=== PATIENT | male | born 1960 | race Caucasian/White ===

== ENCOUNTER 2022-09-15 13:17 | Emergency (ER) | payer OTHER ==
--- OUTSIDE RECORDS SUMMARY | 2022-09-15 13:41 | XMS REPORT | Continuity of Care Document ---
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 mg total) H [facility]sp[facility] 25 MG 22 by mouth l tablet every 6 (six) hours as needed for nausea or vomiting. tamsulosin 2022- No .4mg QD Take 1 [facility] (FLOMAX) 08-[address] 0.4 mg 13:04: 00:00 (0.4 mg Hospita capsule 51 :00 total) by l mouth daily. apixaban 2022- No 5mg Q.5D Take 1 [facility] i (ELIQUIS) 5 08-17 tablet (5 st mg tablet 13:04: 00:00 mg total) [facility] 51 :00 by mouth 2 l (two) times a day. atorvastati 2022- No 10mg QD Take 1 [facility] n (LIPITOR) 08-17 tablet (10 s t 10 mg 13:04: 00:00 mg total) Hospit a tablet 51 :00 by mouth l daily. aspirin 2022- No 81mg QD Take 1 [facility] (ECOTRIN) 08-17 tablet (81 st 81 MG 13:04: 00:00 mg total) Hospit a enteric 51 :00 by mouth l coated daily. tablet ranolazine 2022- No 500mg Q.5D Take 1 [facility] (RANEXA) 08-[address] 500 MG 12 13:04: 00:00 (500 mg Hosp dee hr ER 51 :00 total) by l tablet mouth 2 (two) times a day. senna 2022- No 1{tbl} QD Take 1 [facility] (SENOKOT) 08-[address] 8.6 mg 13:04: 00:00 mouth Hospita tablet 51 :00 daily. l potassium 2022- No 10meq QD Take 1 [facility] les chloride 08-17 tablet (10 st (K-DUR) 10 13:04: 00:00 mEq total) Hospita MEQ CR 51 :00 by mouth l tablet daily. calcium 2022- No Q.5D Chew 1 [facility] carbonate 08-[address] (TUMS) 200 13:04: 00:00 (500 mg of Hospita mg calcium 51 :00 Calcium l (500 mg) Carbonate chewable total) 2 tablet (two) times a day as needed for indigestio n or heartburn. dicyclomine 2022- No 20mg Q.25D Take 1 [facility] (BENTYL) 20 08-17 tablet (20 s t mg tablet 13:04: 00:00 mg total) [facility]ita 51 :00 by mouth 4 l (four) times a day. ondansetron 2022- No 4mg Q.5D Take 1 [facility] (ZOFRAN) 4 08-17 tablet (4 st MG tablet 13:04: 00:00 mg total) [facility] spita 51 :00 by mouth 2 l (two) times a day as needed for nausea or vomiting. spironolact 2022- No 50mg QD Take 1 [facility] one 08-17 tablet (50 st (ALDACTONE) 13:04: 00:00 mg total) Hospita 50 MG 51 :00 by mouth l tablet daily. cetirizine No 10mg QD Take 1 [facility] (ZyrTEC) 10 08-17 tablet (10 s t MG tablet 13:04: 00:00 mg total) [facility] 51 :00 by mouth l daily. DULoxetine No 40mg QD Take 1 [facility] (DRIZALMA) 08-[address] 40 mg 13:04: 00:00 (40 mg Hospita capsule 51 :00 total) by l mouth daily. morPHINE 2022- [place] [id number] 15mg Q.5D Take 1 [facility] di (MS CONTIN) 08-17 tablet (15 s t 15 MG 12 hr 13:04: 00:00 mg total) [facility]ospita tablet 51 :00 by mouth 2 l (two) times a day as needed for severe pain .chronic pain. Max Daily Amount: 30 mg pregabalin 2022- No 150mg Q.5D Take 2 [facility] (LYRICA) 75 08-[address] MG capsule 13:04: 00:00 (150 mg Hos sae 51 :00 total) by l mouth 2 (two) times a day. Total 300mg a day [place]DROcodone 2022- [place] [id number] 1{tbl} Q4H Take 1 [facility] -acetaminop 08-[address] hen (NORCO) 13:04: 00:00 mouth Hosp dee 10-325 mg 51 :00 every 4 l per tablet (four) hours .acute pain. furosemide 2022- No 40mg Q.5D Take 1 [facility] (LASIX) 40 08-17 tablet (40 st mg tablet 13:04: 00:00 mg total) [facility]ita 51 :00 by mouth 2 l (two) times a day. magnesium 2022- No 400mg QD Take 1 [facility] oxide 08-[address] (MAG-OX) 13:04: 00:00 (400 mg Hospi ta 400 mg 51 :00 total) by l (241.3 mg mouth magnesium) daily. tablet fluocinolon 2022- No Q.5D 1 [facility] di e (SYNALAR) 08-17 applicatio s t 0.01 % 13:04: 00:00 n 2 (two) Hospi ta external 51 :00 times a l solution day. alum-mag 2022- No 30mL Q.25D Take 30 mL M [facility]i hydroxide-s 08-17 by mouth 4 s t imeth 13:04: 00:00 (four) Hospita (MAALOX 51 :00 times a l PLUS) day as 200-200-20 needed for mg/5 mL heartburn. suspension LORAZepam 2022- No 1mg Q8H Take 1 [facility] (ATIVAN) 1 08-17 tablet (1 st MG tablet 13:04: 00:00 mg total) [facility]ita 51 :00 by mouth l every 8 (eight) hours as needed for anxiety. amiodarone 2022- No 1{tbl} QD Take 1 [facility] HCl 08-[address] (AMIODARONE 13:04: 00:00 mouth Hosp dee ORAL) 51 :00 daily. l tamsulosin 2022- No .4mg QD Take 1 [facility] (FLOMAX) 08-[address] 0.4 mg 13:04: 00:00 (0.4 mg Hospita capsule 51 :00 total) by l mouth daily. apixaban 2022- No 5mg Q.5D Take 1 [facility] (ELIQUIS) 5 08-17 tablet (5 st mg tablet 13:04: 00:00 mg total) [facility] 51 :00 by mouth 2 l (two) times a day. atorvastati 2022- No 10mg QD Take 1 [facility] n (LIPITOR) 08-17 tablet (10 s t 10 mg 13:04: 00:00 mg total) Hospit a tablet 51 :00 by mouth l daily. aspirin 2022- No 81mg QD Take 1 [facility] (ECOTRIN) 08-17 tablet (81 st 81 MG 13:04: 00:00 mg total) Hospit a enteric 51 :00 by mouth l coated daily. tablet ranolazine 2022- No 500mg Q.5D Take 1 [facility] (RANEXA) 08-[address] 500 MG 12 13:04: 00:00 (500 mg Hosp dee hr ER 51 :00 total) by l tablet mouth 2 (two) times a day. senna 2022- No 1{tbl} QD Take 1 [facility] (SENOKOT) 08-[address] 8.6 mg 13:04: 00:00 mouth Hospita tablet 51 :00 daily. l potassium 2022- No 10meq QD Take 1 [facility] chloride 08-17 tablet (10 st (K-DUR) 10 13:04: 00:00 mEq total) Hospita MEQ CR 51 :00 by mouth l tablet daily. calcium 2022- No Q.5D Chew 1 [facility] carbonate 08-[address] (TUMS) 200 13:04: 00:00 (500 mg of Hospita mg calcium 51 :00 Calcium l (500 mg) Carbonate chewable total) 2 tablet (two) times a day as needed for indigestio n or heartburn. dicyclomine 2022- No 20mg Q.25D Take 1 [facility] (BENTYL) 20 08-17 tablet (20 s t mg tablet 13:04: 00:00 mg total) [facility] spita 51 :00 by mouth 4 l (four) times a day. ondansetron 2022- No 4mg Q.5D Take 1 [facility] (ZOFRAN) 4 08-17 tablet (4 st MG tablet 13:04: 00:00 mg total) [facility]ita 51 :00 by mouth 2 l (two) times a day as needed for nausea or vomiting. spironolact 2022- No 50mg QD Take 1 [facility] one 08-17 tablet (50 st (ALDACTONE) 13:04: 00:00 mg total) Hospita 50 MG 51 :00 by mouth l tablet daily. cetirizine No 10mg QD Take 1 [facility] (ZyrTEC) 10 08-17 tablet (10 s t MG tablet 13:04: 00:00 mg total) [facility] 51 :00 by mouth l daily. DULoxetine No 40mg QD Take 1 [facility] (DRIZALMA) 08-[address] 40 mg 13:04: 00:00 (40 mg Hospita capsule 51 :00 total) by l mouth daily. [place]PHINE 2022- [place] [id number] 15mg Q.5D Take 1 [facility] di (MS CONTIN) 08-17 tablet (15 s t 15 MG 12 hr 13:04: 00:00 mg total) [facility]ospita tablet 51 :00 by mouth 2 l (two) times a day as needed for severe pain .chronic pain. Max Daily Amount: 30 mg pregabalin 2022- No 150mg Q.5D Take 2 [facility] (LYRICA) 75 08-[address] MG capsule 13:04: 00:00 (150 mg Hos sa[facility] 51 :00 total) by l mouth 2 (two) times a day. Total 300mg a day HYDROcodone 2022- [place] [id number] 1{tbl} Q4H Take 1 [facility] -acetaminop 08-[address] hen (NORCO) 13:04: 00:00 mouth Hosp dee 10-325 mg 51 :00 every 4 l per tablet (four) hours .acute pain. furosemide 2022- No 40mg Q.5D Take 1 [facility] (LASIX) 40 08-17 tablet (40 st mg tablet 13:04: 00:00 mg total) [facility] 51 :00 by mouth 2 l (two) times a day. magnesium 2022- No 400mg QD Take 1 [facility] oxide 08-[address] (MAG-OX) 13:04: 00:00 (400 mg Hospi ta 400 mg 51 :00 total) by l (241.3 mg mouth magnesium) daily. tablet fluocinolon 2022- No 1{appli Q.5D 1 [facility] e (SYNALAR) 08-17 cation} applicatio st 0.01 % 13:04: 00:00 n 2 (two) Hospi ta external 51 :00 times a l solution day. alum-mag 2022- No 30mL Q.25D Take 30 mL M ethodi hydroxide-s 08-17 by mouth 4 s t imeth 13:04: 00:00 (four) Hospita (MAALOX 51 :00 times a l PLUS) day as 200-200-20 needed for mg/5 mL heartburn. suspension LORAZepam 2022- No 1mg Q8H Take 1 [facility] (ATIVAN) 1 08-17 tablet (1 st MG tablet 13:04: 00:00 mg total) Ho spita 51 :00 by mouth l every 8 (eight) hours as needed for anxiety. amiodarone 2022- No 1{tbl} QD Take 1 [facility] HCl 08-[address] (AMIODARONE 13:04: 00:00 mouth Hosp dee ORAL) 51 :00 daily. l BUMETanide 2022-0 2022- No 2mg QD Take 1 [facility] (BUMEX) 2 08-17 tablet (2 st MG tablet 01:37: 00:00 mg total) Ho spita 21 :00 by mouth l daily. BUMETanide 0 2022- No 2mg QD Take 1 [facility] (BUMEX) 2 3-29 03-29 tablet (2 st MG tablet 01:37: 00:00 mg total) Ho [facility]ita 21 :00 by mouth l daily. morPHINE 2023-0 Yes [id number] 15mg Q.5D Take 1 [facility] (MS CONTIN) 3-29 tablet (15 st 15 MG 12 hr 00:00: mg total) [facility]sp[facility] tablet 00 by mouth 2 l (two) times a day as needed for severe pain .chronic pain. Max Daily Amount: 30 mg apixaban 2023-0 Yes 5mg Q.5D Take 1 [facility] (ELIQUIS) 5 3-29 tablet (5 st mg tablet 00:00: mg total) Hos sae 00 by mouth 2 l (two) times a day. HYDROcodone 2023-0 Yes [id number] 1{tbl} Q4H Take 1 [facility]i -acetaminop 3-[address] hen (Isentropic) 00:00: mouth Hospi ta 10-325 mg 00 every 4 l per tablet (four) hours .acute pain. Max Daily Amount: 6 tablets LORAZepam 2023-0 Yes 1mg Q8H Take 1 [facility] (ATIVAN) 1 3-29 tablet (1 st MG tablet 00:00: mg total) [facility] sa[facility] 00 by mouth l every 8 (eight) hours as needed for anxiety. pregabalin 2023-0 Yes 150mg Q.5D Take 1 [facility] (LYRICA) 3-[address] 150 MG 00:00: (150 mg Hospita capsule 00 total) by l mouth 2 (two) times a day. Total 300mg a day morPHINE 2023-0 Yes [id number] 15mg Q.5D Take 1 [facility] (MS CONTIN) 3-29 tablet (15 st 15 MG 12 hr 00:00: mg total) [facility] tablet 00 by mouth 2 l (two) times a day as needed for severe pain .chronic pain. Max Daily Amount: 30 mg apixaban 2023-0 Yes 5mg Q.5D Take 1 [facility] (ELIQUIS) 5 3-29 tablet (5 st mg tablet 00:00: mg total) [facility] sa[facility] 00 by mouth 2 l (two) times a day. HYDROcodone 2023-0 Yes [id number] 1{tbl} Q4H Take 1 [facility] -acetaminop 3-[address] hen (NORCO) 00:00: mouth Hospi ta 10-325 mg 00 every 4 l per tablet (four) hours .acute pain. Max Daily Amount: 6 tablets LORAZepam Yes 1mg Q8H Take 1 [facility] (ATIVAN) 1 08-17 tablet (1 st MG tablet 00:00: mg total) [facility] sa[facility] 00 by mouth l every 8 (eight) hours as needed for anxiety. pregabalin Yes 150mg Q.5D Take 1 [facility] (LYRICA) 08-[address] 150 MG 00:00: (150 mg Hospita capsule 00 total) by l mouth 2 (two) times a day. Total 300mg a day calcium 2022- Yes Q.5D Chew 1 [facility] carbonate 08-[address] (TUMS) 200 00:00: 04:59 (500 mg of Hospita mg calcium 00 :00 Calcium l (500 mg) Carbonate chewable total) 2 tablet (two) times a day as needed for indigestio n or heartburn for up to 30 days. cetirizine 2022- Yes 10mg QD Take 1 [facility] (ZyrTEC) 10 08-17 tablet (10 s t MG tablet 00:00: 04:59 mg total) Ho spita 00 :00 by mouth l daily for 30 days. dicyclomine 2022- Yes 20mg Q.25D Take 1 [facility] (BENTYL) 20 08-17 tablet (20 s t mg tablet 00:00: 04:59 mg total) Ho spita 00 :00 by mouth 4 l (four) times a day for 30 days. fluocinolon 2022- Yes Q.5D Apply 1 [facility] e (SYNALAR) 08-17 applicatio s t 0.01 % 00:00: 04:59 n. Hospita external 00 :00 topically l solution 2 (two) times a day for 30 days. magnesium 2022- Yes 400mg QD Take 1 [facility] oxide 08-[address] (MAG-OX) 00:00: 04:59 (400 mg Hospi ta 400 mg 00 :00 total) by l (241.3 mg mouth magnesium) daily for tablet 30 days. ondansetron 2022- Yes 4mg Q.5D Take 1 [facility] (ZOFRAN) 4 08-17 tablet (4 st MG tablet 00:00: 04:59 mg total) Ho [facility]ita 00 :00 by mouth 2 l (two) times a day as needed for nausea or vomiting for up to 30 days. potassium 2022-2022- Yes 10meq QD Take 1 [facility] chloride 08-17 tablet (10 st (K-DUR) 10 00:00: 04:59 mEq total) Hospita MEQ CR 00 :00 by mouth l tablet daily for 30 days. spironolact 2022- Yes 50mg QD Take 1 [facility] one 08-17 tablet (50 st (ALDACTONE) 00:00: 04:59 mg total) Hospita 50 MG 00 :00 by mouth l tablet daily for 30 days. amIODarone 2022- Yes 200mg QD Take 1 [facility] (PACERONE) 08-[address] 200 MG 00:00: 04:59 (200 mg Hospita tablet 00 :00 total) by l mouth daily for 30 days. aspirin 2022- Yes 81mg QD Take 1 [facility] (ECOTRIN) 08-17 tablet (81 st 81 MG 00:00: 04:59 mg total) Hospit a enteric 00 :00 by mouth l coated daily for tablet 30 days. atorvastati 2022- Yes 10mg QD Take 1 [facility] n (LIPITOR) 08-17 tablet (10 s t 10 mg 00:00: 04:59 mg total) Hospit a tablet 00 :00 by mouth l daily for 30 days. DULoxetine 2022- Yes 40mg QD Take 1 [facility] (DRIZALMA) 08-[address] 40 mg 00:00: 04:59 (40 mg Hospita capsule 00 :00 total) by l mouth daily for 30 days. furosemide 2022- Yes 40mg Q.5D Take 1 [facility] (LASIX) 40 08-17- tablet (40 st mg tablet 00:00: 04:59 mg total) Ho spita 00 :00 by mouth 2 l (two) times a day for 30 days. ranolazine 2022- Yes 500mg Q.5D Take 1 [facility] (RANEXA) 08-[address] 500 MG 12 00:00: 04:59 (500 mg Hosp dee hr ER 00 :00 total) by l tablet mouth 2 (two) times a day for 30 days. senna 2022- Yes 1{tbl} QD Take 1 [facility] (SENOKOT) 08-[address] 8.6 mg 00:00: 04:59 mouth [facility]ospita tablet 00 :00 daily for l 30 days. tamsulosin 2022- Yes .4mg QD Take 1 [facility] (FLOMAX) 08-[address] 0.4 mg 00:00: :59 (0.4 mg Hospita capsule 00 :00 total) by l mouth daily for 30 days. calcium 2022- Yes Q.5D Chew 1 [facility] carbonate 08-[address] (TUMS) 200 00:00: :59 (500 mg of Hospita mg calcium 00 :00 Calcium l (500 mg) Carbonate chewable total) 2 tablet (two) times a day as needed for indigestio n or heartburn for up to 30 days. cetirizine 2022- Yes 10mg QD Take 1 [facility] (ZyrTEC) 10 08-17 tablet (10 s t MG tablet 00:00: 04:59 mg total) Ho spita 00 :00 by mouth l daily for 30 days. dicyclomine 2022- Yes 20mg Q.25D Take 1 [facility] (BENTYL) 20 08-17 tablet (20 s t mg tablet 00:00: 04:59 mg total) Ho spita 00 :00 by mouth 4 l (four) times a day for 30 days. fluocinolon 2022- Yes 1{appli Q.5D Apply 1 [facility] e (SYNALAR) 08-17 cation} applicatio st 0.01 % 00:00: 04:59 n. Hospita external 00 :00 topically l solution 2 (two) times a day for 30 days. magnesium 2022- Yes 400mg QD Take 1 [facility] oxide 08-[address] (MAG-OX) 00:00: 04:59 (400 mg Hospi ta 400 mg 00 :00 total) by l (241.3 mg mouth magnesium) daily for tablet 30 days. ondansetron 2022- Yes 4mg Q.5D Take 1 [facility] (ZOFRAN) 4 08-17 tablet (4 st MG tablet 00:00: 04:59 mg total) Ho spita 00 :00 by mouth 2 l (two) times a day as needed for nausea or vomiting for up to 30 days. potassium 2022- Yes 10meq QD Take 1 [facility] chloride 08-17 tablet (10 st (K-DUR) 10 00:00: 04:59 mEq total) Hospita MEQ CR 00 :00 by mouth l tablet daily for 30 days. spironolact 2022- Yes 50mg QD Take 1 [facility] one 08-17 tablet (50 st (ALDACTONE) 00:00: 04:59 mg total) Hospita 50 MG 00 :00 by mouth l tablet daily for 30 days. amIODarone 2022- Yes 200mg QD Take 1 [facility] (PACERONE) 08-[address] 200 MG 00:00: 04:59 (200 mg Hospita tablet 00 :00 total) by l mouth daily for 30 days. aspirin 2022- Yes 81mg QD Take 1 [facility] (ECOTRIN) 08-17 tablet (81 st 81 MG 00:00: 04:59 mg total) Hospit a enteric 00 :00 by mouth l coated daily for tablet 30 days. atorvastati 2022- Yes 10mg QD Take 1 [facility] n (LIPITOR) 08-17 tablet (10 s t 10 mg 00:00: 04:59 mg total) Hospit a tablet 00 :00 by mouth l daily for 30 days. DULoxetine 2022- Yes 40mg QD Take 1 [facility] (DRIZALMA) 08-[address] 40 mg 00:00: 04:59 (40 mg Hospita capsule 00 :00 total) by l mouth daily for 30 days. furosemide 2022- Yes 40mg Q.5D Take 1 [facility] (LASIX) 40 08-17 tablet (40 st mg tablet 00:00: 04:59 mg total) Ho spita 00 :00 by mouth 2 l (two) times a day for 30 days. ranolazine 2022- Yes 500mg Q.5D Take 1 [facility] (RANEXA) 08-[address] 500 MG 12 00:00: 04:59 (500 mg Hosp dee hr ER 00 :00 total) by l tablet mouth 2 (two) times a day for 30 days. senna 2022- Yes 1{tbl} QD Take 1 [facility] (SENOKOT) 08-[address] 8.6 mg 00:00: 04:59 mouth Hospita tablet 00 :00 daily for l 30 days. tamsulosin 2022- Yes .4mg QD Take 1 [facility] (FLOMAX) 08-[address] 0.4 mg 00:00: 04:59 (0.4 mg Hospita capsule 00 :00 total) by l mouth daily for 30 days. alum-mag 2022- No 30mL Q.25D Take 30 mL M ethodi hydroxide-s 08-17 by mouth 4 s t imeth 00:00: 04:59 (four) Hospita (MAALOX 00 :00 times a l PLUS) day as 200-200-20 needed for mg/5 mL heartburn suspension for up to 10 days. alum-mag 2022- No 30mL Q.25D Take 30 mL M ethodi hydroxide-s 08-17 by mouth 4 s t imeth 00:00: 04:59 (four) Hospita (MAALOX 00 :00 times a l PLUS) day as 200-200-20 needed for mg/5 mL heartburn suspension for up to 10 days. tamsulosin 0 Yes .4mg QD Take [facility]4 mg Cap 16:29: (0.4 mg Medi sean 24 hr 58 total) by Center capsule mouth in the morning. levothyroxi 0 Yes 50ug Take [address] [facility] 3-27 tablet (50 [facility] (SYNTHROID, 16:29: mcg total) Medical LEVOTHROID) [address] 50 MCG tablet HYDROcodone 3-0 Yes 1{tbl} Take [address] -acetaminop 3-27 tablet by Cyn es hen (NORCO 16:29: mouth Medica l 10-325) 58 every 6 Center 10-325 mg (six) per tablet hours as needed for Pain. tamsulosin 3-0 Yes .4mg QD Take 1 [facility] (FLOMAX[facility] 3[facility] 0.4 mg Cap 16:29: (0.4 mg Medi sean 24 hr 58 total) by Center capsule mouth in the morning. levothyroxi 2023-0 Yes 50ug Take [address] [facility] [address] [facility] 3-27 tablet (50 [facility] (SYNTHROID, 16:29: mcg total) Medical LEVOTHROID) [address] 50 MCG tablet HYDROcodone 2023-0 Yes 1{tbl} Take [address] -acetaminop 3-27 tablet by Cyn es hen (NORCO 16:29: mouth Medica l 10-325) 58 every 6 Center 10-325 mg (six) per tablet hours as needed for Pain. cyclobenzap 2023-0 2023- No 10mg Take [address] [facility] 3-27 04-01 tablet (10 [facility] (FLEXERIL) 00:00: 23:59 mg total) M edical 10 MG 00 :00 by mouth 3 Center tablet (three) times daily as needed for Muscle spasms for up to 5 days. cyclobenzap 2023-0 2023- No 10mg Take [address] [facility] [address] [facility] 3-27 04-01 tablet (10 [facility] (FLEXERIL) 00:00: 23:59 mg total) M edical 10 MG 00 :00 by mouth 3 Center tablet (three) times daily as needed for Muscle spasms for up to 5 days. guaifenesin 2023-0 Yes 600mg Take 1 [place] [facility] (MUCINEX) 3-07 Tablet by Jr ge 600 MG SR 11:53: mouth two of tablet 04 times Medicin daily. e diphenhydrA 3-0 Yes 10mg Take 10 mg [facility] MINE-Phenyl 3-07 by mouth [place] ege ephrine 11:53: as needed. of (SUDAFED PE 04 Medicin DAY & NIGHT e OR) hydrocodone Yes 1{tbl} Take 1 [facility] -acetaminop 3-07 Tablet by Col lege hen (NORCO) 11:53: mouth of 10-325 MG 04 every 4 Medicin per tablet hours as e needed for Pain. Tamsulosin Yes .4mg Take 0.4 [place] [facility] HCl 0.4 MG 3-07 mg by Doon CAPS 11:53: mouth of 04 daily. Medicin e cetirizine, Yes 10mg Take 1 [facility] ZYRTEC, 10 3-07 Tablet by [facility] ege MG tablet 11:53: mouth of 04 once. Medicin e cetirizine, 2021-05 Yes 10mg Take 10 mg [facility] ZYRTEC, 1-08 by mouth Doon (ZYRTEC 08:21: once. of ALLERGY) 10 29 Medicin MG tablet e guaifenesin 2021-05 Yes 600mg Take 600 [facility] (MUCINEX) 1-08 mg by Doon 600 MG SR 08:20: mouth two of tablet 45 times Medicin daily. e diphenhydrA 2021-05 Yes 10mg Take 10 mg [facility] MINE-Phenyl 1-08 by mouth [place] ege ephrine 08:20: as needed. of (SUDAFED PE 45 Medicin DAY & NIGHT e OR) hydrocodone 2021-05 Yes 1{tbl} Take 1 [facility] -acetaminop 1-08 Tablet by Col lege hen (NORCO) 08:20: mouth of 10-325 MG 45 every 6 Medicin per tablet hours as e needed for Pain. Tamsulosin 2021-05 Yes .4mg Take 0.4 [place] [facility] HCl 1-08 mg by Doon (FLOMAX) 08:20: mouth of 0.4 MG CAPS 45 daily. Medici n e carvedilol 2021-05 Yes 6.25mg Take 6.25 [facility] (COREG) 0-13 mg by Doon 6.25 MG 00:00: mouth 2 of tablet 00 times Medicin daily e (with meals). carvedilol 2021-05 Yes 6.25mg Take 1 [place] [facility] (COREG) 0-13 Tablet by Doon 6.25 MG 00:00: mouth 2 of tablet 00 times Medicin daily e (with meals). lamotrigine 2021-05 Yes 25mg Take 25 mg [facility] (LAMICTAL) 0-09 by mouth Colle ge 25 MG 00:00: daily. of tablet 00 Medicin e lamotrigine 2021-05 Yes 25mg Take 1 [facility] (LAMICTAL) 0-09 Tablet by [place]ay ege 25 MG 00:00: mouth of tablet 00 daily. Medicin e lorazepam 2021-05 Yes .5mg Take 0.5 [facility] (ATIVAN) 0-06 mg by [facility] tablet 00:00: mouth of 00 Every 6 Medicin hours. e lorazepam 2021-05 Yes .5mg Take 1 [facility] (ATIVAN) 0-06 Tablet by Jr e tablet 00:00: mouth of 00 Every 6 Medicin hours. e dicyclomine Yes 20mg Q.25D Take 1 [facility] (BENTYL) 20 -23 tablet (20 st mg tablet 15:45: mg total) Hos sae 04 by mouth 4 l (four) times a day. BUMETanide 0 Yes 2mg QD Take 1 [facility] (BUMEX) 2 -23 tablet (2 st MG tablet 15:45: mg total) Hos sae 04 by mouth l daily. ondansetron 0 Yes 4mg Q.5D Take 1 Meth les (ZOFRAN) 4 -23 tablet (4 st MG tablet 15:45: mg total) Hos sae 04 by mouth 2 l (two) times a day as needed for nausea or vomiting. spironolact 0 Yes 50mg QD Take 1 Meth les one - tablet (50 st (ALDACTONE) 15:45: mg total) H ospita 50 MG 04 by mouth l tablet daily. cetirizine 0 Yes 10mg QD Take 1 [facility] di (ZyrTEC) 10 -23 tablet (10 st MG tablet 15:45: mg total) Hos sae 04 by mouth l daily. magnesium 0 Yes 148mL Take 0.5 [facility] citrate 02-[address] solution 15:45: (148 mL Hospit a 04 total) by l mouth as needed. DULoxetine 0 Yes 40mg QD Take 1 [facility] (DRIZALMA) 02-[address] 40 mg 15:45: (40 mg Hospita capsule 04 total) by l mouth daily. benzonatate 2021-0 Yes 200mg [id number] Take 1 [facility] (TESSALON) 02-[id number] 200 MG 15:45: 3D (200 mg Hospita capsule 04 total) by l mouth 3 (three) times a day as needed for cough. morPHINE 2021-0 Yes [id number] 15mg Q.5D Take 1 [facility] i (MS CONTIN) 02-11 tablet (15 st 15 MG 12 hr 15:45: mg total) H ospita tablet 04 by mouth 2 l (two) times a day as needed for severe pain .chronic pain. Max Daily Amount: 30 mg pregabalin 2021-0 Yes 75mg Q.5D Take 1 [facility] di (LYRICA) 75 02-[address] MG capsule 15:45: (75 mg Hospi ta 04 total) by l mouth 2 (two) times a day. HYDROcodone 2021-0 Yes [id number] 1{tbl} Q4H Take 1 M ethodi -acetaminop 02-[address] hen (NORCO) 15:45: mouth Hospi ta 10-325 mg 04 every 4 l per tablet (four) hours .acute pain. Max Daily Amount: 6 tablets furosemide 2021-0 Yes 40mg Q.5D Take 1 [facility] di (LASIX) 40 02-11 tablet (40 st mg tablet 15:45: mg total) Hos sae 04 by mouth 2 l (two) times a day. magnesium 2021-0 Yes 400mg QD Take 1 [facility] di oxide 02-[address] (MAG-OX) 15:45: (400 mg Hospit a 400 mg 04 total) by l (241.3 mg mouth magnesium) daily. tablet fluocinolon 2021-0 Yes 1{appli Q.5D 1 Met hodi e (SYNALAR) 02-11 cation} applicatio st 0.01 % 15:45: n 2 (two) Hospit a external 04 times a l solution day. alum-mag 2021-0 Yes 30mL Q.25D Take 30 mL Me thodi hydroxide-s 02-[address] imeth 15:45: (four) Hospita (MAALOX 04 times a l PLUS) day as 200-200-20 needed for mg/5 mL heartburn. suspension promethazin 2021-0 Yes 25mg Q6H Take 1 Meth les e 9-23 tablet (25 st (PHENERGAN) 15:45: mg total) H ospita 25 MG 04 by mouth l tablet every 6 (six) hours as needed for nausea or vomiting. LORAZepam 2021-0 Yes 1mg Q8H Take 1 Method i (ATIVAN) 1 9-23 tablet (1 st MG tablet 15:45: mg total) Hos sae 04 by mouth l every 8 (eight) hours as needed for anxiety. amiodarone 2021-0 Yes 1{tbl} QD Take 1 Met hodi HCl 9-[address] (AMIODARONE 15:45: mouth Hospi ta ORAL) 04 daily. l dicyclomine 2021-0 Yes 20mg Q.25D Take 1 Met hodi (BENTYL) 20 -23 tablet (20 st mg tablet 15:45: mg total) Hos sae 04 by mouth 4 l (four) times a day. BUMETanide 2021-0 Yes 2mg QD Take 1 Metho di (BUMEX) 2 -23 tablet (2 st MG tablet 15:45: mg total) Hos sae 04 by mouth l daily. ondansetron 2021-0 Yes 4mg Q.5D Take 1 Meth les (ZOFRAN) 4 -23 tablet (4 st MG tablet 15:45: mg total) Hos sae 04 by mouth 2 l (two) times a day as needed for nausea or vomiting. spironolact 2021-0 Yes 50mg QD Take 1 Meth les one -23 tablet (50 st (ALDACTONE) 15:45: mg total) H ospita 50 MG 04 by mouth l tablet daily. cetirizine 2-0 Yes 10mg QD Take 1 Metho di (ZyrTEC) 10 -23 tablet (10 st MG tablet 15:45: mg total) Hos sae 04 by mouth l daily. magnesium 2021-0 Yes 148mL Take 0.5 Met hodi citrate 9-[address] solution 15:45: (148 mL Hospit a 04 total) by l mouth as needed. DULoxetine 2021-0 Yes 40mg QD Take 1 Metho di (DRIZALMA) 02-[address] 40 mg 15:45: (40 mg [facility] capsule 04 total) by l mouth daily. benzonatate 2021-0 Yes 200mg Q.[id number] Take 1 [facility] (TESSALON) 02-[id number] 200 MG 15:45: 3D (200 mg [facility] capsule 04 total) by l mouth 3 (three) times a day as needed for cough. morPHINE 2021-0 Yes [id number] 15mg Q.5D Take 1 [facility] i (MS CONTIN) 02-11 tablet (15 st 15 MG 12 hr 15:45: mg total) [facility] tablet 04 by mouth 2 l (two) times a day as needed for severe pain .chronic pain. Max Daily Amount: 30 mg pregabalin 2021-0 Yes 75mg Q.5D Take 1 [facility] (LYRICA) 75 02-[address] MG capsule 15:45: (75 mg [facility] ta 04 total) by l mouth 2 (two) times a day. HYDROcodone 2021-0 Yes [id number] 1{tbl} Q4H Take 1 M [facility] -acetaminop 02-[address] hen (NORCO) 15:45: mouth Hospi ta 10-325 mg 04 every 4 l per tablet (four) hours .acute pain. Max Daily Amount: 6 tablets furosemide 2021-0 Yes 40mg Q.5D Take 1 [facility] (LASIX) 40 02-11 tablet (40 st mg tablet 15:45: mg total) Hos sae 04 by mouth 2 l (two) times a day. magnesium 2021-0 Yes 400mg QD Take 1 [facility] di oxide 02-[address] (MAG-OX) 15:45: (400 mg Hospit a 400 mg 04 total) by l (241.3 mg mouth magnesium) daily. tablet fluocinolon 2021-0 Yes 1{appli Q.5D 1 Met hodi e (SYNALAR) 02-11 cation} applicatio st 0.01 % 15:45: n 2 (two) Hospit a external 04 times a l solution day. alum-mag 2021-0 Yes 30mL Q.25D Take 30 mL [facility] hydroxide-s -[address] imeth 15:45: (four) Hospita (MAALOX 04 times a l PLUS) day as 200-200-20 needed for mg/5 mL heartburn. suspension promethazin 2021-0 Yes 25mg Q6H Take 1 Meth les e 9-23 tablet (25 st (PHENERGAN) 15:45: mg total) [facility] 25 MG 04 by mouth l tablet every 6 (six) hours as needed for nausea or vomiting. LORAZepam 2021-0 Yes 1mg Q8H Take 1 [facility] (ATIVAN) 1 9-23 tablet (1 st MG tablet 15:45: mg total) [facility] sa[facility] 04 by mouth l every 8 (eight) hours as needed for anxiety. amiodarone 2021-0 Yes 1{tbl} QD Take 1 Met [facility] HCl 9-[address] (AMIODARONE 15:45: mouth Hospi ta ORAL) 04 daily. l dicyclomine 2021-0 Yes 20mg Q.25D Take 1 [facility] (BENTYL) 20 9-23 tablet (20 st mg tablet 15:45: mg total) [facility] sa[facility] 04 by mouth 4 l (four) times a day. BUMETanide 2021-0 Yes 2mg QD Take 1 [facility] (BUMEX) 2 -23 tablet (2 st MG tablet 15:45: mg total) [facility] 04 by mouth l daily. ondansetron 2021-0 Yes 4mg Q.5D Take 1 [facility] (ZOFRAN) 4 9-23 tablet (4 st MG tablet 15:45: mg total) [facility] 04 by mouth 2 l (two) times a day as needed for nausea or vomiting. spironolact 2021-0 Yes 50mg QD Take 1 [facility] les one 9-23 tablet (50 st (ALDACTONE) 15:45: mg total) [facility] 50 MG 04 by mouth l tablet daily. cetirizine 2021-0 Yes 10mg QD Take 1 [facility] (ZyrTEC) 10 9-23 tablet (10 st MG tablet 15:45: mg total) [facility] 04 by mouth l daily. magnesium 2021-0 Yes 148mL Take 0.5 Met hodi citrate 9-[address] solution 15:45: (148 mL Hospit a 04 total) by l mouth as needed. DULoxetine 2021-0 Yes 40mg QD Take 1 [facility] di (DRIZALMA) 02-[address] 40 mg 15:45: (40 mg [facility] capsule 04 total) by l mouth daily. benzonatate 2-0 Yes 200mg Q.[id number] Take 1 [facility] (TESSALON) 02-[id number] 200 MG 15:45: 3D (200 mg [facility] capsule 04 total) by l mouth 3 (three) times a day as needed for cough. morPHINE 2021-0 Yes [id number] 15mg Q.5D Take 1 [facility] (MS CONTIN) 02-11 tablet (15 st 15 MG 12 hr 15:45: mg total) [facility] tablet 04 by mouth 2 l (two) times a day as needed for severe pain .chronic pain. Max Daily Amount: 30 mg pregabalin 2-0 Yes 75mg Q.5D Take 1 [facility] (LYRICA) 75 02-[address] MG capsule 15:45: (75 mg [facility] ta 04 total) by l mouth 2 (two) times a day. HYDROcodone 2021-0 Yes [id number] 1{tbl} Q4H Take 1 M [facility]i -acetaminop 02-[address] hen (NORCO) 15:45: mouth Hospi ta 10-325 mg 04 every 4 l per tablet (four) hours .acute pain. Max Daily Amount: 6 tablets furosemide 2-0 Yes 40mg Q.5D Take 1 [facility] (LASIX) 40 02-11 tablet (40 st mg tablet 15:45: mg total) [facility] sa[facility] 04 by mouth 2 l (two) times a day. magnesium 2021-0 Yes 400mg QD Take 1 [facility] di oxide 02-[address] (MAG-OX) 15:45: (400 mg Hospit a 400 mg 04 total) by l (241.3 mg mouth magnesium) daily. tablet fluocinolon 2021-0 Yes 1{appli Q.5D 1 Met hodi e (SYNALAR) 02-11 cation} applicatio st 0.01 % 15:45: n 2 (two) Hospit a external 04 times a l solution day. alum-mag 2021-0 Yes 30mL Q.25D Take 30 mL [facility] hydroxide-s 02-[address] imeth 15:45: (four) [facility]ospita (MAALOX 04 times a l PLUS) day as 200-200-20 needed for mg/5 mL heartburn. suspension promethazin 2021-0 Yes 25mg Q6H Take 1 Meth les e 9-23 tablet (25 st (PHENERGAN) 15:45: mg total) [facility] 25 MG 04 by mouth l tablet every 6 (six) hours as needed for nausea or vomiting. LORAZepam 2021-0 Yes 1mg Q8H Take 1 [facility] (ATIVAN) 1 9-23 tablet (1 st MG tablet 15:45: mg total) [facility] 04 by mouth l every 8 (eight) hours as needed for anxiety. amiodarone 2021-0 Yes 1{tbl} QD Take 1 [facility] HCl 9-[address] (AMIODARONE 15:45: mouth Hospi ta ORAL) 04 daily. l dicyclomine 2021-0 Yes 20mg Q.25D Take 1 [facility] (BENTYL) 20 9-23 tablet (20 st mg tablet 15:45: mg total) [facility] 04 by mouth 4 l (four) times a day. BUMETanide 2021-0 Yes 2mg QD Take 1 [facility] di (BUMEX) 2 9-23 tablet (2 st MG tablet 15:45: mg total) [facility] 04 by mouth l daily. ondansetron 2021-0 Yes 4mg Q.5D Take 1 [facility] (ZOFRAN) 4 9-23 tablet (4 st MG tablet 15:45: mg total) [facility] 04 by mouth 2 l (two) times a day as needed for nausea or vomiting. spironolact 2021-0 Yes 50mg QD Take 1 Meth les one 9-23 tablet (50 st (ALDACTONE) 15:45: mg total) [facility] 50 MG 04 by mouth l tablet daily. cetirizine 2021-0 Yes 10mg QD Take 1 [facility] (ZyrTEC) 10 9-23 tablet (10 st MG tablet 15:45: mg total) [facility] 04 by mouth l daily. magnesium 2021-0 Yes 148mL Take 0.5 Met [facility] citrate 9-[address] solution 15:45: (148 mL Hospit a 04 total) by l mouth as needed. DULoxetine 2021-0 Yes 40mg QD Take 1 [facility] di (DRIZALMA) 02-[address] 40 mg 15:45: (40 mg [facility] capsule 04 total) by l mouth daily. benzonatate 2-0 Yes 200mg Q.[id number] Take 1 [facility] (TESSALON) 02-[id number] 200 MG 15:45: 3D (200 mg [facility] capsule 04 total) by l mouth 3 (three) times a day as needed for cough. morPHINE 2021-0 Yes [id number] 15mg Q.5D Take 1 [facility] (MS CONTIN) 02-11 tablet (15 st 15 MG 12 hr 15:45: mg total) [facility] tablet 04 by mouth 2 l (two) times a day as needed for severe pain .chronic pain. Max Daily Amount: 30 mg pregabalin 2021-0 Yes 75mg Q.5D Take 1 [facility] (LYRICA) 75 02-[address] MG capsule 15:45: (75 mg [facility] ta 04 total) by l mouth 2 (two) times a day. HYDROcodone 2021-0 Yes [id number] 1{tbl} Q4H Take 1 M [facility]i -acetaminop 02-[address] hen (NORCO) 15:45: mouth Hospi ta 10-325 mg 04 every 4 l per tablet (four) hours .acute pain. Max Daily Amount: 6 tablets furosemide 2021-0 Yes 40mg Q.5D Take 1 [facility] (LASIX) 40 02-11 tablet (40 st mg tablet 15:45: mg total) [facility] 04 by mouth 2 l (two) times a day. magnesium 2021-0 Yes 400mg QD Take 1 [facility] oxide 02-[address] (MAG-OX) 15:45: (400 mg Hospit a 400 mg 04 total) by l (241.3 mg mouth magnesium) daily. tablet fluocinolon 2-0 Yes 1{appli Q.5D 1 Met hodi e (SYNALAR) 02-11 cation} applicatio st 0.01 % 15:45: n 2 (two) Hospit a external 04 times a l solution day. alum-mag 2021-0 Yes 30mL Q.25D Take 30 mL [facility] hydroxide-s 02-[address] imeth 15:45: (four) [facility]ospita (MAALOX 04 times a l PLUS) day as 200-200-20 needed for mg/5 mL heartburn. suspension promethazin 2021-0 Yes 25mg Q6H Take 1 Meth les e 9-23 tablet (25 st (PHENERGAN) 15:45: mg total) [facility] 25 MG 04 by mouth l tablet every 6 (six) hours as needed for nausea or vomiting. LORAZepam 2021-0 Yes 1mg Q8H Take 1 [facility] (ATIVAN) 1 9-23 tablet (1 st MG tablet 15:45: mg total) [facility] 04 by mouth l every 8 (eight) hours as needed for anxiety. amiodarone 2021-0 Yes 1{tbl} QD Take 1 [facility] HCl 9-[address] (AMIODARONE 15:45: mouth Hospi ta ORAL) 04 daily. l dicyclomine 2021-0 Yes 20mg Q.25D Take 1 [facility] (BENTYL) 20 9-23 tablet (20 st mg tablet 15:45: mg total) [facility] 04 by mouth 4 l (four) times a day. BUMETanide 2021-0 Yes 2mg QD Take 1 [facility] (BUMEX) 2 9-23 tablet (2 st MG tablet 15:45: mg total) [facility] 04 by mouth l daily. ondansetron 2021-0 Yes 4mg Q.5D Take 1 [facility] (ZOFRAN) 4 9-23 tablet (4 st MG tablet 15:45: mg total) [facility] 04 by mouth 2 l (two) times a day as needed for nausea or vomiting. spironolact 2021-0 Yes 50mg QD Take 1 Meth les one 9-23 tablet (50 st (ALDACTONE) 15:45: mg total) [facility] 50 MG 04 by mouth l tablet daily. cetirizine 2021-0 Yes 10mg QD Take 1 [facility] (ZyrTEC) 10 9-23 tablet (10 st MG tablet 15:45: mg total) [facility] 04 by mouth l daily. magnesium 2021-0 Yes 148mL Take 0.5 Met [facility] citrate 9-[address] solution 15:45: (148 mL Hospit a 04 total) by l mouth as needed. DULoxetine 2021-0 Yes 40mg QD Take 1 [facility] (DRIZALMA) 02-[address] 40 mg 15:45: (40 mg [facility] capsule 04 total) by l mouth daily. benzonatate 2021-0 Yes 200mg Q.[id number] Take 1 [facility] (TESSALON) 02-[id number] 200 MG 15:45: 3D (200 mg [facility] capsule 04 total) by l mouth 3 (three) times a day as needed for cough. morPHINE 2021-0 Yes [id number] 15mg Q.5D Take 1 [facility] (MS CONTIN) 02-11 tablet (15 st 15 MG 12 hr 15:45: mg total) [facility] tablet 04 by mouth 2 l (two) times a day as needed for severe pain .chronic pain. Max Daily Amount: 30 mg pregabalin 2021-0 Yes 75mg Q.5D Take 1 [facility] (LYRICA) 75 02-[address] MG capsule 15:45: (75 mg [facility] ta 04 total) by l mouth 2 (two) times a day. HYDROcodone 2021-0 Yes [id number] 1{tbl} Q4H Take 1 M [facility]i -acetaminop 02-[address] hen (NORCO) 15:45: mouth Hospi ta 10-325 mg 04 every 4 l per tablet (four) hours .acute pain. Max Daily Amount: 6 tablets furosemide 2021-0 Yes 40mg Q.5D Take 1 [facility] di (LASIX) 40 02-11 tablet (40 st mg tablet 15:45: mg total) [facility] 04 by mouth 2 l (two) times a day. magnesium 2021-0 Yes 400mg QD Take 1 [facility] oxide 02-[address] (MAG-OX) 15:45: (400 mg Hospit a 400 mg 04 total) by l (241.3 mg mouth magnesium) daily. tablet fluocinolon 2021-0 Yes 1{appli Q.5D 1 Met hodi e (SYNALAR) 02-11 cation} applicatio st 0.01 % 15:45: n 2 (two) Hospit a external 04 times a l solution day. alum-mag 2021-0 Yes 30mL Q.25D Take 30 mL [facility] hydroxide-s 9-[address] imeth 15:45: (four) [facility]ospita (MAALOX 04 times a l PLUS) day as 200-200-20 needed for mg/5 mL heartburn. suspension promethazin 2021-0 Yes 25mg Q6H Take 1 Meth les e - tablet (25 st (PHENERGAN) 15:45: mg total) [facility] 25 MG 04 by mouth l tablet every 6 (six) hours as needed for nausea or vomiting. LORAZepam 2021-0 Yes 1mg Q8H Take 1 [facility] (ATIVAN) 1 02-11 tablet (1 st MG tablet 15:45: mg total) [facility] 04 by mouth l every 8 (eight) hours as needed for anxiety. amiodarone 2021-0 Yes 1{tbl} QD Take 1 [facility] HCl - tablet by st (AMIODARONE 15:45: mouth Hospi ta ORAL) 04 daily. l bisacodyL 2021-0 Yes 10mg Q24H Insert 1 Meth les (DULCOLAX) 02-[address] 10 mg 15:45: y (10 mg [facility]ospita suppository 03 total) l into the rectum daily as needed for constipati on. guaiFENesin 2021-0 Yes 600mg Q.[id number] Take 1 [facility] (MUCINEX) 02-[id number] 600 mg 15:45: 3D (600 mg [facility] tablet 03 total) by l extended mouth 3 release (three) 12hr times a day as needed. lactulose 2021-0 Yes 10g Q24H Take 15 mL Me thodi 20 gram/30 02-11 ([address] mL solution 15:45: total) by [facility] 03 mouth l daily as needed. phenylephri 2021-0 Yes 10mg Q6H Take 1 Meth les ne (Sudafed - tablet (10 st PE) 10 MG 15:45: mg total) [facility] tablet 03 by mouth l every 6 (six) hours as needed for congestion . ranolazine 2021-0 Yes 500mg Q.5D Take 1 Meth les (RANEXA) - tablet st 500 MG 12 15:45: (500 mg [facility] ta hr ER 03 total) by l tablet mouth 2 (two) times a day. albuterol 2021-0 Yes 2.5mg Q6H Take 3 mL Me [facility] (ACCUNEB) 02-11 (2.[address] 2.5 mg /3 15:45: total) by Hos sae mL (0.083 03 nebulizati l %) on every 6 nebulizer (six) solution hours as needed for wheezing. senna 202-0 Yes 1{tbl} QD Take 1 [facility] (SENOKOT) 02-[address] 8.6 mg 15:45: mouth [facility] tablet 03 daily. l potassium 2022-0 Yes 10meq QD Take 1 [facility] di chloride 02-11 tablet (10 st (K-DUR) 10 15:45: mEq total) [facility] MEQ CR 03 by mouth l tablet daily. calcium 2022-0 Yes Q.5D Chew 1 [facility] carbonate 02-[address] (TUMS) 200 15:45: (500 mg of [facility] mg calcium 03 Calcium l (500 mg) Carbonate chewable total) 2 tablet (two) times a day as needed for indigestio n or heartburn. bisacodyL 2021-0 Yes 10mg Q24H Insert 1 Meth les (DULCOLAX) 02-[address] 10 mg 15:45: y (10 mg [facility] suppository 03 total) l into the rectum daily as needed for constipati on. guaiFENesin 2021-0 Yes 600mg Q.10201431 Take 1 [facility] (MUCINEX) 02-[id number] 600 mg 15:45: 3D (600 mg [facility] tablet 03 total) by l extended mouth 3 release (three) 12hr times a day as needed. lactulose 2021-0 Yes 10g Q24H Take 15 mL Me [facility]odi 20 gram/30 02-11 ([address] mL solution 15:45: total) by [facility] 03 mouth l daily as needed. phenylephri 2022-0 Yes 10mg Q6H Take 1 Meth les ne (Sudafed 02-11 tablet (10 st PE) 10 MG 15:45: mg total) [facility] tablet 03 by mouth l every 6 (six) hours as needed for congestion . ranolazine 2022-0 Yes 500mg Q.5D Take 1 [facility] (RANEXA) 9-[address] 500 MG 12 15:45: (500 mg [facility] ta hr ER 03 total) by l tablet mouth 2 (two) times a day. albuterol 2021-0 Yes 2.5mg Q6H Take 3 mL Me [facility]odi (ACCUNEB) 02-11 (2.[address] 2.5 mg /3 15:45: total) by Hos sa[facility] mL (0.083 03 nebulizati l %) on every 6 nebulizer (six) solution hours as needed for wheezing. senna 2021-0 Yes 1{tbl} QD Take 1 [facility] (SENOKOT) 02-[address] 8.6 mg 15:45: mouth [facility] tablet 03 daily. l potassium 2021-0 Yes 10meq QD Take 1 [facility] di chloride 02-11 tablet (10 st (K-DUR) 10 15:45: mEq total) [facility] MEQ CR 03 by mouth l tablet daily. calcium 2021-0 Yes Q.5D Chew 1 [facility] carbonate 02-[address] (TUMS) 200 15:45: (500 mg of [facility] mg calcium 03 Calcium l (500 mg) Carbonate chewable total) 2 tablet (two) times a day as needed for indigestio n or heartburn. bisacodyL 2021-0 Yes 10mg Q24H Insert 1 Meth les (DULCOLAX) 02-[address] 10 mg 15:45: y (10 mg [facility] suppository 03 total) l into the rectum daily as needed for constipati on. guaiFENesin 2021-0 Yes 600mg Q.[id number] Take 1 [facility] (MUCINEX) 02-[id number] 600 mg 15:45: 3D (600 mg [facility] tablet 03 total) by l extended mouth 3 release (three) 12hr times a day as needed. lactulose 2021-0 Yes 10g Q24H Take 15 mL [facility] 20 gram/30 02-11 ([address] mL solution 15:45: total) by [facility] 03 mouth l daily as needed. phenylephri 2021-0 Yes 10mg Q6H Take 1 Meth les ne (Sudafed 02-11 tablet (10 st PE) 10 MG 15:45: mg total) [facility] tablet 03 by mouth l every 6 (six) hours as needed for congestion . ranolazine 202-0 Yes 500mg Q.5D Take 1 [facility] les (RANEXA) - tablet st 500 MG 12 15:45: (500 mg [facility] ta hr ER 03 total) by l tablet mouth 2 (two) times a day. albuterol 2021-0 Yes 2.5mg Q6H Take 3 mL [facility] (ACCUNEB) 02-11 (2.[address] 2.5 mg /3 15:45: total) by Hos sa[facility] mL (0.083 03 nebulizati l %) on every 6 nebulizer (six) solution hours as needed for wheezing. senna 2021-0 Yes 1{tbl} QD Take 1 [facility] (SENOKOT) 02-[address] 8.6 mg 15:45: mouth [facility] tablet 03 daily. l potassium 2021-0 Yes 10meq QD Take 1 [facility] di chloride 02-11 tablet (10 st (K-DUR) 10 15:45: mEq total) [facility] MEQ CR 03 by mouth l tablet daily. calcium 202-0 Yes Q.5D Chew 1 [facility] carbonate 02-[address] (TUMS) 200 15:45: (500 mg of [facility] mg calcium 03 Calcium l (500 mg) Carbonate chewable total) 2 tablet (two) times a day as needed for indigestio n or heartburn. bisacodyL 2021-0 Yes 10mg Q24H Insert 1 Meth les (DULCOLAX) 02-[address] 10 mg 15:45: y (10 mg [facility]osp[facility] suppository 03 total) l into the rectum daily as needed for constipati on. guaiFENesin 2021-0 Yes 600mg Q.[id number] Take 1 [facility] (MUCINEX) - [id number] tablet st 600 mg 15:45: 3D (600 mg [facility] tablet 03 total) by l extended mouth 3 release (three) 12hr times a day as needed. lactulose 2021-0 Yes 10g Q24H Take 15 mL Me [facility] 20 gram/30 02-11 ([address] mL solution 15:45: total) by [facility] 03 mouth l daily as needed. phenylephri 202-0 Yes 10mg Q6H Take 1 Meth les ne (Sudafed -23 tablet (10 st PE) 10 MG 15:45: mg total) [facility] tablet 03 by mouth l every 6 (six) hours as needed for congestion . ranolazine 2022-0 Yes 500mg Q.5D Take 1 Meth les (RANEXA) - tablet st 500 MG 12 15:45: (500 mg [facility]pi ta hr ER 03 total) by l tablet mouth 2 (two) times a day. albuterol 2022-0 Yes 2.5mg Q6H Take 3 mL [facility] (ACCUNEB) 02-11 (2.[address] 2.5 mg /3 15:45: total) by [facility] sa[facility] mL (0.083 03 nebulizati l %) on every 6 nebulizer (six) solution hours as needed for wheezing. senna 2021-0 Yes 1{tbl} QD Take 1 [facility] (SENOKOT) 02-[address] 8.6 mg 15:45: mouth [facility] tablet 03 daily. l potassium 2022-0 Yes 10meq QD Take 1 [facility] di chloride - tablet (10 st (K-DUR) 10 15:45: mEq total) [facility] MEQ CR 03 by mouth l tablet daily. calcium 2022-0 Yes Q.5D Chew 1 [facility] carbonate - tablet st (TUMS) 200 15:45: (500 mg of [facility] mg calcium 03 Calcium l (500 mg) Carbonate chewable total) 2 tablet (two) times a day as needed for indigestio n or heartburn. bisacodyL 2022-0 Yes 10mg Q24H Insert 1 Meth les (DULCOLAX) 02-[address] 10 mg 15:45: y (10 mg [facility]osp[facility] suppository 03 total) l into the rectum daily as needed for constipati on. guaiFENesin 2-0 Yes 600mg Q.[id number] Take 1 [facility] (MUCINEX) 02-[id number] 600 mg 15:45: 3D (600 mg [facility] tablet 03 total) by l extended mouth 3 release (three) 12hr times a day as needed. lactulose 2022-0 Yes 10g Q24H Take 15 mL [facility] 20 gram/30 - ([address] mL solution 15:45: total) by [facility] 03 mouth l daily as needed. phenylephri 2022-0 Yes 10mg Q6H Take 1 Meth les ne (Sudafed - tablet (10 st PE) 10 MG 15:45: mg total) Hos [facility] tablet 03 by mouth l every 6 (six) hours as needed for congestion . ranolazine 2021-0 Yes 500mg Q.5D Take 1 [facility] (RANEXA) - tablet st 500 MG 12 15:45: (500 mg Hospi ta hr ER 03 total) by l tablet mouth 2 (two) times a day. albuterol 2021-0 Yes 2.5mg Q6H Take 3 mL [facility] (ACCUNEB) 02-11 (2.[address] 2.5 mg /3 15:45: total) by Hos sae mL (0.083 03 nebulizati l %) on every 6 nebulizer (six) solution hours as needed for wheezing. senna 2021-0 Yes 1{tbl} QD Take 1 [facility] (SENOKOT) - tablet by st 8.6 mg 15:45: mouth [facility] tablet 03 daily. l potassium 2021-0 Yes 10meq QD Take 1 [facility] di chloride - tablet (10 st (K-DUR) 10 15:45: mEq total) [facility] MEQ CR 03 by mouth l tablet daily. calcium 2021-0 Yes Q.5D Chew 1 [facility] carbonate - tablet st (TUMS) 200 15:45: (500 mg of [facility] mg calcium 03 Calcium l (500 mg) Carbonate chewable total) 2 tablet (two) times a day as needed for indigestio n or heartburn. albuterol 2021-0 Yes 2.5mg 2.5 mg by [facility] (PROVENTIL) - [facility]ation [facility] (2.5 mg/3 00:00: route of mL) 0.083% 00 once. Medicin nebulizer e solution potassium 2021-0 Yes 10meq Take 10 [facility] chloride SA - mEq by [facility] (K-DUR, 00:00: mouth of KLOR-CON 00 daily. Medicin M10) 10 MEQ e tablet ondansetron 0 Yes 4mg Take 4 mg [facility] (ZOFRAN) 4 - by mouth Colle [facility] MG tablet 00:00: every 8 of 00 hours as Medicin needed. e DULoxetine 2021-0 Yes 40mg Take 40 mg [facility] HCl 40 MG 9-23 by mouth [facility] CSDR 00:00: daily. of 00 Medicin e pregabalin 2021-0 Yes 75mg Take 75 mg [facility] (LYRICA) 75 -23 by mouth [facility] MG capsule 00:00: two times of 00 daily. Medicin e furosemide 2021-0 Yes 40mg Take 40 mg [facility] (LASIX) 40 - by mouth Colle [facility] MG tablet 00:00: daily. of 00 Medicin e magnesium 0 Yes 400mg Take 400 [place] oxide 9-23 mg by [facility] (MAG-OX) 00:00: mouth of 400 MG 00 daily. Medicin tablet e fluocinolon 2021-0 Yes 1{appli 1 [place] [facility] e acetonide - cation} applicatio [facility] (SYNALAR) 00:00: n two of 0.01 % 00 times Medicin external daily. e solution aluminum & 2021-0 Yes 30mL Take 30 mL [facility] magnesium - by mouth [facility] hydroxide 00:00: every 6 of simethicone 00 hours as Medi chris (MAALOX) needed. e suspension promethazin 0 Yes 25mg Take 25 mg [facility] 9-23 by mouth [facility] (PHENERGAN) 00:00: every 6 of 25 MG 00 hours as Medicin tablet needed. e Ranolazine 0 Yes 500mg Take 500 [facility] 500 MG TB12 9-23 mg by Doon 00:00: mouth two of 00 times Medicin daily. e senna 2021-0 Yes 8.6mg Take 8.6 [facility] (SENOKOT) 9-23 mg by Doon 8.6 MG 00:00: mouth of tablet 00 daily. Medicin e albuterol 2021-0 Yes 2.5mg 1 [facility] [place] [facility] (PROVENTIL) 9-23 by Doon (2.5 mg/3 00:00: Inhalation of mL) 0.083% 00 route Medicin nebulizer once. e solution potassium 2021-0 Yes 10meq Take 1 [facility] chloride SA 9-23 Tablet by [facility] (K-DUR, 00:00: mouth of KLOR-CON 00 daily. Medicin M10) 10 MEQ e tablet ondansetron 2021-0 Yes 4mg Take 1 [facility] (ZOFRAN) 4 9-23 Tablet by [facility] MG tablet 00:00: mouth of 00 every 8 Medicin hours as e needed. DULoxetine 2021-0 Yes 40mg Take 40 mg [facility] HCl 40 MG 9-23 by mouth [facility] CSDR 00:00: daily. of 00 Medicin e pregabalin 2021-0 Yes 75mg Take 1 [facility] (LYRICA) 75 9-23 capsule by [facility] MG capsule 00:00: mouth two of 00 times Medicin daily. e furosemide 2021-0 Yes 40mg Take 1 [facility] (LASIX) 40 9-23 Tablet by [facility] MG tablet 00:00: mouth of 00 daily. Medicin e magnesium 0 Yes 400mg Take 1 [facility] oxide 9-23 Tablet by Doon (MAG-OX) 00:00: mouth of 400 MG 00 daily. Medicin tablet e fluocinolon 2021-0 Yes 1{appli 1 [place] e acetonide 9-23 cation} applicatio Doon (SYNALAR) 00:00: n two of 0.01 % 00 times Medicin external daily. e solution aluminum & 2021-0 Yes 30mL Take 30 mL [facility] magnesium 9-23 [facility] mouth [facility] hydroxide 00:00: every 6 of simethicone 00 hours as Medi chris (MAALOX) needed. e suspension promethazin 0 Yes 25mg Take 1 [facility] 9-23 Tablet by Doon (PHENERGAN) 00:00: mouth of 25 MG 00 every 6 Medicin tablet hours as e needed. Ranolazine 2021-0 Yes 500mg Take 500 [facility] 500 MG TB12 9-23 mg by Doon 00:00: mouth two of 00 times Medicin daily. e senna 2021-0 Yes 8.6mg Take 8.6 [facility] (SENOKOT) 9-23 mg by Doon 8.6 MG 00:00: mouth of tablet 00 daily. Medicin e tamsulosin 2022-0 Yes .4mg QD Take 0.4 [facility] (FLOMAX) 9-[address] 0.4 mg 15:46: mouth [facility]osp[facility] capsule 13 daily. l apixaban 2022-0 Yes 5mg Q.5D Take 5 mg Meth [facility] (ELIQUIS) 5 9-[address] mg tablet 15:46: (two) Hospita 13 times a l day. atorvastati 2022-0 Yes 10mg QD Take 10 mg Methodi n (LIPITOR) 9-[address] 10 mg 15:46: daily. Hospita tablet 13 l aspirin 2022-0 Yes 81mg QD Take 81 mg Meth les (ECOTRIN) 9-[address] 81 MG 15:46: daily. [facility]ospita enteric 13 l coated tablet tamsulosin 2022-0 Yes .4mg QD Take 0.4 [facility] (FLOMAX) 9-[address] 0.4 mg 15:46: mouth [facility]ospita capsule 13 daily. l apixaban 2022-0 Yes 5mg Q.5D Take 5 mg Meth les (ELIQUIS) 5 9-[address] mg tablet 15:46: (two) Hospita 13 times a l day. atorvastati 2022-0 Yes 10mg QD Take 10 mg Methodi n (LIPITOR) 9-[address] 10 mg 15:46: daily. Hospita tablet 13 l aspirin 2022-0 Yes 81mg QD Take 81 mg Meth les (ECOTRIN) 9-[address] 81 MG 15:46: daily. [facility]ospita enteric 13 l coated tablet tamsulosin 2022-0 Yes .4mg QD Take 0.4 [facility] (FLOMAX) 9-[address] 0.4 mg 15:46: mouth [facility] capsule 13 daily. l apixaban 2022-0 Yes 5mg Q.5D Take 5 mg [facility] (ELIQUIS) 5 9-[address] mg tablet 15:46: (two) [facility]ospita 13 times a l day. atorvastati 2022-0 Yes 10mg QD Take 10 mg [facility] (LIPITOR) 9-[address] 10 mg 15:46: daily. [facility] tablet 13 l aspirin 2022-0 Yes 81mg QD Take 81 mg [facility] (ECOTRIN) 9-[address] 81 MG 15:46: daily. [facility] enteric 13 l coated tablet tamsulosin 2-0 Yes .4mg QD Take 0.4 [facility] (FLOMAX) 9-[address] 0.4 mg 15:46: mouth [facility] capsule 13 daily. l apixaban 2022-0 Yes 5mg Q.5D Take 5 mg [facility] (ELIQUIS) 5 9-[address] mg tablet 15:46: (two) [facility]ospita 13 times a l day. atorvastati 2022-0 Yes 10mg QD Take 10 mg [facility] (LIPITOR) 9-[address] 10 mg 15:46: daily. [facility] tablet 13 l aspirin 2-0 Yes 81mg QD Take 81 mg [facility] (ECOTRIN) 9-[address] 81 MG 15:46: daily. [facility] enteric 13 l coated tablet tamsulosin 2-0 Yes .4mg QD Take 0.4 [facility] (FLOMAX) 9-22 mg by [facility] 0.4 mg 15:46: [facility] capsule 13 daily. l apixaban 2-0 Yes 5mg Q.5D Take 5 mg [facility] (ELIQUIS) 5 9-[address] mg tablet 15:46: (two) [facility]ospita 13 times a l day. atorvastati 2-0 Yes 10mg QD Take 10 mg [facility] (LIPITOR) 9-[address] 10 mg 15:46: daily. [facility] tablet 13 l aspirin 2-0 Yes 81mg QD Take 81 mg [facility] (ECOTRIN) 9-[address] 81 MG 15:46: daily. [facility]osp[facility] enteric 13 l coated tablet Aspirin 81 2-0 Yes 81mg Take 81 mg [facility] of Medicin e Aspirin 81 2-0 Yes 81mg Take 81 mg [facility] 00 Medicin e losartan 2021-0 2- No 25mg QD Take 25 mg [facility] (COZAAR) 25 9-20 09-[address] MG tablet 20:18: 00:00 daily. [facility] 14 :00 l losartan 2021-2021- No 25mg QD Take 25 mg [facility] (COZAAR) 25 9- 09-[address] MG tablet 20:18: 00:00 daily. [facility]pi ta 14 :00 l losartan 2021-0 2- No 25mg QD Take 25 mg [facility] (COZAAR) 25 9-20 09-[address] MG tablet 20:18: 00:00 daily. [facility]pi ta 14 :00 l losartan 2021-0 2021- No 25mg QD Take 25 mg [facility] (COZAAR) 25 9- 09-[address] MG tablet 20:18: 00:00 daily. [facility]pi ta 14 :00 l losartan 2021-2021- No 25mg QD Take 25 mg [facility] (COZAAR) 25 9- 09-[address] MG tablet 20:18: 00:00 daily. [facility]pi ta 14 :00 l losartan 2021-2021- No 25mg QD Take 25 mg [facility] (COZAAR) 25 9-08 02-[address] MG tablet 20:18: 00:00 daily. [facility]pi ta 14 :00 l losartan 2021-0 2021- No 25mg QD Take 25 mg [facility] (COZAAR) 25 9- 09-[address] MG tablet 20:18: 00:00 daily. [facility]pi ta 14 :00 l LORAZepam 2021-2021- No 1mg Q.5D Take 1 mg [facility] (ATIVAN) 1 02-08-[address] MG tablet 20:18: 00:00 (two) Hospit a 11 :00 times a l day as needed for anxiety. LORAZepam 2021-2021- No 1mg Q.5D Take 1 mg [facility] (ATIVAN) 1 -08 02-[address] MG tablet 20:18: 00:00 (two) Hospit a 11 :00 times a l day as needed for anxiety. LORAZepam 2021-0 2- No 1mg Q.5D Take 1 mg [facility] (ATIVAN) 1 -08 02-[address] MG tablet 20:18: 00:00 (two) Hospit a 11 :00 times a l day as needed for anxiety. LORAZepam 2021- No 1mg Q.5D Take 1 mg [facility] (ATIVAN) 1 -08 02-[address] MG tablet 20:18: 00:00 (two) Hospit a 11 :00 times a l day as needed for anxiety. LORAZepam 2021- No 1mg Q.5D Take 1 mg [facility] (ATIVAN) 1 -08 02-[address] MG tablet 20:18: 00:00 (two) Hospit a 11 :00 times a l day as needed for anxiety. LORAZepam 2021- No 1mg Q.5D Take 1 mg [facility] (ATIVAN) 1 -08 02-[address] MG tablet 20:18: 00:00 (two) Hospit a 11 :00 times a l day as needed for anxiety. LORAZepam 2021- No 1mg Q.5D Take 1 mg [facility] (ATIVAN) 1 02-08-[address] MG tablet 20:18: 00:00 (two) Hospit a 11 :00 times a l day as needed for anxiety. levothyroxi 2021-2021- No 50ug QD Take 50 [facility] ne 9-20 09-[address] (SYNTHROID) 20:18: 00:00 [facility] 50 mcg 08 :00 daily. l tablet levothyroxi 2021- No 50ug QD Take 50 [facility] ne 9-20 09-[address] (SYNTHROID) 20:18: 00:00 [facility] 50 mcg 08 :00 daily. l tablet levothyroxi 2021-2021- No 50ug QD Take 50 [facility] ne 9-20 09-[address] (SYNTHROID) 20:18: 00:00 [facility] 50 mcg 08 :00 daily. l tablet levothyroxi 2021-0 2021- No 50ug QD Take 50 [facility] ne 9-20 09-[address] (SYNTHROID) 20:18: 00:00 [facility] 50 mcg 08 :00 daily. l tablet levothyroxi 2021-2021- No 50ug QD Take 50 [facility] ne 9-20 09-[address] (SYNTHROID) 20:18: 00:00 [facility] 50 mcg 08 :00 daily. l tablet levothyroxi 2021-2021- No 50ug QD Take 50 [facility] ne 9-20 09-[address] (SYNTHROID) 20:18: 00:00 [facility] 50 mcg 08 :00 daily. l tablet levothyroxi 2021-2- No 50ug QD Take 50 [facility] ne 9-20 09-[address] (SYNTHROID) 20:18: 00:00 [facility] 50 mcg 08 :00 daily. l tablet carvediloL 2021- No 6.25mg Q.5D Take 6.25 [facility] (COREG) 9-20 09-[address] 6.25 MG 20:18: 00:00 mouth 2 Hospit a tablet 05 :00 (two) l times a day with meals. carvediloL 2021-2021- No 6.25mg Q.5D Take 6.25 [facility] (COREG) 9-20 09-[address] 6.25 MG 20:18: 00:00 mouth 2 Hospit a tablet 05 :00 (two) l times a day with meals. carvediloL 2021-2021- No 6.25mg Q.5D Take 6.25 [facility] (COREG) 9-20 09-[address] 6.25 MG 20:18: 00:00 mouth 2 Hospit a tablet 05 :00 (two) l times a day with meals. carvediloL 2021- No 6.25mg Q.5D Take 6.25 [facility] (COREG) 9-20 09-[address] 6.25 MG 20:18: 00:00 mouth 2 Hospit a tablet 05 :00 (two) l times a day with meals. carvediloL 2021-2021- No 6.25mg Q.5D Take 6.25 [facility] (COREG) 9-20 09-[address] 6.25 MG 20:18: 00:00 mouth 2 Hospit a tablet 05 :00 (two) l times a day with meals. carvediloL 2021- No 6.25mg Q.5D Take 6.25 [facility] (COREG) 9-20 09-[address] 6.25 MG 20:18: 00:00 mouth 2 Hospit a tablet 05 :00 (two) l times a day with meals. carvediloL 2021- No 6.25mg Q.5D Take 6.25 [facility] (COREG) 02-08 09-[address] 6.25 MG 20:18: 00:00 mouth 2 Hospit a tablet 05 :00 (two) l times a day with meals. busPIRone 2021- No 5mg [id number] Take 5 mg [facility] (BUSPAR) 5 -08 02- [id number] by mouth 3 [facility] MG tablet 20:17: 00:00 3D (three) Hosp dee 59 :00 times a l day. busPIRone 2021- No 5mg Q.[id number] Take 5 mg [facility] (BUSPAR) 5 -08 02- [id number] by mouth 3 [facility] MG tablet 20:17: 00:00 3D (three) Hosp dee 59 :00 times a l day. busPIRone 2021-2021- No 5mg Q.[id number] Take 5 mg [facility] (BUSPAR) 5 -08 02- [id number] by mouth 3 [facility] MG tablet 20:17: 00:00 3D (three) Hosp dee 59 :00 times a l day. busPIRone 2021- No 5mg Q.[id number] Take 5 mg [facility] (BUSPAR) 5 -08 02- [id number] by mouth 3 [facility] MG tablet 20:17: 00:00 3D (three) Hosp dee 59 :00 times a l day. busPIRone 2021- No 5mg Q.[id number] Take 5 mg [facility] (BUSPAR) 5 -08 02- [id number] by mouth 3 [facility] MG tablet 20:17: 00:00 3D (three) Hosp dee 59 :00 times a l day. busPIRone 2021-2021- No 5mg Q.[id number] Take 5 mg [facility] (BUSPAR) 5 -08 02- [id number] by mouth 3 [facility] MG tablet 20:17: 00:00 3D (three) Hosp dee 59 :00 times a l day. busPIRone 2021-0 2021- No 5mg Q.[id number] Take 5 mg [facility] (BUSPAR) 5 9-20 09-20 [id number] [address] mouth [facility] [address] MG tablet 20:17: 00:00 3D (three) Hosp dee 59 :00 times a l day. pregabalin 2021-0 2022- No 300mg Q.5D Take 300 [facility] (LYRICA) 9-20 09-[address] 300 MG 20:14: 00:00 mouth 2 [facility] capsule 05 :00 (two) l times a day. pregabalin 2021-0 2021- No 300mg Q.5D Take 300 [facility] (LYRICA) 9-20 09-[address] 300 MG 20:14: 00:00 mouth 2 [facility] capsule 05 :00 (two) l times a day. pregabalin 2021-0 2021- No 300mg Q.5D Take 300 [facility] (LYRICA) 9-20 09-[address] 300 MG 20:14: 00:00 mouth 2 [facility]osp[facility] capsule 05 :00 (two) l times a day. pregabalin 2021-0 2021- No 300mg Q.5D Take 300 [facility] (LYRICA) 9-20 09-[address] 300 MG 20:14: 00:00 mouth 2 [facility] capsule 05 :00 (two) l times a day. pregabalin 2021-0 2- No 300mg Q.5D Take 300 [facility] (LYRICA) 9-20 09-[address] 300 MG 20:14: 00:00 mouth 2 [facility]osp[facility] capsule 05 :00 (two) l times a day. pregabalin 2021-0 2- No 300mg Q.5D Take 300 [facility] (LYRICA) 9-20 09-[address] 300 MG 20:14: 00:00 mouth 2 [facility] capsule 05 :00 (two) l times a day. pregabalin 2021-0 2- No 300mg Q.5D Take 300 [facility] (LYRICA) 9-20 09-[address] 300 MG 20:14: 00:00 mouth 2 [facility] capsule 05 :00 (two) l times a day. HYDROcodone 2022-0 Yes 1{tbl} Take [address] [facility] [address] -acetaminop 9-09 tablet by [facility] (NORCO 11:17: mouth Medica l 10-325) 03 every 6 Center 10-325 mg (six) per tablet hours as needed for Pain. amiodarone 0 Yes 100mg QD Take [address] (PACERONE) 9-09 [facility] MG 11:17: mouth [facility] tablet 03 daily. Center POTASSIUM Yes 10ug QD Take 10 [facility] CHLORIDE 9-[facility] ORAL 11:17: mouth [facility] 03 daily. Center HYDROcodone Yes 1{tbl} Take [address] -acetaminop 9-09 tablet by [facility] (NORCO 11:17: mouth Medica l 10-325) 03 every 6 Center 10-325 mg (six) per tablet hours as needed for Pain. amiodarone Yes 100mg QD Take [address] (PACERONE) 9-09 mg [facility] 100 MG 11:17: mouth Medical tablet 03 daily. Center POTASSIUM Yes 10ug QD Take 10 [facility] CHLORIDE 9-09 [facility] ORAL 11:17: mouth [facility] 03 daily. Center HYDROcodone Yes 1{tbl} Take [address] -acetaminop 9-09 tablet by [facility] (NORCO 11:17: mouth Medica l 10-325) 03 every 6 Center 10-325 mg (six) per tablet hours as needed for Pain. amiodarone Yes 100mg QD Take [address] (PACERONE) 9-09 mg [facility] 100 MG 11:17: mouth Medical tablet 03 daily. Center POTASSIUM Yes 10ug QD Take 10 [facility] CHLORIDE 9-09 [facility]cg [facility] ORAL 11:17: mouth Medical 03 daily. Center HYDROcodone 0 Yes 1{tbl} Take [address] -acetaminop 9-09 tablet by [facility] (NORCO 11:17: mouth Medica l 10-325) 03 every 6 Center 10-325 mg (six) per tablet hours as needed for Pain. amiodarone 0 Yes 100mg QD Take [address] (PACERONE) 9-09 [facility] 100 MG 11:17: mouth Medical tablet 03 daily. [place] POTASSIUM Yes 10ug QD Take 10 [facility] CHLORIDE 9-09 [facility]cg [facility] ORAL 11:17: mouth Medical 03 daily. [place] HYDROcodone Yes 1{tbl} Take [address] -acetaminop 9-09 tablet by [facility] (NORCO 11:17: mouth Medica l 10-325) 03 every 6 Center 10-325 mg (six) per tablet hours as needed for Pain. amiodarone Yes 100mg QD Take [address] (PACERONE) 9-09 mg [facility] 100 MG 11:17: mouth Medical tablet 03 daily. [place] POTASSIUM Yes 10ug QD Take 10 [facility] CHLORIDE 9-09 [facility]cg [facility] ORAL 11:17: mouth Medical 03 daily. [place] HYDROcodone Yes 1{tbl} Take [address] -acetaminop 9-09 tablet by [facility] (NORCO 11:17: mouth Medica l 10-325) 03 every 6 Center 10-325 mg (six) per tablet hours as needed for Pain. amiodarone Yes 100mg QD Take [address] (PACERONE) 9-09 [facility] 100 MG 11:17: mouth Medical tablet 03 daily. [place] POTASSIUM Yes 10ug QD Take 10 [facility] CHLORIDE 9-09 [facility]cg [facility] ORAL 11:17: mouth Medical 03 daily. [place] POTASSIUM Yes 10ug QD Take 10 [facility] CHLORIDE 9-09 [facility]cg [facility] ORAL 11:17: mouth Medical 03 daily. [place] POTASSIUM Yes 10ug QD Take 10 [facility] CHLORIDE 9-09 [facility] ORAL 11:17: mouth Medical 03 daily. [place] tamsulosin Yes .4mg QD Take 0.[address] [facility] (FLOMAX) 9-08 mg [facility] 0.4 mg Cap 11:19: mouth Medica l 24 hr 03 daily. [place] capsule levothyroxi Yes 50ug Take [address] [facility] ne 9-08 mcg by [facility] (SYNTHROID, 11:19: mouth. Medi sean LEVOTHROID) 03 Center 50 MCG tablet tamsulosin 2022-0 Yes .4mg QD Take 0.[address] [facility] (FLOMAX) 9-08 mg by [facility] 0.4 mg Cap 11:19: mouth Medica l 24 hr 03 daily. Center capsule levothyroxi 2-0 Yes 50ug Take [address] [facility] ne 9-08 mcg by [facility] (SYNTHROID, 11:19: mouth. Medi sean LEVOTHROID) 03 Center 50 MCG tablet tamsulosin 2-0 Yes .4mg QD Take 0.[address] [facility] (FLOMAX) 9-08 mg by [facility] 0.4 mg Cap 11:19: mouth Medica l 24 hr 03 daily. Center capsule levothyroxi 2-0 Yes 50ug Take [address] [facility] ne 9-08 mcg by [facility] (SYNTHROID, 11:19: mouth. Medi sean LEVOTHROID) 03 Center 50 MCG tablet tamsulosin 2-0 Yes .4mg QD Take 0.[address] [facility] (FLOMAX) 9-08 mg by [facility] 0.4 mg Cap 11:19: mouth Medica l 24 hr 03 daily. Center capsule levothyroxi 2-0 Yes 50ug Take [address] [facility] ne 9-08 mcg by [facility] (SYNTHROID, 11:19: mouth. Medi sean LEVOTHROID) 03 Center 50 MCG tablet tamsulosin 2-0 Yes .4mg QD Take 0.[address] [facility] (FLOMAX) 9-08 mg [facility] 0.4 mg Cap 11:19: mouth Medica l 24 hr 03 daily. Center capsule levothyroxi 2-0 Yes 50ug Take [address] [facility] ne 9-08 mcg by [facility] (SYNTHROID, 11:19: mouth. Medi sean LEVOTHROID) 03 Center 50 MCG tablet tamsulosin 2-0 Yes .4mg QD Take 0.[address] [facility] (FLOMAX) 9-08 mg by [facility] 0.4 mg Cap 11:19: mouth Medica l 24 hr 03 daily. Center capsule levothyroxi 2-0 Yes 50ug Take [address] [facility] ne 9-08 mcg by [facility] (SYNTHROID, 11:19: mouth. Medi sean LEVOTHROID) 03 Center 50 MCG tablet levothyroxi 2-0 Yes 50ug Take 50 [place] [facility] ne 9-08 [facility]cg [facility] (SYNTHROID) 00:00: mouth of 50 MCG 00 daily. Medicin tablet e levothyroxi 2022-0 Yes 50ug Take 1 [facility] 01-27 Tablet by [facility] (SYNTHROID) 00:00: mouth of 50 MCG 00 daily. Medicin tablet e lactulose 2021-0 Yes 30g Q.[id number] Take [address] [facility] (CHRONULAC) - [id number] mLs (30 g [facility] 10 gram/15 00:00: 3D total) by Ms dical mL solution 00 mouth 3 Cente r (three) times daily Until patient has a bm. lactulose 2021-0 Yes 30g Q.[id number] Take [address] [facility] (CHRONULAC) - [id number] mLs (30 g [facility] 10 gram/15 00:00: 3D total) by Me dical mL solution 00 mouth 3 Cente r (three) times daily Until patient has a bm. lactulose 2021-0 Yes 30g Q.[id number] Take [address] [facility] (CHRONULAC) - [id number] mLs (30 g [facility] 10 gram/15 00:00: 3D total) by Ms dical mL solution 00 mouth 3 Cente r (three) times daily Until patient has a bm. lactulose 2021-0 Yes 30g Q.[id number] Take [address] [facility] (CHRONULAC) - [id number] mLs (30 g [facility] 10 gram/15 00:00: 3D total) by Ms dical mL solution 00 mouth 3 Cente r (three) times daily Until patient has a bm. lactulose 2021-0 Yes 30g Q.[id number] Take [address] [facility] (CHRONULAC) - [id number] mLs (30 g [facility] 10 gram/15 00:00: 3D total) by Ms dical mL solution 00 mouth 3 Cente r (three) times daily Until patient has a bm. lactulose 2021-0 Yes 30g Q.[id number] Take [address] [facility] (CHRONULAC) - [id number] mLs (30 g [facility] 10 gram/15 00:00: 3D total) by Ms dical mL solution 00 mouth 3 Cente r (three) times daily Until patient has a bm. lactulose 2021-0 Yes 30g Q.[id number] Take [address] [facility] (CHRONULAC) 9- [id number] mLs (30 g [facility] 10 gram/15 00:00: 3D total) by Me dical mL solution 00 mouth 3 Cente r (three) times daily Until patient has a bm. lactulose Yes 30g Q.[id number] Take [address] [facility] (CHRONULAC) 9-05 [id number] mLs (30 g [facility] 10 gram/15 00:00: 3D total) by Me dical mL solution 00 mouth 3 Cente r (three) times daily Until patient has a bm. polymyxin B 2021- No 1[drp] Apply [address] [facility] sulf-trimet -08 28-11 drop to [facility] hoprim 00:00: 23:59 eye(s) Medical 10,000 00 :00 every 4 Center unit- 1 (four) mg/mL Drop hours for 7 days. polymyxin B 2021- No 1[drp] Apply [address] [facility] sulf-trimet -08 28-11 drop to [facility] hoprim 00:00: 23:59 eye(s) Medical 10,000 00 :00 every 4 Center unit- 1 (four) mg/mL Drop hours for 7 days. polymyxin B 2021- No 1[drp] Apply [address] [facility] sulf-trimet -08 28-11 drop to [facility] hoprim 00:00: 23:59 eye(s) Medical 10,000 00 :00 every 4 Center unit- 1 (four) mg/mL Drop hours for 7 days. polymyxin B 2021- No 1[drp] Apply [address] [facility] sulf-trimet -08 28-11 drop to [facility] hoprim 00:00: 23:59 eye(s) Medical 10,000 00 :00 every 4 Center unit- 1 (four) mg/mL Drop hours for 7 days. polymyxin B 2021- No 1[drp] Apply [address] [facility] sulf-trimet -08 28-11 drop to [facility] hoprim 00:00: 23:59 eye(s) Medical 10,000 00 :00 every 4 Center unit- 1 (four) mg/mL Drop hours for 7 days. polymyxin B 2021- No 1[drp] Apply [address] [facility] sulf-trimet -08 28-11 drop to [facility] hoprim 00:00: 23:59 eye(s) Medical 10,000 00 :00 every 4 Center unit- 1 (four) mg/mL Drop hours for 7 days. polymyxin B 2021- No 1[drp] Apply [address] [facility] sulf-trimet -08 28- drop to [facility] hoprim 00:00: 23:59 eye(s) Medical 10,000 00 :00 every 4 Center unit- 1 (four) mg/mL Drop hours for 7 days. polymyxin B 0 2021- No 1[drp] Apply [address] [facility] sulf-trimet -08 28- drop to [facility] hoprim 00:00: 23:59 eye(s) Medical 10,000 00 :00 every 4 Center unit- 1 (four) mg/mL Drop hours for 7 days. promethazin 2021- No 25mg Take [address] [facility] 01-20 by [facility] (PHENERGAN) 12:08: 00:00 every 6 Me dical 25 MG 52 :00 (six) Center tablet hours as needed for Nausea. promethazin 2021-2021- No 25mg Take [address] [facility] 01-20 by [facility] (PHENERGAN) 12:08: 00:00 every 6 Me dical 25 MG 52 :00 (six) Center tablet hours as needed for Nausea. promethazin 2021- No 25mg Take [address] [facility] 01-20 by [facility] (PHENERGAN) 12:08: 00:00 every 6 Me dical 25 MG 52 :00 (six) Center tablet hours as needed for Nausea. promethazin 2021-2021- No 25mg Take [address] [facility] e 01-20 by [facility] (PHENERGAN) 12:08: 00:00 every 6 Me dical 25 MG 52 :00 (six) Center tablet hours as needed for Nausea. promethazin 2021- No 25mg Take [address] [facility] 01-20 by mouth [facility] (PHENERGAN) 12:08: 00:00 every 6 Me dical 25 MG 52 :00 (six) Center tablet hours as needed for Nausea. promethazin 2-0 2022- No 25mg Take [address] [facility] 01-20 by [facility] (PHENERGAN) 12:08: 00:00 every 6 Me dical 25 MG 52 :00 (six) Center tablet hours as needed for Nausea. promethazin 2-0 2022- No 25mg Take [address] [facility] 01-20 by mouth [facility] (PHENERGAN) 12:08: 00:00 every 6 Me dical 25 MG 52 :00 (six) Center tablet hours as needed for Nausea. promethazin 2-0 2022- No 25mg Take [address] [facility] e 01-20 by [facility] (PHENERGAN) 12:08: 00:00 every 6 Me dical 25 MG 52 :00 (six) Center tablet hours as needed for Nausea. losartan 2-0 2022- No 25mg Take [address] [facility] [address] [facility] (COZAAR) 25 01-20 by mouth. [facility]y k[facility] MG tablet 12:08: 00:00 Medical 43 :00 [place] losartan 2022-0 2022- No 25mg Take [address] [facility] [address] [facility] (COZAAR) 25 01-20 by mouth. [facility]y kes MG tablet 12:08: 00:00 Medical 43 :00 [place] losartan 2022-0 2022- No 25mg Take [address] [facility] [address] [facility] (COZAAR) 25 01-20 by mouth. Lizy kes MG tablet 12:08: 00:00 Medical 43 :00 [place] losartan 2022-0 2022- No 25mg Take [address] [facility] [address] [facility] (COZAAR) 25 01-20 by mouth. Lizy kes MG tablet 12:08: 00:00 Medical 43 :00 [place] losartan 2022-0 2022- No 25mg Take [address] [facility] [address] [facility] (COZAAR) 25 01-20 by mouth. Lziy kes MG tablet 12:08: 00:00 Medical 43 :00 [place] losartan 2022-0 2022- No 25mg Take [address] [facility] [address] [facility] (COZAAR) 25 01-20 by mouth. Lizy kes MG tablet 12:08: 00:00 Medical 43 :00 [place] losartan 2021-0 2021- No 25mg Take [address] [facility] [address] [facility] (COZAAR) 01-20 by mouth. [facility]y k[facility] MG tablet 12:08: 00:00 Medical 43 :00 Center losartan 2021-0 2021- No 25mg Take [address] [facility] [address] [facility] (COZAAR) 25 01-20 by mouth. Lizy kes MG tablet 12:08: 00:00 Medical 43 :00 Center methylPREDN 2021-0 2021- No follow [facility] ISolone 2-26 03-05 [facility] (MEDROL 00:00: 23:59 directions Med ical DOSEPACK) 4 00 :00 . Center mg tablet methylPREDN 2021-0 2021- No follow [facility] ISolone 2-26 03-05 [facility] (MEDROL 00:00: 23:59 directions Med ical DOSEPACK) 4 00 :00 . Center mg tablet methylPREDN 2021-0 2021- No follow [facility] ISolone 2-26 03-05 [facility] (MEDROL 00:00: 23:59 directions Med ical DOSEPACK) 4 00 :00 . Center mg tablet methylPREDN 2021-0 2021- No follow [facility] ISolone 2-26 03-05 [facility] (MEDROL 00:00: 23:59 directions Med ical DOSEPACK) 4 00 :00 . Center mg tablet methylPREDN 2-0 2021- No follow [facility] ISolone 2-26 03-05 [facility] (MEDROL 00:00: 23:59 directions Med ical DOSEPACK) 4 00 :00 . Center mg tablet HYDROcodone 2021-2021- No 1{tbl} Take [address] -acetaminop -14 08- tablet by Lizy agustin (NORCO 00:00: 23:59 mouth Medic al 10-325) 00 :00 every 4 Center 10-325 mg (four) per tablet hours as needed for Pain for up to 3 days. Max Daily Amount: 6 tablets HYDROcodone 2021-0 2021- No 1{tbl} Take [address] -acetaminop -14 08- tablet by Lizy agustin (NORCO 00:00: 23:59 mouth Medic al 10-325) 00 :00 every 4 Center 10-325 mg (four) per tablet hours as needed for Pain for up to 3 days. Max Daily Amount: 6 tablets HYDROcodone 2021- No 1{tbl} Take [address] -acetaminop 07-17 tablet by Lizy agustin (NORCO 00:00: 23:59 mouth Medic al 10-325) 00 :00 every 4 Center 10-325 mg (four) per tablet hours as needed for Pain for up to 3 days. Max Daily Amount: 6 tablets HYDROcodone 2021- No 1{tbl} Take [address] -acetaminop 07-17 tablet by Lizy agustin (NORCO 00:00: 23:59 mouth Medic al 10-325) 00 :00 every 4 Center 10-325 mg (four) per tablet hours as needed for Pain for up to 3 days. Max Daily Amount: 6 tablets atorvastati 2020-[address] [facility] (LIPITOR) 0-13 [facility] 10 MG 00:00: Medical tablet 00 [place] atorvastati 2020-[address] [facility] n (LIPITOR) 0-13 [facility] 10 MG 00:00: Medical tablet 00 [place] atorvastati 2020-[address] [facility] (LIPITOR) 0-13 [facility] 10 MG 00:00: Medical tablet 00 [place] atorvastati 2020-[address] [facility] (LIPITOR) 0-13 [facility] 10 MG 00:00: Medical tablet 00 [place] atorvasta 2020-[address] [facility] n (LIPITOR) 0-13 [facility] 10 MG 00:00: Medical tablet 00 [place] atorvastati 2020-[address] [facility] n (LIPITOR) 0-13 [facility] 10 MG 00:00: Medical tablet 00 [place] atorvastati 2020-[address] [facility] (LIPITOR) 0-13 [facility] 10 MG 00:00: Medical tablet 00 [place] atorvastati 2020-[address] [facility] n (LIPITOR) 0-13 [facility] 10 MG 00:00: Medical tablet 00 [place] atorvastati 2020-05 Yes 10mg Take 10 mg [facility] n (LIPITOR) 0-13 by mouth [facility] 10 MG 00:00: daily. [facility] Yes 10mg Take 1 [facility] (LIPITOR) 0-13 Tablet by Col lege 10 MG 00:00: mouth of tablet 00 daily. Medicin e bumetanide 2020-05- No 2mg QD Take [address] [facility] (BUMEX) 2 0-13 10-13 tablet (2 [facility] MG tablet 00:00: 23:59 mg total) Me dical 00 :00 by mouth Center daily. carvediloL 2020-05- No 25mg Take [address] [facility] (COREG) 25 0-13 10-13 tablet (25 Lizy kes MG tablet 00:00: 23:59 mg total) Me dical 00 :00 by mouth 2 Center (two) times daily with breakfast and dinner. spironolact 2020-05- No 25mg QD Take [address] [facility] one 0-13 10-13 tablet (25 [facility] (ALDACTONE) 00:00: 23:59 mg total) Medical 25 MG 00 :00 by mouth Center tablet daily. bumetanide 2020-05- No 2mg QD Take [address] [facility] (BUMEX) 2 0-13 10-13 tablet (2 [facility] MG tablet 00:00: 23:59 mg total) Me dical 00 :00 by mouth Center daily. carvediloL 2020-05- No 25mg Take [address] [facility] (COREG) 25 0-13 10-13 tablet (25 Lizy kes MG tablet 00:00: 23:59 mg total) Me dical 00 :00 by mouth 2 Center (two) times daily with breakfast and dinner. spironolact 2020-05- No 25mg QD Take [address] [facility] one 0-13 10-13 tablet (25 [facility] (ALDACTONE) 00:00: 23:59 mg total) Medical 25 MG 00 :00 by mouth Center tablet daily. bumetanide 2020-05- No 2mg QD Take [address] [facility] (BUMEX) 2 0-13 10-13 tablet (2 [facility] MG tablet 00:00: 23:59 mg total) Me dical 00 :00 by mouth Center daily. carvediloL 2020-05- No 25mg Take [address] [facility] (COREG) 25 0-13 10-13 tablet (25 Lizy kes MG tablet 00:00: 23:59 mg total) Me dical 00 :00 by mouth 2 Center (two) times daily with breakfast and dinner. spironolact 2020-05- No 25mg QD Take [address] [facility] one 0-13 10-13 tablet (25 [facility] (ALDACTONE) 00:00: 23:59 mg total) Medical 25 MG 00 :00 by mouth Center tablet daily. bumetanide 2020-05- No 2mg QD Take [address] [facility] (BUMEX) 2 0-13 10-13 tablet (2 [facility] MG tablet 00:00: 23:59 mg total) Me dical 00 :00 by mouth Center daily. carvediloL 2020-05- No 25mg Take [address] [facility] (COREG) 25 0-13 10-13 tablet (25 Lizy kes MG tablet 00:00: 23:59 mg total) Me d[facility] 00 :00 by mouth 2 Center (two) times daily with breakfast and dinner. spironolact 2020-05- No 25mg QD Take [address] [facility] one 0-13 10-13 tablet (25 [facility] (ALDACT[facility]: 23:59 mg total) [facility] 25 MG 00 :[facility] tablet daily. bumetanide 2020-05- No 2mg QD Take [address] [facility] (BUMEX) 2 0-13 10-13 tablet (2 [facility] tablet 00:00: 23:59 mg total) [facility] :[facility] daily. carvediloL 2020-05- No 25mg Take [address] [facility] (COREG) 25 0-13 10-13 tablet (25 [facility] tablet 00:00: 23:59 mg total) Me d[facility] 00 :00 by mouth 2 Center (two) times daily with breakfast and dinner. spironolact 2020-05- No 25mg QD Take [address] [facility] one 0-13 10-13 tablet (25 [facility] (AL[facility]CT[facility]:00: 23:59 mg total) [facility] 25 MG 00 :[facility] tablet daily. bumetanide 2020-05- No 2mg QD Take [address] [facility] (BUMEX) 2 0-13 10-13 tablet (2 [facility] tablet 00:00: 23:59 mg total) [facility] 00 :[facility] daily. carvediloL 2020-05- No 25mg Take [address] [facility] (COREG) 25 0-13 10-13 tablet (25 [facility] tablet 00:00: 23:59 mg total) Me d[facility] 00 :00 by mouth 2 Center (two) times daily with breakfast and dinner. spironolact 2020-05- No 25mg QD Take [address] [facility] one 0-13 10-13 tablet (25 [facility] (AL[facility]CT[facility]: 23:59 mg total) [facility] 25 MG 00 :00 [facility] tablet daily. bumetanide 2020-05- No 2mg QD Take [address] [facility] (BUMEX) 2 0-13 10-13 tablet (2 [facility] tablet 00:00: 23:59 mg total) [facility] 00 :[facility] daily. carvediloL 2020-05- No 25mg Take [address] [facility] (COREG) 25 0-13 10-13 tablet (25 [facility] tablet 00:00: 23:59 mg total) Me d[facility] 00 :00 by mouth 2 Center (two) times daily with breakfast and dinner. spironolact 2020-05- No 25mg QD Take [address] [facility] one 0-13 10-13 tablet (25 [facility] (ALDACT[facility]) 00:00: 23:59 mg total) [facility] 25 MG 00 :00 [facility] tablet daily. bumetanide 2020-05- No 2mg QD Take [address] [facility] (BUMEX) 2 0-13 10-13 tablet (2 [facility] tablet 00:00: 23:59 mg total) [facility] 00 :00 [facility] daily. carvediloL 2020-05- No 25mg Take [address] [facility] (COREG) 25 0-13 10-13 tablet (25 [facility] MG tablet 00:00: 23:59 mg total) Me dical 00 :00 by mouth 2 Center (two) times daily with breakfast and dinner. spironolact 2020-05- No 25mg QD Take [address] [facility] one 0-13 10-13 tablet (25 [facility] (ALDACTONE) 00:00: 23:59 mg total) Medical 25 MG 00 :00 by mouth Center tablet daily. DULoxetine 2020-[address] [facility] (CYMBALTA) 0-11 [facility] 20 MG 00:00: Medical capsule 00 [place] DULoxetine 2020-[address] [facility] (CYMBALTA) 0-11 [facility] 20 MG 00:00: Medical capsule 00 [place] DULoxetine 2020-[address] [facility] (CYMBALTA) 0-11 [facility] 20 MG 00:00: Medical capsule 00 [place] DULoxetine 2020-[address] [facility] (CYMBALTA) 0-11 [facility] 20 MG 00:00: Medical capsule 00 [place] DULoxetine 2020-[address] [facility] (CYMBALTA) 0-11 [facility] 20 MG 00:00: Medical capsule 00 [place] DULoxetine 2020-[address] [facility] (CYMBALTA) 0-11 [facility] 20 MG 00:00: Medical capsule 00 [place] DULoxetine 2020-05- No [facility] (CYMBALTA) 0-11 04-05 [facility] 20 MG 00:00: 00:00 Medical capsule 00 :00 [place] DULoxetine 2020-05- No [facility] (CYMBALTA) 0-11 04-05 [facility] 20 MG 00:00: 00:00 Medical capsule 00 :00 [place] HYDROcodone 2020-05- No [facility]11 02-26 [facility] (NORCO 00:00: 00:00 Medica l 10-325) 00 :00 [place] 10-325 mg per tablet HYDROcodone 2020-05- No [facility]acet[facility] 0-11 02-26 [facility] (NORCO 00:00: 00:00 Medica l 10-325) 00 :00 Center 10-325 mg per tablet HYDROcodone 2020-05- No [facility]acet[facility] 0-11 02-26 [facility] (NORCO 00:00: 00:00 Medica l 10-325) 00 :00 Center 10-325 mg per tablet HYDROcodone 2020-05- No [facility] -acet[facility] 0-11 02-26 [facility] (NORCO 00:00: 00:00 Medica l 10-325) 00 :00 [place] 10-325 mg per tablet lactulose 2020-05- No as needed [facility] (CHRONULAC) 0-07 09-05 . [facility] gram/15 00:00: 00:00 Medica l mL solution 00 :00 Center lactulose 2020-05- No as needed [facility] (CHRONULAC[facility] 0- 09-05 . [facility] gram/15 00:00: 00:00 Medica l mL solution 00 :00 Center lactulose 2020-05- No as needed [facility] (CHRONULAC[facility] 0-07 09-05 . [facility] gram/15 00:00: 00:00 Medica l mL solution 00 :00 Center lactulose 2020-05- No as needed [facility] (CHRONULAC[facility] 0-07 09-05 . [facility] gram/15 00:00: 00:00 Medica l mL solution 00 :00 Center lactulose 2020-05- No as needed [facility] (CHRONULAC[facility] 0 09-05 . [facility] gram/15 00:00: 00:00 Medica l mL solution 00 :00 Center lactulose 2020-05- No as needed [facility] (CHRONULAC[facility] 0 09-05 . [facility] gram/15 00:00: 00:00 Medica l mL solution 00 :00 Center lactulose 2020-05- No as needed [facility] (CHRONULAC) 0 09-05 . [facility] gram/15 00:00: 00:00 Medica l mL solution 00 :00 Center lactulose 2020-05- No as needed [facility] (CHRONULAC[facility] 0 09-05 . [facility] gram/15 00:00: 00:00 Medica l mL solution 00 :00 [place] ranolazine 2021- No 500mg Q.5D Take [address] [facility] (RANEXA) 7-20 07-20 tablet [facility] 500 MG 12 00:00: 23:59 (500 mg Medi sean hr tablet 00 :00 total) by Cente r mouth 2 (two) times daily. ranolazine 2021- No 500mg Q.5D Take [address] [facility] (RANEXA) 7-20 07-20 tablet [facility] 500 MG 12 00:00: 23:59 (500 mg Medi sean hr tablet 00 :00 total) by Cente r mouth 2 (two) times daily. ranolazine 2021- No 500mg Q.5D Take [address] [facility] (RANEXA) 7-20 07-20 tablet [facility] 500 MG 12 00:00: 23:59 (500 mg Medi sean hr tablet 00 :00 total) by Cente r mouth 2 (two) times daily. ranolazine 2021- No 500mg Q.5D Take [address] [facility] (RANEXA) 7-20 07-20 tablet [facility] 500 MG 12 00:00: 23:59 (500 mg Medi sean hr tablet 00 :00 total) by Cente r mouth 2 (two) times daily. ranolazine 2021- No 500mg Q.5D Take [address] [facility] (RANEXA) 7-20 07-20 tablet [facility] 500 MG 12 00:00: 23:59 (500 mg Medi sean hr tablet 00 :00 total) by Cente r mouth 2 (two) times daily. ranolazine 2021- No 500mg Q.5D Take [address] [facility] (RANEXA) 7-20 07-20 tablet [facility] 500 MG 12 00:00: 23:59 (500 mg Medi sean hr tablet 00 :00 total) by Cente r mouth 2 (two) times daily. ranolazine 2021- No 500mg Q.5D Take [address] [facility] (RANEXA) 7-20 07-20 tablet [facility] 500 MG 12 00:00: 23:59 (500 mg Medi sean hr tablet 00 :00 total) by Cente r mouth 2 (two) times daily. ranolazine 2021- No 500mg Q.5D Take [address] [facility] (RANEXA) 7-20 07-20 tablet [facility] 500 MG 12 00:00: 23:59 (500 mg Medi sean hr tablet 00 :00 total) by Cente r mouth 2 (two) times daily. LORazepam Yes TAKE ONE [facility] (ATIVAN) 1 2-09 (1) TABLET [facility] MG tablet 00:00: BY MOUTH Medi sean 00 EVERY 12 Center HOURS NEEDED FOR ANXIETY (MAX DAILY AMOUNT 2MG) LORazepam Yes TAKE ONE [facility] (ATIVAN) 1 2-09 (1) TABLET [facility] MG tablet 00:00: BY MOUTH Medi sean 00 EVERY 12 Center HOURS NEEDED FOR ANXIETY (MAX DAILY AMOUNT 2MG) LORazepam 2020-0 Yes TAKE ONE [facility] (ATIVAN) 1 2-09 (1) TABLET [facility] MG tablet 00:00: BY MOUTH Medi sean 00 EVERY 12 Center HOURS NEEDED FOR ANXIETY (MAX DAILY AMOUNT 2MG) LORazepam 2020-0 Yes TAKE ONE [facility] (ATIVAN) 1 2-09 (1) TABLET [facility] MG tablet 00:00: BY MOUTH Medi sean 00 EVERY 12 Center HOURS NEEDED FOR ANXIETY (MAX DAILY AMOUNT 2MG) LORazepam 2020-0 Yes TAKE ONE [facility] (ATIVAN) 1 2- (1) TABLET [facility] MG tablet 00:00: BY MOUTH Medi sean 00 EVERY 12 Center HOURS NEEDED FOR ANXIETY (MAX DAILY AMOUNT 2MG) LORazepam 2020-0 Yes TAKE ONE [facility] (ATIVAN) 1 2- (1) TABLET [facility] MG tablet 00:00: BY MOUTH Medi sean 00 EVERY 12 Center HOURS NEEDED FOR ANXIETY (MAX DAILY AMOUNT 2MG) LORazepam 2020-0 Yes TAKE ONE [facility] (ATIVAN) 1 2- (1) TABLET [facility] MG tablet 00:00: BY MOUTH Medi sean 00 EVERY 12 Center HOURS NEEDED FOR ANXIETY (MAX DAILY AMOUNT 2MG) LORazepam 2020-0 Yes TAKE ONE [facility] (ATIVAN) 1 2-09 (1) TABLET [facility] MG tablet 00:00: BY MOUTH Medi sean 00 EVERY 12 Center HOURS NEEDED FOR ANXIETY (MAX DAILY AMOUNT 2MG) pregabalin 2020-0 Yes 300mg Q.5D Take [address] [facility] (LYRICA) 1-25 capsule [facility] 300 MG 00:00: (300 mg Medical capsule 00 total) by Center mouth 2 (two) times daily. Max Daily Amount: 600 mg pregabalin 2021-0 Yes 300mg Q.5D Take [address] [facility] (LYRICA) 1-25 capsule [facility] 300 MG 00:00: (300 mg Medical capsule 00 total) by Center mouth 2 (two) times daily. Max Daily Amount: 600 mg pregabalin 2021-0 Yes 300mg Q.5D Take [address] [facility] (LYRICA) 1-25 capsule [facility] 300 MG 00:00: (300 mg Medical capsule 00 total) by Center mouth 2 (two) times daily. Max Daily Amount: 600 mg pregabalin 2021-0 Yes 300mg Q.5D Take [address] [facility] (LYRICA) 1-25 capsule [facility] 300 MG 00:00: (300 mg Medical capsule 00 total) by Center mouth 2 (two) times daily. Max Daily Amount: 600 mg pregabalin 2021-0 Yes 300mg Q.5D Take [address] [facility] (LYRICA) 1-25 capsule [facility] 300 MG 00:00: (300 mg Medical capsule 00 total) by Center mouth 2 (two) times daily. Max Daily Amount: 600 mg pregabalin 2021-0 Yes 300mg Q.5D Take [address] [facility] (LYRICA) 1-25 capsule [facility] 300 MG 00:00: (300 mg Medical capsule 00 total) by Center mouth 2 (two) times daily. Max Daily Amount: 600 mg pregabalin 2021-0 2023- No 300mg Q.5D Take [address] [facility] (LYRICA) 1-25 04-05 capsule [facility] 300 MG 00:00: 00:00 (300 mg Medical capsule 00 :00 total) by Center mouth 2 (two) times daily. Max Daily Amount: 600 mg pregabalin 2021-0 2023- No 300mg Q.5D Take [address] [facility] (LYRICA) 1-25 04-05 capsule [facility] 300 MG 00:00: 00:00 (300 mg Medical capsule 00 :00 total) by Center mouth 2 (two) times daily. Max Daily Amount: 600 mg apixaban 2021-0 Yes 5mg Q.5D Take [address] [facility] (Eliquis) 5 1-18 tablet (5 [facility] mg Tab 00:00: mg total) Medica l tablet 00 by mouth 2 Center (two) times daily. apixaban 2021-0 Yes 5mg Q.5D Take [address] [facility] (Eliquis) 5 1-18 tablet (5 [facility] mg Tab 00:00: mg total) Medica l tablet 00 by mouth 2 Center (two) times daily. apixaban 2021-0 Yes 5mg Q.5D Take [address] [facility] (Eliquis) 5 1-18 tablet (5 [facility] mg Tab 00:00: mg total) Medica l tablet 00 by mouth 2 Center (two) times daily. apixaban 2021-0 Yes 5mg Q.5D Take [address] [facility] (Eliquis) 5 1-18 tablet (5 [facility] mg Tab 00:00: mg total) Medica l tablet 00 by mouth 2 Center (two) times daily. apixaban Yes 5mg Q.5D Take [address] [facility] (Eliquis) 5 1-18 tablet (5 [facility] mg Tab 00:00: mg total) Medica l tablet 00 by mouth 2 Center (two) times daily. apixaban Yes 5mg Q.5D Take [address] [facility] (Eliquis) 5 1-18 tablet (5 [facility] mg Tab 00:00: mg total) Medica l tablet 00 by mouth 2 Center (two) times daily. apixaban 2022- No 5mg Q.5D Take [address] [facility] (Eliquis) 5 1-18 04-05 tablet (5 [facility] mg Tab 00:00: 00:00 mg total) Medic al tablet 00 :00 by mouth 2 Center (two) times daily. apixaban 2022- No 5mg Q.5D Take [address] [facility] (Eliquis) 5 1-18 04-05 tablet (5 [facility] mg Tab 00:00: 00:00 mg total) Medic al tablet 00 :00 by mouth 2 Center (two) times daily. aspirin 81 2019- Yes 81mg QD Take [facility] (81 [facility] tablet 00:00: mg total) Medica l 00 by mouth Center daily. aspirin 81 2019-05 Yes 81mg QD Take 1 [facility] 2-[facility] tablet (81 [facility] tablet 00:00: mg total) Medica l 00 by mouth Center daily. aspirin 81 2020- Yes 81mg QD Take 1 [facility] 2-04 tablet (81 [facility] tablet 00:00: mg total) Medica l 00 by mouth Center daily. aspirin 81 2020- Yes 81mg QD Take 1 [facility] 2-04 tablet (81 [facility] tablet 00:00: mg total) Medica l 00 by mouth Center daily. aspirin 81 2020- Yes 81mg QD Take 1 [facility] 2-04 tablet (81 [facility] tablet 00:00: mg total) Medica l 00 by mouth Center daily. aspirin 81 2020- Yes 81mg QD Take 1 [facility] 2-04 tablet (81 [facility] tablet 00:00: mg total) Medica l 00 by mouth Center daily. aspirin 81 2019-05 Yes 81mg QD Take 1 [facility] 2-04 tablet (81 [facility] tablet 00:00: mg total) Medica l 00 by mouth Center in the morning. aspirin 81 2019-05 Yes 81mg QD Take 1 [facility] tablet (81 [facility] tablet 00:00: mg total) Medica l 00 by mouth Center in the morning. ARIPiprazol 2019-05- No 5mg QD Take [address] [facility] (ABILIFY) 06-13 by mouth Cyn es 5 MG tablet 00:00: 00:00 daily . Me dical 00 :00 [place] ARIPiprazol 2019-05- No 5mg QD Take [address] [facility] (ABILIFY) 06-13 by mouth Cyn es 5 MG tablet 00:00: 00:00 daily . Me dical 00 :00 [place] ARIPiprazol 2019-05- No 5mg QD Take [address] [facility] (ABILIFY) 06-13 by mouth Cyn es 5 MG tablet 00:00: 00:00 daily . Me dical 00 :00 [place] ARIPiprazol 2019-05- No 5mg QD Take [address] [facility] (ABILIFY) 06-13 by mouth Cyn es 5 MG tablet 00:00: 00:00 daily . Me dical 00 :00 [place] ARIPiprazol 2019-05- No 5mg QD Take [address] [facility] (ABILIFY) 06-13 by mouth Cyn es 5 MG tablet 00:00: 00:00 daily . Me dical 00 :00 [place] ARIPiprazol 2019-05- No 5mg QD Take [address] [facility] (ABILIFY) 06-13 by mouth Cyn es 5 MG tablet 00:00: 00:00 daily . Me dical 00 :00 [place] ARIPiprazol 2019-05- No 5mg QD Take [address] [facility] (ABILIFY) 06-13 by mouth Cyn es 5 MG tablet 00:00: 00:00 daily . Me dical 00 :00 [place] ARIPiprazol 2019-05 No 5mg QD Take [address] [facility] (ABILIFY) 06-13 by mouth Cyn es 5 MG tablet 00:00: 00:00 daily . Ms dical 00 :00 [place] Tamsulosin Tamsulosin 2019-05- No 1{capsu QD Tamsulosin HCl 0.4 MG HCl 0.4 MG 06-13 le} HCl 0.4 MG 00:00: 00:00 00 :00 Tamsulosin Tamsulosin 2019-05- No 1{capsu QD Tamsulosin HCl 0.4 MG HCl 0.4 MG 06-13 le} HCl 0.4 MG 00:00: 00:00 00 :00 busPIRone 2021- No 7.5mg QD Take 7.[address] [facility] [address] [facility] (BUSPAR) 01-21 mg by [facility] 7.5 MG 00:00: 00:00 mouth Medical tablet 00 :00 daily . [place] busPIRone 2021- No 7.5mg QD Take 7.[address] [facility] [address] [facility] (BUSPAR) 01-21 mg by [facility] 7.5 MG 00:00: 00:00 mouth Medical tablet 00 :00 daily . [place] busPIRone 2021- No 7.5mg QD Take 7.[address] [facility] [address] [facility] (BUSPAR) 01-21 mg by [facility] 7.5 MG 00:00: 00:00 mouth Medical tablet 00 :00 daily . [place] busPIRone 2021- No 7.5mg QD Take 7.[address] [facility] [address] [facility] (BUSPAR) 01-21- mg by [facility] 7.5 MG 00:00: 00:00 mouth Medical tablet 00 :00 daily . [place] busPIRone 2021- No 7.5mg QD Take 7.[address] [facility] [address] [facility] (BUSPAR) 01-21- mg by [facility] 7.5 MG 00:00: 00:00 mouth Medical tablet 00 :00 daily . [place] busPIRone 2021- No 7.5mg QD Take 7.[address] [facility] [address] [facility] (BUSPAR) 01-21- mg by [facility] 7.5 MG 00:00: 00:00 mouth Medical tablet 00 :00 daily . [place] busPIRone No 7.5mg QD Take 7.[address] [facility] (BUSPAR) 01-21- mg by [facility] 7.5 MG 00:00: 00:00 mouth Medical tablet 00 :00 daily . [place] busPIRone No 7.5mg QD Take 7.[address] [facility] (BUSPAR) 01-21 mg by [facility] 7.5 MG 00:00: 00:00 mouth Medical tablet 00 :00 daily . [place] methocarbam Yes 500mg Take 500 U nivers ol 9-18 mg by ity of (ROBAXIN) 10:03: mouth 4 [place] 500 mg 54 (four) Medical tablet times Branch daily. simvastatin Yes 20mg Take 20 mg [facility] (ZOCOR) 20 9-18 by mouth ity o f mg tablet 10:03: at [place] 54 bedtime. Medical Branch amLODIPine Yes 5mg Take 5 mg [facility] (NORVASC) 5 9-18 by mouth ity of mg tablet 10:03: daily. [place] 54 Medical Branch pregabalin Yes 100mg Take 100 [facility] (LYRICA) 9-18 mg by ity of 100 mg 10:03: mouth 2 [place] capsule 54 (two) Medical times Branch daily. traMADOL Yes [id number] 50mg Take 1 Tab [facility] (ULTRAM) 50 9-26 by mouth ity of mg tablet 00:00: every 6 [place] 00 (six) Medical hours as Branch needed for Pain (scale 7-10). cyclobenzap Yes 10mg Take 10 mg Univers rine 8-26 by mouth 3 ity of (FLEXERIL) 09:54: (three[place] 10 mg 24 times Medical tablet daily. Branch esomeprazol Yes 20mg Take 20 mg [facility] e (NEXIUM) 8-26 by mouth 2 ity of 20 mg 09:54: (two) [place] capsule 24 times Medical daily. Branch lisinopril Yes 20mg Take 20 mg U nivers (PRINIVIL,Z 8-26 by mouth ity of ESTRIL) 20 09:54: daily. [place] mg tablet 24 Medical Branch HYDROcodone 2013- Yes [id number] 1{tbl} Take 1 Tab [facility] -acetaminop 8-26 by mouth ity of hen (NORCO) 00:00: every 4 [place] as 10-325 mg 00 (four) Medical tablet hours as Branch needed for Pain (scale 4-6) or Pain (scale 7-10). DULoxetine Yes 60mg Take 1 [facility] (CYMBALTA) 8-20 by mouth ity o f 60 mg 00:00: daily. [place] capsule 00 Medical Branch Eliquis 5 Eliquis 5 No Eliquis 5 MG MG MG Tylenol # 3 Tylenol # 3 No Tylenol # 300/30mg 300/30mg 3 300/30mg Losartan Losartan No 1{table QD Losartan Potassium Potassium t} Potassium 100 MG 100 MG 100 MG Tamsulosin Tamsulosin No 1{capsu QD Tamsulosin HCl 0.4 MG HCl 0.4 MG le} HCl 0.4 MG Lorazepam 1 Lorazepam 1 No 1{table QD Lorazepam MG MG t_at_be 1 MG dtime_a s_neede d} Sulfamethox Sulfamethox No Sulfametho azole-TMP azole-TMP xazole-TMP DS DS DS Eliquis 5 Eliquis 5 No Eliquis 5 MG MG MG Tylenol # 3 Tylenol # 3 No Tylenol # 300/30mg 300/30mg 3 300/30mg Losartan Losartan No 1{table QD Losartan Potassium Potassium t} Potassium 100 MG 100 MG 100 MG Tamsulosin Tamsulosin No 1{capsu QD Tamsulosin HCl 0.4 MG HCl 0.4 MG le} HCl 0.4 MG Lorazepam 1 Lorazepam 1 No 1{table QD Lorazepam MG MG t_at_be 1 MG dtime_a s_neede d} Sulfamethox Sulfamethox No Sulfametho azole-TMP azole-TMP xazole-TMP DS DS DS Eliquis 5 Eliquis 5 No Eliquis 5 MG MG MG Tylenol # 3 Tylenol # 3 No Tylenol # 300/30mg 300/30mg 3 300/30mg Losartan Losartan No 1{table QD Losartan Potassium Potassium t} Potassium 100 MG 100 MG 100 MG Tamsulosin Tamsulosin No 1{capsu QD Tamsulosin HCl 0.4 MG HCl 0.4 MG le} HCl 0.4 MG Lorazepam 1 Lorazepam 1 No 1{table QD Lorazepam MG MG t_at_be 1 MG dtime_a s_neede d} Sulfamethox Sulfamethox No Sulfametho azole-TMP azole-TMP xazole-TMP DS DS DS amiodarone amiodarone No 1 Q1D amiodarone [facility] 100 mg 100 mg 100 mg Medical tablet Take tablet Take tablet 1 tablet 1 tablet Take 1 every day every day tablet by oral by oral every day route for route for by oral 30 days. 30 days. route for 30 days. amiodarone amiodarone No amiodarone [facility] 200 mg 200 mg 200 mg Medical tablet take tablet take tablet 0.5 tablets 0.5 tablets take 0.5 QD QD tablets QD amoxicillin amoxicillin No 1 Q12H amoxicilli [facility] [phone] [id number] Medical mg-potassiu mg-potassiu mg-potassi m m um clavulanate clavulanate clavulanat 125 mg 125 mg e 125 mg tablet Take tablet Take tablet 1 tablet 1 tablet Take 1 every 12 every 12 tablet hours by hours by every 12 oral route oral route hours by for 10 for 10 oral route days. days. for 10 days. aspirin 81 aspirin 81 No aspirin 81 [facility] mg mg mg Medical tablet,stacy tablet,stacy tablet,del yed release yed release ayed TAKE 1 TAKE 1 release TABLET BY TABLET BY TAKE 1 MOUTH EVERY MOUTH EVERY TABLET BY DAY FOR 30 DAY FOR 30 MOUTH DAYS DAYS EVERY DAY FOR 30 DAYS atorvastati atorvastati No 1 Q1D atorvastat [facility] n 10 mg n 10 mg in 10 mg Medic al tablet Take tablet Take tablet 1 tablet 1 tablet Take 1 every day every day tablet by oral by oral every day route at route at by oral bedtime for bedtime for route at 30 days. 30 days. bedtime for 30 days. bumetanide bumetanide No bumetanide [facility] 2 mg tablet 2 mg tablet 2 mg M edical tablet dexamethaso dexamethaso No dexamethas [facility] ne 4 mg ne 4 mg one 4 mg Medic al tablet tablet tablet duloxetine duloxetine No 2capsul Q1D duloxetine [facility] 20 mg 20 mg e(s) 20 mg Medical capsule,del capsule,del capsule,de ayed ayed layed release release release Take 2 Take 2 Take 2 capsules capsules capsules every day every day every day by oral by oral by oral route for route for route for 30 days. 30 days. 30 days. Eliquis 5 Eliquis 5 No 1 BID Eliquis 5 [facility] mg tablet mg tablet mg tablet Medical Take 1 Take 1 Take 1 tablet tablet tablet twice a day twice a day twice a by oral by oral day by route for route for oral route 30 days. 30 days. for 30 days. Flonase Flonase No 1spray( Q1D Flonase [place] via Allergy Allergy s) Allergy Medica l Relief 50 Relief 50 Relief 50 mcg/actuati mcg/actuati mcg/actuat on nasal on nasal ion nasal spray,suspe spray,suspe spray,susp nsion [place] nsion [place] ension 1 spray 1 spray [place] 1 every day every day spray by by every day intranasal intranasal by route. route. intranasal route. guaifenesin guaifenesin No 1 Q12H guaifenesi [facility] ER 600 mg ER 600 mg n ER 600 M edical tablet, tablet, mg tablet, extended extended extended release 12 release 12 release 12 hr Take 1 hr Take 1 hr Take 1 tablet tablet tablet every 12 every 12 every 12 hours by hours by hours by oral route oral route oral route for 7 days. for 7 days. for 7 days. tamsulosin tamsulosin No 1capsul Q1D tamsulosin [facility] 0.4 mg 0.4 mg e(s) 0.4 mg Medical capsule capsule capsule Take 1 Take 1 Take 1 capsule capsule capsule every day every day every day by oral by oral by oral route for route for route for 30 days. 30 days. 30 days. Immunizations Ordered Immunization Filled Immunization Date Status Commen ts Source Name Name FLUCELVAX QUAD 2022-02-[address] [facility] FLUCELVAX QUAD 2022-02-[address] [facility]00 [facility] FLUCELVAX QUAD 2022-02-[address] [facility]:00:00 [facility] FLUCELVAX QUAD 2022-02-[address] [facility]:00:00 [facility] FLUCELVAX QUAD 2022-02-[address] [facility] FLUCELVAX QUAD PF 2022-02-[address] [facility] FLUCELVAX QUAD PF 2022-02-[address] [facility] Influenza Four-QIV 2020-05-[address] [facility] PF 3YR+ ([id number]) 00:00:00 [facility] Influenza Four-QIV 2020-05-[address] [facility] PF 3YR+ ([id number]) 00:00:00 [facility] Influenza Four-QIV 2020-05-[address] [facility] PF 3YR+ ([id number]) 00:00:00 [facility] Influenza Four-QIV 2020-05-[address] [facility] PF 3YR+ ([id number]) 00:00:00 [facility] Influenza Four-QIV 2020-05-[address] [facility] PF 3YR+ ([id number]) 00:00:00 [facility] Influenza Four-QIV 2020-05-[address] [facility] PF 3YR+ ([id number]) 00:00:00 [facility] Influenza Four-QIV 2020-05-[address] [facility] PF 3YR+ ([id number]) 00:00:00 [facility] Influenza Four-QIV 2020-05-[address] [facility] PF 3YR+ ([id number]) 00:00:00 [facility] Vital Signs Vital Name Observation Time Observation Value Comments Source HEIGHT 2020-05-13 02:00:00 167.6 cm WEIGHT 2020-05-13 02:00:00 112.855 kg Heart rate 2022-09-15 05:00:00 89 /min [facility] Oxygen saturation in 2022-09-15 05:00:00 98 /min [facility] Arterial blood by [facility] Pulse oximetry Branch Systolic blood 2022-09-15 04:53:00 123 mm[Hg] Univer sity of pressure [facility] Diastolic blood 2022-09-15 04:53:00 78 mm[Hg] [facility] Respiratory rate 2022-09-15 04:53:00 20 /min [facility] Body temperature 2022-09-15 02:55:00 36.56 [facility] Body height 2022-09-15 02:55:00 170.2 cm [facility] Body weight 2022-09-15 02:55:00 111.585 kg [facility] BMI 2022-09-15 02:55:00 38.53 kg/m2 [facility] Height 2022-09-08 00:00:00 67 [in_i] [facility] BMI (Body Mass 2022-09-08 00:00:00 40.7 kg/m2 [facility] Medical Index) Body Weight 2022-09-08 00:00:00 4160 [oz_av] [facility] BP Diastolic 2022-08-18 00:00:00 79 mm[Hg] [facility] Height 2022-08-18 00:00:00 67 [in_i] [facility] BMI (Body Mass 2022-08-18 00:00:00 40.9 kg/m2 [facility] Medical Index) BP Systolic 2022-08-18 00:00:00 126 mm[Hg] [facility] Body Weight 2022-08-18 00:00:00 4176 [oz_av] [facility] Systolic blood 2022-07-26 17:52:00 113 mm[Hg] [facility] pressure Medicine Diastolic blood 2022-07-26 17:52:00 74 mm[Hg] [facility] pressure Medicine Heart rate 2022-07-26 17:52:00 71 /min [facility] Body temperature 2022-07-26 17:52:00 36 [facility] Respiratory rate 2022-07-26 17:52:00 16 /min [facility] Body height 2022-07-26 17:52:00 [facility] 2022-07-26 17:52:00 120.657 kg [facility] BMI 2022-07-26 17:52:00 41.66 kg/m2 [facility] Systolic blood 2022-03-29 14:02:00 138 mm[Hg] [facility] pressure Medicine Diastolic blood 2022-03-29 14:02:00 86 mm[Hg] [facility] Heart rate 2022-03-29 14:02:00 64 /min [facility] Body temperature 2022-03-29 14:02:00 36.39 [facility] Respiratory rate 2022-03-29 14:02:00 16 /min [facility] Body height 2022-03-29 14:02:00 170.2 cm [facility] Body weight 2022-03-29 14:02:00 127.461 kg [facility] BMI 2022-03-29 14:02:00 44.01 kg/m2 [facility] WEIGHT 2022-01-27 06:26:00 131.543 kg HEIGHT 2022-01-27 06:26:00 167.6 cm HEIGHT 2022-01-20 12:21:00 170.2 cm WEIGHT 2022-01-20 12:21:00 131.543 kg WEIGHT 2022-01-27 06:26:00 131.543 kg HEIGHT 2022-01-27 06:26:00 167.6 cm HEIGHT 2022-01-20 12:21:00 170.2 cm WEIGHT 2022-01-20 12:21:00 131.543 kg WEIGHT 2022-01-27 06:26:00 131.543 kg HEIGHT 2022-01-27 06:26:00 167.6 cm HEIGHT 2022-01-20 12:21:00 170.2 cm WEIGHT 2022-01-20 12:21:00 131.543 kg HEIGHT 2022-01-24 15:45:00 167.6 cm WEIGHT 2022-01-24 15:45:00 131.543 kg HEIGHT 2022-01-24 15:45:00 167.6 cm WEIGHT 2022-01-24 15:45:00 131.543 kg HEIGHT 2022-01-24 15:45:00 167.6 cm WEIGHT 2022-01-24 15:45:00 131.543 kg HEIGHT 2022-01-23 15:58:00 167.6 cm WEIGHT 2022-01-23 15:58:00 131.543 kg HEIGHT 2022-01-23 15:58:00 167.6 cm WEIGHT 2022-01-23 15:58:00 131.543 kg HEIGHT 2022-01-23 15:58:00 167.6 cm WEIGHT 2022-01-23 15:58:00 131.543 kg HEIGHT 2021-07-17 12:10:00 167.6 cm WEIGHT 2021-07-17 12:10:00 127.007 kg HEIGHT 2021-07-17 12:10:00 167.6 cm WEIGHT 2021-07-17 12:10:00 127.007 kg HEIGHT 2021-05-31 16:37:00 172.7 cm WEIGHT 2021-05-31 16:37:00 127.007 kg HEIGHT 2021-05-31 16:37:00 172.7 cm WEIGHT 2021-05-31 16:37:00 127.007 kg HEIGHT 2021-03-01 14:52:00 167.6 cm WEIGHT 2021-03-01 14:52:00 130.636 kg WEIGHT 2020-12-08 06:00:00 125.102 kg WEIGHT 2020-12-07 09:00:00 126 kg WEIGHT 2020-12-06 05:58:00 128.822 kg HEIGHT 2020-12-02 08:02:00 167.6 cm WEIGHT 2020-12-02 08:02:00 127.007 kg WEIGHT 2020-12-08 06:00:00 125.102 kg WEIGHT 2020-12-07 09:00:00 126 kg WEIGHT 2020-12-06 05:58:00 128.822 kg HEIGHT 2020-12-02 08:02:00 167.6 cm WEIGHT 2020-12-02 08:02:00 127.007 kg HEIGHT 2020-10-11 08:45:00 167.6 cm WEIGHT 2020-10-11 08:45:00 113.399 kg HEIGHT 2020-10-04 16:42:00 167.6 cm WEIGHT 2020-10-04 16:42:00 111.131 kg HEIGHT 2020-10-04 16:42:00 167.6 cm WEIGHT 2020-10-04 16:42:00 111.131 kg HEIGHT 2020-05-17 20:44:00 169 cm WEIGHT 2020-05-17 20:44:00 110.678 kg HEIGHT 2020-05-17 20:44:00 169 cm WEIGHT 2020-05-17 20:44:00 110.678 kg HEIGHT 2020-05-13 02:00:00 167.6 cm WEIGHT 2020-05-13 02:00:00 112.855 kg WEIGHT 2020-05-04 20:51:00 109.2 kg HEIGHT 2020-05-04 14:29:00 167.6 cm WEIGHT 2020-05-04 14:29:00 106.142 kg WEIGHT 2020-05-04 20:51:00 109.2 kg HEIGHT 2020-05-04 14:29:00 167.6 cm WEIGHT 2020-05-04 14:29:00 106.142 kg WEIGHT 2020-04-24 09:37:00 106.142 kg height 2020-04-13 09:00:00 66 [in_i] [facility] weight 2020-04-13 09:00:00 241 [lb_av] [facility] temperature 2020-04-13 09:00:00 95.0 [degF] [facility] bmi 2020-04-13 09:00:00 38.89 kg/m2 [facility] oximetry 2020-04-13 09:00:00 95 % [facility] blood pressure 2020-04-13 09:00:00 142 mm[Hg] [facility] blood pressure 2020-04-13 09:00:00 71 mm[Hg] [facility] diastolic [facility] height 2020-04-07 13:30:00 66 [in_i] [facility] weight 2020-04-07 13:30:00 241 [lb_av] [facility] temperature 2020-04-07 13:30:00 97.8 [degF] [facility] bmi 2020-04-07 13:30:00 38.89 kg/m2 [facility] oximetry 2020-04-07 13:30:00 94 % [facility] blood pressure 2020-04-07 13:30:00 164 mm[Hg] [facility] blood pressure 2020-04-07 13:30:00 83 mm[Hg] [facility] Height 2020-04-04 13:06:00 167.64 CM Weight 2020-04-04 13:06:00 106.59 KG Height 2020-04-04 05:11:00 167.64 CM Weight 2020-04-04 05:11:00 104.32 KG Height 2020-04-03 10:47:00 167.64 CM Weight 2020-04-03 10:47:00 104.32 KG Height 2020-01-13 15:40:00 170.18 CM Weight 2020-01-13 15:40:00 6.8 KG Height 2020-01-11 13:20:00 167.64 CM Weight 2020-01-11 13:20:00 108.86 KG Height 2020-01-11 10:30:00 167.64 CM Weight 2020-01-11 10:30:00 108.86 KG Height 2020-01-10 22:38:00 165.1 CM Weight 2020-01-10 22:38:00 113.39 KG Height 2020-01-10 14:30:00 170.18 CM Weight 2020-01-10 14:30:00 117.93 KG Height 2020-01-09 20:59:00 167.64 CM Weight 2020-01-09 20:59:00 117.93 KG Height 2020-01-09 13:30:00 167.64 CM Height 2020-01-07 17:16:00 170.18 CM Weight 2020-01-07 17:16:00 117.93 KG Height 2020-01-07 02:23:00 165.1 CM Weight 2020-01-07 02:23:00 117.93 KG Height 2020-01-06 16:10:00 167.64 CM Weight 2020-01-06 16:10:00 117.93 KG Height 2020-01-05 13:54:00 170.18 CM Weight 2020-01-05 13:54:00 104.32 KG Weight 2019-12-22 23:28:00 108.4 KG Height 2019-12-21 18:24:00 167.64 CM Weight 2019-12-21 18:24:00 122.46 KG Height 2019-11-22 16:25:00 167.64 CM Weight 2019-11-22 16:25:00 122.46 KG Height 2019-11-11 20:09:00 167.64 CM Weight 2019-11-11 20:09:00 122.46 KG Height 2019-11-04 12:41:00 167.64 CM Weight 2019-11-04 12:41:00 99.79 KG Height 2019-11-03 11:29:00 167.64 CM Weight 2019-11-03 11:29:00 122.46 KG Height 2019-10-30 17:03:00 167.64 CM Weight 2019-10-30 17:03:00 117.93 KG Height 2019-10-13 11:46:00 167.64 CM Weight 2019-10-13 11:46:00 86.18 KG Height 2019-10-09 13:34:00 167.64 CM Weight 2019-10-09 13:34:00 117.93 KG Height 2019-09-12 11:56:00 167.64 CM Weight 2019-09-12 11:56:00 122.46 KG Height 2019-09-06 11:56:00 167.64 CM Weight 2019-09-06 11:56:00 122.46 KG Height 2019-09-04 13:42:00 167.64 CM Weight 2019-09-04 13:42:00 122.46 KG Height 2019-09-02 14:36:00 167.64 CM Weight 2019-09-02 14:36:00 122.46 KG Height 2019-08-20 06:29:00 167.64 CM Weight 2019-08-20 06:29:00 122.46 KG Height 2019-08-15 20:10:00 167.64 CM Weight 2019-08-15 20:10:00 118.6 KG Height 2019-08-14 11:41:00 170.18 CM Weight 2019-08-14 11:41:00 122.01 KG Height 2019-07-16 10:53:00 170.18 CM Weight 2019-07-16 10:53:00 117.93 KG Systolic blood 2022-08-24 18:30:00 104 mm[Hg] [facility] Diastolic blood 2022-08-24 18:30:00 66 mm[Hg] [facility] Heart rate 2022-08-24 18:30:00 82 /min [facility] Respiratory rate 2022-08-24 18:30:00 18 /min [facility] Oxygen saturation in 2022-08-24 18:30:00 94 /min [facility] Arterial blood by Medical Ce nter Pulse oximetry Systolic blood 2022-08-20 01:33:00 132 mm[Hg] [facility] pressure Diastolic blood 2022-08-20 01:33:00 75 mm[facility]Hg[facility] pressure Heart rate 2022-08-20 01:33:00 78 /min [facility] Respiratory rate 2022-08-20 01:33:00 18 /min [facility] O[facility] saturation in 2022-08-20 01:33:00 95 /min [facility] Arterial blood by Pulse oximetry Body temperature 2022-08-19 21:15:03 36.5 [facility] Body height 2022-08-19 21:11:00 170.2 cm [facility] Body weight 2022-08-19 21:11:00 120.657 kg [facility] BMI 2022-08-19 21:11:00 41.66 kg/m2 [facility] Body temperature 2022-08-16 13:15:00 36.78 Jazzmine [facility] Systolic blood 2022-02-10 16:47:52 128 mm[Hg] [facility] pressure Diastolic blood 2022-02-10 16:47:52 73 mm[Hg] [facility] pressure Heart rate 2022-02-10 16:47:52 67 /min [facility] Body temperature 2022-02-10 16:47:52 35.94 [facility] Respiratory rate 2022-02-10 16:47:52 17 /min [facility] Oxygen saturation in 2022-02-10 16:47:52 93 /min [facility] Arterial blood by Pulse oximetry Body weight 2022-02-10 09:24:38 127.007 kg [facility] BMI 2022-02-10 09:24:38 45.19 kg/m2 [facility] Body height 2022-02-09 01:28:45 167.6 cm [facility] Systolic blood 2022-01-27 09:45:00 113 mm[Hg] [facility] Diastolic blood 2022-01-27 09:45:00 62 mm[Hg] [facility] Heart rate 2022-01-27 09:45:00 66 /min [facility] Body temperature 2022-01-27 09:45:00 36.56 Jazzmine [facility] Respiratory rate 2022-01-27 09:45:00 15 /min [facility] Oxygen saturation in 2022-01-27 09:45:00 90 /min [facility] Arterial blood by Medical Ce [facility]ter Pulse oximetry Body height 2022-01-27 06:26:00 167.6 cm [facility] Body weight 2022-01-27 06:26:00 131.543 kg [facility] BMI 2022-01-27 06:26:00 46.81 kg/m2 [facility] Procedures Procedure Date / Time Performing Clinician Source Performed MAGNESIUM 2022-09-15 03:50:00 [facility] COMP. METABOLIC PANEL 2022-09-15 03:50:00 Anderson [facility] ([id number] TROPONIN I 2022-09-15 03:10:00 [facility] CBC WITH DIFF 2022-09-15 03:10:00 [facility] N-TERMINAL PRO-BNP 2022-09-15 03:10:00 Anderson Madrid [facility] ECG 12-LEAD 2022-08-17 13:08:28 [facility]AL[facility]IVE 2022-08-17 05:44:00 [facility] CT LUMBAR SPINE WO 2022-08-17 03:19:48 Yara Hernandez [facility] CONTRAST CBC WITH PLATELET AND 2022-08-17 01:40:00 Yara Hernandez [facility] DIFFERENTIAL BASIC METABOLIC PANEL 2022-08-17 01:40:00 Yara Hernandez [facility] ESTIMATED GFR 2022-08-17 01:40:00 Yara Hernandez [facility] ECG ED PRELIMINARY 2022-08-17 00:06:[address] [facility] INTERPRETATION XR SPINE CERVICAL 2 OR 3 2022-08-15 18:04:00 [facility] XR SPINE LUMBAR COMPLETE 2022-08-15 18:04:00 Pamela [facility] 4 VIEWS MIN [facility] Center XR SCOLIOSIS 2 VIEWS 2022-07-26 18:37:00 Fernando Brown [facility] XR LUMBAR SPINE COMP WITH 2022-07-26 13:02:00 Fernando Brown [facility] FLEX & EXT Center XR SPINE SCOLIOSIS STUDY 2022-07-26 12:37:00 Fernando Brown [facility] XR SCOLIOSIS 2 VIEWS 2022-07-26 12:37:00 [facility] TTE COMPLETE, WO 2022-02-10 01:28:00 Cayetano Chavez H [facility]spital CONTRAST, W LEYDA [place] ([id number]) ZZCOVID-19 ANTI-SPIKE IGG 2022-02-09 20:30:00 [facility] ANTIBODY TITER ZZCOVID-19 SEROLOGY 2022-02-09 20:30:00 [facility] PATIENT SURVEILLANCE SEDIMENTATION RATE 2022-02-09 20:30[facility]00 [facility] C-REACTIVE PROTEIN 2022-02-09 20:30:00 [facility] TROPONIN T 2022-02-09 08:26:00 Cayetano Chavez Ho spital [facility]ay CBC WITH PLATELET AND 2022-02-09 08:26:[address] [facility] DIFFERENTIAL Nilay COMPREHENSIVE METABOLIC 2022-02-09 08:26:00 [facility] PANEL Nilay ESTIMATED GFR 2022-02-09 08:26:00 Cayetano Chavez [facility] TROPONIN T 2022-02-09 04:42:00 Cayetano Chavez [facility] COVID-19 QUALITATIVE 2022-02-09 00:45:00 [facility] CT ANGIOGRAM NECK W WO 2022-02-08 23:41:52 Leonid Vega [facility] CONTRAST CT ANGIOGRAM HEAD W WO 2022-02-08 23:39:44 Leonid Vega [facility] CONTRAST CT HEAD WO CONTRAST 2022-02-08 23:29:03 Leonid Vega [facility] ECG ED PRELIMINARY 2022-02-08 22:46:[address] [facility] INTERPRETATION CBC WITH PLATELET AND 2022-02-08 22:24:00 [facility] DIFFERENTIAL COMPREHENSIVE METABOLIC 2022-02-08 22:24:00 [facility] PANEL ESTIMATED GFR 2022-02-08 22:24:00 [facility] TROPONIN T 2022-02-08 22:24:00 Cayetano Chavez [facility] abiel Ceeenan B NATRIURETIC PEPTIDE 2022-02-08 22:24:00 Leonid Vega [facility] ECG 12-LEAD 2022-02-08 21:54:19 [facility] REPORT OF PROCEDURE - 2022-01-27 08:56:43 Meera Fonseca [facility] ENDOSCOPY URL Center REPORT OF PROCEDURE - 2022-01-27 08:50:44 Meera Fonseca [facility] ENDOSCOPY URL Center TISSUE EXAM 2022-01-27 08:11:00 Meera Fonseca [facility] COLONOSCOPY, WITH 2022-01-27 07:41:00 Meera Fonseca [facility] POLYPECTOMY Center ENDOSCOPY, UPPER GI 2022-01-27 07:41:00 Meera Fonseca [facility] TRACT, WITH BIOPSY Center EKG-SCANNED 2022-01-27 00:00:00 Provider, Elieser [facility] XR ABDOMEN/KUB 1 VIEW 2022-01-24 17:57:00 Baldemar Arevalo [facility] PORTABLE Ana Laura Center CT CHEST WITHOUT IV 2022-01-23 20:03:00 Juliana Vasquez [facility] CONTRAST Norma [place] CT ABDOMEN/PELVIS WITHOUT 2022-01-23 20:03:00 Pedro [facility] IV [facility]ST 1 VIEW PORTABLE 2022-01-23 18:16:00 [facility] / BEDSIDE [facility] Center CBC W/PLT COUNT & AUTO 2022-01-23 18:07:00 [facility] DIFFERENTIAL [place] BASIC METABOLIC PANEL 2022-01-23 18:07:00 [facility] [place] TROPONIN I 2022-01-23 18:07:00 [facility] [place] HEPATIC FUNCTION PANEL 2022-01-23 18:07:00 [facility] Norma Center LIPASE 2022-01-23 18:07:00 [facility] Norma Center CBC W/PLT COUNT & AUTO 2022-01-23 18:07:00 [facility] DIFFERENTIAL [place] ED ECG INTERPRETATION 2022-01-23 16:36:00 [facility], [place] EKG-SCANNED 2022-01-23 00:00:00 Elieser Olivier [facility] Scanning [place] B-TYPE NATRIURETIC FACTOR 2021-07-17 13:14:00 [facility] (BNP) [facility] CBC W/PLT COUNT & AUTO 2021-07-17 13:14:00 CourtneyGarth meadows [facility] DIFFERENTIAL [facility] COMPREHENSIVE METABOLIC 2021-07-17 13:14:00 [facility] PANEL [facility] D-DIMER 2021-07-17 13:14:00 [facility] LIPASE 2021-07-17 13:14:00 [facility] TROPONIN I 2021-07-17 13:14:00 [facility] CBC W/PLT COUNT & AUTO 2021-07-17 13:14:00 [facility] DIFFERENTIAL [facility] XR CHEST 1 VIEW PORTABLE 2021-07-17 12:44:[address] [facility] / BEDSIDE [facility] EKG-SCANNED 2021-07-17 00:00:[address] [facility] LUMBAR SPINE WITHOUT 2021-05-31 22:37:00 Aaliyah Zarco [facility] IV CONTRAST [facility] CBC W/PLT COUNT & AUTO 2021-05-31 17:50:00 Aaliyah Zarco [facility] Medical DIFFERENTIAL [facility] COMPREHENSIVE METABOLIC 2021-05-31 17:50:00 Aaliyah Zarco [facility] Medical PANEL [facility] CBC W/PLT COUNT & AUTO 2021-05-31 17:50:00 [facility] INSRT INFUS DEVC SUP VENA 2019-11-29 00:00:00 [facility] CAVA PERQ Center FLUORO SUP VENA CAVA LW 2019-11-29 00:00:[address] [facility] [address] GUID Center Plan of Care Planned Activity Planned Date Details Comments Source Future Scheduled 2032-01-[address] [facility] 00:00[facility]00 malignant neoplasm of Medica l Center colon (procedure) [code = 353809577] Future Scheduled 2032-01-[address] [facility] 00:00:00 malignant neoplasm of Medica [facility] Center colon (procedure) [code = 626406919] Future Scheduled 2032-01-[address] [facility] Test 00:00:00 malignant neoplasm of Medica [facility] Center colon (procedure) [code = 749097382] Future Scheduled 2032-01-[address] [facility] Test 00:00:00 malignant neoplasm of Medica l Center colon (procedure) [code = 987225180] Future Scheduled 2032-01-[address] [facility] 00:00:00 malignant neoplasm of Medica l Center colon (procedure) [code = 469807387] Future Scheduled 2032-01-[address] [facility] Test 00:00:00 malignant neoplasm of Medica l Center colon (procedure) [code = 741252462] Future Scheduled 2032-01-[address] [facility] Test 00:00:00 malignant neoplasm of Medica l Center colon (procedure) [code = 384864745] Future Scheduled 2032-01-[address] [facility] Test 00:00:00 malignant neoplasm of Medica l Center colon (procedure) [code = 335777310] Future Scheduled 2032-01-[address] [facility] Test 00:00:00 malignant neoplasm of Medica l Center colon (procedure) [code = 563002989] Future Scheduled 2032-01-[address] [facility] Test 00:00:00 malignant neoplasm of Medica l Center colon (procedure) [code = 209389555] Future Scheduled 2032-01-[address] [facility] Test 00:00:00 malignant neoplasm of Medica l Center colon (procedure) [code = 997004395] Future Scheduled 2032-01-[address] [facility] Test 00:00:00 malignant neoplasm of Medica l Center colon (procedure) [code = 388776817] Future Scheduled 2032-01-[address] [facility] Test 00:00:00 malignant neoplasm of Medica l Center colon (procedure) [code = 851637129] Future Scheduled 2032-01-[address] [facility] Test 00:00:00 malignant neoplasm of Medica l Center colon (procedure) [code = 411848323] Future Scheduled 2032-01-[address] [facility] Test 00:00:00 malignant neoplasm of Medica l Center colon (procedure) [code = 525333885] Future Scheduled 2032-01-[address] [facility] Test 00:00:00 malignant neoplasm of Medica l Center colon (procedure) [code = 251983727] Future Scheduled 2023-12-[address] [facility] Test 00:00:00 (procedure) [code = [facility] 48583871] Future Scheduled 2023-12-[address] [facility] Test 00:00:00 (procedure) [code = [facility] 28277498] Future Scheduled 2023-12-[address] [facility] Test 00:00:00 (procedure) [code = [facility] 60516052] Future Scheduled 2023-12-[address] [facility] Test 00:00:00 (procedure) [code = [facility] 57044758] Future Scheduled 2023-12-[address] [facility] Test 00:00:00 (procedure) [code = [facility] 71962009] Future Scheduled 2023-12-[address] [facility] Test 00:00:00 (procedure) [code = [facility] 55581607] Future Scheduled 2023-12-[address] [facility] Test 00:00:00 (procedure) [code = [facility] 11167188] Future Scheduled 2023-12-[address] [facility] Test 00:00:00 (procedure) [code = [facility] 16765586] Future Scheduled 2023-08-[address] [facility] 00:[facility] r Screening (12+) [code = Tobacco Cessation Counseling and Screening (12+)] Future Scheduled 2023-08-[address] [facility] Test 00:00:00 [facility] Screening (12+) [code = Tobacco Cessation Counseling and Screening (12+)] Future Scheduled 2023-01-[address] [facility] Test 00:00:00 [facility] r Screening (12+) [code = Tobacco Cessation Counseling and Screening (12+)] Future Scheduled 2023-01-[address] [facility] Test 00:00:00 [facility] Cent[facility] r Screening (12+) [code = Tobacco Cessation Counseling and Screening (12+)] Future Scheduled 2023-01-[address] [facility] Test 00:00:00 [facility] Cent[facility] r Screening (12+) [code = Tobacco Cessation Counseling and Screening (12+)] Future Scheduled 2023-01-[address] [facility] Test 00:00:00 [facility] Cent[facility] r Screening (12+) [code = Tobacco Cessation Counseling and Screening (12+)] Future Scheduled 2022-09-15 Pneumococcal Vaccine: [facility] 13:21:30 Pediatrics (0 to 5 Hospital Years) and At-Risk Patients (6 to 64 Years) (1 - PCV) [code = Pneumococcal Vaccine: Pediatrics (0 to 5 Years) and At-Risk Patients (6 to 64 Years) (1 - PCV)] Future Scheduled 2022-09-15 Hepatitis C screening [facility] 13:21:30 (procedure) [code = Hospital 480283611] Future Scheduled 2022-09-15 COLONOSCOPY SCREENING [facility] 13:21:30 [code = COLONOSCOPY Hospital SCREENING] Future Scheduled 2022-09-15 SHINGLES VACCINES (1 [facility] 13:21:30 of 2) [code = SHINGLES Hospi alvarez VACCINES (1 of 2)] Future Scheduled 2022-09-15 COVID-19 VACCINE (3 - [facility] 13:21:30 Booster for Moderna Hospital series) [code = COVID-19 VACCINE (3 - Booster for Moderna series)] Future Scheduled 2022-09-15 INFLUENZA VACCINE Method ist Test 13:21:30 [code = INFLUENZA Hospital VACCINE] Future Scheduled 2022-08-31 Pneumococcal Vaccine: [facility] Test 11:41:57 Pediatrics (0 to 5 Hospital Years) and At-Risk Patients (6 to 64 Years) (1 - PCV) [code = Pneumococcal Vaccine: Pediatrics (0 to 5 Years) and At-Risk Patients (6 to 64 Years) (1 - PCV)] Future Scheduled 2022-08-31 Hepatitis C screening [facility] 11:41:57 (procedure) [code = Hospital 073041085] Future Scheduled 2022-08-31 COLONOSCOPY SCREENING [facility] 11:41:57 [code = COLONOSCOPY Hospital SCREENING] Future Scheduled 2022-08-31 SHINGLES VACCINES (1 [facility] 11:41:57 of 2) [code = SHINGLES Hospi alvarez VACCINES (1 of 2)] Future Scheduled 2022-08-31 COVID-19 VACCINE (3 - [facility] Test 11:41:57 Booster for Modern[employer] Hospital series) [code = COVID-19 VACCINE (3 - Booster for Moderna series)] Future Scheduled 2022-08-31 INFLUENZA VACCINE Method [facility] Test 11:41:57 [code = INFLUENZA Hospital VACCINE] Diagnostic Test 2022-08-18 Vasopressin [facility] Pending 00:00:00 [Mass/volume] in Serum or Plasma [code = 3126-0] Diagnostic Test 2022-08-18 Grapefruit IgE Ab [facility] Pending 00:00:00 [Units/volume] in Serum [code = 6131-7] Diagnostic Test 2022-08-18 magnesium, serum or [facility] Pending 00:00:00 plasma [code = magnesium, serum or plasma] Diagnostic Test 2022-08-18 drug screen, blood [facility] Pending 00:00:00 [code = drug screen, blood] Future Scheduled 2022-07-27 COVID-19 Vaccine (#1) [facility] Test 08:38:31 [code = COVID-19 of Medicine Vaccine (#1)] Future Scheduled 2022-07-27 TETANUS SHOT (ADULT) [place] [facility] Test 08:38:31 [code = TETANUS SHOT of Medi cine (ADULT)] Future Scheduled 2022-07-27 BMI Follow Up Plan [facility] Test 08:38:31 [code = BMI Follow Up of Med icine Plan] Future Scheduled 2022-07-27 Human immunodeficiency B [facility] Test 08:38:31 virus screening of Medicine (procedure) [code = 604995425] Future Scheduled 2022-07-27 Hepatitis C screening Ba [facility] Test 08:38:31 (procedure) [code = of Medic ine 989351282] Future Scheduled 2022-07-27 ZOSTER VACCINE (1 of [facility] Test 08:38:31 2) [code = ZOSTER of Medicin e VACCINE (1 of 2)] Future Scheduled 2022-07-27 FLU VACCINE > 6 MONTHS B [facility] Test 08:38:31 [code = FLU VACCINE > of Med icine 6 MONTHS] Future Scheduled 2022-07-27 Screening for [employer] Test 08:38:31 malignant neoplasm of of Med icine colon (procedure) [code = 123050253] Future Scheduled 2022-05-06 Pneumococcal Vaccine: [facility] 02:07:04 Pediatrics (0 to 5 Hospital Years) and At-Risk Patients (6 to 64 Years) (1 - PCV) [code = Pneumococcal Vaccine: Pediatrics (0 to 5 Years) and At-Risk Patients (6 to 64 Years) (1 - PCV)] Future Scheduled 2022-05-06 Hepatitis C screening [facility] 02:07:04 (procedure) [code = Hospital 110381183] Future Scheduled 2022-05-06 COLONOSCOPY SCREENING [facility] 02:07:04 [code = COLONOSCOPY Hospital SCREENING] Future Scheduled 2022-05-06 SHINGLES VACCINES (1 [facility] 02:07:04 of 2) [code = SHINGLES Hospi alvarez VACCINES (1 of 2)] Future Scheduled 2022-05-06 COVID-19 VACCINE (3 - [facility] 02:07:04 Booster for Moderna Hospital series) [code = COVID-19 VACCINE (3 - Booster for Moderna series)] Future Scheduled 2022-05-06 Pneumococcal Vaccine: [facility] 02:07:04 Pediatrics (0 to 5 Hospital Years) and At-Risk Patients (6 to 64 Years) (1 - PCV) [code = Pneumococcal Vaccine: Pediatrics (0 to 5 Years) and At-Risk Patients (6 to 64 Years) (1 - PCV)] Future Scheduled 2022-05-06 Hepatitis C screening [facility] 02:07:04 (procedure) [code = Hospital [id number]] Future Scheduled 2022-05-06 COLONOSCOPY SCREENING [facility] 02:07:04 [code = COLONOSCOPY Hospital SCREENING] Future Scheduled 2022-05-06 SHINGLES VACCINES (1 [facility] 02:07:04 of 2) [code = SHINGLES Hospi alvarez VACCINES (1 of 2)] Future Scheduled 2022-05-06 COVID-19 VACCINE (3 - [facility] Test 02:07:04 Booster for Moderna Hospital series) [code = COVID-19 VACCINE (3 - Booster for Moderna series)] Future Scheduled 2022-03-29 XR LUMBAR SPINE AP 1 Occurrences [employer] Test 08:18:50 LATERAL OBLIQUES starting of Medicine FLEXION AND EXTENSION 03/29/2022 until [code = 69557-2] 03/29/2023 Future Scheduled 2022-03-29 COVID-19 Vaccine (#1) [employer] Test 08:06:42 [code = COVID-19 of Medicine Vaccine (#1)] Future Scheduled 2022-03-29 TETANUS SHOT (ADULT) [place] [employer] Test 08:06:42 [code = TETANUS SHOT of Medi cine (ADULT)] Future Scheduled 2022-03-29 Hepatitis C screening [employer] Test 08:06:42 (procedure) [code = of Medic ine 003541780] Future Scheduled 2022-03-29 [facility] 08:06:42 virus screening of Medicine (procedure) [code = 750360509] Future Scheduled 2022-03-29 ZOSTER VACCINE (1 of [facility] Test 08:06:42 2) [code = ZOSTER of Medicin e VACCINE (1 of 2)] Future Scheduled 2022-03-29 FLU VACCINE > 6 MONTHS B [facility] Test 08:06:42 [code = FLU VACCINE > of Med icine 6 MONTHS] Future Scheduled 2022-03-29 Screening for [facility] Col lege Test 08:06:42 malignant neoplasm of of Med icine colon (procedure) [code = 740298227] Future Scheduled 2022-03-03 HEPATITIS B VACCINES [facility] 14:37:38 (1 of 3 - 3-dose Hospital series) [code = HEPATITIS B VACCINES (1 of 3 - 3-dose series)] Future Scheduled 2022-03-03 Pneumococcal Vaccine: [facility] Test 14:37:38 Pediatrics (0 to 5 Hospital Years) and At-Risk Patients (6 to 64 Years) (1 - PCV) [code = Pneumococcal Vaccine: Pediatrics (0 to 5 Years) and At-Risk Patients (6 to 64 Years) (1 - PCV)] Future Scheduled 2022-03-03 Hepatitis C screening [facility] Test 14:37:38 (procedure) [code = Hospital [id number]] Future Scheduled 2022-03-03 COLONOSCOPY SCREENING [facility] Test 14:37:38 [code = COLONOSCOPY Hospital SCREENING] Future Scheduled 2022-03-03 SHINGLES VACCINES (1 [facility] Test 14:37:38 of 2) [code = SHINGLES Hospi alvarez VACCINES (1 of 2)] Future Scheduled 2022-03-03 COVID-19 VACCINE (3 - [facility] Test 14:37:38 Booster for Moderna Hospital series) [code = COVID-19 VACCINE (3 - Booster for Moderna series)] Future Scheduled 2022-03-03 HEPATITIS B VACCINES [facility] Test 14:37:38 (1 of 3 - 3-dose Hospital series) [code = HEPATITIS B VACCINES (1 of 3 - 3-dose series)] Future Scheduled 2022-03-03 Pneumococcal Vaccine: [facility] Test 14:37:38 Pediatrics (0 to 5 Hospital Years) and At-Risk Patients (6 to 64 Years) (1 - PCV) [code = Pneumococcal Vaccine: Pediatrics (0 to 5 Years) and At-Risk Patients (6 to 64 Years) (1 - PCV)] Future Scheduled 2022-03-03 Hepatitis C screening [facility] 14:37:38 (procedure) [code = Hospital [id number]] Future Scheduled 2022-03-03 COLONOSCOPY SCREENING [facility] 14:37:38 [code = COLONOSCOPY Hospital SCREENING] Future Scheduled 2022-03-03 SHINGLES VACCINES (1 [facility] 14:37:38 of 2) [code = SHINGLES Hospi alvarez VACCINES (1 of 2)] Future Scheduled 2022-03-03 COVID-19 VACCINE (3 - [facility] 14:37:38 Booster for Moderna Hospital series) [code = COVID-19 VACCINE (3 - Booster for Moderna series)] Future Scheduled 2022-02-24 HEPATITIS B VACCINES [facility] 15:28:41 (1 of 3 - 3-dose Hospital series) [code = HEPATITIS B VACCINES (1 of 3 - 3-dose series)] Future Scheduled 2022-02-24 Pneumococcal Vaccine: [facility] Test 15:28:41 Pediatrics (0 to 5 Hospital Years) and At-Risk Patients (6 to 64 Years) (1 - PCV) [code = Pneumococcal Vaccine: Pediatrics (0 to 5 Years) and At-Risk Patients (6 to 64 Years) (1 - PCV)] Future Scheduled 2022-02-24 Hepatitis C screening [facility] 15:28:41 (procedure) [code = Hospital [id number]] Future Scheduled 2022-02-24 COLONOSCOPY SCREENING [facility] 15:28:41 [code = COLONOSCOPY Hospital SCREENING] Future Scheduled 2022-02-24 SHINGLES VACCINES (1 [facility] 15:28:41 of 2) [code = SHINGLES Hospi alvarez VACCINES (1 of 2)] Future Scheduled 2022-02-24 COVID-19 VACCINE (3 - [facility] Test 15:28:41 Booster for Moderna Hospital series) [code = COVID-19 VACCINE (3 - Booster for Moderna series)] Future Scheduled 2022-01-20 INFLUENZA VACCINE (#1) [facility] 00:00:00 [code = INFLUENZA Medical Ce nter VACCINE (#1)] Future Scheduled 2022-01-20 INFLUENZA VACCINE (#1) [facility] 00:00:00 [code = INFLUENZA Medical Ce nter VACCINE (#1)] Future Scheduled 2022-01-20 INFLUENZA VACCINE (#1) [facility] 00:00:00 [code = INFLUENZA Medical Ce nter VACCINE (#1)] Future Scheduled 2022-01-20 INFLUENZA VACCINE (#1) [facility] 00:00:00 [code = INFLUENZA Medical Ce nter VACCINE (#1)] Future Scheduled 2022-01-20 INFLUENZA VACCINE (#1) [facility] 00:00:00 [code = INFLUENZA Medical Ce nter VACCINE (#1)] Future Scheduled 2022-01-20 INFLUENZA VACCINE (#1) [facility] 00:00:00 [code = INFLUENZA Medical Ce nter VACCINE (#1)] Future Scheduled 2010 SHINGLES VACCINES ([address] [facility] Test 00:00:00 of 2) [code = SHINGLES Medic al Center VACCINES (1 of 2)] Future Scheduled 2010 SHINGLES VACCINES ([address] [facility] Test 00:00:00 of 2) [code = SHINGLES Medic al Center VACCINES (1 of 2)] Future Scheduled 2010 SHINGLES VACCINES ([address] [facility] Test 00:00:00 of 2) [code = SHINGLES Medic al Center VACCINES (1 of 2)] Future Scheduled 2010 SHINGLES VACCINES ([address] [facility] Test 00:00:00 of 2) [code = SHINGLES Medic al Center VACCINES (1 of 2)] Future Scheduled 2010 SHINGLES VACCINES ([address] [facility] Test 00:00:00 of 2) [code = SHINGLES Medic al Center VACCINES (1 of 2)] Future Scheduled 2010 SHINGLES VACCINES ([address] [facility] Test 00:00:00 of 2) [code = SHINGLES Medic al Center VACCINES (1 of 2)] Future Scheduled 2010 SHINGLES VACCINES ([address] [facility] Test 00:00:00 of 2) [code = SHINGLES Medic al Center VACCINES (1 of 2)] Future Scheduled 2010 SHINGLES VACCINES ([address] [facility] Test 00:00:00 of 2) [code = SHINGLES Medic al Center VACCINES (1 of 2)] Future Scheduled 1979-11-19 DTAP/TDAP/TD [facility]ACCINES [facility] 00:00:00 (1 - Tdap) [code = Medical C enter DTAP/TDAP/TD VACCINES (1 - Tdap)] Future Scheduled 1979-11-19 DTAP/TDAP/TD [facility]ACCINES [facility] 00:00:00 (1 - Tdap) [code = Medical C enter DTAP/TDAP/TD VACCINES (1 - Tdap)] Future Scheduled 1979-11-19 DTAP/TDAP/TD [facility]ACCINES [facility] 00:00:00 (1 - Tdap) [code = Medical C enter DTAP/TDAP/TD VACCINES (1 - Tdap)] Future Scheduled 1979-11-19 DTAP/TDAP/TD [facility]ACCINES [facility] 00:00:00 (1 - Tdap) [code = Medical C enter DTAP/TDAP/TD VACCINES (1 - Tdap)] Future Scheduled 1979-11-19 DTAP/TDAP/TD [facility]ACCINES [facility] 00:00:00 (1 - Tdap) [code = Medical C enter DTAP/TDAP/TD VACCINES (1 - Tdap)] Future Scheduled 1979-11-19 DTAP/TDAP/TD [facility]ACCINES [facility] 00:00:00 (1 - Tdap) [code = Medical C enter DTAP/TDAP/TD VACCINES (1 - Tdap)] Future Scheduled 1979-11-19 DTAP/TDAP/TD [facility]ACCINES [facility] 00:00:00 (1 - Tdap) [code = Medical C enter DTAP/TDAP/TD VACCINES (1 - Tdap)] Future Scheduled 1979-11-19 DTAP/TDAP/TD [facility]ACCINES [facility] 00:00:00 (1 - Tdap) [code = Medical C enter DTAP/TDAP/TD VACCINES (1 - Tdap)] Future Scheduled 1978 [facility]IT[facility] 00:00:00 [code = HEPATITIS C Medical Center SCREENING] Future Scheduled 1978 HE[facility]ITIS C [facility] 00:00:00 [code = HEPATITIS C Medical Center SCREENING] Future Scheduled 1978 [facility]ITIS C [facility] 00:00:00 [code = HEPATITIS C Medical Center SCREENING] Future Scheduled 1978 [facility]ITIS C [facility] 00:00:00 [code = HEPATITIS C Medical Center SCREENING] Future Scheduled 1978 [facility]ITIS C [facility] 00:00:00 [code = HEPATITIS C Medical Center SCREENING] Future Scheduled 1978 [facility]PATITIS C [facility] 00:00:00 [code = HEPATITIS C Medical Center SCREENING] Future Scheduled 1978 [facility]ITIS C [facility] 00:00:00 [code = HEPATITIS C Medical Center SCREENING] Future Scheduled 1978 [facility] C [facility] 00:00:00 [code = HEPATITIS C Medical Center SCREENING] Future Scheduled [address] [facility] Test 00:00:00 0-64 YRS (1 - PCV) Medical C enter [code = PNEUMOCOCCAL VACCINE 0-64 YRS (1 - PCV)] Future Scheduled [address] [facility] Test 00:00:00 0-64 YRS (1 - PCV) Medical C enter [code = PNEUMOCOCCAL VACCINE 0-64 YRS (1 - PCV)] Future Scheduled [address] [facility] Test 00:00:00 0-64 YRS (1 - PCV) Medical C enter [code = PNEUMOCOCCAL VACCINE 0-64 YRS (1 - PCV)] Future Scheduled [address] [facility] Test 00:00:00 0-64 YRS (1 - PCV) Medical C enter [code = PNEUMOCOCCAL VACCINE 0-64 YRS (1 - PCV)] Future Scheduled [address] [facility] Test 00:00:00 0-64 YRS (1 - PCV) Medical C enter [code = PNEUMOCOCCAL VACCINE 0-64 YRS (1 - PCV)] Future Scheduled [address] [facility] Test 00:00:00 0-64 YRS (1 - PCV) Medical C enter [code = PNEUMOCOCCAL VACCINE 0-64 YRS (1 - PCV)] Future Scheduled [address] [facility] Test 00:00:00 0-64 YRS (1 - PCV) Medical C enter [code = PNEUMOCOCCAL VACCINE 0-64 YRS (1 - PCV)] Future Scheduled [address] [facility] Test 00:00:00 0-64 YRS (1 - PCV) Medical C enter [code = PNEUMOCOCCAL VACCINE 0-64 YRS (1 - PCV)] Future Scheduled 1961-05-20 COVID-19 VACCINE (#1[facility] 00:[facility]:00 [code = COVID-[address] VACCINE (#1)] Future Scheduled 1961-05-20 COVID-19 VACCINE (#1) [facility] 00:00:00 [code = COVID-[address] VACCINE (#1)] Future Scheduled 1961-05-20 COVID-19 VACCINE (#1) [facility] 00:00:00 [code = COVID-[address] VACCINE (#1)] Future Scheduled 1961-05-20 COVID-19 VACCINE (#1) [facility] 00:00:00 [code = COVID-[address] VACCINE (#1)] Future Scheduled 1961-05-20 COVID-19 VACCINE (#1) [facility] 00:00:00 [code = COVID-[address] VACCINE (#1)] Future Scheduled 1961-05-20 COVID-19 VACCINE (#1) [facility] 00:00:00 [code = COVID-[address] VACCINE (#1)] Future Scheduled 1961-05-20 COVID-19 VACCINE (#1) [facility] 00:00:00 [code = COVID-[address] VACCINE (#1)] Future Scheduled 1961-05-20 COVID-19 VACCINE (#1) [facility] 00:00:00 [code = COVID-[address] VACCINE (#1)] Future Scheduled [address] [facility] 00:00:00 (combo) [code = CT Medical C enter Colonography (combo)] Future Scheduled [address] [facility] Test 00:00:00 malignant neoplasm of Medica l Center colon (procedure) [code = 954307828] Future Scheduled [address] [facility] Test 00:00:00 malignant neoplasm of Medica l Center colon (procedure) [code = 740231115] Future Scheduled 1960 Sigmoidoscopy [facility]code [facility] S[facility]oscopy] Medical Cente r Future Scheduled [address] [facility] Test 00:00:00 (combo) [code = CT Medical C enter Colonography (combo)] Future Scheduled [address] [facility] Test 00:00:00 malignant neoplasm of Medica l Center colon (procedure) [code = 310662063] Future Scheduled [address] [facility] Test 00:00:00 malignant neoplasm of Medica l Center colon (procedure) [code = 795730599] Future Scheduled 1960 Sigmoidoscopy [facility]code [facility] 00:[facility] S[facility]oidoscopy] Medical Jette r Future Scheduled [address] [facility] Test 00:00:00 (combo) [code = CT Medical C enter Colonography (combo)] Future Scheduled [address] [facility] Test 00:00:00 malignant neoplasm of Medica l Center colon (procedure) [code = 299851232] Future Scheduled [address] [facility] Test 00:00:00 malignant neoplasm of Medica l Center colon (procedure) [code = 843764903] Future Scheduled 1960 [facility]oidoscopy [facility] [address] [facility] 00:00:00 (combo) [code = CT Medical C enter Colonography (combo)] Future Scheduled [address] [facility] Test 00:00:00 malignant neoplasm of Medica l Center colon (procedure) [code = 934542363] Future Scheduled [address] [facility] Test 00:00:00 malignant neoplasm of Medica l Center colon (procedure) [code = 088416879] Future Scheduled 1960 Sigmoidoscopy [facility]code [facility] 00:[facility] S[facility]oidoscopy] Medical Jette r Future Scheduled [address] [facility] 00:00:00 (combo) [code = CT Medical C enter Colonography (combo)] Future Scheduled [address] [facility] Test 00:00:00 malignant neoplasm of Medica l Center colon (procedure) [code = 592265527] Future Scheduled [address] [facility] Test 00:00:00 malignant neoplasm of Medica l Center colon (procedure) [code = 136621389] Future Scheduled 1960 [facility]oidoscopy [facility] [address] [facility] 00:00:00 (combo) [code = CT Medical C enter Colonography (combo)] Future Scheduled [address] [facility] Test 00:00:00 malignant neoplasm of Medica l Center colon (procedure) [code = 175532307] Future Scheduled [address] [facility] Test 00:00:00 malignant neoplasm of Medica l Center colon (procedure) [code = 758842002] Future Scheduled 1960 S[facility]oidoscopy [facility]code [facility] 00:[facility] S[facility]oidoscopy] Medical Jette r Future Scheduled [address] [facility] 00:00:00 (combo) [code = CT Medical C enter Colonography (combo)] Future Scheduled [address] [facility] Test 00:00:00 malignant neoplasm of Medica l Center colon (procedure) [code = 609538414] Future Scheduled [address] [facility] Test 00:00:00 malignant neoplasm of Medica l Center colon (procedure) [code = 467795939] Future Scheduled 1960 S[facility]oidoscopy [facility]code [facility] 00:00:[facility] Sigmoidoscopy] Medical Jette r Future Scheduled [address] [facility] 00:00:00 (combo) [code = CT Medical C enter Colonography (combo)] Future Scheduled [address] [facility] Test 00:00:00 [facility] [code = 272424354] Future Scheduled [address] [facility] Test 00:00:00 malignant neoplasm of Medica l Center colon (procedure) [code = 278565416] Future Scheduled 1960 [facility]oidoscopy [facility] 00:[facility] S[facility]oscopy] Medical Cente r Encounters Start End Encounter Admission Attending Care Care Encounter Source Date/Time Date/Time Type Type Clinicians Facility Department ID 2022-09-[address] [facility] [id number] [place] 16:17:03 [id number] [facility] 2022-06-[address] [facility] [id number] [place] 08:52:58 [id number] [facility] 2022-03-[address] [facility] [id number] [place] 03:19:25 [id number] [facility] 2022-03-[address] [facility] [id number] [place] 16:17:32 [id number] [facility] 2022-02-[address] [facility] [id number] [place] 13:04:57 [id number] [facility] 2021-12-31 Inpatient C NONE, NONE [facility] [id number] [facility] 11:52:00 [facility] 2021-12-[address] [facility] [id number] [place] 12:29:56 [id number] [facility] 2021-12-[address] [facility] [id number] [place] 14:42:17 [id number] [facility] 2021-12-[address] [facility] [id number] [place] 15:39:42 [id number] [facility] 2021-12-[address] [facility] [id number] [place] 14:10:06 [id number] [facility] 2021-11-[address] [facility] [id number] [place] 16:22:10 [id number] [facility] 2021-11-23 [facility] [id number] [place] 08:48:23 JAYME [id number] [facility] 2021-06-29 Inpatient Sarah [facility] [id number] [facility] 17:45:00 Amjad 36 2021-06-16 [facility] [id number] [facility] 12:06:01 [id number] [facility] 2021-03-29 Inpatient Sarah [facility] [id number] [facility] 12:05:00 Amjad 81 2021-02-26 Inpatient ER GEMINI SLEDaniel Internal [id number] SLE 20:51:31 [facility] 2021-02-02 Inpatient Sarah [facility] [id number] [facility] 12:10:00 Amjad 82 2020-01-29 Inpatient C , [facility] [place] RAD [id number] [facility] 14:26:00 [facility] 2019-09-19 Inpatient C MIERLA FITZGERALD [facility] [place] PT [id number] [facility] 13:00:00 [facility] 2018-12-13 Inpatient C KAMALA, [facility] [place] DIET [id number] [facility] 13:30:00 SEAN [facility] 2018-10-12 Inpatient C KAMALA, [facility] [place] PT [id number] [facility] 09:00:00 SEAN [facility] 2018-09-12 Inpatient C KAMALA, [facility] [place] RAD [id number] [facility] 14:15:00 SEAN [facility] 2017-09-26 Inpatient C JESSICA, [facility] [place] RAD [id number] [facility] 06:00:00 [facility] 2017-07-13 Inpatient C KAMALA [facility] [place] PT [id number] [facility] 15:00:00 [place] [facility] 2017-04-20 Inpatient C KAMALA, [facility] [place] PT [id number] [facility] 13:00:00 SEAN [facility] 2017-03-09 Inpatient C KAMALA, [facility] [place] RAD [id number] [facility] 13:00[facility] 2022-09-14 2022-09-15 Emergency X [facility] ERT [id number] [facility] 21:52:00 01:48:00 ADNERSON rollins of [facility] 2022-09-14 2022-09-15 Emergency [facility], [facility] [id number] Univers 21:52:00 01:48:00 Anderson BLANTON 350.1.13.10 [facility] 4.2.7.2.686 [facility] [id number] [facility] sean 084 [facility] 2022-09-08 2022-09-08 Outpatient GC_CPC_Mora PRIV PRIV [id number] [facility] 00:00:00 00:00:00 _A [id number] Medica l 2022-09-08 2022-09-08 Fredy PRIV [facility] [id number] [facility] 00:00:00 00:00:00 r Health - Medic al Yeung, GC_CPC_Suga DO: [facility] [address], [place] [address] , Ph. 2022-08-25 2022-08-25 Outpatient GC_CPC_Mora PRIV PRIV [id number] [facility] 00:00:00 00:00:00 _A [id number] Medica l 2022-08-25 2022-08-25 Outpatient GC_CPC_Mora PRIV PRIV [id number] [facility] 00:00:00 00:00:00 _A [id number] Medica l 2022-08-24 2022-08-24 Emergency [facility] [id number] 17:42:00 21:59:00 [facility] 2022-08-24 2022-08-24 Emergency ER ZARCO, [facility] Emergency [id number] SLS 17:42:00 21:59:00 PIERCE 2022-08-24 2022-08-24 Emergency [facility] [id number] 17:42:00 21:59:00 [facility] 2022-08-21 2022-08-22 Emergency E DALIA, FB FB [id number] FB 18:40:00 01:05:00 JONEL 2022-08-20 2022-08-21 Outpatient E MERCEDES, [facility] MED [id number] [facility] 04:08:00 17:00:00 CHRISSY 2022-08-19 2022-08-19 Emergency Bernardo, 1.2.840.1 [id number] Methodi 17:06:00 21:56:[address] Jose 3.430.2.7 Hospit a .3.133260 l .8 2022-08-19 2022-08-19 Emergency Chang, 1.2.840.1 [id number] Methodi 17:06:00 21:56:[address] Jose 3.430.2.7 Hospit a .3.945292 l .8 2022-08-19 2022-08-19 Outpatient PRIV PRIV [id number] [facility] 00:00:00 00:00:00 [id number] Medica l 2022-08-19 2022-08-19 Outpatient PRIV PRIV [id number] [facility] 00:00:00 00:00:00 [id number] Medica l 2022-08-19 2022-08-19 Travel 1.2.840.1 [id number] [id number] [facility]i 00:00:00 00:00:[address] 3.430.2.7 0.2.7.3.698 Ho spita .3.977439 084.8 l .8 2022-08-19 2022-08-19 Travel 1.2.840.1 1.2.629.993 [id number] [facility]i 00:00:00 00:00:[address] 3.430.2.7 0.2.7.3.698 Ho spita .3.776221 084.8 l .8 2022-08-18 2022-08-18 Outpatient GC_CPC_Mora PRIV PRIV [id number] [facility] 00:00:00 00:00:00 _A [id number] Medica l 2022-08-18 2022-08-18 Fredy PRIV MD - [facility] [id number] [facility] 00:00:00 00:00:00 r Health - Medic al Yeung, GC_CPC_Suga DO: [id number] [facility] [address], [place] [address] , Ph. 2022-08-16 2022-08-17 Emergency Yaneth Nikos Streeter 1.2.840.1 [id number] Methodi 18:15:00 13:35:00 Malinda Abernathy 46733.1.[address] Haley, Luisiot 3.430.2.7 Hospita .3.092199 l .8 2022-08-16 2022-08-17 Emergency Nikos Wolfe Ferdinand 1.2.840.1 [id number] Methodi 18:15:00 13:35:00 Malinda Abernathy 26930.1.[address] Haley, Luisito 3.430.2.7 Hospita .3.782152 l .8 2022-08-17 2022-08-17 Telephone Renae, 1.2.840.1 [id number] Methodi 00:00:00 00:00:[address] 3.430.2.7 Hospit a .3.790637 l .8 2022-08-17 2022-08-17 Telephone Renae, 1.2.840.1 [id number] Methodi 00:00:00 00:00:[address] 3.430.2.7 Hospit a .3.125584 l .8 2022-08-15 2022-08-16 Emergency Dylan Landon [facility] [id number] [facility] 16:35:00 16:14:00 [facility] 2022-08-15 2022-08-16 Emergency ER [facility] Emergency [id number] [facility] 16:35:00 16:14:00 FIREBAUGH 2022-08-15 2022-08-16 Emergency Dylan Landon [facility] [id number] [facility] 16:35:00 16:14:00 [facility] 2022-08-16 2022-08-16 Travel 1.2.840.1 1.2.483.508 [id number] Methodi 00:00:00 00:00:[address] 3.430.2.7 0.2.7.3.698 Ho spita .3.421279 084.8 l .8 2022-08-16 2022-08-16 Travel 1.2.840.1 1.2.321.777 [id number] Methodi 00:00:00 00:00:[address] 3.430.2.7 0.2.7.3.698 Ho spita .3.999112 084.8 l .8 2022-08-15 2022-08-15 Travel [facility] [id number] [facility] 00:00:00 00:00:00 [facility] 2022-08-15 2022-08-15 Travel [facility] [id number] [facility] 00:00:00 00:00:00 [facility] 2022-07-28 2022-07-28 Outpatient GC_NEMD_Edo PRIV PRIV [id number] [facility] 00:00:00 00:00:00 kpayi_N [id number] Medica l 2022-07-28 2022-07-28 Outpatient GC_NEMD_Edo PRIV PRIV [id number] [facility] 00:00:00 00:00:00 kpayi_N [id number] Medica l 2022-07-26 2022-07-26 [facility] [id number] 12:18:22 23:59:00 Encounter Fernando Ramos [facility] 2022-07-26 2022-07-26 [facility] [id number] 12:18:22 23:59:00 Encounter Fernando Ramos [facility] 2022-07-26 2022-07-26 [facility] [id number] [facility] 12:18:22 23:59:00 FERNANDO 2022-07-26 2022-07-26 Office LUIS BROWN 1.2.840.114 [id number] [facility] 11:47:38 15:37:10 Visit FERNANDO AMBULATOR 350.1.13.21 College Y 0.2.7.2.686 [facility] [id number] Medi chris 300 e 2022-07-26 2022-07-26 Outpatient HANG MOSLEY [facility] [id number] [facility] 12:18:08 12:17:00 FERNANDO 2022-07-26 2022-07-26 [facility] [id number] 11:10:00 12:17:00 Encounter Fernando Ramos [facility] 2022-07-26 2022-07-26 [facility] [id number] [facility] [address] 11:10:00 12:17:00 Encounter Fernando BMarilou Ramos [facility] 2022-07-26 2022-07-26 [facility] [id number] 00:00:00 00:00:00 Only Fernando Andrade [facility] 2022-07-26 2022-07-26 Orders [facility] [id number] 00:00:00 00:00:00 Only Fernando Lupe [facility] 2022-06-29 2022-06-30 Outpatient Nydia DOSS, [facility] [id number] FB 18:02:00 19:15:00 AMIR 2022-04-04 2022-04-04 [facility] [id number] 12:00:00 12:00:00 Encounter Fernando GoldsteinMarilou Ramos [facility] 2022-04-04 2022-04-04 [facility] [id number] [facility] [address] 12:00:00 12:00:00 Encounter Fernando Ramos [facility] 2022-04-04 2022-04-04 Outpatient HANG MOSLEY [facility] [id number] [facility] 00:00:00 00:00:00 FERNANDO 2022-03-29 2022-03-29 Office LUIS BROWN [id number] [facility] 07:54:02 13:51:14 Visit FERNANDO AMBULATOR [id number] College Y [id number] [facility] chris 300 e 2022-03-29 2022-03-29 [id number] 00:00:00 00:00:00 Only Fernando Andrade [facility] 2022-03-29 2022-03-29 [facility] [id number] 00:00:00 00:00:00 Only Fernando Lupe Addison [facility] 2022-03-28 2022-03-28 Outpatient NAZIA NielsenAL CTII [id number] [facility] 16:33:00 16:33:[address] 2022-03-18 2022-03-18 Outpatient [facility] 752 [id number] MHCY 08:27:00 14:30:00 LB 2022-02-26 2022-02-27 Inpatient E LUANN CARMEN [facility] MED [id number] [facility] 09:19:00 16:53:00 2022-02-08 2022-02-10 Emergency Ernesto Noguera 1.2.840.1 [id number] Methodi 16:50:00 15:45:00 Cayetano Chavez 10215.1.1 507 [facility], Ashvin 3.430.2.7 H ospita .3.756326 l .8 2022-02-08 2022-02-10 Emergency Ernesto Noguera 1.2.840.1 1041 [id number] Methodi 16:50:00 15:45:00 Cayetano Chavez 56512.1.1 507 Jones, Ashvin 3.430.2.7 H ospita .3.632570 l .8 2022-02-09 2022-02-[address] [facility] [id number] [place] 09:45:00 09:45:00 Health 2022-02-09 2022-02-09 Outpatient O'REJIL, [facility] [id number] [place] 09:00:00 09:00:00 [facility] 2022-02-09 2022-02-09 Orders Codie, 1.2.840.1 [id number] Methodi 00:00:00 00:00:00 Only Nora 83266.1.[address] 3.430.2.7 Hospit a .3.884850 l .8 2022-02-09 2022-02-09 Orders Codie, 1.2.840.1 [id number] Methodi 00:00:00 00:00:00 Only Nora 50170.1.[address] 3.430.2.7 Hospit a .3.904417 l .8 2022-02-08 2022-02-08 Travel 1.2.840.1 1.2.805.922 5682 [id number] Methodi 00:00:00 00:00:[address] 3.430.2.7 0.2.7.3.698 Ho spita .3.749067 084.8 l .8 2022-02-08 2022-02-08 Travel 1.2.840.1 1.2.163.505 2989 [id number] Methodi 00:00:00 00:00:[address] 3.430.2.7 0.2.7.3.698 Ho spita .3.388869 084.8 l .8 2022-01-27 2022-01-27 [facility] [id number] 06:00:00 11:17:00 Encounter [facility] 2022-01-27 2022-01-[address] [facility] Surgery [id number] [facility] 06:00:00 11:17:00 MEERA 2022-01-27 2022-01-27 [facility] [id number] 06:00:00 11:17:00 Encounter [facility] 2022-01-27 2022-01-27 Anesthesia IniguezGarth calvert [facility] [id number] 07:41:00 08:45:00 Event Jerrell Matthews [facility] 2022-01-27 2022-01-27 Anesthesia Garth Iniguez [facility] [id number] 07:41:00 08:45:00 [facility] 2022-01-27 2022-01-27 Surgery Marian, [facility] [id number] 07:30:00 08:15:00 [facility] 2022-01-27 2022-01-27 Surgery Marian, [facility] [id number] 07:30:00 08:15:00 [facility] 2022-01-27 2022-01-27 Travel [facility] [id number] [facility] 00:00:00 00:00:00 [facility] 2022-01-27 2022-01-27 Travel [facility] [id number] [facility] 00:00:00 00:00:00 [facility] 2022-01-25 2022-01-25 Outpatient EL [facility] [id number] [facility] 00:00:00 00:00:00 2022-01-24 2022-01-24 Emergency Irina, [facility] [id number] 16:40:00 18:38:00 [facility] 2022-01-24 2022-01-24 Emergency ER IRINA, [facility] [id number] SLSL 16:40:00 18:38:00 [facility] 2022-01-24 2022-01-24 Emergency Irina, [facility] [id number] 16:40:00 18:38:00 [facility] 2022-01-23 2022-01-24 Emergency ER Megan Ulrich [facility] [id number] 16:03:00 01:02:00 [facility] 2022-01-23 2022-01-24 Emergency ER JULIANA VASQUEZ [facility] Emergency 20 [id number] SLSL 16:03:00 01:02:00 2022-01-23 2022-01-24 Emergency Megan Ulrich [facility] [id number] 16:03:00 01:02:00 [facility] 2022-01-20 2022-01-20 Travel [facility] [id number] [facility] 00:00:00 00:00:00 [facility] 2022-01-20 2022-01-20 Travel [facility] [id number] [facility] 00:00:00 00:00:00 [facility] 2021-12-28 2021-12-28 [facility] [id number] [place] 09:45:00 09:45:00 EDOUARD [facility] 2021-07-17 2021-07-17 Emergency ER Courtney, [facility] [id number] 11:59:00 18:30:00 [facility] 2021-07-17 2021-07-17 Emergency ER COURTNEY, [facility] Emergency [id number] [facility] 11:59:00 18:30:00 GARTH 2021-07-12 2021-07-12 Outpatient KYRIEVENSDES, [facility]Y MHCY [id number] 2 MHCY 08:31:00 16:30:00 LB 2021-05-31 2021-06-01 Emergency ER Pearl, [facility] [id number] 18:08:00 01:43:00 Rudy Bass [facility] 2021-05-31 2021-06-01 Emergency ER PEARL, [facility] [id number] SLS 18:08:00 01:43:00 RUDY 2021-05-31 2021-05-31 Travel [facility] [id number] [facility] 00:00:00 00:00:00 [facility] 2021-05-28 2021-05-28 Telephone Armando Nava [facility] 1.2.840.114 [id number] [place] 00:00:00 00:00:00 ORTHO AND 350.1.13.58 Health SPINE 9.2.7.2.686 MEDICAL [id number] PLAHORACIO 1 2021-04-01 2021-04-01 Outpatient MANJU, [facility]Y [id number] MHCY 08:36:00 08:36:00 RAFITA 2021-03-08 2021-03-08 Outpatient [facility] [id number] 10:36:25 10:48:25 [facility] 2021-03-01 2021-03-01 Outpatient ELIANA [facility] [id number] 14:18:45 15:20:25 QUOCDAI [facility] 2020-12-02 2020-12-02 Emergency ER SLSL Emergency [id number] [facility]SL 07:54:00 07:54:00 2020-10-17 2020-10-26 Inpatient AIXA, [facility] [id number] [place] 00:00:00 00:00:00 SHARRI [address] 2020-10-17 2020-10-17 Emergency ER [facility] Emergency [id number] [facility] 13:58:00 13:58:00 2020-10-12 2020-10-16 Outpatient GABBY, [facility] [id number] [place] [address] 00:00:00 00:00:00 CHIMI [address] 2020-10-11 2020-10-11 Emergency ER [facility] Emergency [id number] [facility] 08:36:00 08:36:00 2020-10-04 2020-10-04 Emergency ER [facility] Emergency [id number] [facility] 16:26:00 16:26:00 2020-09-07 2020-09-07 (TEL) [facility] [id number] Co mmon 00:00:00 00:00:00 Spirit - [facility] 2020-05-27 2020-05-27 Outpatient BERNICE SINGLETARY [facility] [id number] 00:00:00 00:00:00 [facility] 2020-05-17 2020-05-17 Emergency ER SLSL Emergency [id number] [facility] 20:24:00 20:24:00 2020-05-12 2020-05-12 Outpatient HE, BERNICE [facility] [id number] 00:00:00 00:00:00 [facility] 2020-05-05 2020-05-05 Outpatient ADRIANA [facility] [id number] 00:00:00 00:00:00 [facility] 2020-05-04 2020-05-04 Emergency ER [facility] Emergency [id number] [facility] 14:26:00 14:26:00 2020-05-01 2020-05-01 Outpatient ADRIANA [facility] [id number] 00:00:00 00:00:00 [facility] 2020-04-24 2020-04-24 Outpatient HE, BERNICE [facility] [id number] 00:00:00 00:00:00 [facility] 2020-04-23 2020-04-23 Outpatient HE, BERNICE [facility] [id number] 00:00:00 00:00:00 [facility] 2020-04-21 2020-04-21 Outpatient HE, BERNICE [facility] [id number] 00:00:00 00:00:00 [facility] 2020-04-13 2020-04-13 OFFICE STLMLC STLC [id number] Co mmon 00:00:00 00:00:00 VISIT EST Spir it PT LEVEL 3 - [facility] 2020-04-07 2020-04-07 OFFICE STLMLC STLC [id number] Co mmon 00:00:00 00:00:00 VISIT NEW Spir it PT LEVEL 3 - [facility] 2020-04-04 2020-04-04 Emergency E YOAN GUNN [facility] [place] [facility] 1000 [id number] [facility] 13:03:00 15:26:00 Medica [facility] 2020-04-04 2020-04-04 Emergency E DUGAN JOSEPH [facility] [place] [facility] 1000 [id number] [facility] 05:06:00 05:55:00 [facility] [place] 2020-04-03 2020-04-03 Emergency E MACY RIOS [facility] [place] [facility] [id number] [facility] 10:41:00 12:33:00 Medica l [place] 2020-03-29 2020-03-29 Outpatient Molina_J VFP VFP [id number] [facility] 10:09:00 10:09:00 [id number] Family Practic e 2020-03-24 2020-03-24 Outpatient BERNICE SINGLETARY [facility] [id number] [facility] 00:00:00 00:00:00 [facility] 2020-01-13 2020-01-[address] [facility] 1000 [id number] [facility] 15:40:00 18:56:00 MAYTE [facility] [place] 2020-01-11 2020-01-11 Emergency E MACY RIOS [facility] [place] [facility] [id number] [facility] 13:17:00 15:45:00 [facility]ica [facility] [place] 2020-01-11 2020-01-11 Emergency E MACY RIOS [facility] [place] [facility] [id number] [facility] 10:29:00 11:09:00 [facility]ica [facility] [place] 2020-01-10 2020-01-10 Emergency E ALEX [facility] [place] [facility] [id number] [facility] 22:14:00 22:52:00 MIRNA [facility]ica [facility] [place] 2020-01-10 2020-01-10 Emergency E AARON, [facility] [place] [facility] [id number] [facility] 14:16:00 16:31:00 JULIANA [facility] [place] 2020-01-09 2020-01-09 Emergency E VELIA [facility] [place] [facility] [id number] [facility] 20:59:00 22:48:00 MICKIE [facility] [place] 2020-01-09 2020-01-09 Emergency E JOSE [facility] [place] [facility] [id number] [facility] 13:13:00 13:45:00 JESSICA Medica l [facility] 2020-01-07 2020-01-07 Emergency E VELIA [facility] [place] [facility] [id number] [facility] 17:14:00 17:50:00 MICKIE [facility]ica [facility] [place] 2020-01-07 2020-01-07 Emergency E JONATHAN [facility] [place] [facility] 1000 [id number] [facility] 02:13:00 03:57:00 MAYTE [facility]ica [facility] [place] 2020-01-06 2020-01-06 Emergency E AARON [facility] [place] [facility] [id number] [facility] 16:00:00 19:17:00 JULIANA [facility]ica [facility] [place] 2020-01-05 2020-01-05 Emergency E VELIA [facility] [place] [facility] [id number] [facility] 13:46:00 15:01:00 MICKIE [facility] [place] 2019-12-31 2019-12-31 Emergency MARY GARCIA [facility] [id number] [place] 00:00:00 00:00:[address] 2019-12-21 2019-12-23 Inpatient E MIRELA FITZGERALD [facility] [place] TELE 1000 [id number] [facility] 18:19:00 16:28:00 Medica l [place] 2019-11-22 2019-12-04 Inpatient E JUSTINA, [facility] [place] TELE [id number] [facility] 18:29:00 13:06:00 ERNESTO Medica l [place] 2019-11-11 2019-11-11 Emergency E GUNN, [facility] [place] [facility] [id number] [facility] 20:02:00 21:45:00 MICKIE [facility]ica [facility] [place] 2019-11-04 2019-11-04 Emergency E WALKER, [facility] [place] [facility] [id number] [facility] 12:41:00 15:00:00 JULIANA [facility]ica [facility] [place] 2019-11-03 2019-11-03 Emergency E ANKIT, [facility] [place] [facility] [id number] [facility] 11:29:00 16:10:00 ABIGAIL Medica [facility] [place] 2019-10-30 2019-10-31 Emergency E YOAN GUNN [facility] [place] [facility] 1000 [id number] [facility] 16:37:00 03:53:00 Medica l [place] 2019-10-13 2019-10-13 Emergency E WALKER, [facility] [place] [facility] [id number] [facility] 11:37:00 15:00:00 JULIANA [facility]ica [facility] [place] 2019-10-09 2019-10-11 Outpatient E HORN, [facility] [place] TELE [id number] [facility] 13:25:00 18:31:00 ERNESTO Medica l [place] 2019-09-12 2019-09-14 Inpatient E JUSTINA, [facility] [place] TELE [id number] [facility] 11:49:00 17:29:00 ERNESTO Medica l [place] 2019-09-06 2019-09-06 Emergency E JOSE [facility] [place] [facility] [id number] [facility] 11:49:00 12:15:00 JESSICA Medica l [facility] 2019-09-05 2019-09-05 Outpatient C , [facility] [place] RAD [id number] [facility] 14:23:00 23:59:00 JUAN [facility]ica [facility] [place] 2019-09-04 2019-09-04 Emergency E AARON, [facility] [place] [facility] [id number] [facility] 13:39:00 14:22:00 JULIANA Medica l [place] 2019-09-02 2019-09-02 Emergency E DUGANJOSEPH Mg [facility] [place] [facility] 1000 [id number] [facility] 14:23:00 17:50:00 Medica l [place] 2019-08-20 2019-08-20 Emergency E DUGANJOSEPH Mg [facility] [place] [facility] 1000 [id number] [facility] 06:29:00 09:16:00 Medica l [place] 2019-08-15 2019-08-15 Emergency E JOSE, [facility] [place] [facility] [id number] [facility] 20:00:00 21:05:00 JESSICA Medica l [facility] 2019-08-14 2019-08-14 Emergency E AARON, [facility] [place] [facility] [id number] [facility] 11:35:00 15:50:00 [facility] Medica l [place] 2019-07-16 2019-07-16 Emergency E LIDA, [facility] [place] [facility] [id number] [facility] 10:53:00 13:03:00 GALE Medica l [place] 2019-04-20 2019-04-20 Emergency E JOSE, [facility] [place] [facility] [id number] [facility] 14:41:00 17:05:00 JESSICA Medica l [facility] 2019-03-11 2019-03-11 Emergency E OEI, [facility] [place] [facility] [id number] [facility] 11:00:00 13:29:00 MARIELA Medic al [place] 2019-03-05 2019-03-05 Emergency E OEI, [facility] [place] [facility] [id number] [facility] 12:04:00 17:12:00 MARIELA Medic al [place] 2019-03-03 2019-03-03 Emergency E DUGANJOSEPH Mg [facility] [place] [facility] [id number] [facility] 20:48:00 23:55:00 Medica l [place] 2019-03-03 2019-03-03 Emergency E GUNN, [facility] [place] [facility] [id number] [facility] 10:15:00 11:13:00 MICKIE Medica l [place] 2018-08-21 2018-08-23 Outpatient E KAMALA, [facility] [place] TELE [id number] [facility] 17:28:00 14:10:00 SEAN Medic al [place] 2018-08-20 2018-08-20 Emergency E AARON, [facility] [place] [facility] [id number] [facility] 15:39:00 16:34:00 JULIANA Medica l [place] 2018-08-20 2018-08-20 Emergency E AARON, [facility] [place] [facility] [id number] [facility] 12:27:00 15:00:00 JULIANA Medica l [place] 2018-08-18 2018-08-18 Emergency E KAMALA, [facility] [place] TELE [id number] [facility] 18:19:00 19:00:00 SEAN Medic al [place] 2018-08-13 2018-08-14 Emergency E VELIA, [facility] [place] [facility] [id number] [facility] 23:38:00 01:49:00 MICKIE Medica l [place] 2018-08-03 2018-08-03 Emergency E HUMBERTO, [facility] [id number] [facility] 09:53:00 10:15:00 NURIA Medica l [place] 2018-07-10 2018-07-10 Emergency E ENNABI, [facility] [place] [facility] [id number] [facility] 16:03:00 17:15:00 AMADOR [facility] 2018-06-28 2018-06-28 Emergency E CASTELLANO, [facility] [id number] [facility] 14:37:00 15:30:00 YOVANA Medic al [place] 2018-04-30 2018-04-30 Emergency E BA, PERLITA [facility] [id number] [facility] 20:17:00 21:05:00 Medica l [place] 2018-04-08 2018-04-08 Emergency E OTOOLE, [facility] [id number] [facility] 15:43:00 17:47:00 MIRNA Medica l [place] 2018-03-20 2018-03-20 Emergency E JOSE, [facility] [place] [facility] [id number] [facility] 12:36:00 13:16:00 JESSICA Medica l LUIS MIGUEL [place] 2018-03-19 2018-03-19 Emergency E , [facility] [place] [facility] [id number] [facility] 14:22:00 15:27:00 WASIM Medica l [place] 2018-02-18 2018-02-18 Emergency E , [facility] [place] [facility] [id number] [facility] 07:22:00 09:39:00 WASIM Medica l [place] 2018-02-03 2018-02-03 Emergency E XIANG, [facility] [place] [facility] [id number] [facility] 23:14:00 23:57:00 MIRNA Medica l [place] 2018-01-31 2018-01-31 Emergency E YOAN GUNN [facility] [place] [facility] 1000 [id number] [facility] 11:19:00 12:12:00 Medica l [place] 2018-01-23 2018-01-23 Emergency E YOAN GUNN [facility] [place] [facility] 1000 [id number] [facility] 09:26:00 11:32:00 Medica l [place] 2017-12-22 2017-12-22 Emergency E HOSSAIN, [facility] [place] WWC [id number] [facility] 21:27:00 23:35:00 REARDON Medic al [place] 2017-12-19 2017-12-19 Emergency E RADHA, [facility] [place] WWC [id number] [facility] 01:38:00 02:18:00 ANDERSON Medica [facility] 2017-12-11 2017-12-11 Emergency E ODIARI, [facility] [place] WWECC [id number] [facility] 18:50:00 20:30:00 EBELECHUKWU Me dical [place] 2017-11-17 2017-11-17 Emergency E OEI, [facility] [place] E[facility] [id number] [facility] 15:28:00 17:31:00 MARIELA Medic al [place] 2017-11-10 2017-11-10 Outpatient Geronimo SCHULZ, [facility] [place] ASU [id number] [facility] 08:06:00 12:45:00 RONEL [facility] 2017-11-06 2017-11-06 Emergency E HUMBERTO, [facility] [place] E[facility] [id number] [facility] 08:31:00 09:48:00 NURIA Medica [facility] 2017-10-23 2017-10-23 Emergency E AARON, [facility] [place] E[facility] [id number] [facility] 09:46:00 10:55:00 JULIANA Medica [facility] 2017-10-06 2017-10-06 Outpatient Geronimo SCHULZ, [facility] [place] ASU [id number] [facility] 08:06:00 13:30:00 RONEL [facility] 2017-10-05 2017-10-05 Emergency E NNOA, [facility] [place] WWECC [id number] [facility] 00:40:00 02:43:00 YOVANA Medic al [place] 2017-09-26 2017-09-26 Emergency E AARON, [facility] [place] ECC [id number] [facility] 12:38:00 15:30:00 JULIANA Medica l [place] 2017-09-14 2017-09-14 Emergency E YADIEL, [facility] [place] ECC [id number] [facility] 11:13:00 13:12:00 EBELECHUKWU Me dical [place] 2017-09-04 2017-09-04 Outpatient C KAMALA, [facility] [place] RAD [id number] [facility] 08:15:00 23:59:00 SEAN Medic al [place] 2017-09-04 2017-09-04 Emergency E AARON, [facility] [place] E[facility] [id number] [facility] 10:46:00 11:56:00 JULIANA Medica l [place] 2017-08-06 2017-08-06 Emergency E HUMBERTO, [facility] [place] [facility] [id number] [facility] 17:20:00 20:00:00 NURIA Medica l [place] 2017-07-28 2017-07-28 Emergency E HUMBERTO [facility] [place] WWECC [id number] [facility] 07:43:00 08:04:00 NURIA Medica l [place] 2017-07-11 2017-07-11 Outpatient C KAMALA, [facility] [place] RAD [id number] [facility] 07:39:00 23:59:00 SEAN Medic al [place] 2017-07-03 2017-07-03 Outpatient C JESSICA, [facility] [place] RAD [id number] [facility] 12:10:00 23:59:00 BEVERLY Medica l [place] 2017-05-28 2017-05-28 Emergency E [facility] [place] [facility] [id number] [facility] 13:15:00 15:40:00 GIRISH Medica l [place] 2017-05-04 2017-05-04 Emergency E SHEIKH [facility] [place] [facility] [id number] [facility] 10:41:00 12:44:00 WASIM Medica l [place] 2016-07-13 2016-07-14 Emergency E DUGANJOSEPH Mg [facility] [place] [facility] 1000 [id number] [facility] 15:07:00 01:31:00 Medica l Center Results Test Description Test Time Test Comments Results Result Comments Source MAGNESIUM 2022-09-15 04:09:19 Test Item Value Reference Range Interpretation Comme nts MAGNESIUM (test code = 1460323523) 2.0 mg/dL 1.7-2.4 Lab Interpretation (test code = 50278-1) [facility] (81122)2022-09-15 04:09:18 Test Item Value Reference Range Interpretation Comments NA (test code = 133 mmol/L 135-145 L [id number]) K (test code = 4.2 mmol/L 3.5-5.0 7017181884) CL (test code = 105 mmol/L 98-108 5850181663) CO2 TOTAL (test code = 22 mmol/L 23-31 L 1395144613) AGAP (test code = 6 2-16 8138139618) BUN (test code = 10 mg/dL 7-23 9338280147) GLUCOSE (test code = 105 mg/dL 70-110 6409354898) CREATININE (test code = 0.66 mg/dL 0.60-1.25 6528497665) TOTAL BILI (test code = 0.5 mg/dL 0.1-1.2 1335517708) CALCIUM (test code = 8.5 mg/dL 8.6-10.6 L [id number]) T PROTEIN (test code = 6.5 g/dL 6.3-8.2 6121162469) ALBUMIN (test code = 3.6 g/dL 3.5-5.0 9735597365) ALK PHOS (test code = 117 U/L 34-122 2965786186) ALTv (test code = 134 U/L 5-50 H 1742-6) AST(SGOT) (test code = 58 U/L 13-40 H 7095166185) eGFR (test code = 122.7 mL/min/1.73m2 6790917140) ISABELA (test code = ISABELA) Association of Glomerular Filtration Rate (GFR) and Staging of Kidney Disease* + --+ --+ ------+| GFR (mL/min/1.73 m2) ?| With Kidney Damage ?| ?Without Kidney Damage+ --------+ --------+ +| ?>90 ?| ?Stage one ?| ? Normal ?+ ---+ ---+ -------+| ?60-89 ?| ?Stage two ?| ? Decreased GFR ? + --+ --+ ------+| ?30-59 ?| ?Stage three ?| ? Stage three ? + --+ --+ ------+| ?15-29 ?| ?Stage four ? | ? Stage four ?+ ---+ ---+ -------+| ?<15 (or dialysis) ? ?| ?Stage five ? | ? Stage five ?+ ---+ ---+ -------+ *Each stage assumes the associated GFR level has been in effect for at least three months. ?Stages 1 to 5, with or without kidney disease, indicate chronic kidney disease. Notes: Determination of stages one and two (with eGFR >59mL/min/1.73 m2) requires estimation of kidney damage for at least three months as defined by structural or functional abnormalities of the kidney, manifested by either:Pathological abnormalities or Markers of kidney damage (including abnormalities in the composition of the blood or urine or abnormalities in imaging tests). Lab Interpretation Abnormal (test code = 91899-4) [facility] panel - Blood by Automated [id number] 00:00:00 Test Item Value Reference Range Interpretation Comments WBC (test code = WBC) 6.6 10 3.7-12.0 RBC (test code = RBC) 5.14 10 3.60-5.50 HGB (test code = HGB) 14.0 g/dL 13.5-17.5 HCT (test code = HCT) 42.8 % 35.0-53.0 MCV (test code = MCV) 83.3 um 80.0-102.0 MCH (test code = MCH) 27.2 pg 25.0-34.1 MCHC (test code = MCHC) 32.7 g/dL 29.0-35.0 RDW (test code = RDW) 15.4 % 10.9-16.9 plt (test code = plt) 241 10 136-392 MPV (test code = MPV) 9.1 um 7.4-11.1 gran % (test code = gran %) 72.4 % 36.0-78.0 lymph % (test code = lymph %) 15.7 % 12.0-48.0 mono % (test code = mono %) 8.2 % 0.0-13.0 eos % (test code = eos %) 1 % 0-8 baso % (test code = baso %) 3 % 0-2 H gran # (test code = gran #) 4.8 10 1.2-6.8 lymph # (test code = lymph #) 1.0 10 1.2-3.2 L mono # (test code = mono #) 0.5 10 0.3-0.8 eos # (test code = eos #) 0.0 10 0.0-0.2 baso # (test code = baso #) 0.2 10 0.0-0.2 [facility] MedicalMagnesium [Mass/volume] in Serum or [id number] 00:00:00 Test Item Value Reference Range Interpretation Comments magnesium (test code = magnesium) 2.0 mg/dL 1.6-2.6 [facility] - Serum or [id number] 00:00:00 Test Item Value Reference Range Interpretation Comments sodium (test code = 136 mmol/L 136-145 sodium) potassium (test code = 4.3 mmol/L 3.5-5.5 potassium) chloride (test code = 98 mmol/L 98-107 chloride) CO2 (test code = CO2) 23 mmol/ L 23-31 glucose (test code = 109 mg/dL 70-99 H glucose) BUN (test code = BUN) 11 mg/dL 6-20 creatinine (test code = 0.9 mg/dL 0.7-1.2 creatinine) BUN/creatinine ratio 12.2 calc 10.0-28.0 (test code = BUN/creatinine ratio) eGFR non- 91.179 mL/min/1.73A? >60.000 (test code = eGFR non-) eGFR 109.415 >60.000 (test code = eGFR mL/min/1.73A? [facility]) [facility] 12 [id number] 04:29:36 Test Item Value Reference Range Interpretation Comments Ventricular rate (test 66 code = 253) Atrial rate (test code 66 = 255) WV interval (test code 180 = 266) QRSD interval (test 86 code = 260) QT interval (test code 432 = 264) QTC interval (test code 452 = 265) P axis 1 (test code = 108 267) QRS axis 1 (test code = 52 268) T wave axis (test code 60 = 270) EKG impression (test Normal sinus code = 273) rhythm-Early Tranisition -Nonspecific ST and T wave abnormality-Abnormal ECG-In automated comparison with ECG of 08-FEB-2022 16:54,-No significant change was found- [facility] 12 [id number] 04:29:36 Test Item Value Reference Range Interpretation Comments Ventricular rate (test 66 code = 253) Atrial rate (test code 66 = 255) WV interval (test code 180 = 266) QRSD interval (test 86 code = 260) QT interval (test code 432 = 264) QTC interval (test code 452 = 265) P axis 1 (test code = 108 267) QRS axis 1 (test code = 52 268) T wave axis (test code 60 = 270) EKG impression (test Normal sinus code = 273) rhythm-Early Tranisition -Nonspecific ST and T wave abnormality-Abnormal ECG-In automated comparison with ECG of 08-FEB-2022 16:54,-No significant change was found- [facility] [Presence] in Respiratory specimen by CHASITY with probe [id number] 02:02:08 Test Item Value Reference Range Interpretation Comments SARS-CoV-2 (COVID-19) RNA Not detected [Presence] in Respiratory specimen by CHASITY with probe detection (test code = 47831-0) Whether patient is employed in a Unknown healthcare setting (test code = 23340-1) Whether the patient has symptoms Unknown related to condition of interest (test code = 46042-7) Whether the patient was Unknown hospitalized for condition of interest (test code = 07680-9) Whether the patient was admitted Unknown to intensive care unit (ICU) for condition of interest (test code = 16403-6) Whether patient resides in a Unknown congregate care setting (test code = 32061-0) status (test code = Unknown 25720-2) Date and time of symptom onset Unknown (test code = 62971-2) [facility] 2 OR 3 [id number] 18:08:00Reason for exam:->BACK PAINPt. Was at [facility] and had not had pain medication for his pain for chronic back pain per EMS for 8 hrs. . Pt. Was sent [facility] ER for pain. [facility] 1960 Sex: MFINAL REPORT Clinical history: Pain TECHNIQUE: Three views are obtained of the cervical spine COMPARISON: 05/09/2020 IMPRESSION:There is straightening of the normal cervical lordosis, similar to the prior examination. There is no evidence for acute fracture or dislocation. Vertebral body heights are maintained. The dens as well as lateral masses are unremarkable. There are multileveldegenerative changes present, most prominent at C4-C5 where there is intervertebral disc space narrowing, similar to the prior examination. The prevertebral soft tissues and visualized lung apices are unremarkable. Signed: Fish Corrales MDReport Verified Date/Time: 08/15/2022 18:08:40 Electronically si gned by: FISH CORRALES MD on 08/15/2022 06:08 PMRAD, SPINE, LUMBAR, COMPLETE (MIN 4 VIEWS)2022-08-15 18:08:00Reason for exam:->BACK PAINPt. Was at [facility] and had not had pain medication for his pain for chronic back pain per EMS for 8 hrs. . Pt. Was sent to ER for pain. [facility] : 1960 Sex: MFINAL REPORT TECHNIQUE: RAD, SPINE, LUMBAR, COMPLETE (MIN 4 VIEWS) INDICATION: BACKPAIN. COMPARISON: 07/26/[address] lumbar spine 05/31/2021 FINDINGS:Chronic anterior wedging of the G0xcgjyphtx body. Osteopenia. Multilevel endplate degenerative changes. Posterior osseous fusion with bone graft, as before. Mild widening of the anterior disc spaces L4/L5, as before. Sacrum partially obscured by overlying stool and bowel gas. IMPRESSION:Chronic compression deformity of the T12 vertebral body, as before. Osteopenia in osseous fusion with bone graft material posteriorly, as before. No acute fracture or subluxation. Signed: Adan [facility] Verified Date/Time: 08/15/2022 18:08:54 RAD, SPINE, LUMBAR, COMPLETE, WITH [id number] 16:45:00Release to patient->ImmediateWhich [facility] radiology location is preferred?->[employer] ID = [id number]; Insurance Company Name = [employer]; Insurance Company Phone Number = ; Policy Number = [id number] [facility] : 1960 Sex: MFINAL REPORT RAD, SPINE, SCOLIOSIS STUDY, 2 OR 3 VIEWS, RAD, SPINE, LUMBAR, COMPLETE, WITH FLEX \\T\\ EXTENSION - MIN. 6 VIEWS INDICATION: M96.1\\S\\Postlaminectomy syndrome, not elsewhereclassified COMPARISON: May 13, 2020. May 09, 2020 TECHNIQUE: Radiographs of the spine for scoliosis. 10 images of the spine. Radiographs of the lumbar spine five views with bilateral obliquesFINDINGS:The examination is of limited by body habitus and degraded capability to stand upright. IMPRESSION: Exaggeration of thoracic kyphosis due to severe height loss/vertebra plana at the T12 vertebral body. Thoracolumbar fusion with bone graft material. Degenerative endplate changes are present throughout the thoracic and lumbar spine. Flowing syndesmophytes. There is slight dextroconvex scoliotic curvature in the upper thoracic spine, with Cha angle of approximately 5 degrees. This is essentially unchanged. Signed: Neeru Oneil MDReport Verified Date/Time: 07/26/2022 16:45:14 Electronically si gned by: NEERU ONEIL on 07/26/2022 04:45 PMRAD, SPINE, SCOLIOSIS STUDY, 2 OR 3 [id number] 16:45:00Release to patient->ImmediateWhich [facility] radiology location is preferred?->[employer] ID = [id number]; Insurance Company Name = [employer]; Insurance Company Phone Number = ; Policy Number = [id number] [facility] : 1960 Sex: MFINAL REPORT RAD, SPINE, SCOLIOSIS STUDY, 2 OR 3 VIEWS, RAD, SPINE, LUMBAR, COMPLETE, WITH FLEX \\T\\ EXTENSION - MIN. 6 VIEWS INDICATION: M96.1\\S\\Postlaminectomy syndrome, not elsewhereclassified COMPARISON: May 13, 2020. May 09, 2020 TECHNIQUE: Radiographs of the spine for scoliosis. 10 images of the spine. Radiographs of the lumbar spine five views with bilateral obliquesFINDINGS:The examination is of limited by body habitus and degraded capability to stand upright. IMPRESSION: Exaggeration of thoracic kyphosis due to severe height loss/vertebra plana at the T12 vertebral body. Thoracolumbar fusion with bone graft material. Degenerative endplate changes are present throughout the thoracic and lumbar spine. Flowing syndesmophytes. There is slight dextroconvex scoliotic curvature in the upper thoracic spine, with Cha angle of approximately 5 degrees. This is essentially unchanged. Signed: Neeru Oneil MDReport Verified Date/Time: 07/26/2022 16:45:14 Electronically si gned by: NEERU ONEIL on 07/26/2022 04:45 PMTransthoracic Echocardiogram Complete, (w Contrast, Strain and 3D if needed)2022-02-10 02:08:58 Test Item Value Reference Range Interpretation Comments Ao Root Diameter 2.70 cm (test code = 4001680554) AoV Area, Vmax 2.65 cm2 >=1.5 (test code = 9015153212) AoV Area, VTI 3.16 cm2 (test code = 4020549679) AoV Mean PG (test 4.84 mmHg code = 0283522763) AoV Peak PG (test 7.02 mmHg code = 9276604232) AoV Vmax (test 1.32 m/s code = 5761523032) AoV VTI (test code 0.29 m = 7723158438) IVS,d (test code = 1.0 cm 0.6-0 9185800672) IVS/LVPW,2D (test 1.48 code = 1290939943) LV,d (test code = 4.09 cm 3153593023) LV EF,2D (test 74.10 % code = 2568663939) LV,s (test code = 2.61 cm 0115035803) LVOT area (test 3.20 cm2 code = 2303012110) LVOT Diam,S (test 2.02 cm code = 8881955824) LVOT Vmax (test 1.09 m/s code = 0823559595) LVOT VTI (test 0.29 m code = 6769009232) LVPWD,d (test code 1.00 cm 0.60-1.19 = 2133377405) PV Pk Grad (test 4.85 mmHg code = 4158587735) PV VMAX (test code 1.10 m/s = 2208747022) RVOT Vmax (test 0.92 m/s code = 5408251218) MV E A ratio (test 1.51 code = 1013178925) E wave decelartion 196.02 See_Comment [Automat ed time (test code = message] T he 7794295671) system which generated this result transmitted reference range : 200 msec. The reference range was not used to interpret this result as normal/abnormal . MV Peak A Lan 0.55 m/s (test code = 3419155188) MV valve area p 3.87 cm2 1/2 method (test code = 8832744152) MV Peak E Lan 0.83 m/s (test code = 0791529261) MV stenosis 56.85 ms pressure 1/2 time (test code = 5807419230) LVOT stroke volume 0.93 cm3 (test code = 8147315343) AV LVOT peak 4.79 mmHg gradient (test code = 3254328681) Ascending aorta 3.79 cm (test code = 1944559963) Ao Root Diameter 2.70 cm (test code = 9529566496) LV SYS VOL (test 24.74 ml 21-61 code = 5314022947) LV BARRERA VOL (test 73.69 ml 62-150 code = 3289542836) LA area s A4C 18.01 cm2 (test code = 3117585358) LV SV Teich 2D 48.95 ml (test code = 9841618631) LV Vol s Teich 24.74 ml PSAX (test code = 4300465725) RVOT pk grad (test 3.38 mmHg code = 5353802478) AoV Vmn (test code 1.06 m/s = 9881954047) LV FS Teich 2D 36.25 (test code = 8515087817) MV AE ratio (test 0.66 code = 6069311289) LV FS Cube 2D 36.25 (test code = 9352745462) LVOT Vmn (test 0.75 code = 5028785376) Aov area Vmn (test 2.25 cm2 code = 5115536982) LVOT mean grad 2.56 mmHg (test code = 8664261395) MAX Pred HR (test 158.77 code = 8331936894) 85 of MPHR (test 134.96 code = 8218697370) Calc MPHR (test 158.77 bpm code = 3448307296) LV SV Cube 2D 50.60 ml (test code = 7390867911) LV vol d cube 2D 68.29 ml (test code = 5391367057) LV vol s cube 2D 17.69 ml (test code = 6496674814) MV Decel slope 4.25 m/s2 (test code = 2993735117) Pred Exer Dur R1 8.52 (test code = 0504512260) Pred METS R1 (test 8.82 code = 8161902372) LA Vol MOD A4C 53.34 ml (test code = 7803117698) E marcin sept (test 0.09 code = 9185167140) E prime lat (test 0.08 code = 2597556965) Velocity Ratio 0.83 m/s (V1/V2) (test code = 4689) EF (test code = 66 % 2015812210) E/A ratio (test 1.51 code = 6255711393) LVOT VTI (CM) 29.00 cm (test code = 0213868231) ISABELA (test code = ISABELA) Left Ventricle: Normal wall motion. Normal systolic function with a visually estimated EF of 60 - 65%. Normal left ventricular size with preserved systolic and diastolic function and no regionality. Trace mitral and tricuspid regurgitation. Normal right sided chambers. Left VentricleLeft ventricle size is normal. Normal wall thickness. Normal wall motion. Normal systolic function with a visually estimated EF of 60 - 65%. Normal diastolic function. Normal left ventricular filling pressure.Right VentricleRight ventricle size is normal. Normal systolic function.Left AtriumLeft atrium size is normal.Right AtriumRight atrium size is normal.Mitral ValveValve structure is normal. Trace valvular regurgitation. No stenosis.Tricuspid ValveValve structure is normal. Trace valvular regurgitation. No stenosis.Aortic ValveValve structure is normal. No significant valvular regurgitation. No stenosis.Pulmonic ValveValve structure is normal. No significant valvular regurgitation. No stenosis. Main pulmonary artery size is normal.PericardiumTh ere is no pericardial effusion present.AortaNormal sized aortic root.Study DetailsStudy quality was good. A complete 2D, color flow Doppler and spectral Doppler echocardiogram was performed.The apical, parasternal and subcostal views were obtained. The suprasternal view was limited. Patient exhibited sinus rhythm.Wall Scoring BaselineScore Index: 1.00The left ventricular wall motion is normal. [facility], (w Contrast, Strain and 3D if needed)2022-02-10 02:08:58 Test Item Value Reference Range Interpretation Comments Ao Root Diameter 2.70 cm (test code = 4768893591) AoV Area, Vmax 2.65 cm2 >=1.5 [Automated (test code = message] The 4672933370) system which generated this result transmitted reference range : >=1.5. The reference range was not used to interpret this result as normal/abnormal . AoV Area, VTI 3.16 cm2 (test code = 4312937651) AoV Mean PG (test 4.84 mmHg code = 7627754052) AoV Peak PG (test 7.02 mmHg code = 3914125687) AoV Vmax (test 1.32 m/s code = 5919205733) AoV VTI (test code 0.29 m = 6393148987) IVS,d (test code = 1.0 cm 0.6-7 5924049624) IVS/LVPW,2D (test 1.48 code = 7133230797) LV,d (test code = 4.09 cm 4592987847) LV EF,2D (test 74.10 % code = 3734235294) LV,s (test code = 2.61 cm 3117242153) LVOT area (test 3.20 cm2 code = 5113412636) LVOT Diam,S (test 2.02 cm code = 2749641017) LVOT Vmax (test 1.09 m/s code = 8744508683) LVOT VTI (test 0.29 m code = 0708309253) LVPWD,d (test code 1.00 cm 0.60-1.19 = 0274856724) PV Pk Grad (test 4.85 mmHg code = 2045741111) PV VMAX (test code 1.10 m/s = 2941796138) RVOT Vmax (test 0.92 m/s code = 2076458556) MV E A ratio (test 1.51 code = 8715336685) E wave decelartion 196.02 See_Comment [Automat ed time (test code = message] T he 1866969485) system which generated this result transmitted reference range : 200 msec. The reference range was not used to interpret this result as normal/abnormal . MV Peak A Lan 0.55 m/s (test code = 8169515418) MV valve area p 3.87 cm2 1/2 method (test code = 3177613757) MV Peak E Lan 0.83 m/s (test code = 1152736234) MV stenosis 56.85 ms pressure 1/2 time (test code = 3479878754) LVOT stroke volume 0.93 cm3 (test code = 5241684286) AV LVOT peak 4.79 mmHg gradient (test code = 6474820386) Ascending aorta 3.79 cm (test code = 7757479271) Ao Root Diameter 2.70 cm (test code = 3009711139) LV SYS VOL (test 24.74 ml 21-61 code = 6837132137) LV BARRERA VOL (test 73.69 ml 62-150 code = 8055610261) LA area s A4C 18.01 cm2 (test code = 2670368219) LV SV Teich 2D 48.95 ml (test code = 6078067438) LV Vol s Teich 24.74 ml PSAX (test code = 9838726098) RVOT pk grad (test 3.38 mmHg code = 1454857546) AoV Vmn (test code 1.06 m/s = 5558631346) LV FS Teich 2D 36.25 (test code = 7151488356) MV AE ratio (test 0.66 code = 3453957092) LV FS Cube 2D 36.25 (test code = 4868612767) LVOT Vmn (test 0.75 code = 4984278678) Aov area Vmn (test 2.25 cm2 code = 5089041003) LVOT mean grad 2.56 mmHg (test code = 3526177956) MAX Pred HR (test 158.77 code = 2169975493) 85 of MPHR (test 134.96 code = 5468637583) Calc MPHR (test 158.77 bpm code = 2370772261) LV SV Cube 2D 50.60 ml (test code = 2181916927) LV vol d cube 2D 68.29 ml (test code = 4505206315) LV vol s cube 2D 17.69 ml (test code = 5905465226) MV Decel slope 4.25 m/s2 (test code = 7020124126) Pred Exer Dur R1 8.52 (test code = 5859100748) Pred METS R1 (test 8.82 code = 5986704221) LA Vol MOD A4C 53.34 ml (test code = 1103977138) E marcin sept (test 0.09 code = 2220920848) E prime lat (test 0.08 code = 6917165942) Velocity Ratio 0.83 m/s (V1/V2) (test code = 4689) EF (test code = 66 % 0930058052) E/A ratio (test 1.51 code = 7136789355) LVOT VTI (CM) 29.00 cm (test code = 2463789478) ISABELA (test code = ISABELA) Left Ventricle: Normal wall motion. Normal systolic function with a visually estimated EF of 60 - 65%. Normal left ventricular size with preserved systolic and diastolic function and no regionality. Trace mitral and tricuspid regurgitation. Normal right sided chambers. Left VentricleLeft ventricle size is normal. Normal wall thickness. Normal wall motion. Normal systolic function with a visually estimated EF of 60 - 65%. Normal diastolic function. Normal left ventricular filling pressure.Right VentricleRight ventricle size is normal. Normal systolic function.Left AtriumLeft atrium size is normal.Right AtriumRight atrium size is normal.Mitral ValveValve structure is normal. Trace valvular regurgitation. No stenosis.Tricuspid ValveValve structure is normal. Trace valvular regurgitation. No stenosis.Aortic ValveValve structure is normal. No significant valvular regurgitation. No stenosis.Pulmonic ValveValve structure is normal. No significant valvular regurgitation. No stenosis. Main pulmonary artery size is normal.PericardiumTh ere is no pericardial effusion present.AortaNormal sized aortic root.Study DetailsStudy quality was good. A complete 2D, color flow Doppler and spectral Doppler echocardiogram was performed.The apical, parasternal and subcostal views were obtained. The suprasternal view was limited. Patient exhibited sinus rhythm.Wall Scoring BaselineScore Index: 1.00The left ventricular wall motion is normal. [address]2022-09-21 03:47:21 Test Item Value Reference Range Interpretation Comments Ventricular rate (test code = 253) Atrial rate (test code = 255) WV interval (test code = 266) QRSD interval (test code = 260) QT interval (test code = 264) QTC interval (test code = 265) P axis 1 (test code = 267) QRS axis 1 (test code = 268) T wave axis (test code = 270) EKG impression (test Normal sinus code = 273) rhythm-Low voltage QRS-Borderline ECG-In automated comparison with ECG of 20-OCT-2020 05:15,-No significant change was found- [address]2022-09-21 03:47:21 Test Item Value Reference Range Interpretation Comments Ventricular rate (test code = 253) Atrial rate (test code = 255) WV interval (test code = 266) QRSD interval (test code = 260) QT interval (test code = 264) QTC interval (test code = 265) P axis 1 (test code = 267) QRS axis 1 (test code = 268) T wave axis (test code = 270) EKG impression (test Normal sinus code = 273) rhythm-Low voltage QRS-Borderline ECG-In automated comparison with ECG of 20-OCT-2020 05:15,-No significant change was found- [address]2022-09-21 03:47:21 Test Item Value Reference Range Interpretation Comments Ventricular rate (test code = 253) Atrial rate (test code = 255) WV interval (test code = 266) QRSD interval (test code = 260) QT interval (test code = 264) QTC interval (test code = 265) P axis 1 (test code = 267) QRS axis 1 (test code = 268) T wave axis (test code = 270) EKG impression (test Normal sinus code = 273) rhythm-Low voltage QRS-Borderline ECG-In automated comparison with ECG of 20-OCT-2020 05:15,-No significant change was found- [address]2022-09-21 03:47:21 Test Item Value Reference Range Interpretation Comments Ventricular rate (test code = 253) Atrial rate (test code = 255) WV interval (test code = 266) QRSD interval (test code = 260) QT interval (test code = 264) QTC interval (test code = 265) P axis 1 (test code = 267) QRS axis 1 (test code = 268) T wave axis (test code = 270) EKG impression (test Normal sinus code = 273) rhythm-Low voltage QRS-Borderline ECG-In automated comparison with ECG of 20-OCT-2020 05:15,-No significant change was found- [address]2022-09-21 03:47:21 Test Item Value Reference Range Interpretation Comments Ventricular rate (test 77 code = 253) Atrial rate (test code 77 = 255) WV interval (test code 168 = 266) QRSD interval (test 72 code = 260) QT interval (test code 380 = 264) QTC interval (test code 430 = 265) P axis 1 (test code = 19 267) QRS axis 1 (test code = 44 268) T wave axis (test code 72 = 270) EKG impression (test Normal sinus code = 273) rhythm-Low voltage QRS-Borderline ECG-In automated comparison with ECG of 20-OCT-2020 05:15,-No significant change was found- [facility] [Presence] in Respiratory specimen by CHASITY with probe [id number] 02:27:27 Test Item Value Reference Range Interpretation Comments SARS-CoV-2 (COVID-19) RNA Not detected [Presence] in Respiratory specimen by CHASITY with probe detection (test code = 18757-6) Whether patient is employed in a Unknown healthcare setting (test code = 52269-0) Whether the patient has symptoms Unknown related to condition of interest (test code = 42318-3) Whether the patient was Unknown hospitalized for condition of interest (test code = 89846-9) Whether the patient was admitted Unknown to intensive care unit (ICU) for condition of interest (test code = 54870-2) Whether patient resides in a Unknown congregate care setting (test code = 31961-7) status (test code = Unknown 76496-5) Date and time of symptom onset Unknown (test code = 37628-4) [facility] Fall[facility]ue [id number] 16:40:03 Test Item Value Reference Range Interpretation Comments Case Report (test code Surgical Pathology = 104) Report Case: [id number] Authorizing Provider: Meera Fonseca MD Collected: 01/27/2022 08:11 AM Ordering Location: [facility] Received: 01/27/2022 09:25 AM Pathologist: Audrey Shore MD Specimens: A) - Biopsy, Gastric B) - Polyp, Colon - Transverse, x3 DIAGNOSIS (test code = x4dghOAhFJVno6lkMDYetO 3220) FuZzEwMzNcZnRuYmpcdWMx IHtccnRmMVxlcGljOTYwMl vkpwKtICZtzEYiO1Kfvgay ZZsjWM4cXP1hnVepbAQwsU AxDOAtCbTek3ooi139ySSt l5syZQRIqrmslSr8hMlfO5 0iw2W9UezlR18tfYHnMHX2 EABaQCOwxNOuGRNuALB2ZN IrxTHyC5yqNJKoUW0rrisu GFewSNyhBJPmlOZ9BTCurB UaD6KwEHXpPKvaKBDijtp7 BiHnMa3xfLKgnIwyJFtnDF YpNOZtHAsoGSRqXjBsTR0e M4IYXEWMQQidLuBHWH9IAA OQRiOQZ1LJMCmGRAXWH8ED WTpccGFyICAgLSBBTlRSQU ldTBzZMGYYQUOMTebIPZ7X E74SZWKBHIIMZNXDYLODMQ CQSUpQL3ISW7MINXvFUYFc guDkCP1nZ3iGJxDWBhZCID IWA7UsB0jLSSYOOmJENNOS R4zMW5tCHOWPSYPZAFNRX4 5ccGFyICAgLSBOTyBIRUxJ K35RWGZGUXTsPPbCV6KEGT bYY7FsQ0UJIX4EL90VSJAU CT9jM21cF3MNMAzDDv5CXZ BPFlgzT9LPZR9laSWnXQMl UALMIgICEgEDU4ECFjEAPY 6SGXSUETJCJWLxPSZBQ9DS ZUGQAAVIJbXVKRaGW49SUx LLUQ3OFNAQIIYezgpqQTHw Mx7oW15MM32bOEOQGB5OBk ADQ3PbFWANYC2FP09BZMKd AM9DAJYFJ8HEOLa1FFRbqf OkNPSDORZTKERBLCRPWZ8O BQYnXVWzPUkwOCJyRM4vPr 8gSElHSCBHUkFERSBEWVNQ JSCCWMLrC6ZaQA8DOKJFVn LgT2AWQ1pIN34WWCZUFN0v cGFyXHBhclxwYXJccGFyXH BhciAgXHBhciAgIFxwYXJ9 r3kqwDCzRUIylSHuCBMkLP xhbnNpXGRlZmxhbmcxMDMz OZX7rqPpRHAySIlgKEDhOK hzTw3inXEwsDznEmAfRYGm r9zsxkYEftklbCy3e4eaTO WeRrF0oJPfEOocD6twglPd cTCoBYAdISs5uH49BLHcsR 1yyMCoYEvntlRpNyZ2BAno TPYiGbV3DORcgLRxIZVmO0 xyZWQwXGdyZWVuMFxibHVl TOZ0eSest5E5rLQrcWZnrR qnDiKfUkWgSiRSw7LwLNk5 bRgdI4JwCRCiLfJ3mAVzMH WvJNkvABSaMUZmbaQ2sU43 QHdqsyH8eBEcd8Moc13wo0 88dT7jiXAyMXP9LCDyFUJa hSGuNRMjJRG2VAVvuAQbY7 heVRDeHT8jhqnhIPxxAGvs HOKcyIS3QYOwtUVmC5MkTV VxPEvxDHVqbwb8VqXaWa1z cIThqUoyWFnsl7upi2bfrP DrMbj4EBEfAbBcXjjuUXat v4Ydf7yoKPPnzy8gYCY8gD ZpcWeki3Y3fPKnTNSbbFSb OXUhPQ6seBExGENqdS6wbx xjXHBnYnJkcmhlYWRccGdi dsJoUo2ysGvlRFY1ZWyuZ3 hmqL9fSzK9MWnwJ8gxlS3s XNd2OCbfSAPjkVT5rsQ6BI BbvOHoE7HgbS8cVOVqIS8m jay6n2faCNJ8IQoyRSJtIt Z2ooH8CEPouHQzGOXxtUad TBkcf006AZW7ZjSgKDTqo7 SrQ9JjuFxpC41vfXriN55z BCFjhAkjeG7viRpvzG5pBx KoDoDeXClwoQheQS8tWJSh L0lehFDgRUQbTOHcR4vhXn UalT4zvGryWEkxhaLvKNYj Vib3IPQgcHSuLIKlZtg6QI TlHXYpR24xydoaZPL5uQ7n v2uzw4CcTUpuUWR5MIXct5 5mDYjiixB4IZR7GW74Zqdq ReM5P2otMIZ5eE== CPT Code(s) (test code m6wpiGLuXMYmfUJ4ZnPfRK = 3357) Pbd6ytw8MpeWIcxKUqIJgv yAEscoPoiy53cKY0qN08OP 2dNCPlEuL8GRIwtsP6Xcr0 KWQmBMLcxXTvF158q5uts7 qanaScfFO8yCwfTFYhewzo DaH9DOusUAAxvrqwGAs1IF rnNUYlcMF7SVUyrQTeO7Fp BSPyDN0smhh7HMT4RMxpMD TrIgU1ELKixXEpEKQmyKcw TDlde714NMA5VnLbFDZqwz QtxUuxtC4rUmLhFQK1QUPc NVxwYXJ9 CLINICAL HISTORY (test d7oosRQlRFRxxWI9MdFoOF code = 3356) Lix6mhd2NkmBSjpQUbROof sGYcjfTljo82dXM6kM76PY 3cBJGfCtJ7SUItahA4Gqi6 ZURtJNSsjHRhU831r1wyo4 fzciOxnHT6wDvxQPSrbvjo VkL6AVrdKUOoxdnrJQo6ZM hhZHWnrDT8LQZpeBFvB6Xi PSYwJH6flkh6UXF0FUtoZJ HrAtO6BMCpdXUuFXQdcSxx DSwih013DQD3ZkMnCKGofu WdsNtvmX6rFsVxBYPYthMd cG12VRDtRi5jKVFfwoBzzs biTnNyc1ZihSUtjCuoOS97 LZ0vq2QpIDWrBY0yQIXsdC 5sVMLuyTlwURG8eqmzIUKn wR5kcEKcqS== GROSS DESCRIPTION (test u2hchVEwNCIkuYH4KcZiFH code = [id number]) Ykt7iae4KavDZanFFcZOyd fWYldtWdsf24wID4vH15LF 1qVUGeLgP5OPQzeuK9Akg0 EWFdEXNzwGUwX834e5fsi4 wdgoIscGL9HMBvPLVqJ4Aa IN4bNQJtpIQxY60htFUlYR R8BIKkSLQyvSWhMYSeIVW0 BHNxvZJfZ8ojWRRhXK1mxu vtNIkpYXkuTVKhuHR2JBKt fSNuO2IpJXUrNCblROXwgl y4DtAeGz0ziYDlfBwkREnp QWWnu2exYEUcfWFbJWC3LF tkeGQqUJGnXQMaFJe6YVXr JJerdHXaIH8pgBtlPexbfA qvx8NpyKJgPOsoZPEnZSUv XAzpYSVnQ1KRUVJaYzdcUZ OmRtNsPEi1ROarP7HJTHIk PETwELXuFGn1XwP4YCw4KO CGFo2zEhP7DDqkIFAnOJS1 MTcxIFxcdCAyIFxcZmwgXF pcYBZeaNFoXOnbdnZ0EOHp AMyaUEKhStFrRJ2bUjxybO V2GQBCSSG0mqyvPvgaRAFa BcXqXEwoSaSvRcTwSRk5SU ChuW5ySi5nuTWxiW4epABi PSayQHP8fCKkBDAbIIVqOK XqLY83P6RphI3sy1GyEVWe z79xLS8xJWqyUpCeWJJxAu Cdi5YgrKcaV3EswSPpEaJr yQBfZCYleN4nvNCjjJKkAX Xpk1drJRMpGJPeTM4iTLIy a5W3YPxaXH18WJQkXDnuRF ynWiPnyLJ0vY36pHRpzW2n zbAqt86zN7VaYReyYQZuZQ ZwvPSldAR5IEMlB1AhJXUz adOeHLUuEGO8PSPNOB3hGB rrTJPfQxVaGihgFmH3NMUj bHOcHRZ9FA9qOJWihrzzDX KhNGMsRCJ1MGppbY18nRHq XGZzMTZccGFyfXtcKlxlcG frw0UaiIRgEVbdMQZxFDHs KSqqPWOtS4GJJVAxQprrKL CpJvCcCFp7STwdM7XJNYZz SXDoQWZnWnR6PxI3EDj3IM VZFz6xZlA8HEaiPQx9EDE9 MTcxIFxcdCAyIFxcZmwgXF iuZAIguBAhSKvsukH7KJYu RmWjYi6lNO0eqFPkABRplJ 4wZL7dYCEtyaY8MBCwZL1u uISrLBYzIuSeY8GhSXBfS8 KnztMkLSnlPGSuqz0scRou GDykRyBjRHApx7e2xRT1nQ SpnTY4rQZqnBqvKSxyKt5o lPS2lC0kKTNtBZQmMMGifE EsPTLtw0s0jFmbT66bj87w KIErQ2RtNISrKW9ygrXep9 KlKSSxj1YzuUJ5hF3vKfE9 MyIgYXJlIHRocmVlIGZyYW dhSO61vzGdVaFobQKxa0Bw YIIuf5L2OR4sDGizOYJbPZ caQAI1IUAqTVfrWS72GJ7k DOD5stVhCMHkRkVozIVxzp PmTWjbsMUkNMBpwEAwc3rr biBhbmQgdGhlIGxhcmdlc3 OoPeAmO24pwdZfnRFnz4Wx MVPdEA61BWQtSThoGM0wwJ uxzC1rRRglDL6drO1gZEZr qTSvsMD0NKXpER44wSArdL pfbU7mX3Yht3L5eFBkvITp CRmlLIYGLH7uQRXAT3MnCN gkTPJvX7BvS0ZearW1b2qq fZqso7HgeJUdRO0weDHuxX == MICROSCOPIC DESCRIPTION m8ceyZEtFFQhgOM2ErDrMR (test code = 3371) Qbe8emq1PolLRmbEYsRIpu tKJxnkFtby32jXG5mC26SA 6eNKCvEvC4WMUrrjA0Bws3 FRSxFPCuxFSfS677q6qja1 qyzlEjvAS2cYcaQBTuhlws QdR2QXnzYAFlayxsXBp7SU ahPAMtkOJ8TXPqpEIyJ0Lj IESiIT3ejbc8KLR7UGleWW ZuAeQ6MIUseOSqESPteEpt ZIrea541MOH6LxAtNZRnfr KgwThfcE7iXyBwHGIWFZPP Q5VFZZKmtZSgeR== [facility] CenterT[facility] [id number] 16:40:03 Test Item Value Reference Range Interpretation Comments Case Report (test code Surgical Pathology = 104) Report Case: [id number] Authorizing Provider: Meera Fonseca MD Collected: 01/27/2022 08:11 AM Ordering Location: [facility] Received: 01/27/2022 09:25 AM Pathologist: Audrey Shore MD Specimens: A) - Biopsy, Gastric B) - Polyp, Colon - Transverse, x3 DIAGNOSIS (test code = [id number] 3220) FuZzEwMzNcZnRuYmpcdWMx IHtccnRmMVxlcGljOTYwMl yuvzNoLZBtuXTiX2Tquboh YEbwNI0lGO4oiEumiRStcX BlLBVeKzJwo7qcb063fZIt j9aiCTYSnaqbkQm2vEzaD0 0fs0C3OthwY14ohORdWUL4 JYToRPSbqHYlPROyNWP2KR IlxVCyI0jcDOWkSV9nrftf CUurEFlrMINihHG0UHZxhK RwM9EqVQYqRWhtWIXviei3 IqYxLm9zeDTseSokYHwrTX MgTVFwIKaoTPGsUzBqNW7y P6IBIILNQUapKjFKFL5SEJ VCOhWUC6JXQMePJAVOQ7LW WTpccGFyICAgLSBBTlRSQU fsFAzMTHCLDNNKHywGKP4K X98XLSXRIQRPWANLZOCEJX YCUJsOS7PHI5HSMEeWWCBh kzLxRW5gV7fZKbOVRkHTAD BBP6JiZ9eIUYWNDsUEPICE Z8eUN0rYPQWSXAYDMHHGN3 5ccGFyICAgLSBOTyBIRUxJ U59EFBNGSDAbLRwTC2ZZFL iQP5GkM0HBOW1TL99QRATD RL3iH21yR2FMIAiDNy8FYY PQNunwR5QHGT1jsPUhWODq LFBBLyNAWrEID8KFKrWVDU 7TBZPILYUFHDXcKSVMR5TN QOGVMFKQBfNDAPrIQ02WIi SIVA5HXGSJANDwpmobYSGk Aj1dE13JC94mPZLSSB3JYa YEW5QfSYZVIY9HR99GYHKd IY6TSIWSV2WNLAa0CLRwpb MwSGSTKUDBVMETTBXSSW8N WVQuGGUjWOkdQHChGV1yAh 8gSElHSCBHUkFERSBEWVNQ ONPGVRQvR1EeLI2AUNALOd DuO8RBJ9bVO84GPHXEIC4t cGFyXHBhclxwYXJccGFyXH BhciAgXHBhciAgIFxwYXJ9 c1baxVOfDTPcfWCkGUVhZH xhbnNpXGRlZmxhbmcxMDMz CUY7olWpDYUrAYnlQIWlFV loDv6puYDzaGpmTeUgAOZj o8pyvhVKvwikcHi9x2uhJF BgTnY5bINdQSygD2kefnIt kJCoJYQzOTg2lG79CRYwsO 3xhBAtFRksvuChZiG3HJga PLByCzP6LQYbqAUiYOGcX4 xyZWQwXGdyZWVuMFxibHVl CNJ2cVmii4I6qEQhfQCswE yxXmYbIfGcPbXJj6IgJTw5 jQyoA3HtMPPbXwC2cMHzTS QpKRfrYMIwYHYptyD2eH35 FFdysjV1mHMyx9Vrc28sa7 05pG3odNJbPPC7HRCkOMVt bCQmOOTuOQU1ZMKkuZVyE4 ooXJZnTP2rkqpwMKgiKKbw TJWxkFZ0RDHaaMQyG6UpRU SxBJsbATZregd1RgRpXl8d zCFmpUebYHeni7nzu7knjC XcFjn5QHBcKdIcXwhoGRor e3Lwn1atNKJxis8zNOF2wC AyqWrid6L7rIBsUNFppGSi BTMzDX5acQUwEGRhjV6apb xjXHBnYnJkcmhlYWRccGdi dnXyDu3znJvvTMN6PPomG3 upkZ4xGmV0OFhbM6derM6m BIj5CBdpLLAttPQ2icX1TT FkvZStZ3VffS6qDVItGZ2d nfn2f1nbMGO4CCjuUUZmJg P7woB8JFThxNAdGCBzlApd VKcek220SJS1FjMsVDWxd6 VeC6AvyCefO87wiTmxE71b ZOUdmPbqlZ6daRkumF5eUo DfKfTtYGuizEvzIS0uHQLj I0oydXEqYYKyOOZbM3uuZp FmhU3pwZutXCozbhQsYYNg Eep3HAHpaTVjHVCxAvn2BD YsRCHfW00qbrafTOF8oF0b w8tsi9XvXJzuQER4OLDsh2 8bVIamrpA0SWG7KE66Cvfo GdR9Q7rsVXN5bZ== CPT Code(s) (test code f6zyzJQnQVAhuWC2XiOyEK = 3357) Vno6qjm2EjkIJwfAAyEQou vAKpmpRgwq99yOT6mQ82VI 7pQUEjNvG7RFDnfcH3Ypp0 ZANsWKTnwBFfS606e9obf7 fimnUzzUE0qGbpSKHamvbo QrX6TAhdPMXkftwdZGi5KX aeTXGotMA7RSHtnHMuC9Tc LDGsXI0divl2GAS0GAgtYQ EyYfC9LLTztAGxUCTymWnc CGqyy912GJQ7TdPsBUOrxb PxvPkwgU2iPuNnIMY0ZHSe NVxwYXJ9 CLINICAL HISTORY (test p6qgsZAbBBOnrQT7EaFfCU code = 3356) Oza4rtu0QppFUcuIVtOQpw zTUnruMjbb91dEU2lJ47FS 7kNTSzSkP4MZOtylK3Ost3 DVTnPYPpuWCqX719m5djx6 myqyErnEA9qVmhASSgxkux MwW6BCowSFTcjqfbJYr6PC hoZROkwKL4OYVwtOQfT4Nc OOQwKM7hyqi7HLP3TSreKE UeCwD5NDDdlKBgUFXljSac IAjch501LAD6ZpViDKNupe ZreCsfaZ8gRvMcRYEBaoWm xB80TOLzAz0pOHGiiqXzko lqRnLvz0LbhIAztQmiSE17 JI0tl8JnDZTgWJ2gHYUjrZ 6aWFEcrLrtYWJ0qzofNTOq wB1lxOGcqF== GROSS DESCRIPTION (test x1lmmUVgIVUiwQE5SkGoEI code = [id number]) Itg5ahr0EkdGEtuSDfLOff dBQxzgLyyd13iJE4dC61ID 9wQTFoXaY0JHJfzdX7Yeq2 CNYvRXIwbDEdX607z4idj5 uhygDkuXO3LUOgKSJoI3Ai JA6mHMHkbTAgF87pbTHzWH D7SZPuKOUxjNFtUKDwFHM2 DQHarWIvV4grONGrSH9wdq gvCJsuWGrdOFGyiPG0JLYu jESwJ4PuUYOsOFtbUEBqld d3SnEkDe1siPRlaHdxNDde BZItc0dsNZQppHGxTYQ9AH lfjVDvSDZqKSWfYQn3QBNn NJwppWCyRV2zyOwmAtgeiN yxs1IxdEVgOFxwTQWjYVLg OLviDSVdY7NBIWVyVfvpLH TfXoHbNAu6GKuiF5GRZGSr ZFUjRONnNVt1DxV0QCr0UB NQRv4tZjX5QHyeDTXiKMD4 MTcxIFxcdCAyIFxcZmwgXF kgRJTzdYSkXGsttuH8TMRg OSckCDJyBvSrOZ4lNdgryL T0AWZIWRL2qnvuPxufYAGj ByEkFMyzPrHnBtSsFEo3BM XyeT2mKf9iiKOfzP7giCOz URmgPIG5xNLgSVGnFSPjMZ YxRE71R8LmzE7lh5AbVVAi j23oSS4eOFpoJtVgXRPnPv Tud5EwfQsvE7DhbPNcLzZe fUYiKCFmyG4weHLwvKZjYC Tzn4otDIVeUSFqWN3lOLGw g6S7YAlrCP10AMXsZDbyZH pdNpUigUN7dD69lBImuI7z tdYim65uI8HaCUwwPLOeCE IsyMCyuOQ9TBZmJ0HsNCAm akOjBIMcIXA2MGCCKY7vQI hyULIeOyVmQbcwLbT8HWFb eOKtXYI0OC7lNNEdmnyiGQ IoGNQpGJI6CDaccY36tQNq XGZzMTZccGFyfXtcKlxlcG fik7YovMCsDMkhHEPhWYMy ZNfsAAZqB1DDBWJnMmtaQV SoXkMbSLb7QGoqF7MBEFRs DTLaYIPfQhD3YzD3JVr0YV VKRk7iCzW8YLhcSCc8SSS2 MTcxIFxcdCAyIFxcZmwgXF dyTSKzvUDyMNccluZ8LXIw XgSfKd5lTT5kwOKiQXCruF 2vLL0ySZXovwR4ZIFxBM8a xTDzZJUjJcNvD6WvGCZvY5 VpqxEfTBahEOBudg4jlRmc ACopMwFpIXLul6d0cIF8tT SfoCM9xBYexAbfIIoqDn6q xYZ5lT8iWEKzXPRdNNOlsO MkADKgs1v0yGykF62ga80f RBIjH5LsZEAeNW5ydyEvh9 UhFOPcq3GkbIO1jH4uWaF4 MyIgYXJlIHRocmVlIGZyYW dyFN72ynUiNwQcvBHqd9Zo JRPtm7J3CE7jQVjiDFTqBT euCYT5TKDsJKihML15RT7p MWN9kpDgYVWpYvRcoXVryq YzCVujwVFiGATheKUhx7th biBhbmQgdGhlIGxhcmdlc3 GsBxXjW84rfmWweTPez8Yj CFYxIH51YUAhXTveVS8kmT hvjC3lTRbiUU7nbR8yASSj cTHkfIE0JZYgAW39pSNymR ceuL2xL3Ghm7R5xZKnsJHa EBqyQKRPIN3aZSIAF4PjMJ bmNCIcV9CvO5DbdfM3c1tp iFbbe2MliOFzUL0nuHVesH == MICROSCOPIC DESCRIPTION y3mktPDdOMPptVK6MhZvKC (test code = 3371) Til4myi3AoxZMzaVNcEQcs wCPuegZjrf61uKV8bK76KB 0iFUOiRfE0DPDwmbL8Ypa8 MSHqXRRwcSGuV690q8yqf4 emcuUxgEO1hZvoHQFklrop XbN2TFlyDHFodswrIUm9HK gkPSJviIS4VHZluDGjW8Kn DRHaVX9xbcn7NSH1ULyqFT PgNoW4YPFkuSMzOCPqqOjy IOwlu489BDH3LmLkAAHujv PcsSvjxW8iKvSdTVCMOYQA F2ZJNIUbePWxkC== [facility] Center[facility]ise [id number] 16:40:03 Test Item Value Reference Range Interpretation Comments Case Report (test code Surgical Pathology = 104) Report Case: [id number] Authorizing Provider: Meera Fonseca MD Collected: 01/27/2022 08:11 AM Ordering Location: [facility] Received: 01/27/2022 09:25 AM Pathologist: Audrey Shore MD Specimens: A) - Biopsy, Gastric B) - Polyp, Colon - Transverse, x3 DIAGNOSIS (test code = [id number] 3220) FuZzEwMzNcZnRuYmpcdWMx IHtccnRmMVxlcGljOTYwMl gdfgQmSVKswADmP4Qbfazm YXuzGS7nAT0haZlyiKFxhB YxNOJcPiWie6tug828rXRs c7lfXBKMummuwVj7pUzqH5 2yi2P4JrztM65feGNsXQG9 MBZbLSVjbMXqDUEnPFZ7TL HqeNKdH9oeCZFtRT8hwirv JMtvZRhrIXQgbOY4WIWwkG HiT0UsCBFlCTooZDGezqi1 PqOiXo7ycAPynRmgHEkbDF DqYRWdUIzqUVPyQfAvPZ6t A8VPULCHBInqNlVIEQ2AUN BPPlDHE6RTEFbLSEWVD9CM WTpccGFyICAgLSBBTlRSQU ffVLdBIGOZCDWANkaRAW6C K48GBPADXIPMZUBXHZOPIH FECEpMR8XXG5DDTFzRRKEt kxArRW0tV0oLAsGHUfRAAG BSB1ZbX6xFYVXFIhHKNYOZ J5lWI6dQKHLALMOVYGONI9 5ccGFyICAgLSBOTyBIRUxJ C86BFAYUKGEkVOuLR3FRWP aIX0OlM0WWVL6ZH96UWTNI EU1sG30jM8PCRPnBGz8ETV BKGmxvR8CGEC9zaNXdRXSx RKCWTpDTVoXXB5SJKmLUUR 1PVOLHXMFOKDTkCMTDZ9VT IDVIBIHPHmQBKTbVY31BVx TWEU4MSDURKMMgtmzzAYPx Gi6zV26TP77gLCVPIB7IKr VIO1EuYVKGDT3GU46PGOAv UM3VVHSUJ3WFLOl2HMOnqs ZgZNBTTRUUPPQDKEEBWA9A HRPuDZZwOZgdQAWwFV1fVq 8gSElHSCBHUkFERSBEWVNQ URQHCRCxS7XiYE6JLUAVEy AbB0KXL9uDY58YAOJLIL8w cGFyXHBhclxwYXJccGFyXH BhciAgXHBhciAgIFxwYXJ9 w7cmnBOxWQJcaWPuXMMyLS xhbnNpXGRlZmxhbmcxMDMz BKJ1uyHlIBHmHXarSUSnCM wsHx0rrGYlyEkhHyDpEOMm c4nswtEVknibiDt9g2srQA ZeLyD1sUOaEQivX6inqtAh wTMaTVAeDHn1qD25WDRknO 1osXBdZEtkkaRcLhI4IAdo UGGuIvC1KALfhJZvDABsU9 xyZWQwXGdyZWVuMFxibHVl ETB9eZtch5N8nTMbhVSnkY gbOmWxKyGxWtMGr4CpLSt5 yRxdU6ZcJIJeRqO8mLLiMX YpVXzhKMIwRWPjobQ8rX28 TGpnvgH6dNOuk9Sdc18uy1 14qP0qfPWwCIQ4PKVyAIPr aAIaKYXvJYZ9FUEypXRlJ4 cgCPVkUU2gexbmMFoyAHek XUZioXV8RVNhyDInL4TkQO GfIOfsQKRmqkt9ViXdCz7t dAMzzHvkYKuqo0mlt4lruO IjJpq8YSRhOcZrIyfiVApp p7Rvf9zlNOIbng6qFPF6fI KcxCztm7G2mIKbUQWgoCOq XLItYZ6gaICuPKFmpC3xre xjXHBnYnJkcmhlYWRccGdi izIkZh4cvMnyIEJ4UCwsP4 hhnU4tMoA0SEcbT6adfT9r JTh2RXflMJJfcTM3kpS0PD TosYTdC7BihT6aYJKcBL0a fbp5z0phTGP4ASrrDVCdKr X8frY4ITXmhQNpQQLroOpa CCwqq672JVV8BrXgSFKuy9 AyF7OtrAweS68xcSokR72v MBSlfPltdJ2ciZhbgX9yYc JkFsZnTGbboMlrUR0pYQEs O6fpaYLeZISxIXYsY9cyDv OgfM4ivZtrESyqefKtIPSq Ade0NHQglAGzGXNcNgz5FN AzHLUvS56ghmguGQG1fN1g r7xvy4OyDAhtAFL5HLXpz6 6bQMebqhC9KDJ4UO42Yhgq SjI6I8jnVRW1xE== CPT Code(s) (test code a6djtOPhPUCjnXY0UcRvBB = 3357) Uoy8abp3BjaRVwqYHyMIvy yVJjhmQxzv89mKN0mC53JR 3bWZAwOjU7QWSreiC0Xfb8 APGvNVNcrOMkK937f0fof9 tquoXhkPP7kMuiWVKwgpar HgO9SOxzXZOxqaspYSx9MH hjYTRqaUM4RURwzNIcX3Xh DSStSQ8cnrm4ACI5XZzuCH ZuTwN6HDGhfBVvQGZydDav BPqcp951ZTS6YcQcYRAzrg HuaHqbnE3tSvGzYDF8GUGx NVxwYXJ9 CLINICAL HISTORY (test t3gfoHNmCYWayIL1TfBjBT code = 3356) Rgr2lzh2YmbJUykNSfBJxb lZRdlgMncr97wVI5pV00NI 7yOGOaGjD2JJDfurA1Oyl4 CGJsOYRfqEFoJ512r8bsz9 tlgjStrQN8tJldYGYbsczw SoF7IUhtOXBatmskREo4PW xmYZPhpZK9RRZkaALdI8Kg JEIlYU1msph9TYT1XLstXD BcBiY8YUXziYYqCOMheXbt XZggg214AKY1RvFmKHCvrg MzeGmovP2pGwKlOTRUhdIa aF36SBGhJq3aXBJwtnFaiv hiUbRmv6JxrCRvbGkjLX03 VZ2fx4CiJWWuYE0pDGQlpE 5pQUVazLiaMTW0zmrjRKEf rJ3krSIinM== GROSS DESCRIPTION (test u7vplQCyFUJgqOP7BnDkQL code = [id number]) Vmr4poe8SrzGCcoNRsSWyf iBKgqdRajd00lBG2wR47VU 8iJDQjUmP8WVZwpjW8Yxc4 WHXwZFTlrVZvJ151q0jkp3 qrmcXrlAR5RCSyZZUdE2Ra RM7pBYSwfVOeX57zeUNhZE O0RHTpGWUynNByVZJvFPY2 BAIyqIAbO6djOOSeOV3ixn inEUomWUfsEDUzcVT1XXDu tJLnP0LdSEZhYDqjDWFoql a9OuGzAn0hgEJbcIdeQKeq AWAqu2vaSHJedXDdKMM9OI ajgVLbTVSfOWSaMSd7GTBe NHineFWsSB9tcPcuByivnK aty1CynPBvFWmlTZDfMCCn BTgsRQUfT9CSTBXeTtnaNX UrSbLlANr3PActO5LKPXXd QQNiZOCcTMo4PpU4SBl5CU CFWr8uMnF1THheQMUoMLL6 MTcxIFxcdCAyIFxcZmwgXF avHBAmoRFcULnelrI5ROUv PXymPWSaUfCxUN8eQcxuyT E1TIBLBRZ8qubcStohELWu AgRbAFusItTaPeXxFOp0XB XbaJ4aUa3xhVXjeH3bqCYw OIkgNTF7eYOiIYZmNZKtRC XbMW83M9HhsH2xw1GlQHHx d55jTD1cDWwkAaUpBDJyGv Dus0LjlRnxE9DzzQVdXeNc qRJaPPGaoT3xrMPbgDLgEF Vsd0qlQFXjLBJaDY9iQDJy t4O1WIuvWK81KJHaLVilWA erOjXxtUN8yZ39vBZuwY1s sdQbx50oQ2DfRPksHYMlVS DhcMOksCQ7FPPzZ1ZiVKNi yyVbMRXoRPU7TLNYMH7zDR jtXHNhBfRlQupwXtR4PTLr qWMhMWA9AK9xQFCfzedbGT NjYYWzRSD7THuayE09xAGk XGZzMTZccGFyfXtcKlxlcG ofv5FxjGHbVRcuZTJfJOVj SEidDLMzW2EJIHWaNuulYQ QmEzCqBIc7ZBmtZ7DLEKTh XUNhJFJaBbE1TtW2DOy7ZG WTDt6nKzW3QFwsCKb2GVS5 MTcxIFxcdCAyIFxcZmwgXF mmINMetMWkZEfcbeR5PHQt DlWoSo2rJA8oaZKmUNJwbM 9aRP2nDPDafvH2LXJjZQ8f xPJxZTDhGtCqA1KhLNWxS4 EockWsGJnzVIFiwz3sjWgd JIfyMsWiXBDjc2c3vEI0kW EauPR3dIFrvIkjDWksDa0h dHB1dG5uDUBrEORgYCQgqU EfRJOak8e2wAheD73ug31x YPBiP6EgECZbSR4rvcRoe8 OoVHXym5BxnUJ0dI7oKeA8 MyIgYXJlIHRocmVlIGZyYW duDF39djNqDoZiwJEyi7Up BPHzp0V1DT5hVSihAVLmIK iqBKN0JHTdWOryCB06BS3r SVG5nbBaRLFyVhLcoLCgsr YbBUqzfHCvOCParQXpr2dn biBhbmQgdGhlIGxhcmdlc3 RrKkVdK28hrjJbhXDmy7Vm ZUFlJJ57EODoEIutYJ2bfO imeN1tVJuyTM4xzA6vSZQi qLVhtAI1EHSdNJ72aCZhrL lxdE6pV2Kce9R0xKFasSNe CCfpIVAWIZ1iUTYSG1PyTF ilYGTsP8SqT5OicqB5d9bp rWfhr7AzaDSkKF2cxMKjpM == MICROSCOPIC DESCRIPTION d6mgjTSzXQKoxKZ7KfKhCT (test code = 3371) Guq8hrl5GsjBGjwHPgTKih iIUjnjHftc50pBJ6xJ94HU 4qHZUhSkD5DUMmftG4Gds4 LTYbNRRseQDwH594e3dgr0 iheqIiwNV7bMbfRWTrggcz AkZ3ZLryFRKicrskRQp2ZJ afVTYqxBK0LQTipSZuH4Mi WUHyXN8eyzf9HWV9IBfcOH ShMfP1JCIllTIqUUZukDjw NMswm575QTX1BvMmGYYlef MpeSioaA3bKgZwQTRTYVKK Z0NXTHFvwINjuY== [facility] Center[facility] [id number] 16:40:03 Test Item Value Reference Range Interpretation Comments Case Report (test code Surgical Pathology = 104) Report Case: [id number] Authorizing Provider: Meera Fonseca MD Collected: 01/27/2022 08:11 AM Ordering Location: [facility] Received: 01/27/2022 09:25 AM Pathologist: Audrey Shore MD Specimens: A) - Biopsy, Gastric B) - Polyp, Colon - Transverse, x3 DIAGNOSIS (test code = [id number] 3220) FuZzEwMzNcZnRuYmpcdWMx IHtccnRmMVxlcGljOTYwMl wovsOfMBHuwSXfY9Wepjmf WEsrGI4wIE5weVyaqQIhkM SqRXIoXiBte8xkg877bQDx s5urBXGVxqfjtIq2jBaxR9 0la4F9KyeaO38acWDgOPB9 RYJqKZEpvGNaEONmMER5FX PswBCpI1uxPQRjND1zfujg KViiACijRZXorKI9FOZwpE JiY7QjZNZmNJshNMDerko6 PsRsKh3lrHPnvDlrEAqmPU NpCUKsHJjtKTAwDnLuCY6s T2QSPMPRFIphYfOFGL5QGV PCIgTCC1GFRJtKPQCMB7YS WTpccGFyICAgLSBBTlRSQU pvLKbPOXUZTBNSOalKSG8I O44EGVBEUKFFLAMAXVMNXB FTLRuJX5UQX3ESBFyPLZEb bmNkIJ9mY6kYZhSZNfAGMH QZQ9FkL4cRDPNCGyQLAFWW K9cVE7dIOJRKLJBMLCAKZ2 5ccGFyICAgLSBOTyBIRUxJ Q07NKJRANQGnSNqNT4MQEY fHT2GqK6UMKW0IK55JITMR KM9jC92qQ8LFZXrAOk8WVA NCLeklF6ZGEU1nwZLiZWJm MXGEElVCBiGLV2BUAuRAJG 1IXANGAXTVZWWcOOYTX3SS MUUZINXMGkZTNVgTA56CUb CKAI8ZRNETZYIbfwvyZRDy Xd9yM98GV49nXMLPUD5TKr WPA3UxAZNYGM2LV31RNDNf PT9CSKCQM9NDJTg8XODgiy SaPHKAOYSQFAQYIABTBD2R YCSrGUHyEHqyTXFuET7aNh 8gSElHSCBHUkFERSBEWVNQ SSNECVJdN8EcAB9UMROGOu RaB3KAS6pCE89EVBROGW9z cGFyXHBhclxwYXJccGFyXH BhciAgXHBhciAgIFxwYXJ9 n0apqXVkPGCoaGSkOAHuNK xhbnNpXGRlZmxhbmcxMDMz ZST1rvKoLOWvJFauWPAgAX ahUx1cjGHenEpsWbJqPNKc a5gegwOMckkyvBv5g9jlTE BmFoC9cFCkYBjdL6ubfaXx rTIhLWHcYCg1gF53KBImtN 6xdZWdZRveyiJnRxO4KWyn CDWqLvC3NTPgbYKpVFUzV5 xyZWQwXGdyZWVuMFxibHVl COS8jFcjh6C9rAWtqVBmdO jgWzTzDlPqGpSDn6YlORf0 qAhmJ5QoVAScWsT4aASyDE IzRRbuWRZvZMEvleC4dS26 NNtzxkY9hUXcj0Jwa28bx2 10eT3iuCAzQHF9PKWhPBGp dNXbCAXlPNV2AKOgoWEtX3 ycGAYqDJ3hfwfvERqoCSxl JLLkhBF3ZPWbgKJzT9HlTI HnRIzsPMUuibs7MvVsAr6r mGPweZixIYvuq8tjx1ucyE AvDhj7ICSoRuFnJbzbQXlb e7Ufw5jgZOCwwu7kLHG7gE KrjVmvq4R8kDBbTPZihQSg ZYLtXD9myPCoWIJmxX3qvq xjXHBnYnJkcmhlYWRccGdi ovQwBr8dsFlrOGG4DSdcW6 umuH4aXdE3AMciL1xyiV6n UCf6BDzfHPHysVV6ogD7CN DzxWQwJ9DtsN8rVQIvWI1t diw4g4dgAPD3SHprSNLpDm A3njY7DWUmePPpFWFdoXzr AMigr068YDQ2MrTyYZObv4 PgF4YbnZisL32xsVjbF17v OLEcfGroyZ8jxFofaY0vRn UjUwYiXAukpEsaIN7gMGYx M6syzRZjQRFxYMAxD4neYg OjyT4lhBfzAPhqwaTsXAId Clk7PPQsfHEbFNLnNlq9NT CoHGCcE60crqojWEB5sS1z b6mzh5EaOFpzCKR0KWGwt3 7iSQymqcA6TTM3VY29Unov NbS8S1efYVW7tS== CPT Code(s) (test code c7woaXDbMPUitCU2UfZdGQ = 3357) Uwo7ful0QznLHszNQkCJwy hLXlgnPspo06tKD6vO44YB 8vAHKzWzK1OOFhbdK1Gti9 MJBaKPSfjQBrS265m6coi9 caqxZasAD8xMtmSZPwqmkc PcT9AUexKXMnnpiqOEy5PC qpLLNfgLH2BCPqsPNyE0Pg ITOqUY3dzrw0JDX3ABkvFW StCdB4CGWdqLNdBBHjpQob COhzr173PRP2IcGbZYIrvr OpyXecxI9dSlUpREF9BTSg NVxwYXJ9 CLINICAL HISTORY (test w3ngxWLfBKFgxGC4EtVbSG code = 3356) Mcy5zto0MamTPbpERzLUrr lYQmmlIwri86xAJ1zE06JJ 4xHEYyObT4XQLsgsD1Bzw3 VOAiIXBbqAFfW694n6jcr5 eqcrNluFR6kLhxTTKcbkhy HnD4YJalVXRvqlmeKQy8BY znEXVlsEE2IKIanXBuF5Rt FNJyAL4hgak5JMY2TTjxXJ NrVlC4JBOvpMYkAVCyiVuk QQwge270ABT1MzIcWPDpnh UgzGijtG7hPwBvWOQYohVt bA84THOuIl3oWGQxoqUbbx ohMiPog9FuuIFcvKxzMM69 IU9rc4KkMIQvTI6pCXQdxZ 3cGCYktWpyXDW7rtusUEQa wN7diAXozA== GROSS DESCRIPTION (test c8rhvHQgLPIglXT9TpBeTG code = [id number]) Wfl7maz4PajHZqoVEpTExt fSIhrsVtwj98vZG3wT01PX 1hSBNfVtL3ANYmwoQ3Ioi6 YMIeIPRsaJToL452x9tuo3 rscwOmuLV5UPEfRAOuV2Zu VO4qRHYqjFQaP59ujDUjLO U5XETeVCXwmDAyIGDmKZA1 QEXzuSIuP3rhTKWoZM5bky ayOTkcPKvmNEMciBW5LQKg lNPfZ8UlNVHpABwcZFMbwd j3LlAtMf7ndDLrfQyfRHqn FHDcm0ckBQQhtNGhCWN7UK qsaQMhPXTvCMMrCEo2RKPy DAfanQCaYK6xlJwoHxuiaS oep0ZnkAOgVItvSDVfOREp XBfqJRThG4HDOQNbSbsiJY RtLnJvAYd1ARhgQ1TQIBPi IYFoPEAqCGv8VpR9OAa7XS RSVv2jAkR8ATqvBZTyTUP0 MTcxIFxcdCAyIFxcZmwgXF jwMKUoyJJcWMkwvaA6ANLy UErzEMSpXlTcIW5uRjsysO J2GZEXSGK1aozqAwcpFZRu NoVkGYarIoSqXtMjBWm4RS VulR8xOj2hoKTgxA5hpXJa FPymMWQ5mCSoBDKuYBXnMD KlAO65Q3CqaU7hs4JcGEFw u03gKE1mCFkmWhLoTNApOi Ely9SfgUqeR8CjvMHcFxVz hBEtRMJgcR0xtNQgzLEyXG Ztu1gtAKSlDVBnQN0dJEAg p0G9LPleUH78VLFlDXqlOY rzRpEgjNO9wC63cDHxgV6o ciXvc32eC2YnROtlDIDrLE NhaWDlpRV7JZTkG4ZsPDGb ujUhGWXvSLX5PMGTRD3xXH ruQZGgNdDxGqitIkE6OKYx dZWaCJL9PU8hCFQmmvviCY YdPEMvDFD8ZWcqeR58kCXj XGZzMTZccGFyfXtcKlxlcG oqn7OohJRjVOjgUTAgTHWi MMtwUSRcH9PODHGmPcmbCD VaRrBaUMo8KIakN3RENPMv CWJxJBBmJxR4YjU2YEk2NF TROz2xRiL9CRaoXFk9BLU8 MTcxIFxcdCAyIFxcZmwgXF jtHSOndEXnTMiiaxN3CFBr UyNoSk8tNG5krNWsUZMttQ 8vZB8aEUNrfiP8DSIwDV1i oOLzJJHuIvFvO3GyKZAjO5 DqvpPeHDtiVKOseq9hzWpe CKirVtGvUNKza8e8sMY3uM XkpKX9iMNkjTqiWXdvPd1o gQI4jH0eJVOnYTOuDNKhvZ SqYYGqq2i1mGpyR66tr19i BWYyC6ZqRFGnSN7pnxErz4 FnEXRuk6GtxZH4zH1dIoK4 MyIgYXJlIHRocmVlIGZyYW wgHT14vgEzFcQuoDLgz8Mn HGMji5X5VS0xXZanYPLiZI xkGZM0ROEoREakAB95EU1r DEU6txRkYIRwLxDhuQTenv OpCJdrtDWdZBNukYUvw3kx biBhbmQgdGhlIGxhcmdlc3 NfAvPuL68aslRmsEZut5Jg WRQcHF82IKOoTRmyFO3zpU llbV6iQRiyRR9tiX6eJZVf eHYgiBL4FPRiHF02pCCduE faaX1nG2Fhk5W5dCKtdAEg ZKlfBNSRVU9lTDDDN2KhQV ytZANxG7TwC3MvdtT9m8bg cEfug8RwxUDgME8baKVwbB == MICROSCOPIC DESCRIPTION z9oloZZiHDXqbIE8VhMcGU (test code = 3371) Mua3ott0YlkVBxjTYwSWva tBIfksXrsz83kWA4eK32IX 4aBLRfDxL6BSJknlH1Gih4 TIOvQRSilACkD807c6bfz1 rfltLyrLY5aQglDTDgakka JxY5BUgbCCGobqufGUa2YR jxFGAjxBI0MKFofLJzB5Fa SDVaYH0ijsm2YSI3LKtvGK DpFmK9FYRypSLyLEIrwJas TTagq249EFB1PaPqVEMeij TmxBjjpI1oKyEqNMAGIFAA Z5EAAWLajXWshE== [facility] [id number] 16:40:03 Test Item Value Reference Range Interpretation Comments Case Report (test code Surgical Pathology = 104) Report Case: [id number] Authorizing Provider: Meera Fonseca MD Collected: 01/27/2022 08:11 AM Ordering Location: [facility] Received: 01/27/2022 09:25 AM Pathologist: Audrey Shore MD Specimens: A) - Biopsy, Gastric B) - Polyp, Colon - Transverse, x3 DIAGNOSIS (test code = [id number] 3220) FuZzEwMzNcZnRuYmpcdWMx IHtccnRmMVxlcGljOTYwMl bbcvCkDIZzjHKlZ1Ahtnou GZihFK0wQR0pyTzjrWPstJ RdLUSqBfXoh9dyq463xLAi d1zcYKYUkkkwhYx1dShtG5 8ks3R3IykeA83taRWuOME9 EYIqYNEsjYKoOPDjRCG5DB FrgPFeK8qbIZNgAM0mtoyu BCwoGXtfYVTgxQF3JYXcuP WtG7IhAQAqPLhuFSHklyk2 NyEiVk9quJWziCifCUnjFJ IhRQHlRHnlGFQsNiEqXD8y C3ZYHTIWINsfCyYYTT5LHA DNPoOMJ9AMTYaJMXREW4AK WTpccGFyICAgLSBBTlRSQU sgSDcGQVODCIRQAgsTLN4B F07UQVFZDGGRDIRAMUNFUA KUXChHQ9PQF8NIZUeILTFr alOdND4rV2lFZoKWUvHTTG OPZ7UpB5zWKBFTJeTONNTU K1gBW6vNIIRCOMRPQCDSA3 5ccGFyICAgLSBOTyBIRUxJ L84UWSWXSMBqWAbFV3OWWE bJN4VsX0VPEE0SW23TDWVE BR6pK84jH6SWAXiBIq8RGL WHWdrjY2RKML4qwNIzHSAx LHCVNdTSMxNTT0QJLxMVLW 8EUIKIZCXJJWFzBUKDT0QN UKTYKUDCWhVQZUtCL99PAv THGI4JLWKCOGFgbincBWQi Vu2wC50NC81vKMINGX7MCy PJC3BvGRKIMO0WQ15LJLUv YH6KZYLPD4GEJSp9YFYyuf TkGVSYAPORKKMTODXNRR0N ASKwXACwTKovNASeWA3eTc 8gSElHSCBHUkFERSBEWVNQ LXUNKDGsI3WvUA2SZGSWCr YhL9UXN9hPR09PQVQPGG9o cGFyXHBhclxwYXJccGFyXH BhciAgXHBhciAgIFxwYXJ9 h1npmCUyMHGjkPBlEKGoVY xhbnNpXGRlZmxhbmcxMDMz FGG8ykYlRJAnNBjcXEZqQN vvRp9neNMahYgiTrWoDJXt p0yaujMDtsfavKi8i6eyID RoOvM3gBMpDSciR8dbixUr cLSbUCWgRRc5aV20BMAjfT 2ztUFfUCospnQwLmB5FLgl VPDcQjE4DJTvtLGpQGSrF8 xyZWQwXGdyZWVuMFxibHVl RRM9rDeci2A1rDPcgDGflK ppJgLlDhWpFiEEn4TwXBl7 yHdqO0HrMWSwFxY2rMGkPZ LyIRpqBBNtBSYgtcA7xE82 IYdpvmH6oSNea6Lbc46oj5 54eS2ieIBuCWP9RZNsJLXg gDOkWDFcVKP2FFIwxDZbK6 hjBCWfRZ6bqurtAEtnWKcn QVLghRK2QLUekVXiJ2QxHT OvZXbjELThhvh4OvBwTr0s zGAaaSodNTsbq8eis0swhR OqEga0BVWcDnGnAdzrLIna d3Ygu7mhUKYejr5nJHS9qC LeqClhf4N6uLPwRJUghNAj QFIfPW5kmBEuDWRyzX7ayi xjXHBnYnJkcmhlYWRccGdi lkOlGb8okUvqLIH0EWhxW8 vtyS6yGmH7MRhaA2khgB5q VFq9CCztAJGjnEB1bhV3TI NysWCnB6FhhW2xZUNsPV2r ufl5v8myKQB3CPpsPMNdEw Q9snB5OQJqeUBtCMLxgEee GPlhs302XEQ3JcWpGIBze2 XmH4GvwVpjP58ucBubE14j WGPxtLgkrU3oeTrdxA8tSt TnDqWhNZahyWqrCB9fGLBj M6cvjSOwWVIqZIVfY3mkRt ZkbN0jfOgdKMoacqZcFMHj Rof4BUCwoGBuXLXpKqr6ZJ KgMGKoR51ioebrTNG2qL6h w3eol4XhPBfgLIR0SUVrn7 6aREpijuJ2KTT0OH54Zwek DuZ7C8axKBO8uT== CPT Code(s) (test code k6jueCOoYDSytKB7MePqJA = 3357) Sbq1ahz4BzwZMfhWAqPGjk vWBzauYiur24cRB2dR40QA 4cIHRjUxP1JFEzwtE0Vot9 UYRfVPHdlDEfS672s8dxd9 cbywFnwWC7eZvzVFJxvrez UzM9SHbyPWOeswmmDOl4LX vhPDAjaSY2ZLVfpUGeC5Jo ATCjBJ4nqwo2HTM6DHzrVR UjYtJ4FCKwhQPhXIWduRof GZhdh575LML8QfPkYXJokk MnsRndoZ6eKyNxKAT1IXNv NVxwYXJ9 CLINICAL HISTORY (test l4aqcGIuBYMkjPJ1UrOwIF code = 3356) Vyj1neb9QakARiuRDoOTde vKNpfiSrxp00lLT0rX85UH 9mRVMyGoS0YPHjpiV8Oee0 IKHsWNAfrRYsT096s2uuh1 snhpCtuSS5oUwiHZOhwuyl YcT4RBznBKHweyshTZv4AT gtDEDsjKP6IHZpzTEtV8Hd CQQaAW1hgxg7IEY2SLuaMF MmXlQ1YMIcjKFuCAQlhHcz KVujr014BBQ3OkShZRMqsu OfkSscsY0lClZaBDFDayUd bH76KIBcRc5jUBNuvfOpgr ghQmJzo8ByiNWssNkhSC73 BW9mm7VxUEFaQZ0gCZGbbE 6aBBUgrKehRRW8euweGKMx kN9ouSFniM== GROSS DESCRIPTION (test l4bsaIEyJSWueNV1ZqZoXC code = 1665993257) Nlg7jvt6SqyDTdrUBhEVoh hYHqlvHbqp10uNI5rO22TK 3iGKOpOkZ7CCRofhZ8Erf1 YKMnZIFskGStY005b7tjl7 mjbtSxcFC3XAPbBHZgT0Fi ZI9vOVCzoAAnS93ghBDsLF S4JOYzSGUlyUJdMXIiCFY8 BYKwyCGzI7zwRPOfDM0lkm cjSQimRQcqCSGwdBP8PJQz gKEjH6LnMSNqMWlsNUCqnc e6WkQsCi1tiUIkjEzlTOyq GUHbz4riSNYcmDViCAR4GB dyfNGxUJKlSMLtTWh3INIt EIzhvQAvFV8ajRqhLukxrB tsc3VazQObUQpfUATtXJEu AUouCNIhT9GXFJRbYpkbHW RjQhVuXVu2PKlxM1DLACHw NFSzOFNtWRv3LtS0WKc0JP BVOe4oVoX9UVzbIXInRGK0 MTcxIFxcdCAyIFxcZmwgXF ulTYVvoNAqBKvvnkI3LFXn THwiCCSuReIdLI8tXlrrfX F8PRASAMS0nekuKnxwGOQq WoUvWVwnSmJgXkFuXTg4HD SbsT1qDn2xeRHbdZ2oeYZf ZRfaXMV8zHCuQZIpPJPaRH HxVL55Y8HesQ9zn5DgVZJl m85vEN1bGOqcTtBfUHOrIs Ygw6GacNorU1KjoWBhRrLb wETpMEObcO0dqZHkcCBpEL Jfj5wyJENbDIOyOJ6uSXRs i1Z2KXihHV52TWAyBSorSR oyZgXwzHI9nY96bRNqvQ1i alPex71eU5FbCIiaDKQkPE GraBQooRQ0XJCeO3QwUXMw sjQnQKSdVJU4LYUPEH4gZF afVLHzUmSwGivwQoN1NJKn eRQmTHI7BV5qMHLxdbhnYD ZwYMHaCTK3UTvopL99oKOy XGZzMTZccGFyfXtcKlxlcG ffb5NvdTKqYMnfMHRyAULh KVdhLUCiS4NZFDZqSdleIX UiNxDjUTf1MYqpH4WMBBZv PSAkQUEkHrQ9WwE0LHr7WW CVKj7vSqX4YYmhDId8BME8 MTcxIFxcdCAyIFxcZmwgXF skQVLdyRZfMXrotnB3GHCi MzLgGe3zCI5jhDNbAGZmtH 5xSP7jAQUaqeM0IRFvXM4y lDDdQCZjNqZaL9YmWHIfT4 WeloNyNRivEWXefx0vaVtf SJvkYkJtUDDgm5a7qMB0pH OflKO7jAWpsAfeKQqrLf3l nRP0yY2tNXCkHXGkOCZxfX IdQVNlc9l9jSnqD99jn16c ZFTiJ2GdWAUzPC0wqvUew2 SjAUQun7UxsOS6tD7dTwY2 MyIgYXJlIHRocmVlIGZyYW tmHQ21ebVkEcGejLDaa3Ct EJQmv2Q9UW6fQMxqEFLzKQ ldDPU6JPCwBHtnKE75LW5q HMS3weDfLASzYzBryDOrkk PcWZcimDCeAMHoqFDdd9gg biBhbmQgdGhlIGxhcmdlc3 YrAkSeX57zqvLoeGIqk3Sy ZADtXR22OKAmKEurDJ9stR aabS5tTApkBR0knC3gUMOs zYYnzDV7OCQiNU22tUJvjA tlbW1gP8Uof9J8fSBkpGAd ZNzsWCWGEC4hRDIJP2RvYP lmCQCbA8CpV6BfuuV0n7gu rAfle4ZsbPPeHM6wjCYzmM == MICROSCOPIC DESCRIPTION q1mekTDrYVNfmRG3CjVaOJ (test code = 3371) Ten8vcq4VleCPjwKJkDGll jCPgzdSnvk11bSN2zJ06TA 7yFXSlUjR8YKGvmnA2Rot1 XVNpBXOqkJEeF518s8dhp9 flixBreBK2pSalBGLxzspc DaT5WZzcLKLlhtkpJEa0OW rsHJWcdGT6RCAvsGQwO7Ky PKPnPA3qcdl5XBL4NMwxPN GoKkL7JPRwuNGgRFMoiQga RFipo380RPO2VvDbBZCfzo UqhGuimR8qFfWxHLJEFCSZ N2JGXWLbmFIgiV== [facility] [id number] 16:40:03 Test Item Value Reference Range Interpretation Comments Case Report (test code Surgical Pathology = 104) Report Case: [id number] Authorizing Provider: Meera Fonseca MD Collected: 01/27/2022 08:11 AM Ordering Location: [facility] Received: 01/27/2022 09:25 AM Pathologist: Audrey Shore MD Specimens: A) - Biopsy, Gastric B) - Polyp, Colon - Transverse, x3 DIAGNOSIS (test code = [id number] 3220) FuZzEwMzNcZnRuYmpcdWMx IHtccnRmMVxlcGljOTYwMl dgxpQzUHGdsMJwI7Irguqd EXltVP5eCR6siWhdbLXkbU LjQQFfUyRsx7gbc243pHUq p2ofWGMMdcrpiWn4sAsmX5 1yw3S4YuifX60zdNYiTCL8 KBRsWKXdtEStPDOtGZG8VA QadXXnO8bmVDWeEZ0nddff XHmpRLatUHYasIO7CIFqyN BlA5ZcOKHsPPyeNWXnzlw2 QpIkQm0piZJadIyjPIsuFZ JpEYSsVWkxJMFdRuEqKM1k L6CDUXLFROzeLaJTPH6WUJ RXJaFGZ0MYLYdZAHSZH6LQ WTpccGFyICAgLSBBTlRSQU ejZRfMUDBWIPSDUlqFLX2H A09CEJNUNZZLXMHEKRMCMG NDCKcEJ9WMW6SZYEfFAQNq fjZeCS1oN2bENjYUKkJLMA WYR9KoP3fQURFRIaFRSRCS B0lEX4gIOQZOAFYJAEFZH3 5ccGFyICAgLSBOTyBIRUxJ B32PRZFHVYFsPYuUQ0WRPY wVT9NiI4COLC6LK65VLYAT TF9zP69dU1VQYPcDXn8GYB WQMkguE8RZVY3nkBYvVXJh OVVNRtZVMwKST2SHJlLGDS 0JXIVIMUYDORIzEWMTW8DQ BCPRSOEQYkOVFGgFW55GWd LBFP3HOPBXEWHbozwlDSUd Vm5jR39CC16gKMSSJE5USv MBO4MlQJEKIF2LJ35MXLWk LP4UKKJHA9CUHRq1SZXibs SdLOJAGTDOTYYNWQORLM0V RSKoYWClWWakRIZvVS0yRa 8gSElHSCBHUkFERSBEWVNQ CYAGLWShA7HjRF2VKEXJNk NxE7RZM4bHH53JEJEXBL9h cGFyXHBhclxwYXJccGFyXH BhciAgXHBhciAgIFxwYXJ9 h8fbcCXgVGQtaMMkTHMwMJ xhbnNpXGRlZmxhbmcxMDMz SWC9vyIiXLWiCTysZCVuRZ zlFt7vaLOtrYbhZtTiDIPp a5ecxeCHtwiejSg2f0qvGD ThWhZ4aFCgZEvyC1tydcDs eKRmOMUlWRu1rJ58XEDzmR 4bnBSzHOfvarBxVhY0LQtt BHLjTnQ1FJEjnNAdQJHhC4 xyZWQwXGdyZWVuMFxibHVl XQU0hEpwo5L3lHQutWZoaZ yoBnWmTsQyCwNNb0ChYWu1 tNliY5XvQFDcYkM4nHGfKI AnKKzoZVQiTOImufH4oG49 YVfjkwM2sQXgq1Qvm14xf9 95vM8rzJBaYNQ4XMSoIRIz mANtMAYwDNE5LQPwgCRtR5 giDAApUZ3vxzstUHvjSPpu VWHajNB2MUSriZSzP5DeRP NuFTjbFJUjbfr2OkWvMv4n kSEorVybXWdvm9rzd6fkbI KuBob6UDDtGbExFbtgFQxi o3Diw9deTZHawb0pMXH0zS ZtrAxew9Y7dKGqJPYnpYQm EHNsPO3zwGWaWLOvgO6hua xjXHBnYnJkcmhlYWRccGdi yaXhMh5kmPwbDYV7UJwrC3 mmbN5yScP8VMgiR8yylA7m KSj7COyoPCRbiOE9lpP6QR ShmHGfR5YwqJ5mQHTrTJ2y rcu2s1ghOSW5HGsrWHUaNj J3xsL5ZYIsxLKbIZIphQde HEvvv731INJ1KxEfGADkn6 LhK2YtbPvsD20lhOeeH24f HBBlnWihuC5dpWlmxB8bBc BxNsIeMZanxQxsTZ9uFLEw I5beyULgXXQfYKDaZ6gpXm BnrU8trHghAQtaivHvQFPb Ban1PDTvwXKoTHFvGrk0GB TvNUDqW57gwfuzLCQ7tH8e d3xqi8ViJFkgSJX5XLXgk8 9cNOjkqrF2JLL2QM21Xpmh ZnW1G7ttICC9rF== CPT Code(s) (test code w9ymiFThTZDagRC8ZnLzOY = 3357) Fhj5lto7EpqALyxGPtYEch jJSlhlQtav55qTJ6jV38BR 8eJSTeObI0PIXfjzB3Kjp4 CMZtNFZhbILpK539i5nkq7 fwiuQelJA3uDxcJLXuhnau NiN2QTixHWIpmgkmDHo8UM qkFPAxvEU1TYEqpEYoB6Oy HJXcHL7vudv2VLV5EWleRW HsSrH1MQNorHWyKCQqzJug DMain798GVR8GfZoENLncn VikYjcmE1zXfKtMNH9IYAj NVxwYXJ9 CLINICAL HISTORY (test a0fucDOoOJFziLE0LtZyAK code = 3356) Var1hia9LysFWlyOWiDAdq fJEirlCyej25fCA9eY39NM 8uFSGgShZ6EJQbntF1Aaa8 XKTqJGEowVDwY610g6dio6 jkocHuoLD2uXlkOIFwjaad EkQ6SFsqAZMxeiikTTp4WR rqFKHzcUE8WZWxoBUsN2Ar LRKkVX0cwia1NZL5HLtzPA MnUsZ6OJIxfYKeWQKvlJdh CYqay653DRR0WhYeUQUjjj TyoYiqmN1vGdLvSNQVpnCl vZ64KPGoJw9aXNBsflIsca rtFyNve0OoyKQshTvxJV37 SU2iy1HpXWMtVV9cVFEhhM 8fTGDnnFbiNGA0yitcLXKd jK2vhAVseJ== GROSS DESCRIPTION (test x4wlnYPxJUYptNX1HnWrPJ code = [id number]) Wii1qnz6XngMOasNAqSAog dITjfdNguk99mIZ4pD68MS 6wNLFnHkE4JRDqqyN4Lsr7 FPLgQUDsvPElS765e0fwz8 nzeuTliED3LURwXHOsJ5Cl QJ3oSSMhvEOhG11jzHWdBV N4JFPvYGKvtRXwHPWiBEJ8 UEGyaNKeW6keMWZkCQ6okr xdOVjoAJbzTKDwwTL6MGRo kIZxC2QdLFRoROmyBLCbwl y5VoAgMc0zqENnuXiqRQhm WKApb8cwHDRtxPIkKVR7HZ glmYGqPANhTHLbPRg7PZNs PJxmdCGfFK9ddWwrGhzyrP hgi3SrvCJgGDepXFSqYTOq ZMrwGCJkN0FGSWVoFflnSA GmRrRpUDf0RVztO9MYUUQx ETWyEFJrYCr5MyU8KZm1IU BFDr5gJxX2ACfnZZZbVEX9 MTcxIFxcdCAyIFxcZmwgXF lbHCXbnQDhEIcwhaX9VSNr QRxnHEAiGaRbNQ0qAtfacP Z7ZKZRSXP8fvrqZgonLEWu SdSwNBnlOdMoNhGnRGa3XP YcoU9dZs0iwNUqpN0buODt NGqjAMW8gSYeQSJfMYEkRE HkMR93Z9FndC0jo8RnRYYw r64vYL9rNBboMlKwDAJsJd Lts6WbsQrhX7KngFMsOoSz uVOdJBLshX6fxYMlyNBaWJ Qcm3chWJVnVTTtTM3jMDEv w1F5DVwuEK90KYKfIOrzBM iySqRxvNV5oY79zKSacN1d siAkc30jL2TpFAuiHIAdYW AkkPGaqME2NWRvJ9OzDKGm pwBmTRAcEGR8JYKIKL7oDM dnSGGxSoSeRtscXiJ6NERl cKUcMTA5EA2sLDXhzbdnHB LrJPWzUUE4WWcqwP54kBHp XGZzMTZccGFyfXtcKlxlcG dsh4HtoCDnIUqsSANrRQIz WNmnQDGlE9WLAVHsUbczYS SmAwMkBBo3AWorR4WUIGDd ZKTtCSLsDgL6MkS4TVx9YV AWXu3eIpV8VBopEDm5WWJ5 MTcxIFxcdCAyIFxcZmwgXF msPCXeoWGqQHjqtwH0JOTf WxKwHy1sEU0rlEMfAHOtoN 5oQV8wYMEqczU3FNGbUJ2z nDLxOFAmZbDbU7AbOJNnU8 WmvgKkFGviHWNtpf1ytGkk KHuwCnXcQRMwk1v9sNW6sD VkjRK9eQTdfXlfFRnuUl8b cRM3iH3fSOAdPFGtIPEqeO GsSWMjl4s5rQwnN08bq38q QFRqR4QiTXReBM5pilGkm4 TjOKZds8LwaEF8rO4fOjB3 MyIgYXJlIHRocmVlIGZyYW fmFV93deKmDsVsmMGrb7Ap CDSea6A6DU9yZUjsSULyJH feAIN0EQFfGVabTD21LE8n ITH4egRvBWKcUtVxeIEduh LyNWazoFYrSPYefHZlg3mj biBhbmQgdGhlIGxhcmdlc3 PhRnWaG57cfbXdxJHsx1Ja BEJoOT45MASkURzgCQ9buD tzjK8oMNrvMQ5mhA9xRRTs mFEmrKT0XOOjJC01aYOecB bddW0jV8Ypc0X3bQLbtFOx UTvfAMUUCS2rNHTJY9SuCH fxHKVeV7BeW7RvccU5j1du hQnij9GgbYYiTN6ezRGcpQ == MICROSCOPIC DESCRIPTION r2zitUKzAJRcnSM6DnBsRC (test code = 3371) Sdj9oxh6GjrDDxmHJdSWgo vIGkcmPuxd09sND3nK84JX 2xAUDaXpQ4VHTkfvU2Msf9 ZZQvOHZopJBgW277q1yyr3 xdwiToqEQ5nTlrZWRejjhc ZyC6CAqlBBLoywaqTDf6BQ uzNWAhrFX2SGSlcPUeX2Kl PHMkVU3umrd3JKK7AYzuMP SoInA2OIYwsMVlQTSgeVbg BVgci143ZJJ1XzZoDCVmnw RiqLxzrE9fSsIuIQFVNQQF T2QCYBEqvAIcxX== [facility] [id number] 16:40:03 Test Item Value Reference Range Interpretation Comments Case Report (test code Surgical Pathology = 104) Report Case: [id number] Authorizing Provider: Meera Fonseca MD Collected: 01/27/2022 08:11 AM Ordering Location: [facility] Received: 01/27/2022 09:25 AM Pathologist: Audrey Shore MD Specimens: A) - Biopsy, Gastric B) - Polyp, Colon - Transverse, x3 DIAGNOSIS (test code = [id number] 3220) FuZzEwMzNcZnRuYmpcdWMx IHtccnRmMVxlcGljOTYwMl mfaiZlZMIqlDHgC7Kgdbkr IJgzAP8uHM2qgBtoeWQaeF RhZSZxCoXot2nzt670uSYr d1exHLEEbyxjtHi3dEwiG9 4ht1S9ZsycV15fiYGvZPO9 RSIwHQIlwBJkCZMdQSX5VC LvsKRaV8anZETbKO8ebajg YWfhDRcvRRExmAF4AQRgnE HtT0FgHRCbUNkfMILbkve1 UlDmKy6zaOSjlAqmJMhrAZ NbIKZxKQjrYRYaWlZiVO7x M9FTZCIFAJasWlCXDY1ILR RYUxPNP8SSXDuSVPLSX8UO WTpccGFyICAgLSBBTlRSQU zsHZgBRPMESHWNPfbMSW7K H15JSKRYEBDXTQZWVUVJCG GHRLoNO5RSR2XGZOwKNJTa soJrVG7bR4eUIcGHAkJHTJ ZWV8DgT8lWLWLXUrVJFWWJ Z1fDY4uCKPZXWKPRFUMBJ6 5ccGFyICAgLSBOTyBIRUxJ E38WELBSLFOgIJcUW3ZIPM sSX6GoM9IBSG0DS07LVMKP CP6dF05gN3LKWSjJTw8HBO JORccuM8VXQV2gjZPcUMOe QBWYVwCAWkRTY4PNRdLMXZ 5CZDCCPADRAUBhDKBPP8SA WWZGZGXQSqNUDQqLM89CWx SMKV6CVSYOHSMhhdjrNZJu Eu8xA97WS22cYWIQCY3NIl CPC0KeIOVYIF0RK14YCZOx TN0HGRYWA3NNZYb6HKKpum EtGRBJNKQDYHLTBIQNHY0L TTIePNPwNYaeTCEcQS0lAd 8gSElHSCBHUkFERSBEWVNQ QLHJOTQyT1NkYI0PEDYOPi EwA1INT2yDT32ZNGFPTU9x cGFyXHBhclxwYXJccGFyXH BhciAgXHBhciAgIFxwYXJ9 j2tvqCMgTMFvmWPrXAEuWU xhbnNpXGRlZmxhbmcxMDMz YEF1cvKvWDQhDSzrRTOlVV rpCr8paJLxvFpmUxRwGYWt b1tymxWOiflbtKp6c2srXG BlSjY7rVShFCajD6xjimAg eFOpYDOzIZd7aC09JELnlT 1kjLWeVYdvqjEnShV2LPdi LYEfItY2CAFjqNPnTJEmT0 xyZWQwXGdyZWVuMFxibHVl RJH1bGfas8F4qNGeqIZfxX wjYtApYnZsMoBMn0XrOHq7 sKxlM2MjMDHpUjZ0aEVrED YuUXmuJNXeCAAblbH9sM89 KWukuhB9qGAwu9Urf56uu2 69fI3ydDAjRFJ9CWZsTPEm dILmATAeFUR2WQXbbHBaZ2 wxIBEbCT5umnzsKLvsFMmt NAYwmJE4BTGobNCtX2HoGN PlHHbzPTOakrg9OrDlXn6a uPNgxStfFStgn0bcq4cwtU NtEjr5TBUqReYwVvqvSDun y5Xgj8vlWPSibp5eQDY1hZ HnhYeto8O8zQCrVBKqjHHk JDYiFU3nsNQdZXDxqO7dyd xjXHBnYnJkcmhlYWRccGdi ieGtEo0bvPkzCPN8ZUgxC0 immB1zRzE5SWeuS4brfV2b YNa4NDigJYVffNR5tnX4RN CkiLIqT3LppV6yEWPkWS8m kla9v5ssVLW2FCryXXSfWt D0fkS0HAQqwCPhKLBvlCtt BYevl475OYT2XuGaBVMzd7 LeW0AeaEyfG17joWklY55j JVJjxIsogQ4vaKiowC0wTj ZgXnSmZAwybVtdYW9mOWOm C0ypaXVpQKUkXABbV3jnYb BsdO8zvVlhZDvlhmGlVMMz Iom7ATNmzRUxNOJdMpg1JM VrRLYrN77ihhkhVJF6gK3d h6txr6YwSBkeJOI5PDJxv1 0nTTifcvL8EDR9XP43Ieyb ClX7Z6rzGJI7kR== CPT Code(s) (test code z7snsQPqAZKkfPE9FgLjOQ = 3357) Igp2fcn2GetSRtlWJdNAdb xOZnbjJvzm54vAN2mZ41XO 4lYQSbDdA2CKCxajY2Gty5 CBHqBROgtDMfM187d5dax8 dgjiFgaFK5aIqtCXXrekar WrN2DIdaGKHnwiwpZMt7TB xiOLXreFR9MTTekCRhF2Sd ZNJhHL8tqaw1COB8QQelDC CgKjA5IZGnjSGdMRKclDuw IKyyt616TYE7RnQvBWZahj FiyYiepB7jAyUeRSI5FJXk NVxwYXJ9 CLINICAL HISTORY (test v9nkyAEkYCWmwJE4CdThTU code = 3356) Cxz1yue0KdqRKhvQZqGWtg iHBtedGmtj32iTQ4nF44IR 5rYWQxIjC0JAWvcoS0Pal7 PWKnTLMxsHDuM467a5ynq6 solnFifVT1tVlpSCZzyzqy HtN6MYotMUIprkpcIBg6FD slTHClkOP9YAHqaZJlJ8Uh ZJLjSP5kfzy1KXO7KPmiMU KxHbQ7QAZksCQmTLTxsLxo EWcix711APK7VcUzKFLxji ArxDvsfC9fYyLuGWQFgyCb lQ88YMImUh2vFTNtxnRmgr qkRjQwc9AgyRKllIajJQ56 DG0ej1TdEOAqDC0bCMJslH 7kNJAfiQmnEPE9nubwJCBx lP4dnLDbyT== GROSS DESCRIPTION (test a6vstVYjXVYzdWA5MvPaUA code = [id number]) Cqj9lxa1JqcEZklLQhNWsf oFDailCysm06rHD1hP95DE 2aXZSfVvH1XOIdqaQ5Rju3 AZKoAWCheOBrN923s2uom6 vqkmTbcTE8ZHLtCWGnW5Ln FV5gOZPgsYYgC83inXHbNY R5HSVwNWKfsBCzCLJxLBO8 OJFdaWBgE0roKYTrQX6aye qrTDvwPJsgMUOzcYB7PFQe rSWcI1SxUHTwPLnkNACybj b6FxYbLe1fjYBnbFsaAMgi JLMzb1feKXCcvBTiSHH1ST tfdOBuOYKhGVXnOMw7THAm VKdhcHRdKD1lsBjcPkektZ wwd0DwzBRaJRnoAAWrFAXf MUgoHZDqE1WAGORoUodeVQ NkQmNpEOl6LNgfE2MDALHt PZVuRKOuURt4EdP5CXo5CZ TIXn9eDmW9JHizFTPqLUT7 MTcxIFxcdCAyIFxcZmwgXF owOWIjaCOpAAtmojO8LBZk QBlbVERhBnUgUR8jEvsgdI K3WQIHBRU2xmilUefbUTEl YtVmZGdnCmTyTpKdWTu2RQ MxnJ1gXq3ilRGqyT2dtJZy GWxiSXF2qFZaXPFzXKXlIR XdVF01E9JdwX2ta2FbHCTn p72tZK6dWIteNmFzXBTeCr Scm5RyvBpuF1RkvTHkNiQf ePKqRRHylH5llDRenWGjGQ Bfz8qcMKNeDUTxON2zQAMo u5J7PVoiPC09BURxLGjxSB ljNlElmZD6fT36zTNcrH4m ppVxg53fV2WzIDueEGYlOF QddGCjuVB0FIFcF8WrXEKq ztXwJGFcDGB2NOIONE7gIC iyVWVpKnNzJanvMoP7NGTh jEZdSGN3VF2tMJKgsdykAA TtVDKySYZ7OQfesR27iXTm XGZzMTZccGFyfXtcKlxlcG vnb8OxsKKzNXomMHWuPRNp WEoxRRAqG1JYOXVzRigjLY IwBgQvBEx3XWjxB2WVTZNi WUKePQUrTcS7VdI9LMv3CP EAHb5aZhV1CMwgKFl1ZGW4 MTcxIFxcdCAyIFxcZmwgXF xgIHSisUCfEQjdbeM9VFAs AzGmXh3pTG1mzPJxNSFuxJ 4bYT7iOELaodW7RYHrTG5k dOWhLDXuBjJiU4RoEVJtJ9 WllwXgYUorGNFrqt1ngFrw GUnjBxXyOWYiv3n3kZM8fV BghFZ2vRQmoNtbVUxvDx9z tXS0cR3mYGUlUNRtKEXhwE CeLVOgy3n1dWxsU76cz79b OFAyC1DdEBJkQI4dggDla6 ApUGNgb4ThcRX3bV2uBxI8 MyIgYXJlIHRocmVlIGZyYW bwEC86mkWpMaAhkUNzk2En OFBoo9S5WE4qONfyOBDjOZ wqAYL5WJXtHHjgFA13SK6d JRC3aiUrKTXbRrEtaOChmy VpPJmjhGErXFEskONay7cr biBhbmQgdGhlIGxhcmdlc3 IlPmYsA37wllDdpRSoa0Qr JUYsTK18KMAbRXxtDM8whE akoC6lBZolLQ1zkC5kFWAp pVQjmXF7QUBxET66jZFtjN ijqE3gT3Svf5M1hTXooJDc SZdkBQRRKA7pEIOIT1PeJG erZBRzF7KkP6VmihK8i4ju lGlix2KjdZCtRV8ilIAacG == MICROSCOPIC DESCRIPTION i8qxvMKzGXHkyES1KvLfXS (test code = 3371) Noz2pdt5WavDSiyNXmDHmj gHQesfDjld46rMO4zG91HA 2nZJKfQoG0SNGopmS6Afv1 HSYsVQKgnIDqX205x3cbr6 rpwgSewPA5qDulBMQvodhn CrR1HYtfCDCfzfnqJKw6JX vcIJKtmDI6KTWmxQKdM3Iw LSIxKC2bjey1QBL9YNgvLW WhBaP3CFTypOVaPNQddSxm VFtnb686KJU3SsDsGOZqhy LqyPrlxB0bNzLzFIQUUBNH I5BKQFRmtWNdzW== [facility] CenterTissue [id number] 16:40:03 Test Item Value Reference Range Interpretation Comments Case Report (test code Surgical Pathology = 104) Report Case: [id number] Authorizing Provider: Meera Fonseca MD Collected: 01/27/2022 08:11 AM Ordering Location: [facility] Received: 01/27/2022 09:25 AM Pathologist: Audrey Shore MD Specimens: A) - Biopsy, Gastric B) - Polyp, Colon - Transverse, x3 DIAGNOSIS (test code = [id number] 3220) FuZzEwMzNcZnRuYmpcdWMx IHtccnRmMVxlcGljOTYwMl ceeiSfAWSeeDXkE2Ciqatf ODqyFC6iBT1isKbyeWVngR MuMRKjRqTjk8jya709iUSu r2gsMPFRtxodxAt1cFosP4 1bu0F5LaetX63ozFVfPVF9 GHEtPGBzsPYoPROrSTW7PH YhaCBhF1seFDQnRK3hisxc XRrnLJziZQNtsGS8AKUexZ LlK6RlQOElNCizXQXzgdy7 ZeHaRd1psPQuhOlzXTrfFG RoTDYqZQhkPZTrMqSrKJ6g Z7PUFVEZUIgjLcTUDX1IJK QQOsNSR8OZNZtDOBGWI5EM WTpccGFyICAgLSBBTlRSQU tvCNrNMWVTMWSGXwcMXW3D K66TJYEYCXODNTHTYJCNWO LYTKqDM1KYJ7EWTPfUOAYe wkEcWZ3tA4wXTmITMuCEYN JOG2PpO5mIMHBVQrASCVMJ G2uMX7xRJPCGCDJLYHJSY3 5ccGFyICAgLSBOTyBIRUxJ A10VJNTGRXEaVOxUC0AFYM oFG9OyA7RFVC4HO66CJJLS BF7oN77nM0DHKUyUEc9YVG VMIkhmU4KCEN2tgOVkDTHu LQVTXiHSGeVSJ4CVWgAMAK 5PYRVATSYLLYZiSXUAF5SW XIBPAOCBUvLOQPfQJ06SGo SJOJ1PALZILFVzxlgtXRFa Jr5qU83CA96yYIOAQL1HFx JNV1HjAIJILN7BU09FKPOh VS2PBJEHY1BPPWi8BFEltp PmYXPECYNRDXFWOJPVHZ3V RDGnLKMmTPkxPJSnSP4rPt 8gSElHSCBHUkFERSBEWVNQ OULWWOUtZ8XnNQ3WRCURHc SaU1AWV6kMS85ZRKLGSL6j cGFyXHBhclxwYXJccGFyXH BhciAgXHBhciAgIFxwYXJ9 s0vvkPErIPIfzVTsAHBuLC xhbnNpXGRlZmxhbmcxMDMz IVH5wtHhTEMuUKlmKRCeCZ gsFr9eaDPedLenCmAaMSRn d6txslVKmxzyuPl4t3qgZW GlGbI4uEPwQYpxA9jquiJc cVToSJEqJEi3iE23KJNvhW 3chCOuFLlwwcJmObP2ZSqz IUOxHyA1KBFziWBlRMWtN4 xyZWQwXGdyZWVuMFxibHVl SAB1uMxeo3N2dWPzdPMhkE gdQmRjUrAbMjAYi6FdDQb4 uUilD4TyTPOcJdI1oPMzIR EiSFknRSEqQBEmmfS8eT86 TAxvlgM6tQDpn9Hfv17kw7 54vG7icOSdFFS1XUVmJGEz yCBeFUHiOBL1HISptATkF4 efTSRiWM9xauetLBfyUKsj KPPnyVE4RSAazMRiS5UpEO LoSJsoGBDqezx1JuErUw1r iURrsVfeMLrml9yme8ibxW CtXki6XLOaMdLyAwktHKfr e4Caw8oxWYPjet9uFZP0jS UchTgql0Q1rBUzIKLynQEl RNRoNQ8qgWBfQJSavM2nmi xjXHBnYnJkcmhlYWRccGdi twKqTm0jlHwbJGX7YTorW0 fsiQ0vOyH7HLinJ6kofO8y HSi6ZKumYLLqvVJ6gmF0KW ZqjXAiA1JobE9uLNIzDR0b bmf5f1gaQWI6EThiORHdBh J0yaE1LTXkfTDmMIZtnOqr JMrag985KWB7EuTxHVRzr3 UoM8DwkQxeU16skPnvM36z ZGGefGngtK6gkMxisO1oPh GbXnSyFKnxvOijQK5pBBUh M8lyoUGdZEYhGBGxP2mhNd JuhO1brTppUXbobeGcDWPe Eem0YEZryCRrNUDvDwj7MT LoVFXgW06itohrEFW6nD4k r0wsb5PoBOmgBEA7JQPzv3 4jSYckepH8RZE9BH34Wboi LsR1C2qiUHY8tR== CPT Code(s) (test code g6wycWCvPYYvyHY5UmHcUN = 3357) Lpb6ndq2DioDAocUZbNZws tYZwxpOnoq85bEU0jV28HC 5tQHRmZyJ9NJXgovR1Wsq2 QSWyUXCyvUIcU705b9rfn2 psfrGwnIR7mVhnARLvjkjb DbD7IOqyWWEhvhdbYSq7AZ tsQULkdCD9UNDxeYFlP6St OVRfKR6xvjw4XGM9FHeyYJ DmVeY0GAHxzKAwTIDmbDpj GSwox426OMU0MsGlRWKzmz JbyWttsB8lKaKmSFM5SQWp NVxwYXJ9 CLINICAL HISTORY (test n4gujTDwWQNemZH4CfAaLD code = 3356) Cxm4hen8TlvRJmrJLpNLyq sUCfghXdpd84hNI3qN13CM 4tTLEwAnG2AHUmkwS4Nbk2 BEMuMXEshTOcI413i9xdx0 bagnGgeKH3xYflJEYthqef WsK2AUdiMGTwmxbjOEl5MO wrSHTrdPY2IMSknKOoV7Sv DRLpPD5vrum7DAL3QAvfNZ PcGiL3JKLqcALxBKZkzVtg KThzd011WAZ3EnHbTUAcgf XbvNtjuG6kCiMpFTWOchTb qT76YYYyCe6qWFBwcbNnlv ohYnBfe1EavIVmuQbqXN36 IY4wo1KaQNHzDO7pKVTzpN 1mCVWpvQbjKME2wtivNGPw rL3qpXMpuV== GROSS DESCRIPTION (test x1haeEHzVJSdyPC1XiRfQA code = [id number]) Ltl7ybg9HtmWQxcZGgGJzq cNKxlyOenj25iJV9iM71GR 5bGADeDbB9MLCabbE5Dtj9 TSHvNZYtcDSoW666r6dzx1 bbcvIplGH8MREbINEoI4Te PA4dMODoiXIjA19mrVRjKE F6BDIyHZXamCLcFDRaREY1 ORRslJHxV2oiFEKoSR1vki uzWCgeDZhoDAXhfFS9VLDb eTJdI6SsGJNqCUerFDTakj z9OrOyEz4cgEYtxZmfHZkv EDBeq1rrZNKgmZHpWTE7VA rsyDFsTROzWRNjHAg5IHWy INhifWRcZW8rjIsiOaaipY igu5CkrSMgJPelZLBlZAMi MAfmHNCwB9FFQQEsVasaKN MyJwIpVEf2UShgW9KNSSFb OPZzCIKjUZu3MgV0ENv9NV XBLh4pTlW0CIkzNKVrWWB9 MTcxIFxcdCAyIFxcZmwgXF grPZZycYDiEBcoazG5NUHf KJeeDOZbDoFsFM6eZmdtnV M5ZYDAITZ7vopkWpqbOMVd OkCgXBpfKrObUvJpSYg7PS HaiY1xJn4ufILpcC0hzDOq IKrfLEP4zUDcNQXuVLFpHB EaMY93I0UhiM4vg3VsUZKo w28mOQ0sNNsnKkHpYKWaSb Tip2ZwnEwwS9PvdPSwRqHk tDCjJUMrrQ6erTUcyKWuWX Kmw8acBWXnISRfEP1jAFBc l0A7RRydRC53XKPrWGbxFY xvRmOyfLG5fH70qATzbE1d reBeb64mY3YfCBglEAGpBT DcnBEraYX8WPUhO0NsVPCp nlUiSURlUFS1IVTQWU9hHB dgZLQbWbOnYyduStA3QQLm fAWvNHN6RS0gGPReygmrPI BgMTEwNTI0GKfhzB13sFVj XGZzMTZccGFyfXtcKlxlcG rih5YcuRVmXLpzXYUjSPGa QPefRIYzD0APVSCgKygyJR FoXvMbCLf0UGosW6LSMCDj HJDgGZDgMbC4OsH0PPg5EA QAPd2eCjL9BBdjFPl0APX1 MTcxIFxcdCAyIFxcZmwgXF miITWfbXTdOKghkwX6DKHb PnBqYc6cFC8dtTAiQJDyvI 7yHJ2dQRPflfF2LIIjQW6x mBXxJIMuIuQcJ4JeGPZvU2 KmggJnEQwsEPAdyq1ucSfe VGhfZuPjDRWdv7r4uCR6jM FgkGK2fNGudNivHYqdNl3f kNO1kJ0bYIJjIZFjKCKbcQ TyOUBhb0j6bNasF26da25u LRJbS0VjOOGnGO7phiZly4 PbXSOfg2JpgHQ8hS2pOkC6 MyIgYXJlIHRocmVlIGZyYW nmXA65nuHcMoKqfWUqa3Zg AWXme0T0GQ5tONqvWDTkCD gvJES6XMUaEQtyKO11GO2e IWK2rvEjLEKlRyYzcSQoin OgDBdniSFdFRYetXWze7li biBhbmQgdGhlIGxhcmdlc3 NbWlFfQ07zjwLkdMZlw2Ji ZWRjOU33KFHsBPkcXF5jaT bhaL9rJHgtDG2ppP9oOGRf hDFphGX5ZGDxTH14lHQmmI zowP0lW4Gjj2Z3aPZtmVZq WYwpQHWCEL4gWFILJ9TdDJ zgNMVkR7OgB9QhamZ2y6hb pYhav3KmoREcWI7ecVRecF == MICROSCOPIC DESCRIPTION g1gcuJWfZUDvfOI0GpCmOG (test code = 3371) Ixc3scl2QgyLFriFCeJTja mZDuhgSjsd27bTY9zU30YX 3pMEVfGgH6VNBhqvL0Vdq9 WNOzHXGtbDUhT875q5mnb6 chhbIwqFK7yBdgWBOpaqyz GfT6QWwvLAAfueyeJKd2FQ kzVYNkcLV5FNSbcBEvY2Rq LDUkYM5htfy9ZPY4JYtyMG WgGfE2YNSoaUWfSAJfzEfd EIfei206VIF4LzKsUVLhga GasHaadI6aItMvPDYEMAUI T8RJLWIgmNBejX== [facility] Center[facility] [id number] 16:40:03Surgical Pathology Report Case: [id number] Authorizing Provider: Meera Fonseca MD Collected: 01/27/2022 08:11 AM Ordering Location: [facility] Received: 01/27/2022 09:25 AM Pathologist: Audrey Shore MD Specimens: A) - Biopsy, Gastric B) - Polyp, Colon - Transverse, x3 A. STOMACH, RANDOM, ENDOSCOPIC BIOPSY: - ANTRAL TYPE GASTRIC MUCOSA WITH REACTIVE GASTROPATHY - OX YNTIC MUCOSA WITH NO PATHOLOGIC ALTERATION - NO HELICOBACTER PYLORI-LIKE ORGANISMS SEEN ON WARTHIN-STARRY STAIN - NO INTESTINAL METAPLASIA, DYSPLASIA OR MALIGNANCY NOTEDB. COLON, TRANSVERSE, ENDOSCOPICPOLYPECTOMY: - TUBULAR ADENOMA X 3 - NO HIGH GRADE DYSPLASIA OR INVASIVE CARCINOMA SEEN Signing Pathologist Direct Phone Line: [phone] signed by Audrey Shore MD on 01/28/2022 at 4:40 [id number] for screening for malignant neoplasm of colon, epigastric painA. Biopsy,Gastric.Received in formalin labeled with the patient's information and labeled "biopsy, gastric" anais single lawson- brown piece of tissue, 0.5 cm in maximum dimension, submitted in cassette A1. B. Polyp,Colon - Transverse.Received in formalin labeled with the patient's information and labeled "polyp, colon - transverse, description: x3" are three fragments of mucosal tissue. The smallest fragment measures 0.2 cm in maximum dimension and the largest fragment measures 0.7 cm in maximum dimension, submit jj entirely in cassette labeled B1. BH/pl PERFORMEDRAD, ABDOMEN/KUB 1 VIEW AP 2022-01-24 18:05:00Reason for exam:->ABDOMINAL PAINReason for exam:-> [facility] : 1960 Sex: MFINAL REPORT RAD, ABDOMEN/KUB 1 VIEW AP CLINICAL INDICATION: ABDOMINAL PAIN COMPARISON: None TECHNIQUE: Single, frontal radiograph of the abdomen. FINDINGS: Nondiagnostic due to patient body habitus and technique. Signed: Pia Butts Verified Date/Time: 01/24/2022 18:05:52 [id number] 21:00:48 Test Item Value Reference Range Interpretation Comments LIPASE (BEAKER) (test code = 749) 5 U/L 6-51 L Staff Interpreter ID - DSENSONOperator ID - DSENSONOperator ID - DSENSONOperator ID - DSENSONCT, CHEST, WITHOUT [id number] 20:52:00Unlisted Reason for Exam - Click Yes and Enter Reason Below->No [facility] : 1960 Sex: MFINAL REPORT CT CHEST, ABDOMEN AND PELVIS WITHOUT CONTRAST HISTORY: Persistent cough and severe abdominal pain. COMPARISON: CT chest 10/04/[address] abdomen and pelvis 10/17/2020 Technique: Helically acquired images were obtained through the chest, abdomen and pelvis without contrast. Coronal and sagittal reformats are provided. Post marginal radiation reduction technique was used.FINDINGS: CHEST: There is mild cardiomegaly. No pathologic-appearing mediastinal or hilar lymph nodes. There is no consolidation, effusion or pneumothorax. No acute osseous abnormalities. ABDOMEN/PELVIS: Diffuse hepatic steatosis. No acute findings in the gallbladder, liver, adrenals, spleen, kidneys,pancreas, small bowel, appendix and colon. No free intraperitoneal fluid or free air. Moderate degenerative change of the lumbar spine. No evidence of acute osseous abnormality. IMPRESSION: No evidenceof acute abnormality. Signed: Elidia Bhatt MDReport Verified Date/Time: 01/23/2022 20:52:23 CT, [id number] 20:52:00Unlisted Reason for Exam - Click Yes and Enter Reason Below->NoIs this for enterography?->NoWill this procedure require oral contrast?->No [facility] : 1960 Sex: MFINAL REPORT CT CHEST, ABDOMEN AND PELVIS WITHOUT CONTRAST HISTORY: Persistent cough and severe abdominal pain. COMPARISON: CT chest 10/04/[address] abdomen and pelvis 10/17/2020 Technique: Helically acquired images were obtained through the chest, abdomen and pelvis without contrast. Coronal and sagittal reformats are provided. Post marginal radiation reduction technique was used.FINDINGS: CHEST: There is mild cardiomegaly. No pathologic-appearing mediastinal or hilar lymph nodes. There is no consolidation, effusion or pneumothorax. No acute osseous abnormalities. ABDOMEN/PELVIS: Diffuse hepatic steatosis. No acute findings in the gallbladder, liver, adrenals, spleen, kidneys,pancreas, small bowel, appendix and colon. No free intraperitoneal fluid or free air. Moderate degenerative change of the lumbar spine. No evidence of acute osseous abnormality. IMPRESSION: No evidenceof acute abnormality. Signed: Elidia Bhatt MDReport Verified Date/Time: 01/23/2022 20:52:23 HEPATIC FUNCTION PANEL 2022-01-23 20:42:46 Test Item Value Reference Range Interpretation Comments TOTAL PROTEIN (BEAKER) (test code = 7.6 gm/dL 6.0-8.5 770) ALBUMIN (BEAKER) (test code = 1145) 4.5 g/dL 3.5-5.0 BILIRUBIN TOTAL (BEAKER) (test code 0.7 mg/dL 0.1-1.2 = 377) BILIRUBIN DIRECT (BEAKER) (test 0.3 mg/dL 0.0-0.4 code = 706) ALKALINE PHOSPHATASE (BEAKER) (test 130 U/L 30-115 H code = 346) AST (SGOT) (BEAKER) (test code = 21 U/L 5-40 353) ALT (SGPT) (BEAKER) (test code = 21 U/L 5-50 347) Staff Interpreter ID - DSENSONOperator ID - DSENSONOperator ID - DSENSONOperator ID - DSENSONOperator ID - DSENSONOperator ID - DSENSONOperator ID - DSENSONTROPONIN I 2022-01-23 18:36:07 Test Item Value Reference Range Interpretation Comments TROPONIN I (BEAKER) (test code = 397) < ng/mL 0.00-0.15 Troponin I (TnI) levels must be interpreted in the context of the presenting symptoms and the clinical findings. Elevated TnI levels indicate myocardial damage, but are not specific for ischemic heart disease. Elevated TnI levels are seen in patients with other cardiac conditions (including myocarditis and congestive heart failure), and slight TnI elevations occur in patients with other conditions, including sepsis, renal failure, acidosis, acute neurological disease, and persistent tachyarrhythmia.Staff Interpreter ID - DSENSONBASIC METABOLIC [id number] 18:28:41 Test Item Value Reference Range Interpretation Comments SODIUM (BEAKER) 135 meq/L 135-148 (test code = 381) POTASSIUM 4.0 meq/L 3.6-5.5 (BEAKER) (test code = 379) CHLORIDE (BEAKER) 96 meq/L 98-106 L (test code = 382) CO2 (BEAKER) 25 meq/L 20-29 (test code = 355) BLOOD UREA 17 mg/dL 10-26 NITROGEN (BEAKER) (test code = 354) CREATININE 1.33 mg/dL 0.50-1.20 H (BEAKER) (test code = 358) GLUCOSE RANDOM 122 mg/dL 70-110 H (BEAKER) (test code = 652) CALCIUM (BEAKER) 9.9 mg/dL 8.5-10.5 (test code = 697) EGFR (BEAKER) 62 Interpretatio n of eGFR (test code = mL/min/1.73 values Stage De scription 1092) sq m Result G1 Toshia l or high >=90 G2 Mildly decreased 60-89 G3a Mildl y to moderately 45-5 9 G3b Moderately to s everely 30-44 G4 Severl y decreased 15-29 G5 Kidney failure <15Reported eGF R is based on the CKD-EPI 2020 equation that d oes not use a race coefficientEsti mated GFR is not as accur ate as Creatinine Zuleyka neal in predicting glom erular filtration rate . Estimated GFR is not appl icable for dialysis patien ts Staff Interpreter ID - DSENSONOperator ID - DSENSONOperator ID - DSENSONOperator ID - DSENSONOperator ID - DSENSONOperator ID - DSENSONOperator ID - DSENSONOperator ID - DSENSONOperator ID - DSENSONOperator ID - DSENSONOperator ID - DSENSONOperator ID - DSENSONRAD, CHEST, 1 VIEW, NON [id number] 18:16:00 Reason for exam:->chest painShould this be performed at the bedside?->Yes [facility] 1960 Sex: MFINAL REPORT INDICATION: chest pain COMPARISON: 07/17/2019 TECHNIQUE: Single frontalview of the chest. FINDINGS: Lungs and pleura: Small left effusion. Lungs are hypoinflated.Heart andmediastinum: Normal heart size. Unremarkable mediastinal contours.Osseous structures: No acute abnorm ality.Other: None. IMPRESSION: Small left effusion. Lungs are hypoinflated. Signed: Pia Butts MDReport Verified Date/Time: 01/23/2022 18:16:34 CBC W/PLT COUNT & AUTO [id number] 18:12:00 Test Item Value Reference Range Interpretation Comments WHITE BLOOD CELL COUNT (BEAKER) 7.4 K/ L 4.0-10.0 (test code = 775) RED BLOOD CELL COUNT (BEAKER) 5.15 M/ L 4.20-5.80 (test code = 761) HEMOGLOBIN (BEAKER) (test code = 14.4 GM/DL 13.0-16.8 410) HEMATOCRIT (BEAKER) (test code = 41.2 % 36.0-50.0 411) MEAN CORPUSCULAR VOLUME (BEAKER) 80.0 fL 82.0-99.0 L (test code = 753) MEAN CORPUSCULAR HEMOGLOBIN 28.0 pg 27.0-33.0 (BEAKER) (test code = 751) MEAN CORPUSCULAR HEMOGLOBIN CONC 35.0 GM/DL 32.0-36.0 (BEAKER) (test code = 752) RED CELL DISTRIBUTION WIDTH 14.7 % 12.0-15.0 (BEAKER) (test code = 412) PLATELET COUNT (BEAKER) (test 279 K/CU MM 150-430 code = 756) MEAN PLATELET VOLUME (BEAKER) 10.2 fL 6.0-11.5 (test code = 754) NUCLEATED RED BLOOD CELLS 0 /100 WBC 0-0 (BEAKER) (test code = 413) NEUTROPHILS RELATIVE PERCENT 69 % (BEAKER) (test code = 429) LYMPHOCYTES RELATIVE PERCENT 20 % (BEAKER) (test code = 430) MONOCYTES RELATIVE PERCENT 10 % (BEAKER) (test code = 431) EOSINOPHILS RELATIVE PERCENT 1 % (BEAKER) (test code = 432) BASOPHILS RELATIVE PERCENT 0 % (BEAKER) (test code = 437) NEUTROPHILS ABSOLUTE COUNT 5.11 K/ L 1.80-8.00 (BEAKER) (test code = 670) LYMPHOCYTES ABSOLUTE COUNT 1.47 K/ L 1.48-4.50 L (BEAKER) (test code = 414) MONOCYTES ABSOLUTE COUNT (BEAKER) 0.73 K/ L 0.00-1.30 (test code = 415) EOSINOPHILS ABSOLUTE COUNT 0.06 K/ L 0.00-0.50 (BEAKER) (test code = 416) BASOPHILS ABSOLUTE COUNT (BEAKER) 0.03 K/ L 0.00-0.20 (test code = 417) IMMATURE GRANULOCYTES-RELATIVE 1 % 0-0 H PERCENT (BEAKER) (test code = 2801) B-type Natriuretic Factor (BNP)2021-07-17 13:49:41 Test Item Value Reference Range Interpretation Comments BNP (test code = 42727-9) 52 pg/mL 0-100 ISABELA (test code = ISABELA) Staff Interpreter ID - DSENSON Lab Interpretation (test Normal code = 29138-8) [facility]17 13:49:41 Test Item Value Reference Range Interpretation Comments BNP (test code = 21939-9) 52 pg/mL 0-100 ISABELA (test code = ISABELA) Staff Interpreter ID - DSENSON Lab Interpretation (test Normal code = 54836-3) [facility]21-07-17 13:49:41 Test Item Value Reference Range Interpretation Comments BNP (test code = 02869-9) 52 pg/mL 0-100 ISABELA (test code = ISABELA) Staff Interpreter ID - DSYANI Lab Interpretation (test Normal code = 52877-1) [facility]2021-07-17 13:49:41 Test Item Value Reference Range Interpretation Comments BNP (test code = 08783-5) 52 pg/mL 0-100 ISABELA (test code = ISABELA) Staff Interpreter ID - DSYANI Lab Interpretation (test Normal code = 18187-5) [facility]2021-07-17 13:49:41 Test Item Value Reference Range Interpretation Comments B-TYPE NATRIURETIC PEPTIDE (BEAKER) 52 pg/mL 0-100 (test code = 700) Staff Interpreter ID - DEIRDRETROPONIN [id number] 13:49:23 Test Item Value Reference Range Interpretation Comments TROPONIN I (BEAKER) (test code = 397) < ng/mL 0.00-0.15 Troponin I (TnI) levels must be interpreted in the context of the presenting symptoms and the clinical findings. Elevated TnI levels indicate myocardial damage, but are not specific for ischemic heart disease. Elevated TnI levels are seen in patients with other cardiac conditions (including myocarditis and congestive heart failure), and slight TnI elevations occur in patients with other conditions, including sepsis, renal failure, acidosis, acute neurological disease, and persistent tachyarrhythmia.Staff Interpreter ID - [id number] 13:46:38 Test Item Value Reference Range Interpretation Comments LIPASE (BEAKER) (test code = 749) 8 U/L 6-51 Staff Interpreter ID - DSENSONOperator ID - DSENSONOperator ID - DSENSONOperator ID - DSENSONComprehensive metabolic [id number] 13:46:21 Test Item Value Reference Interpretation Comments Range Protein, Total (test 6.9 See_Comment [Autom ated code = 2885-2) message] The system which generated this result transmitted reference range : 6.0 - 8.5 gm/dL . The reference range was not used to interpret this result as normal/abnormal . Albumin (test code = 3.9 g/dL 3.5-5.0 62644-9) Alkaline Phosphatase 135 U/L 30-115 H (test code = 6768-6) Total Bilirubin 0.4 mg/dL 0.1-1.2 (test code = 1975-2) Sodium (test code = 138 meq/L 250-798 2759-2) Potassium (test code 4.1 meq/L 3.6-5.5 = 2823-3) Chloride (test code 102 meq/L 98-106 = 2075-0) CO2 (test code = 24 meq/L 20-29 2028-9) BUN (test code = 15 mg/dL - 3094-0) Creatinine (test 0.88 mg/dL 0.50-1.20 code = 2160-0) Glucose (test code = 102 mg/dL 70-110 2345-7) Calcium (test code = 8.9 mg/dL 8.5-10.5 91289-3) AST (test code = 18 U/L 5-40 1920-8) ALT (test code = 23 U/L -50 1742-6) EGFR (test code = 88 mL/min/1[place]73 [place] [address]-1) m NOT ACCURATE CREATININE CLEARANCE IN PREDICTING GLOMERULAR FILTRATION RATE . ESTIMATED GFR I S NOT APPLICABLE FOR DIALYSIS PATIENTS. ISABELA (test code = Staff Interpreter ID - ISABELA) DSENSONOperator ID - DSENSONOperator ID - DSENSONOperator ID - DSENSONOperator ID - DSENSONOperator ID - DSENSONOperator ID - DSENSONOperator ID - DSENSONOperator ID - DSENSONOperator ID - DSENSONOperator ID - DSENSONOperator ID - DSENSONOperator ID - DSENSONOperator ID - DSENSONOperator ID - DSENSONOperator ID - DSENSON Lab Interpretation Abnormal (test code = 09965-2) [facility] [id number] 13:46:21 Test Item Value Reference Interpretation Comments Range Protein, Total (test 6.9 See_Comment [Autom ated code = 2885-2) message] The system which generated this result transmitted reference range : 6.0 - 8.5 gm/dL . The reference range was not used to interpret this result as normal/abnormal . Albumin (test code = 3.9 g/dL 3.5-5.0 49178-8) Alkaline Phosphatase 135 U/L 30-115 H (test code = 6768-6) Total Bilirubin 0.4 mg/dL 0.1-1.2 (test code = 1975-2) Sodium (test code = 138 meq/L 189-591 0938-2) Potassium (test code 4.1 meq/L 3.6-5.5 = 2823-3) Chloride (test code 102 meq/L 98-106 = 2075-0) CO2 (test code = 24 meq/L 20-29 8-9) BUN (test code = 15 mg/dL - 3094-0) Creatinine (test 0.88 mg/dL 0.50-1.20 code = 2160-0) Glucose (test code = 102 mg/dL 70-110 2345-7) Calcium (test code = 8.9 mg/dL 8.5-10.5 40541-4) AST (test code = 18 U/L 5-40 1920-8) ALT (test code = 23 U/L 5-50 1742-6) EGFR (test code = 88 mL/min/1.73 [place] [address]-5) m NOT ACCURATE CREATININE CLEARANCE IN PREDICTING GLOMERULAR FILTRATION RATE . ESTIMATED GFR I S NOT APPLICABLE FOR DIALYSIS PATIENTS. ISABELA (test code = Staff Interpreter ID - ISABELA) DSENSONOperator ID - DSENSONOperator ID - DSENSONOperator ID - DSENSONOperator ID - DSENSONOperator ID - DSENSONOperator ID - DSENSONOperator ID - DSENSONOperator ID - DSENSONOperator ID - DSENSONOperator ID - DSENSONOperator ID - DSENSONOperator ID - DSENSONOperator ID - DSENSONOperator ID - DSENSONOperator ID - DSENSON Lab Interpretation Abnormal (test code = 93137-2) [facility] [id number] 13:46:21 Test Item Value Reference Interpretation Comments Range Protein, Total (test 6.9 See_Comment [Autom ated code = 2885-2) message] The system which generated this result transmitted reference range : 6.0 - 8.5 gm/dL . The reference range was not used to interpret this result as normal/abnormal . Albumin (test code = 3.9 g/dL 3.5-5.0 75148-6) Alkaline Phosphatase 135 U/L 30-115 H (test code = 6768-6) Total Bilirubin 0.4 mg/dL 0.1-1.2 (test code = 1975-2) Sodium (test code = 138 meq/L 977-091 5017-2) Potassium (test code 4.1 meq/L 3.6-5.5 = 2823-3) Chloride (test code 102 meq/L 98-106 = 2075-0) CO2 (test code = 24 meq/L 20-29 8-9) BUN (test code = 15 mg/dL - 3094-0) Creatinine (test 0.88 mg/dL 0.50-1.20 code = 2160-0) Glucose (test code = 102 mg/dL 70-110 2345-7) Calcium (test code = 8.9 mg/dL 8.5-10.5 85278-4) AST (test code = 18 U/L 5-40 1920-8) ALT (test code = 23 U/L -50 1742-6) EGFR (test code = 88 mL/min/1.73 [place] [address]-6) m NOT ACCURATE CREATININE CLEARANCE IN PREDICTING GLOMERULAR FILTRATION RATE . ESTIMATED GFR I S NOT APPLICABLE FOR DIALYSIS PATIENTS. ISABELA (test code = Staff Interpreter ID - ISABELA) DSENSONOperator ID - DSENSONOperator ID - DSENSONOperator ID - DSENSONOperator ID - DSENSONOperator ID - DSENSONOperator ID - DSENSONOperator ID - DSENSONOperator ID - DSENSONOperator ID - DSENSONOperator ID - DSENSONOperator ID - DSENSONOperator ID - DSENSONOperator ID - DSENSONOperator ID - DSENSONOperator ID - DSENSON Lab Interpretation Abnormal (test code = 07309-0) [facility] [id number] 13:46:21 Test Item Value Reference Interpretation Comments Range Protein, Total (test 6.9 See_Comment [Autom ated code = 2885-2) message] The system which generated this result transmitted reference range : 6.0 - 8.5 gm/dL . The reference range was not used to interpret this result as normal/abnormal . Albumin (test code = 3.9 g/dL 3.5-5.0 45898-7) Alkaline Phosphatase 135 U/L 30-115 H (test code = 6768-6) Total Bilirubin 0.4 mg/dL 0.1-1.2 (test code = 1974-2) Sodium (test code = 138 meq/L 046-799 2703-2) Potassium (test code 4.1 meq/L 3.6-5.5 = 2823-3) Chloride (test code 102 meq/L 98-106 = 2075-0) CO2 (test code = 24 meq/L 20-29 8-9) BUN (test code = 15 mg/dL - 3094-0) Creatinine (test 0.88 mg/dL 0.50-1.20 code = 2160-0) Glucose (test code = 102 mg/dL 70-110 2345-7) Calcium (test code = 8.9 mg/dL 8.5-10.5 34233-7) AST (test code = 18 U/L 5-40 1920-8) ALT (test code = 23 U/L 5-50 1742-6) EGFR (test code = 88 mL/min/1.[place] [address]-5) m NOT ACCURATE CREATININE CLEARANCE IN PREDICTING GLOMERULAR FILTRATION RATE . ESTIMATED GFR I S NOT APPLICABLE FOR DIALYSIS PATIENTS. ISABELA (test code = Staff Interpreter ID - ISABELA) DSENSONOperator ID - DSENSONOperator ID - DSENSONOperator ID - DSENSONOperator ID - DSENSONOperator ID - DSENSONOperator ID - DSENSONOperator ID - DSENSONOperator ID - DSENSONOperator ID - DSENSONOperator ID - DSENSONOperator ID - DSENSONOperator ID - DSENSONOperator ID - DSENSONOperator ID - DSENSONOperator ID - DSENSON Lab Interpretation Abnormal (test code = 36265-3) [facility]PRE[facility] [id number] 13:46:21 Test Item Value Reference Range Interpretation Comments TOTAL PROTEIN 6.9 gm/dL 6.0-8.5 (BEAKER) (test code = 770) ALBUMIN (BEAKER) 3.9 g/dL 3.5-5.0 (test code = 1145) ALKALINE PHOSPHATASE 135 U/L 30-115 H (BEAKER) (test code = 346) BILIRUBIN TOTAL 0.4 mg/dL 0.1-1.2 (BEAKER) (test code = 377) SODIUM (BEAKER) (test 138 meq/L 135-148 code = 381) POTASSIUM (BEAKER) 4.1 meq/L 3.6-5.5 (test code = 379) CHLORIDE (BEAKER) 102 meq/L 98-106 (test code = 382) CO2 (BEAKER) (test 24 meq/L 20-29 code = 355) BLOOD UREA NITROGEN 15 mg/dL 10-26 (BEAKER) (test code = 354) CREATININE (BEAKER) 0.88 mg/dL 0.50-1.20 (test code = 358) GLUCOSE RANDOM 102 mg/dL 70-110 (BEAKER) (test code = 652) CALCIUM (BEAKER) 8.9 mg/dL 8.5-10.5 (test code = 697) AST (SGOT) (BEAKER) 18 U/L 5-40 (test code = 353) ALT (SGPT) (BEAKER) 23 U/L 5-50 (test code = 347) EGFR (BEAKER) (test 88 mL/min/1.73 ESTIMA JJ GFR IS code = 1092) sq m NOT ACCURATE CREATININE CLEARANCE IN PREDICTING GLOMERULAR FILTRATION RATE . ESTIMATED GFR I S NOT APPLICABLE FOR DIALYSIS PATIEN TS. Staff Interpreter ID - DSENSONOperator ID - DSENSONOperator ID - DSENSONOperator ID - DSENSONOperator ID - DSENSONOperator ID - DSENSONOperator ID - DSENSONOperator ID - DSENSONOperator ID - DSENSONOperator ID - DSENSONOperator ID - DSENSONOperator ID - DSENSONOperator ID - DSENSONOperator ID - DSENSONOperatorID - DSENSONOperator ID - [id number]-[id number] 13:39:38 Test Item Value Reference Range Interpretation Comments D-Dimer, Quant (test 0.42 See_Comment Final I nformation code = 03202-7) (Auto Output ) [Automated message] The system which generated this result transmitted reference range : <0.50 MG/L FEU. The reference range was not used to interpr et this result as normal/abnormal . ISABELA (test code = REGARDING D-DIMER ISABELA) RESULTS: The 98% NPV (Negative Predictive Value) for DVT/PE exclusion is 0.50 mg/L FEU as suggested by the reading tutor and as approved by the FDA. Lab Interpretation Normal (test code = 37756-3) [id number] 13:39:38 Test Item Value Reference Range Interpretation Comments D-Dimer, Quant (test 0.42 See_Comment Final I nformation code = 85464-4) (Auto Output ) [Automated message] The system which generated this result transmitted reference range : <0.50 MG/L FEU. The reference range was not used to interpr et this result as normal/abnormal . ISABELA (test code = REGARDING D-DIMER ISABELA) RESULTS: The 98% NPV (Negative Predictive Value) for DVT/PE exclusion is 0.50 mg/L FEU as suggested by the reading tutor and as approved by the FDA. Lab Interpretation Normal (test code = 94259-9) [facility] [id number] 13:39:38 Test Item Value Reference Range Interpretation Comments D-Dimer, Quant (test 0.42 See_Comment Final I nformation code = 91970-1) (Auto Output ) [Automated message] The system which generated this result transmitted reference range : <0.50 MG/L FEU. The reference range was not used to interpr et this result as normal/abnormal . ISABELA (test code = REGARDING D-DIMER ISABELA) RESULTS: The 98% NPV (Negative Predictive Value) for DVT/PE exclusion is 0.50 mg/L FEU as suggested by the reading tutor and as approved by the FDA. Lab Interpretation Normal (test code = 83562-4) [facility] [id number] 13:39:38 Test Item Value Reference Range Interpretation Comments D-Dimer, Quant (test 0.42 See_Comment Final I nformation code = 26496-3) (Auto Output ) [Automated message] The system which generated this result transmitted reference range : <0.50 MG/L FEU. The reference range was not used to interpr et this result as normal/abnormal . ISABELA (test code = REGARDING D-DIMER ISABELA) RESULTS: The 98% NPV (Negative Predictive Value) for DVT/PE exclusion is 0.50 mg/L FEU as suggested by the reading tutor and as approved by the FDA. Lab Interpretation Normal (test code = 31570-6) [facility] [id number] 13:39:38 Test Item Value Reference Range Interpretation Comments D-DIMER QUANTITATIVE 0.42 MG/L FEU <0.50 Final Information (BEAKER) (test code = (Auto Output) 671) REGARDING D-DIMER RESULTS: The 98% NPV (Negative Predictive Value) for DVT/PE exclusion is 0.50 mg/LFEU as suggested by the reading tutor and as approved by the FDA.CBC W/PLT COUNT & AUTO [id number] 13:28:00 Test Item Value Reference Range Interpretation Comments WHITE BLOOD CELL COUNT (BEAKER) 5.7 K/ L 4.0-10.0 (test code = 775) RED BLOOD CELL COUNT (BEAKER) 4.94 M/ L 4.20-5.80 (test code = 761) HEMOGLOBIN (BEAKER) (test code = 13.7 GM/DL 13.0-16.8 410) HEMATOCRIT (BEAKER) (test code = 42.1 % 36.0-50.0 411) MEAN CORPUSCULAR VOLUME (BEAKER) 85.2 fL 82.0-99.0 (test code = 753) MEAN CORPUSCULAR HEMOGLOBIN 27.7 pg 27.0-33.0 (BEAKER) (test code = 751) MEAN CORPUSCULAR HEMOGLOBIN CONC 32.5 GM/DL 32.0-36.0 (BEAKER) (test code = 752) RED CELL DISTRIBUTION WIDTH 14.2 % 12.0-15.0 (BEAKER) (test code = 412) PLATELET COUNT (BEAKER) (test 216 K/CU MM 150-430 code = 756) MEAN PLATELET VOLUME (BEAKER) 10.5 fL 6.0-11.5 (test code = 754) NUCLEATED RED BLOOD CELLS 0 /100 WBC 0-0 (BEAKER) (test code = 413) NEUTROPHILS RELATIVE PERCENT 61 % (BEAKER) (test code = 429) LYMPHOCYTES RELATIVE PERCENT 24 % (BEAKER) (test code = 430) MONOCYTES RELATIVE PERCENT 13 % (BEAKER) (test code = 431) EOSINOPHILS RELATIVE PERCENT 2 % (BEAKER) (test code = 432) BASOPHILS RELATIVE PERCENT 1 % (BEAKER) (test code = 437) NEUTROPHILS ABSOLUTE COUNT 3.43 K/ L 1.80-8.00 (BEAKER) (test code = 670) LYMPHOCYTES ABSOLUTE COUNT 1.33 K/ L 1.48-4.50 L (BEAKER) (test code = 414) MONOCYTES ABSOLUTE COUNT (BEAKER) 0.73 K/ L 0.00-1.30 (test code = 415) EOSINOPHILS ABSOLUTE COUNT 0.11 K/ L 0.00-0.50 (BEAKER) (test code = 416) BASOPHILS ABSOLUTE COUNT (BEAKER) 0.03 K/ L 0.00-0.20 (test code = 417) IMMATURE GRANULOCYTES-RELATIVE 1 % 0-0 H PERCENT (BEAKER) (test code = 2801) RAD, CHEST, 1 VIEW, NON [id number] 13:00:00Reason for exam:->chest painShould this be performed at the bedside?->Yes [facility] 1960 Sex: MFINAL REPORT Chest, one view History: chest pain Comparison: 12/02/2020 Findings:Lungs are hypoexpanded, but grossly clear. The cardiac silhouette is exaggerated by low lung volumes andportable AP technique. No pleural effusion or pneumothorax. Impression:No definite acute findings inthe chest. Signed: Edmond Scherer MDReport Verified Date/Time: 07/17/2021 13:00:39 Reading Location: [address] Ortho Consult Reading Room CT, SPINE, LUMBAR, WO CONTRAST 2021-05-31 23:22:00Unlisted Reason for Exam - Click Yes and Enter Reason Below->No[facility] : 1960 Sex: MFINAL REPORT CT Lumbar spine CLINICAL HISTORY: Lower back pain with radiation to right leg TECHNIQUE: Contiguous noncontrast axial images of the lumbar spine with coronal and sagittal reformations to assess the alignment. This exam was performed according to the departmental dose optimization program which includes automated exposure control, adjustment of the mA and/or kV according to the patient size, and/or use of an iterative reconstruction technique. COMPARISON: 05/13/2020 FINDINGS: There is a stable appearance of a severe T12 vertebral body compression deformity as well as mild superior endplate can cavities of T10 and T11. Affect there is straightening of the normal lumbar lordosis related to confluent posterior bone graft fusion from the superior most margin of the visualized thoracic spine through the L5 posterior elements. An exaggerated thoracic kyphosis centered on T12 is similar to previous and relates to the chronic T12 deformity. Please note that the lack of intrathecal contrast somewhat limits evaluation of the soft tissue contents of the central canal. At L5-S1, mild loss of disc space height. Bilateral facet hypertrophy. No significant canal or neural foraminal narrowing At L4-L5, . Mild loss of disc space height with vacuum disc phenomenon. Facet hypertrophy. Moderate canal and severe bilateral neural foraminal narrowing. 5 mm of retrolisthesis of L4 on L5. At L3-L4, mild loss of disc space height, vacuum disc phenomenon and mild facet hypertrophy without significant canal or neural foraminal narrowing. At L2-L3, moderate to severe loss of disc space height with vacuum disc phenomenon and disc osteophyte formation. Mild canal stenosis. No significant neural foraminal stenosis. At L1-L2, moderate to severe loss of disc space height. No canal or neural foraminal narrowing. At T12-L1, moderate loss of disc space height with vacuum disc phenomenon. No canal or neural foraminal narrowing. The visualized soft tissues are without acute abnormality. IMPRESSI ON: No acute lumbar fracture or dislocation. There is a stable appearance of extensive thoracolumbarfusion with bone graft material and of the previously described T12 vertebral body compression deformity. Mild superior endplate deformities at T10 and T11 are also stable. Similar appearing degenerative changes in the lumbar spine, most prominent at L4-L5, as described above. Signed: Anthony Santillan MDReport Verified Date/Time: 05/31/2021 23:22:10 REHENSIVE METABOLIC [id number] 18:11:46 Test Item Value Reference Range Interpretation Comments TOTAL PROTEIN 8.1 gm/dL 6.0-8.5 Specimen sligh tly (BEAKER) (test code = hemoly zed 770) ALBUMIN (BEAKER) 4.3 g/dL 3.5-5.0 Specimen sl ightly (test code = 1145) hemolyzed ALKALINE PHOSPHATASE 119 U/L 30-115 H (BEAKER) (test code = 346) BILIRUBIN TOTAL 0.3 mg/dL 0.1-1.2 Specimen sli ghtly (BEAKER) (test code = hemoly zed 377) SODIUM (BEAKER) (test 135 meq/L 135-148 code = 381) POTASSIUM (BEAKER) 5.4 meq/L 3.6-5.5 Specimen slightly (test code = 379) hemolyzed CHLORIDE (BEAKER) 98 meq/L 98-106 (test code = 382) CO2 (BEAKER) (test 23 meq/L 20-29 code = 355) BLOOD UREA NITROGEN 32 mg/dL 10-26 H (BEAKER) (test code = 354) CREATININE (BEAKER) 1.53 mg/dL 0.50-1.20 H Specimen slightly (test code = 358) hemolyzed GLUCOSE RANDOM 97 mg/dL 70-110 (BEAKER) (test code = 652) CALCIUM (BEAKER) 9.4 mg/dL 8.5-10.5 (test code = 697) AST (SGOT) (BEAKER) 21 U/L 5-40 Specimen slightly (test code = 353) hemolyzed ALT (SGPT) (BEAKER) 17 U/L 5-50 Specimen slightly (test code = 347) hemolyzed EGFR (BEAKER) (test 47 mL/min/1.73 ESTIMA JJ GFR IS code = 1092) sq m NOT ACCURATE CREATININE CLEARANCE IN PREDICTING GLOMERULAR FILTRATION RATE . ESTIMATED GFR I S NOT APPLICABLE FOR DIALYSIS PATIEN TS. Staff Interpreter ID - [id number] ID - [id number] ID - [id number] ID - [id number] ID - [id number] ID - [id number] ID - [id number] ID - [id number] ID - [id number] ID - [id number] ID - [id number] ID - [id number] ID - [id number] ID - [id number] ID - [id number] ID - [id number] ID - [id number] ID - [id number] ID - [id number] W/PLT COUNT & AUTO [id number] 17:55:02 Test Item Value Reference Range Interpretation Comments WHITE BLOOD CELL COUNT (BEAKER) 7.8 K/ L 4.0-10.0 (test code = 775) RED BLOOD CELL COUNT (BEAKER) 4.97 M/ L 4.20-5.80 (test code = 761) HEMOGLOBIN (BEAKER) (test code = 13.5 GM/DL 13.0-16.8 410) HEMATOCRIT (BEAKER) (test code = 42.4 % 36.0-50.0 411) MEAN CORPUSCULAR VOLUME (BEAKER) 85.3 fL 82.0-99.0 (test code = 753) MEAN CORPUSCULAR HEMOGLOBIN 27.2 pg 27.0-33.0 (BEAKER) (test code = 751) MEAN CORPUSCULAR HEMOGLOBIN CONC 31.8 GM/DL 32.0-36.0 L (BEAKER) (test code = 752) RED CELL DISTRIBUTION WIDTH 14.6 % 12.0-15.0 (BEAKER) (test code = 412) PLATELET COUNT (BEAKER) (test 253 K/CU MM 150-430 code = 756) MEAN PLATELET VOLUME (BEAKER) 10.1 fL 6.0-11.5 (test code = 754) NUCLEATED RED BLOOD CELLS 0 /100 WBC 0-0 (BEAKER) (test code = 413) NEUTROPHILS RELATIVE PERCENT 68 % (BEAKER) (test code = 429) LYMPHOCYTES RELATIVE PERCENT 19 % (BEAKER) (test code = 430) MONOCYTES RELATIVE PERCENT 10 % (BEAKER) (test code = 431) EOSINOPHILS RELATIVE PERCENT 2 % (BEAKER) (test code = 432) BASOPHILS RELATIVE PERCENT 1 % (BEAKER) (test code = 437) NEUTROPHILS ABSOLUTE COUNT 5.26 K/ L 1.80-8.00 (BEAKER) (test code = 670) LYMPHOCYTES ABSOLUTE COUNT 1.49 K/ L 1.48-4.50 (BEAKER) (test code = 414) MONOCYTES ABSOLUTE COUNT (BEAKER) 0.78 K/ L 0.00-1.30 (test code = 415) EOSINOPHILS ABSOLUTE COUNT 0.18 K/ L 0.00-0.50 (BEAKER) (test code = 416) BASOPHILS ABSOLUTE COUNT (BEAKER) 0.04 K/ L 0.00-0.20 (test code = 417) IMMATURE GRANULOCYTES-RELATIVE 1 % 0-0 H PERCENT (BEAKER) (test code = 2801) BASIC METABOLIC [id number] 05:39:00 Test Item Value Reference Range Interpretation Comments SODIUM (BEAKER) 134 meq/L 135-148 L (test code = 381) POTASSIUM (BEAKER) 4.2 meq/L 3.6-5.5 (test code = 379) CHLORIDE (BEAKER) 88 meq/L 98-106 L (test code = 382) CO2 (BEAKER) (test 36 meq/L 20-29 H code = 355) BLOOD UREA NITROGEN 30 mg/dL 10-26 H (BEAKER) (test code = 354) CREATININE (BEAKER) 1.38 mg/dL 0.50-1.20 H (test code = 358) GLUCOSE RANDOM 98 mg/dL 70-110 (BEAKER) (test code = 652) CALCIUM (BEAKER) 9.9 mg/dL 8.5-10.5 (test code = 697) EGFR (BEAKER) (test 53 mL/min/1.73 ESTIMA JJ GFR IS code = 1092) sq m NOT ACCURATE CREATININE CLEARANCE IN PREDICTING GLOMERULAR FILTRATION RATE . ESTIMATED GFR I S NOT APPLICABLE FOR DIALYSIS PATIEN TS. Staff Interpreter ID - [id number] ID - [id number] ID - [id number] ID - [id number] ID - [id number] ID - [id number] ID - [id number] ID - [id number] ID - [id number] ID - [id number] 05:36:00 Test Item Value Reference Range Interpretation Comments MAGNESIUM (BEAKER) (test code = 2.4 mg/dL 1.5-3.0 627) Staff Interpreter ID - [id number] ID - [id number] ID - [id number] ID - [id number] 06:24:00 Test Item Value Reference Range Interpretation Comments MAGNESIUM (BEAKER) 2.3 mg/dL 1.5-3.0 Specimen moderately (test code = 627) hemolyzed Staff Interpreter ID - [id number] ID - [id number] ID - [id number] ID - [id number] BASIC METABOLIC [id number] 06:23:00 Test Item Value Reference Range Interpretation Comments SODIUM (BEAKER) 134 meq/L 135-148 L (test code = 381) POTASSIUM (BEAKER) 4.3 meq/L 3.6-5.5 Specimen moderately (test code = 379) hemolyzed CHLORIDE (BEAKER) 94 meq/L 98-106 L (test code = 382) CO2 (BEAKER) (test 30 meq/L 20-29 H code = 355) BLOOD UREA NITROGEN 25 mg/dL 10-26 (BEAKER) (test code = 354) CREATININE (BEAKER) 1.21 mg/dL 0.50-1.20 H Specimen moderately (test code = 358) hemolyzed GLUCOSE RANDOM 105 mg/dL 70-110 (BEAKER) (test code = 652) CALCIUM (BEAKER) 9.6 mg/dL 8.5-10.5 (test code = 697) EGFR (BEAKER) (test 61 mL/min/1.73 ESTIMA JJ GFR IS code = 1092) sq m NOT ACCURATE CREATININE CLEARANCE IN PREDICTING GLOMERULAR FILTRATION RATE . ESTIMATED GFR I S NOT APPLICABLE FOR DIALYSIS PATIEN TS. Staff Interpreter ID - [id number] ID - [id number] ID - [id number] ID - [id number] ID - [id number] ID - [id number] ID - [id number] ID - [id number] ID - [id number] 06:52:00 Test Item Value Reference Range Interpretation Comments MAGNESIUM (BEAKER) (test code = 2.4 mg/dL 1.5-3.0 627) Staff Interpreter ID - LITOOperator ID - LITOOperator ID - LITOOperator ID - LITOBASIC METABOLIC [id number] 06:50:00 Test Item Value Reference Range Interpretation Comments SODIUM (BEAKER) 139 meq/L 135-148 (test code = 381) POTASSIUM (BEAKER) 4.0 meq/L 3.6-5.5 (test code = 379) CHLORIDE (BEAKER) 95 meq/L 98-106 L (test code = 382) CO2 (BEAKER) (test 33 meq/L 20-29 H code = 355) BLOOD UREA NITROGEN 27 mg/dL 10-26 H (BEAKER) (test code = 354) CREATININE (BEAKER) 1.23 mg/dL 0.50-1.20 H (test code = 358) GLUCOSE RANDOM 94 mg/dL 70-110 (BEAKER) (test code = 652) CALCIUM (BEAKER) 9.8 mg/dL 8.5-10.5 (test code = 697) EGFR (BEAKER) (test 60 mL/min/1.73 ESTIMA JJ GFR IS code = 1092) sq m NOT ACCURATE CREATININE CLEARANCE IN PREDICTING GLOMERULAR FILTRATION RATE . ESTIMATED GFR I S NOT APPLICABLE FOR DIALYSIS PATIEN TS. Staff Interpreter ID - LITOOperator ID - LITOOperator ID - LITOOperator ID - LITOOperator ID - LITOOperator ID - LITOOperator ID - LITOOperator ID - LITOOperator ID - [id number] 01:52:00 Test Item Value Reference Range Interpretation Comments MAGNESIUM (BEAKER) 2.3 mg/dL 1.5-3.0 Specimen slightly (test code = 627) hemolyzed Staff Interpreter ID - [id number] ID - [id number] ID - [id number] ID - [id number] METABOLIC [id number] 01:51:00 Test Item Value Reference Range Interpretation Comments SODIUM (BEAKER) 141 meq/L 135-148 (test code = 381) POTASSIUM (BEAKER) 4.0 meq/L 3.6-5.5 Specimen slightly (test code = 379) hemolyzed CHLORIDE (BEAKER) 97 meq/L 98-106 L (test code = 382) CO2 (BEAKER) (test 28 meq/L 20-29 code = 355) BLOOD UREA NITROGEN 28 mg/dL 10-26 H (BEAKER) (test code = 354) CREATININE (BEAKER) 1.30 mg/dL 0.50-1.20 H Specimen slightly (test code = 358) hemolyzed GLUCOSE RANDOM 98 mg/dL 70-110 (BEAKER) (test code = 652) CALCIUM (BEAKER) 9.5 mg/dL 8.5-10.5 (test code = 697) EGFR (BEAKER) (test 56 mL/min/1.73 ESTIMA JJ GFR IS code = 1092) sq m NOT ACCURATE CREATININE CLEARANCE IN PREDICTING GLOMERULAR FILTRATION RATE . ESTIMATED GFR I S NOT APPLICABLE FOR DIALYSIS PATIEN TS. Staff Interpreter ID - [id number] ID - [id number] ID - [id number] ID - [id number] ID - [id number] ID - [id number] ID - [id number] ID - [id number] ID - [id number] W/PLT COUNT & AUTO [id number] 01:29:00 Test Item Value Reference Range Interpretation Comments WHITE BLOOD CELL COUNT (BEAKER) 4.9 K/ L 4.0-10.0 (test code = 775) RED BLOOD CELL COUNT (BEAKER) 4.56 M/ L 4.20-5.80 (test code = 761) HEMOGLOBIN (BEAKER) (test code = 12.0 GM/DL 13.0-16.8 L 410) HEMATOCRIT (BEAKER) (test code = 38.8 % 36.0-50.0 411) MEAN CORPUSCULAR VOLUME (BEAKER) 85.1 fL 82.0-99.0 (test code = 753) MEAN CORPUSCULAR HEMOGLOBIN 26.3 pg 27.0-33.0 L (BEAKER) (test code = 751) MEAN CORPUSCULAR HEMOGLOBIN CONC 30.9 GM/DL 32.0-36.0 L (BEAKER) (test code = 752) RED CELL DISTRIBUTION WIDTH 15.3 % 12.0-15.0 H (BEAKER) (test code = 412) PLATELET COUNT (BEAKER) (test 239 K/CU MM 150-430 code = 756) MEAN PLATELET VOLUME (BEAKER) 10.3 fL 6.0-11.5 (test code = 754) NUCLEATED RED BLOOD CELLS 0 /100 WBC 0-0 (BEAKER) (test code = 413) NEUTROPHILS RELATIVE PERCENT 53 % (BEAKER) (test code = 429) LYMPHOCYTES RELATIVE PERCENT 23 % (BEAKER) (test code = 430) MONOCYTES RELATIVE PERCENT 13 % (BEAKER) (test code = 431) EOSINOPHILS RELATIVE PERCENT 9 % (BEAKER) (test code = 432) BASOPHILS RELATIVE PERCENT 1 % (BEAKER) (test code = 437) NEUTROPHILS ABSOLUTE COUNT 2.59 K/ L 1.80-8.00 (BEAKER) (test code = 670) LYMPHOCYTES ABSOLUTE COUNT 1.10 K/ L 1.48-4.50 L (BEAKER) (test code = 414) MONOCYTES ABSOLUTE COUNT (BEAKER) 0.65 K/ L 0.00-1.30 (test code = 415) EOSINOPHILS ABSOLUTE COUNT 0.46 K/ L 0.00-0.50 (BEAKER) (test code = 416) BASOPHILS ABSOLUTE COUNT (BEAKER) 0.05 K/ L 0.00-0.20 (test code = 417) IMMATURE GRANULOCYTES-RELATIVE 0 % 0-0 PERCENT (BEAKER) (test code = 2801) TSH/FREE T4 IF [id number] 04:09:00 Test Item Value Reference Range Interpretation Comments THYROID STIMULATING HORMONE 4.240 uIU/mL 0.350-5.500 (BEAKER) (test code = 772) Staff Interpreter ID - [id number] 03:51:00 Test Item Value Reference Range Interpretation Comments TRIGLYCERIDES (BEAKER) (test code = 66 mg/dL 540) CHOLESTEROL (BEAKER) (test code = 131 mg/dL 631) HDL CHOLESTEROL (BEAKER) (test code 46 mg/dL = 976) LDL CHOLESTEROL CALCULATED (BEAKER) 72 mg/dL (test code = 633) Triglyceride Reference Range: Low Risk <150 Borderline 150-199 High Risk 200- 499 Very High Risk >=500Cholesterol Reference Range: Low Risk <200 Borderline 200-239 High Risk >240HDL Cholesterol Reference Range: Low Risk >=60 High Risk <40LDL Cholesterol Reference Range: Optimal <100 Near Optimal 100-129 Borderline 130-159 High 160-189 Very High >=190 Staff Interpreter ID - [id number] ID - [id number] ID - [id number] 03:51:00 Test Item Value Reference Range Interpretation Comments MAGNESIUM (BEAKER) (test code = 2.0 mg/dL 1.5-3.0 627) Staff Interpreter ID - [id number] ID - [id number] ID - [id number] ID - [id number] BASIC METABOLIC [id number] 03:50:00 Test Item Value Reference Range Interpretation Comments SODIUM (BEAKER) 140 meq/L 135-148 (test code = 381) POTASSIUM (BEAKER) 3.7 meq/L 3.6-5.5 (test code = 379) CHLORIDE (BEAKER) 101 meq/L 98-106 (test code = 382) CO2 (BEAKER) (test 30 meq/L 20-29 H code = 355) BLOOD UREA NITROGEN 26 mg/dL 10-26 (BEAKER) (test code = 354) CREATININE (BEAKER) 0.97 mg/dL 0.50-1.20 (test code = 358) GLUCOSE RANDOM 97 mg/dL 70-110 (BEAKER) (test code = 652) CALCIUM (BEAKER) 9.1 mg/dL 8.5-10.5 (test code = 697) EGFR (BEAKER) (test 79 mL/min/1.73 ESTIMA JJ GFR IS code = 1092) sq m NOT ACCURATE CREATININE CLEARANCE IN PREDICTING GLOMERULAR FILTRATION RATE . ESTIMATED GFR I S NOT APPLICABLE FOR DIALYSIS PATIEN TS. Staff Interpreter ID - [id number] ID - [id number] ID - [id number] ID - [id number] ID - [id number] ID - [id number] ID - cuej20Gkkdpccu ID - ovzi54Sswxlzcq ID - [id number] W/PLT COUNT & AUTO [id number] 03:31:00 Test Item Value Reference Range Interpretation Comments WHITE BLOOD CELL COUNT (BEAKER) 5.1 K/ L 4.0-10.0 (test code = 775) RED BLOOD CELL COUNT (BEAKER) 4.21 M/ L 4.20-5.80 (test code = 761) HEMOGLOBIN (BEAKER) (test code = 11.2 GM/DL 13.0-16.8 L 410) HEMATOCRIT (BEAKER) (test code = 35.9 % 36.0-50.0 L 411) MEAN CORPUSCULAR VOLUME (BEAKER) 85.3 fL 82.0-99.0 (test code = 753) MEAN CORPUSCULAR HEMOGLOBIN 26.6 pg 27.0-33.0 L (BEAKER) (test code = 751) MEAN CORPUSCULAR HEMOGLOBIN CONC 31.2 GM/DL 32.0-36.0 L (BEAKER) (test code = 752) RED CELL DISTRIBUTION WIDTH 15.1 % 12.0-15.0 H (BEAKER) (test code = 412) PLATELET COUNT (BEAKER) (test 203 K/CU MM 150-430 code = 756) MEAN PLATELET VOLUME (BEAKER) 10.8 fL 6.0-11.5 (test code = 754) NUCLEATED RED BLOOD CELLS 0 /100 WBC 0-0 (BEAKER) (test code = 413) NEUTROPHILS RELATIVE PERCENT 65 % (BEAKER) (test code = 429) LYMPHOCYTES RELATIVE PERCENT 17 % (BEAKER) (test code = 430) MONOCYTES RELATIVE PERCENT 13 % (BEAKER) (test code = 431) EOSINOPHILS RELATIVE PERCENT 5 % (BEAKER) (test code = 432) BASOPHILS RELATIVE PERCENT 1 % (BEAKER) (test code = 437) NEUTROPHILS ABSOLUTE COUNT 3.32 K/ L 1.80-8.00 (BEAKER) (test code = 670) LYMPHOCYTES ABSOLUTE COUNT 0.85 K/ L 1.48-4.50 L (BEAKER) (test code = 414) MONOCYTES ABSOLUTE COUNT (BEAKER) 0.65 K/ L 0.00-1.30 (test code = 415) EOSINOPHILS ABSOLUTE COUNT 0.25 K/ L 0.00-0.50 (BEAKER) (test code = 416) BASOPHILS ABSOLUTE COUNT (BEAKER) 0.03 K/ L 0.00-0.20 (test code = 417) IMMATURE GRANULOCYTES-RELATIVE 0 % 0-0 PERCENT (BEAKER) (test code = 2801) TROPONIN [id number] 17:59:00 Test Item Value Reference Range Interpretation Comments TROPONIN I (BEAKER) (test code = 397) < ng/mL 0.00-0.15 Troponin I (TnI) levels must be interpreted in the context of the presenting symptoms and the clinical findings. Elevated TnI levels indicate myocardial damage, but are not specific for ischemic heart disease. Elevated TnI levels are seen in patients with other cardiac conditions (including myocarditis and congestive heart failure), and slight TnI elevations occur in patients with other conditions, including sepsis, renal failure, acidosis, acute neurological disease, and persistent tachyarrhythmia.Staff Interpreter ID - [id number] 2020-12-02 13:05:00 Test Item Value Reference Range Interpretation Comments TROPONIN I (BEAKER) (test code = 397) < ng/mL 0.00-0.15 Troponin I (TnI) levels must be interpreted in the context of the presenting symptoms and the clinical findings. Elevated TnI levels indicate myocardial damage, but are not specific for ischemic heart disease. Elevated TnI levels are seen in patients with other cardiac conditions (including myocarditis and congestive heart failure), and slight TnI elevations occur in patients with other conditions, including sepsis, renal failure, acidosis, acute neurological disease, and persistent tachyarrhythmia.Staff Interpreter ID - [id number] W/ [id number] 10:45:00 Test Item Value Reference Range Interpretation Comments COLOR (BEAKER) (test code = Yellow 470) CLARITY (BEAKER) (test code = Clear 469) SPECIFIC GRAVITY UA (BEAKER) 1.020 1.001-1.035 (test code = 468) PH UA (BEAKER) (test code = 6.0 5.0-8.0 467) PROTEIN UA (BEAKER) (test code Negative Negative = 464) GLUCOSE UA (BEAKER) (test code Negative Negative = 365) KETONES UA (BEAKER) (test code Negative Negative = 371) BILIRUBIN UA (BEAKER) (test Negative Negative code = 462) BLOOD UA (BEAKER) (test code = Negative Negative 461) NITRITE UA (BEAKER) (test code Negative Negative = 465) LEUKOCYTE ESTERASE UA (BEAKER) Negative Negative (test code = 466) UROBILINOGEN UA (BEAKER) (test 0.2 mg/dL 0.2-1.0 code = 463) BACTERIA (BEAKER) (test code = None Seen 517) RBC UA-MANUAL (BEAKER) (test None Seen /HPF code = 1659) WBC UA-MANUAL (BEAKER) (test None Seen /HPF code = 1661) SQUAMOUS EPITHELIAL MANUAL None Seen /HPF (BEAKER) (test code = 1663) SOURCE(BEAKER) (test code = 2795) SARS-COV2/RT-PCR ([facility])2020-12-02 10:01:00 Test Item Value Reference Range Interpretation Comments SARS-COV2/RT-PCR Negative Negative The SARS-Co V-2 target (test code = 9911670) nuclei c acids are not detected in thi s specimen. The presence of SARS-CoV-2/FLU/RSV viral nucleic acids cannot rule out co- infections or disease caused by other viral or bacterial pathogens. As with any molecular test, mutations within the target regions of the Xpert Xpress SARS-CoV-2/Flu/RSV test could affect primer and/or probe binding resulting in failure to detect the presence of virus or the virus being detected less predictably. False negative results may occur if the virus is present at levels below the analytical limit of detection in thisspecimen.This Xpert Xpress SARS-CoV-2/Flu/RSV test is a rapid, real-time RT-PCR test intended for the qualitative detection of nucleic acid from Xpert Xpress SARS-CoV-2/Flu/RSV in a nasopharyngeal swabspecimen collected from individuals suspected of Xpert Xpress SARS-CoV-2/Flu/RSV by their healthcareprovider. Results from [facility] Xpert Xpress SARS-CoV-2/Flu/RSV test should be correlated with the clinical history, epidemiological data, and other data available to the clinician evaluating the patient. Viral nucleic acid may persist in vivo, independent of virus viability. Detection of analyte target(s)does not imply that the corresponding virus(es) are infectious or are the causative agents for clinical symptoms.This test has not been Food and Drug Administration (FDA) cleared or approved and has been authorized by FDA under an Emergency Use Authorization (EUA). This EUA will be effective until thedeclaration that circumstances exist justifying the authorization of the emergency use of in vitro diagnostic tests for detection and/or diagnosis of COVID-19 is terminated under Section 564(b)(2) of the Act or the EUA is revoked under Section 564(g) of the Act.Fact Sheet for Healthcare Providers:https ://www.[employer]/Documents/Xpert%20Xpress%20SARS%20CoV-2/Fact%20Sheets/302-390 2%97CRAC-CRL-0%20HEALTHCARE%20PROVIDERS%20FACT%20SHEET.pdfFact Sheet for Healthcare Patients:https://www.[employer]/Docum ents/Xpert%20Xpress%20SARS%20Cov-2/Fact%20Sheets/302-3801%31SODI-LDE-2%20PATIENT %20FACT%20SHEET.pdfTROPONIN [id number] 09:15:00 Test Item Value Reference Range Interpretation Comments TROPONIN I (BEAKER) (test code = 397) < ng/mL 0.00-0.15 Troponin I (TnI) levels must be interpreted in the context of the presenting symptoms and the clinical findings. Elevated TnI levels indicate myocardial damage, but are not specific for ischemic heart disease. Elevated TnI levels are seen in patients with other cardiac conditions (including myocarditis and congestive heart failure), and slight TnI elevations occur in patients with other conditions, including sepsis, renal failure, acidosis, acute neurological disease, and persistent tachyarrhythmia.Staff Interpreter ID - [id number] NATRIURETIC FACTOR (BNP)2020-12-02 08:48:00 Test Item Value Reference Range Interpretation Comments B-TYPE NATRIURETIC PEPTIDE (BEAKER) 242 pg/mL 0-100 H (test code = 700) Staff Interpreter ID - [id number] METABOLIC [id number] 08:43:00 Test Item Value Reference Range Interpretation Comments TOTAL PROTEIN 6.7 gm/dL 6.0-8.5 Specimen sligh tly (BEAKER) (test code = hemoly zed 770) ALBUMIN (BEAKER) 3.6 g/dL 3.5-5.0 Specimen sl ightly (test code = 1145) hemolyzed ALKALINE PHOSPHATASE 110 U/L 30-115 (BEAKER) (test code = 346) BILIRUBIN TOTAL 0.6 mg/dL 0.1-1.2 Specimen sli ghtly (BEAKER) (test code = hemoly zed 377) SODIUM (BEAKER) (test 135 meq/L 135-148 code = 381) POTASSIUM (BEAKER) 4.2 meq/L 3.6-5.5 Specimen slightly (test code = 379) hemolyzed CHLORIDE (BEAKER) 102 meq/L 98-106 (test code = 382) CO2 (BEAKER) (test 26 meq/L 20-29 code = 355) BLOOD UREA NITROGEN 28 mg/dL 10-26 H (BEAKER) (test code = 354) CREATININE (BEAKER) 1.03 mg/dL 0.50-1.20 Specimen slightly (test code = 358) hemolyzed GLUCOSE RANDOM 109 mg/dL 70-110 (BEAKER) (test code = 652) CALCIUM (BEAKER) 9.2 mg/dL 8.5-10.5 (test code = 697) AST (SGOT) (BEAKER) 23 U/L 5-40 Specimen slightly (test code = 353) hemolyzed ALT (SGPT) (BEAKER) 21 U/L 5-50 Specimen slightly (test code = 347) hemolyzed EGFR (BEAKER) (test 74 mL/min/1.73 ESTIMA JJ GFR IS code = 1092) sq m NOT ACCURATE CREATININE CLEARANCE IN PREDICTING GLOMERULAR FILTRATION RATE . ESTIMATED GFR I S NOT APPLICABLE FOR DIALYSIS PATIEN TS. Staff Interpreter ID - [id number] ID - [id number] ID - [id number] ID - [id number] ID - [id number] ID - [id number] ID - [id number] ID - [id number] ID - [id number] ID - VLYZ08Jmaazoie ID - SNIG14Yfscjaus ID - WMOH44Eoocptrt ID - TNLT24Idhpxplv ID - KNMY50Gznqfqpo ID - HHWZ17Qzrsmnil ID - DOLZ36Bgzdleag ID - [id number] ID - [id number] ID - [id number] W/PLT COUNT & AUTO [id number] 08:29:00 Test Item Value Reference Range Interpretation Comments WHITE BLOOD CELL COUNT (BEAKER) 5.1 K/ L 4.0-10.0 (test code = 775) RED BLOOD CELL COUNT (BEAKER) 4.16 M/ L 4.20-5.80 L (test code = 761) HEMOGLOBIN (BEAKER) (test code = 11.0 GM/DL 13.0-16.8 L 410) HEMATOCRIT (BEAKER) (test code = 35.3 % 36.0-50.0 L 411) MEAN CORPUSCULAR VOLUME (BEAKER) 84.9 fL 82.0-99.0 (test code = 753) MEAN CORPUSCULAR HEMOGLOBIN 26.4 pg 27.0-33.0 L (BEAKER) (test code = 751) MEAN CORPUSCULAR HEMOGLOBIN CONC 31.2 GM/DL 32.0-36.0 L (BEAKER) (test code = 752) RED CELL DISTRIBUTION WIDTH 15.0 % 12.0-15.0 (BEAKER) (test code = 412) PLATELET COUNT (BEAKER) (test 230 K/CU MM 150-430 code = 756) MEAN PLATELET VOLUME (BEAKER) 11.6 fL 6.0-11.5 H (test code = 754) NUCLEATED RED BLOOD CELLS 0 /100 WBC 0-0 (BEAKER) (test code = 413) NEUTROPHILS RELATIVE PERCENT 66 % (BEAKER) (test code = 429) LYMPHOCYTES RELATIVE PERCENT 15 % (BEAKER) (test code = 430) MONOCYTES RELATIVE PERCENT 12 % (BEAKER) (test code = 431) EOSINOPHILS RELATIVE PERCENT 6 % (BEAKER) (test code = 432) BASOPHILS RELATIVE PERCENT 1 % (BEAKER) (test code = 437) NEUTROPHILS ABSOLUTE COUNT 3.39 K/ L 1.80-8.00 (BEAKER) (test code = 670) LYMPHOCYTES ABSOLUTE COUNT 0.78 K/ L 1.48-4.50 L (BEAKER) (test code = 414) MONOCYTES ABSOLUTE COUNT (BEAKER) 0.62 K/ L 0.00-1.30 (test code = 415) EOSINOPHILS ABSOLUTE COUNT 0.29 K/ L 0.00-0.50 (BEAKER) (test code = 416) BASOPHILS ABSOLUTE COUNT (BEAKER) 0.04 K/ L 0.00-0.20 (test code = 417) IMMATURE GRANULOCYTES-RELATIVE 0 % 0-0 PERCENT (BEAKER) (test code = 2801) RAD, CHEST, 1 VIEW, NON [id number] 08:24:00Reason for exam:->CHEST PAINShould this be performed at the bedside?->Yes [facility] 1960 Sex: MFINAL REPORT INDICATION:Chest pain COMPARISON:10/04/2020 TECHNIQUE:Frontal view of the chest. FINDINGS:Low lung volumes.Accentuated cardiomediastinal silhouette.No consolidation. No pneumothorax or pleural effusion. IMPRESSION:No acute pulmonary process. Signed: Mayte [place] Verified Date/Time: 12/02/2020 08:24:18 Reading Location: [facility] Radiology Reading Room -CoV-2 (COVID-19) RNA [Presence] in Respiratory specimen by CHASITY with probe [id number] 07:55:48 Test Item Value Reference Range Interpretation Comments SARS-CoV-2 (COVID-19) RNA Not detected Not-Detected [Presence] in Respiratory specimen by CHASITY with probe detection (test code = 64958-7) Whether patient is employed in a healthcare setting (test code = 11208-5) Whether the patient has symptoms related to condition of interest (test code = 36195-0) Patient was hospitalized because of this condition (test code = 32875-7) Whether the patient was admitted to intensive care unit (ICU) for condition of interest (test code = 38257-6) Whether patient resides in a congregate care setting (test code = 22144-6) GISELLE DELGADO WESTCT, CTA [id number] 16:49:00Please extend down through mid-thighUnlisted Reason for Exam - Click Yes and Enter Reason Below->YesUnlisted Reason for Exam->"leaking from cath site", operation at [employer] a few days ago, eliquis, bruising and abdominal pain [facility] : 1960 Sex: MFINAL REPORT TECHNIQUE: CT ANGIOGRAM of the abdomen and pelvis WITHOUT and WITH intravenous contrast and WITHOUT oral contrast. Dose modulation, iterative reconstruction, and/or weight-based adjustment of the mA/kV was utilized to reduce the radiation dose to as low as reasonably achievable. INDICATION: Leaking from catheter site, bruised. COMPARISON: None. FINDINGS: LOWER THORAX: Bibasilar atelectasis.. HEPATOBILIARY: No focal hepatic lesions. Gallbladder is unremarkable. No biliary ductal dilatation.SPLEEN: No splenomegaly.PANCREAS: No focal masses or ductal dilatation. ADRENALS:No adrenal nodules.KIDNEYS/URETERS: No hydronephrosis, stones, or solid mass lesions. Mild multifocal cortical scarring of the right kidney.PELVIC ORGANS/BLADDER: Unremarkable. PERITONEUM/RETROPERITONEUM: Extraperitoneal hematoma hemorrhage within the pelvis along the right pelvic sidewall and along the anterior pelvic wall Measuring approximately 15 x 4 x 6 cm. There is no extravascular leak of contrast to suggest active arterial bleeding.LYMPH NODES: No lymphadenopathy.VESSELS: Mild atherosclerotic changes in the abdominal aorta and branch vessels. No evidence of aneurysmal dilation.. GI TRACT: No distention or wall thickening. Appendix is normal. BONES AND SOFT TISSUES: Small hematoma anterior to the right common femoral vessels measuring 2.1 x 1 cm.. Degenerative changes in the spine. No suspicious osseous lesion. IMPRESSION:There is a large extraperitoneal hematoma along the right pelvic sidewall and anterior abdominal wall. There is also small hematoma anterior to the right common femoralvessels. No extravasation of contrast to suggest active arterial bleeding. No evidence of arterial pseudoaneurysm. Signed: Tomasz Zamora MDReport Verified Date/Time: 10/17/2020 16:49:39 Reading Location: [facility] [id number] CT Body Reading Room ALYSIS W/ REFLEX URINE [id number] 16:36:00 Test Item Value Reference Range Interpretation Comments COLOR (BEAKER) (test code = Yellow 470) CLARITY (BEAKER) (test code = Clear 469) SPECIFIC GRAVITY UA (BEAKER) 1.020 1.001-1.035 (test code = 468) PH UA (BEAKER) (test code = 8.0 5.0-8.0 467) PROTEIN UA (BEAKER) (test code Negative Negative = 464) GLUCOSE UA (BEAKER) (test code Negative Negative = 365) KETONES UA (BEAKER) (test code Negative Negative = 371) BILIRUBIN UA (BEAKER) (test Negative Negative code = 462) BLOOD UA (BEAKER) (test code = Negative Negative 461) NITRITE UA (BEAKER) (test code Negative Negative = 465) LEUKOCYTE ESTERASE UA (BEAKER) Negative Negative (test code = 466) UROBILINOGEN UA (BEAKER) (test 0.2 mg/dL 0.2-1.0 code = 463) BACTERIA (BEAKER) (test code = None Seen 517) RBC UA-MANUAL (BEAKER) (test None Seen /HPF code = 1659) WBC UA-MANUAL (BEAKER) (test None Seen /HPF code = 1661) SQUAMOUS EPITHELIAL MANUAL None Seen /HPF (BEAKER) (test code = 1663) SOURCE(BEAKER) (test code = 2795) COMPREHENSIVE METABOLIC [id number] 15:02:00 Test Item Value Reference Range Interpretation Comments TOTAL PROTEIN 6.4 gm/dL 6.0-8.5 (BEAKER) (test code = 770) ALBUMIN (BEAKER) 3.4 g/dL 3.5-5.0 L (test code = 1145) ALKALINE PHOSPHATASE 117 U/L 30-115 H (BEAKER) (test code = 346) BILIRUBIN TOTAL 0.8 mg/dL 0.1-1.2 (BEAKER) (test code = 377) SODIUM (BEAKER) (test 137 meq/L 135-148 code = 381) POTASSIUM (BEAKER) 4.4 meq/L 3.6-5.5 (test code = 379) CHLORIDE (BEAKER) 104 meq/L 98-106 (test code = 382) CO2 (BEAKER) (test 23 meq/L 20-29 code = 355) BLOOD UREA NITROGEN 12 mg/dL 10-26 (BEAKER) (test code = 354) CREATININE (BEAKER) 0.96 mg/dL 0.50-1.20 (test code = 358) GLUCOSE RANDOM 135 mg/dL 70-110 H (BEAKER) (test code = 652) CALCIUM (BEAKER) 8.7 mg/dL 8.5-10.5 (test code = 697) AST (SGOT) (BEAKER) 20 U/L 5-40 (test code = 353) ALT (SGPT) (BEAKER) 23 U/L 5-50 (test code = 347) EGFR (BEAKER) (test 80 mL/min/1.73 ESTIMA JJ GFR IS code = 1092) sq m NOT ACCURATE CREATININE CLEARANCE IN PREDICTING GLOMERULAR FILTRATION RATE . ESTIMATED GFR I S NOT APPLICABLE FOR DIALYSIS PATIEN TS. Staff Interpreter ID - [id number] ID - [id number] ID - [id number] ID - [id number] ID - inun35Umgndreo ID - [id number] ID - qvym38Uwcfaphl ID - xtka71Jryfnpwt ID - nirr59Mmxheabt ID - rbfb48Utiuksnw ID - hpfy24Qggudmaq ID - eorh13Qndhplqr ID - qbhd73Rlilhflm ID - kqcv51Fnhqzcrz ID - vzwg81Krqqqhjx ID - uljr75Oeouajuh ID - pgko62Rimcyege ID - hchq86Cskofumv ID - [id number] W/PLT COUNT & AUTO [id number] 14:58:00 Test Item Value Reference Range Interpretation Comments WHITE BLOOD CELL COUNT (BEAKER) 7.6 K/ L 4.0-10.0 (test code = 775) RED BLOOD CELL COUNT (BEAKER) 3.51 M/ L 4.20-5.80 L (test code = 761) HEMOGLOBIN (BEAKER) (test code = 9.6 GM/DL 13.0-16.8 L 410) HEMATOCRIT (BEAKER) (test code = 29.9 % 36.0-50.0 L 411) MEAN CORPUSCULAR VOLUME (BEAKER) 85.2 fL 82.0-99.0 (test code = 753) MEAN CORPUSCULAR HEMOGLOBIN 27.4 pg 27.0-33.0 (BEAKER) (test code = 751) MEAN CORPUSCULAR HEMOGLOBIN CONC 32.1 GM/DL 32.0-36.0 (BEAKER) (test code = 752) RED CELL DISTRIBUTION WIDTH 15.5 % 12.0-15.0 H (BEAKER) (test code = 412) PLATELET COUNT (BEAKER) (test 275 K/CU MM 150-430 code = 756) MEAN PLATELET VOLUME (BEAKER) 9.6 fL 6.0-11.5 (test code = 754) NUCLEATED RED BLOOD CELLS 0 /100 WBC 0-0 (BEAKER) (test code = 413) NEUTROPHILS RELATIVE PERCENT 77 % (BEAKER) (test code = 429) LYMPHOCYTES RELATIVE PERCENT 11 % (BEAKER) (test code = 430) MONOCYTES RELATIVE PERCENT 8 % (BEAKER) (test code = 431) EOSINOPHILS RELATIVE PERCENT 2 % (BEAKER) (test code = 432) BASOPHILS RELATIVE PERCENT 0 % (BEAKER) (test code = 437) NEUTROPHILS ABSOLUTE COUNT 5.84 K/ L 1.80-8.00 (BEAKER) (test code = 670) LYMPHOCYTES ABSOLUTE COUNT 0.85 K/ L 1.48-4.50 L (BEAKER) (test code = 414) MONOCYTES ABSOLUTE COUNT (BEAKER) 0.61 K/ L 0.00-1.30 (test code = 415) EOSINOPHILS ABSOLUTE COUNT 0.12 K/ L 0.00-0.50 (BEAKER) (test code = 416) BASOPHILS ABSOLUTE COUNT (BEAKER) 0.02 K/ L 0.00-0.20 (test code = 417) IMMATURE GRANULOCYTES-RELATIVE 2 % 0-0 H PERCENT (BEAKER) (test code = 2801) [id number] 14:57:00 Test Item Value Reference Range Interpretation Comments PROTIME (BEAKER) (test 10.8 seconds 9.3-12.0 Final Information code = 759) (Auto Output) INR (BEAKER) (test 0.97 See_Comment Final Inf ormation code = 370) (Auto Output) [Automated mess age] The system [employer] generated this result transmit jj reference range : <=5.90. The reference range was not used to interpret this result as normal/abnormal . PARTIAL THROMBOPLASTIN 25.7 seconds 23.0-35.0 Final Information TIME (BEAKER) (test (Auto Ou tput) code = 760) RECOMMENDED COUMADIN/WARFARIN INR THERAPY RANGESSTANDARD DOSE: 2.0 - 3.0 Includes: PROPHYLAXIS for venous thrombosis, systemic embolization; TREATMENT for venous thrombosis and/or pulmonary embolus.HIGH RISK: Target INR is 2.5-3.5 for patients with mechanical heart valves.SARS-CoV-2 (COVID-19) RNA [Presence] in Respiratory specimen by CHASITY with probe [id number] 04:23:09 Test Item Value Reference Range Interpretation Comments SARS-CoV-2 (COVID-19) RNA Not detected Not-Detected [Presence] in Respiratory specimen by CHASITY with probe detection (test code = 75404-4) Whether patient is employed in a healthcare setting (test code = 94777-2) Whether the patient has symptoms related to condition of interest (test code = 78855-7) Patient was hospitalized because of this condition (test code = 53912-7) Whether the patient was admitted to intensive care unit (ICU) for condition of interest (test code = 98068-4) Whether patient resides in a congregate care setting (test code = 46969-2) [facility], EXTREMITY, LOWER, RIGHT (NON-VASCULAR) [id number] 11:10:00Reason for exam:->R groin pain after recent heart cath.[facility]ENTERName: NATASHA HEDRICK : 1960 Sex: MFINAL REPORT Clinical history: Groin pain after heart cath TECHNIQUE: Limited sonographic images are obtained of the right groin. FINDINGS/IMPRESSION: Limited images of the right groindemonstrate patent common femoral and superficial femoral arteries. No pseudoaneurysm, or organized fluid collection, or other sonographically evident abnormality is identified within the right groin. Signed: Fish Corrales Verified Date/Time: 10/11/2020 11:10:12 Reading Location: [address] Body Reading Room BASIC METABOLIC [id number] 03:14:00 Test Item Value Reference Range Interpretation Comments SODIUM (BEAKER) 137 meq/L 135-148 (test code = 381) POTASSIUM (BEAKER) 4.9 meq/L 3.6-5.5 (test code = 379) CHLORIDE (BEAKER) 100 meq/L 98-106 (test code = 382) CO2 (BEAKER) (test 26 meq/L 20-29 code = 355) BLOOD UREA NITROGEN 36 mg/dL 10-26 H (BEAKER) (test code = 354) CREATININE (BEAKER) 1.20 mg/dL 0.50-1.20 (test code = 358) GLUCOSE RANDOM 140 mg/dL 70-110 H (BEAKER) (test code = 652) CALCIUM (BEAKER) 9.1 mg/dL 8.5-10.5 (test code = 697) EGFR (BEAKER) (test 62 mL/min/1.73 ESTIMA JJ GFR IS code = 1092) sq m NOT ACCURATE CREATININE CLEARANCE IN PREDICTING GLOMERULAR FILTRATION RATE . ESTIMATED GFR I S NOT APPLICABLE FOR DIALYSIS PATIEN TS. Staff Interpreter ID - JUSTINOperator ID - JUSTINOperator ID - JUSTINOperator ID - JUSTINOperator ID - JUSTINOperator ID - JUSTINOperator ID - JUSTINOperator ID - JUSTINOperator ID - JUSTINOperator ID - JUSTINOperator ID - JUSTINOperator ID - JUSTINBASIC METABOLIC [id number] 03:31:00 Test Item Value Reference Range Interpretation Comments SODIUM (BEAKER) 138 meq/L 135-148 (test code = 381) POTASSIUM (BEAKER) 5.1 meq/L 3.6-5.5 (test code = 379) CHLORIDE (BEAKER) 101 meq/L 98-106 (test code = 382) CO2 (BEAKER) (test 28 meq/L 20-29 code = 355) BLOOD UREA NITROGEN 32 mg/dL 10-26 H (BEAKER) (test code = 354) CREATININE (BEAKER) 0.98 mg/dL 0.50-1.20 (test code = 358) GLUCOSE RANDOM 146 mg/dL 70-110 H (BEAKER) (test code = 652) CALCIUM (BEAKER) 9.1 mg/dL 8.5-10.5 (test code = 697) EGFR (BEAKER) (test 78 mL/min/1.73 ESTIMA JJ GFR IS code = 1092) sq m NOT ACCURATE CREATININE CLEARANCE IN PREDICTING GLOMERULAR FILTRATION RATE . ESTIMATED GFR I S NOT APPLICABLE FOR DIALYSIS PATIEN TS. Staff Interpreter ID - [id number] ID - [id number] ID - [id number] ID - [id number] ID - [id number] ID - [id number] ID - [id number] ID - [id number] ID - [id number] ID - [id number] ID - [id number] ID - [id number] 04:48:00 Test Item Value Reference Range Interpretation Comments MAGNESIUM (BEAKER) (test code = 2.2 mg/dL 1.5-3.0 627) Staff Interpreter ID - LITOOperator ID - LITOOperator ID - LITOOperator ID - LITOBASIC METABOLIC [id number] 04:47:00 Test Item Value Reference Range Interpretation Comments SODIUM (BEAKER) 138 meq/L 135-148 (test code = 381) POTASSIUM (BEAKER) 4.5 meq/L 3.6-5.5 (test code = 379) CHLORIDE (BEAKER) 103 meq/L 98-106 (test code = 382) CO2 (BEAKER) (test 25 meq/L 20-29 code = 355) BLOOD UREA NITROGEN 19 mg/dL 10-26 (BEAKER) (test code = 354) CREATININE (BEAKER) 1.01 mg/dL 0.50-1.20 (test code = 358) GLUCOSE RANDOM 104 mg/dL 70-110 (BEAKER) (test code = 652) CALCIUM (BEAKER) 8.7 mg/dL 8.5-10.5 (test code = 697) EGFR (BEAKER) (test 76 mL/min/1.73 ESTIMA JJ GFR IS code = 1092) sq m NOT ACCURATE CREATININE CLEARANCE IN PREDICTING GLOMERULAR FILTRATION RATE . ESTIMATED GFR I S NOT APPLICABLE FOR DIALYSIS PATIEN TS. Staff Interpreter ID - LITOOperator ID - LITOOperator ID - LITOOperator ID - LITOOperator ID - LITOOperator ID - LITOOperator ID - LITOOperator ID - LITOOperator ID - LITOCBC W/PLT COUNT & AUTO [id number] 04:27:00 Test Item Value Reference Range Interpretation Comments WHITE BLOOD CELL COUNT (BEAKER) 5.2 K/ L 4.0-10.0 (test code = 775) RED BLOOD CELL COUNT (BEAKER) 4.99 M/ L 4.20-5.80 (test code = 761) HEMOGLOBIN (BEAKER) (test code = 13.2 GM/DL 13.0-16.8 410) HEMATOCRIT (BEAKER) (test code = 43.5 % 36.0-50.0 411) MEAN CORPUSCULAR VOLUME (BEAKER) 87.2 fL 82.0-99.0 (test code = 753) MEAN CORPUSCULAR HEMOGLOBIN 26.5 pg 27.0-33.0 L (BEAKER) (test code = 751) MEAN CORPUSCULAR HEMOGLOBIN CONC 30.3 GM/DL 32.0-36.0 L (BEAKER) (test code = 752) RED CELL DISTRIBUTION WIDTH 15.6 % 12.0-15.0 H (BEAKER) (test code = 412) PLATELET COUNT (BEAKER) (test 153 K/CU MM 150-430 code = 756) MEAN PLATELET VOLUME (BEAKER) 11.3 fL 6.0-11.5 (test code = 754) NUCLEATED RED BLOOD CELLS 0 /100 WBC 0-0 (BEAKER) (test code = 413) NEUTROPHILS RELATIVE PERCENT 60 % (BEAKER) (test code = 429) LYMPHOCYTES RELATIVE PERCENT 24 % (BEAKER) (test code = 430) MONOCYTES RELATIVE PERCENT 12 % (BEAKER) (test code = 431) EOSINOPHILS RELATIVE PERCENT 3 % (BEAKER) (test code = 432) BASOPHILS RELATIVE PERCENT 1 % (BEAKER) (test code = 437) NEUTROPHILS ABSOLUTE COUNT 3.14 K/ L 1.80-8.00 (BEAKER) (test code = 670) LYMPHOCYTES ABSOLUTE COUNT 1.24 K/ L 1.48-4.50 L (BEAKER) (test code = 414) MONOCYTES ABSOLUTE COUNT (BEAKER) 0.62 K/ L 0.00-1.30 (test code = 415) EOSINOPHILS ABSOLUTE COUNT 0.16 K/ L 0.00-0.50 (BEAKER) (test code = 416) BASOPHILS ABSOLUTE COUNT (BEAKER) 0.04 K/ L 0.00-0.20 (test code = 417) IMMATURE GRANULOCYTES-RELATIVE 1 % 0-0 H PERCENT (BEAKER) (test code = 2801) TROPONIN [id number] 07:02:00 Test Item Value Reference Range Interpretation Comments TROPONIN I (BEAKER) (test code = 397) < ng/mL 0.00-0.15 Troponin I (TnI) levels must be interpreted in the context of the presenting symptoms and the clinical findings. Elevated TnI levels indicate myocardial damage, but are not specific for ischemic heart disease. Elevated TnI levels are seen in patients with other cardiac conditions (including myocarditis and congestive heart failure), and slight TnI elevations occur in patients with other conditions, including sepsis, renal failure, acidosis, acute neurological disease, and persistent tachyarrhythmia.Staff Interpreter ID - [id number] NATRIURETIC FACTOR (BNP)2020-10-05 07:01:00 Test Item Value Reference Range Interpretation Comments B-TYPE NATRIURETIC PEPTIDE (BEAKER) 198 pg/mL 0-100 H (test code = 700) Staff Interpreter ID - [id number] 06:54:00 Test Item Value Reference Range Interpretation Comments TRIGLYCERIDES (BEAKER) 170 mg/dL Speci men moderately (test code = 540) hemolyzed CHOLESTEROL (BEAKER) 184 mg/dL Specime n moderately (test code = 631) hemolyzed HDL CHOLESTEROL (BEAKER) 59 mg/dL (test code = 976) LDL CHOLESTEROL 91 mg/dL CALCULATED (BEAKER) (test code = 633) Triglyceride Reference Range: Low Risk <150 Borderline 150-199 High Risk 200- 499 Very High Risk >=500Cholesterol Reference Range: Low Risk <200 Borderline 200-239 High Risk >240HDL Cholesterol Reference Range: Low Risk >=60 High Risk <40LDL Cholesterol Reference Range: Optimal <100 Near Optimal 100-129 Borderline 130-159 High 160-189 Very High >=190 Staff Interpreter ID - [id number] ID - [id number] ID - [id number] 06:54:00 Test Item Value Reference Range Interpretation Comments MAGNESIUM (BEAKER) 2.1 mg/dL 1.5-3.0 Specimen moderately (test code = 627) hemolyzed Staff Interpreter ID - [id number] ID - [id number] ID - [id number] ID - [id number] BASIC METABOLIC [id number] 06:53:00 Test Item Value Reference Range Interpretation Comments SODIUM (BEAKER) 137 meq/L 135-148 (test code = 381) POTASSIUM (BEAKER) 4.7 meq/L 3.6-5.5 Specimen moderately (test code = 379) hemolyzed CHLORIDE (BEAKER) 103 meq/L 98-106 (test code = 382) CO2 (BEAKER) (test 25 meq/L 20-29 code = 355) BLOOD UREA NITROGEN 14 mg/dL 10-26 (BEAKER) (test code = 354) CREATININE (BEAKER) 0.81 mg/dL 0.50-1.20 Specimen moderately (test code = 358) hemolyzed GLUCOSE RANDOM 96 mg/dL 70-110 (BEAKER) (test code = 652) CALCIUM (BEAKER) 8.9 mg/dL 8.5-10.5 (test code = 697) EGFR (BEAKER) (test 98 mL/min/1.73 ESTIMA JJ GFR IS code = 1092) sq m NOT ACCURATE CREATININE CLEARANCE IN PREDICTING GLOMERULAR FILTRATION RATE . ESTIMATED GFR I S NOT APPLICABLE FOR DIALYSIS PATIEN TS. Staff Interpreter ID - [id number] ID - [id number] ID - [id number] ID - [id number] ID - [id number] ID - [id number] ID - [id number] ID - [id number] ID - [id number] 06:52:00 Test Item Value Reference Range Interpretation Comments PHOSPHORUS (BEAKER) 4.1 mg/dL 2.5-4.5 Specimen moderately (test code = 604) hemolyzed Staff Interpreter ID - [id number] 06:48:00 Test Item Value Reference Range Interpretation Comments HEMOGLOBIN A1C (BEAKER) (test code = 5.5 % 4.3-6.1 368) Staff Interpreter ID - [id number] TIME/[id number] 06:46:00 Test Item Value Reference Range Interpretation Comments PROTIME (BEAKER) 10.6 seconds 9.3-12.0 Final Infor mation (test code = 759) (Auto Outp ut) INR (BEAKER) (test 0.95 See_Comment Final Inf ormation code = 370) (Auto Output) [Automated mess age] The system [employer] generated this result transmitted ref erence range: <=5.90. The reference range was not used to int erpret this result as normal/abnormal . RECOMMENDED COUMADIN/WARFARIN INR THERAPY RANGESSTANDARD DOSE: 2.0 - 3.0 Includes: PROPHYLAXIS for venous thrombosis, systemic embolization; TREATMENT for venous thrombosis and/or pulmonary embolus.HIGH RISK: Target INR is 2.5-3.5 for patients with mechanical heart valves.CBC W/PLT COUNT & AUTO [id number] 06:34:00 Test Item Value Reference Range Interpretation Comments WHITE BLOOD CELL COUNT (BEAKER) 4.8 K/ L 4.0-10.0 (test code = 775) RED BLOOD CELL COUNT (BEAKER) 4.78 M/ L 4.20-5.80 (test code = 761) HEMOGLOBIN (BEAKER) (test code = 13.0 GM/DL 13.0-16.8 410) HEMATOCRIT (BEAKER) (test code = 40.5 % 36.0-50.0 411) MEAN CORPUSCULAR VOLUME (BEAKER) 84.7 fL 82.0-99.0 (test code = 753) MEAN CORPUSCULAR HEMOGLOBIN 27.2 pg 27.0-33.0 (BEAKER) (test code = 751) MEAN CORPUSCULAR HEMOGLOBIN CONC 32.1 GM/DL 32.0-36.0 (BEAKER) (test code = 752) RED CELL DISTRIBUTION WIDTH 15.6 % 12.0-15.0 H (BEAKER) (test code = 412) PLATELET COUNT (BEAKER) (test 175 K/CU MM 150-430 code = 756) MEAN PLATELET VOLUME (BEAKER) 10.7 fL 6.0-11.5 (test code = 754) NUCLEATED RED BLOOD CELLS 0 /100 WBC 0-0 (BEAKER) (test code = 413) NEUTROPHILS RELATIVE PERCENT 60 % (BEAKER) (test code = 429) LYMPHOCYTES RELATIVE PERCENT 26 % (BEAKER) (test code = 430) MONOCYTES RELATIVE PERCENT 11 % (BEAKER) (test code = 431) EOSINOPHILS RELATIVE PERCENT 3 % (BEAKER) (test code = 432) BASOPHILS RELATIVE PERCENT 1 % (BEAKER) (test code = 437) NEUTROPHILS ABSOLUTE COUNT 2.82 K/ L 1.80-8.00 (BEAKER) (test code = 670) LYMPHOCYTES ABSOLUTE COUNT 1.24 K/ L 1.48-4.50 L (BEAKER) (test code = 414) MONOCYTES ABSOLUTE COUNT (BEAKER) 0.50 K/ L 0.00-1.30 (test code = 415) EOSINOPHILS ABSOLUTE COUNT 0.12 K/ L 0.00-0.50 (BEAKER) (test code = 416) BASOPHILS ABSOLUTE COUNT (BEAKER) 0.04 K/ L 0.00-0.20 (test code = 417) IMMATURE GRANULOCYTES-RELATIVE 1 % 0-0 H PERCENT (BEAKER) (test code = 2801) TROPONIN [id number] 00:45:00 Test Item Value Reference Range Interpretation Comments TROPONIN I (ESA) (test code = 397) < ng/mL 0.00-0.15 Troponin I (TnI) levels must be interpreted in the context of the presenting symptoms and the clinical findings. Elevated TnI levels indicate myocardial damage, but are not specific for ischemic heart disease. Elevated TnI levels are seen in patients with other cardiac conditions (including myocarditis and congestive heart failure), and slight TnI elevations occur in patients with other conditions, including sepsis, renal failure, acidosis, acute neurological disease, and persistent tachyarrhythmia.Staff Interpreter ID - [id number]/RT-PCR ([facility])2020-10-04 21:02:00 Test Item Value Reference Range Interpretation Comments SARS-COV2/RT-PCR Negative Not Detected, Performanc e of the Xpert (test code = Negative, See Xpress [id number]) external report SARS-CoV-2/F lizy/RSV test for linked test has only bee n established in nasopharyngeal swab specimens. Use of the Xpert Xpress SARS-CoV-2/Flu/ RSV test with other spec imen types has not b een assessed and pe rformance characteristics are unknown. As wit h any molecular test, mutations withi n the targeted geneti c regions identified by matthew singletary Xpert Xpress SARS-CoV-2/Flu/ RSV test could affect pr karey and/or probe bi nding resulting in fa ilure to detect the pres ence of virus or the vi todd being detected less predictably.Neg ative results do not preclude SARS-CoV-2, Inf luenza A/B, or RSV inf ection and should not be used as the sole bas is for treatment or ot her patient managem ent decisions. Resu lts from the Xpert Xpres s SARS-CoV-2/Flu/ RSV test should be corre lated with the clinic al history, epidem iological data, and other data available to th e clinician evalu ating the patient. Invali d test results may occ ur from improper specim en collection; lele lure to follow the valeriy mmended sample collecti on, handling, and s torage procedures; navjot hnical error. False ne gative results may occ ur if virus is presen t at levels below th e analytical limi t of detection (LOD: 131 copies/mL). Vir al nucleic acid ma y persist in vivo, indepe ndent of virus viability . Detection of an alyte target(s) does not imply that the corres ponding virus(es) are i nfectious or are the caus ative agents for clin ical symptoms. Recen t patient exposure to Flu Mist or other live atte nuated influenza vacci billy may cause inaccurat e positive result s.This test has been a uthorized by FDA under an EUA for use by authoriz ed laboratories. T his test is only authori zed for the duration of the declaration roxi t circumstances e xist justifying the authorization o f emergency use o f in vitro diagnosti c tests for detection a nd/or diagnosis of CO VID-19 under Section 5 64(b)(1) of the Federal Food, Drug and Cosmet ic Act, 21 U.S.C. 360bbb-3(b)(1), unless the authorizati on is terminated or r evoked sooner.Fact She et for Healthcare Prov iders: https://www.[employer]/ Documents/Xpert %20Xpress %59QDOV-YuA-6-F lizy-RSV/30 2-4508%20Rev.%2 0B%20HCP% 20Fact%20Sheet. pdfFact Sheet for Healt hcare Patients: https://www.[employer]/ Documents/Xpert %20Xpress %65BMEO-UtC-5-F lizy-RSV/30 2-4507%20Rev.%2 0B%20Pati ent%20Fact%20Sh eet.pdf SARS-COV-2 SLSL Performed at:[facility] PERFORMING LAB [place] [id number] (test code = Tee Mcgraw [id number]) [place], [place] [address]u h: [phone] CT, CHEST WITH IV CONTRAST- PE TEST [id number] 20:55:00Unlisted Reason for Exam - Click Yes and Enter Reason Below->No [facility] 1960 Sex: MFINAL REPORT CLINICAL HISTORY: "PE suspected, intermediate probability, positive d-dimer" FINDINGS: Multiple axial images of the chest were performed after the uncomplicated administration of IV contrast, utilizing a pulmonary embolism protocol. Post-processing coronal reformats were created and interpreted. This exam was performed according to our departmental dose- optimization program, which includes automated exposure control, adjustment of the mA and/or kV according to patient size and/or use of the iterative reconstruction technique. Study quality:Limited by slightly suboptimal bolus timing, intermittent respiratory motion artifact, patient body habitus and streak artifact from the patient's right arm position. Comparison:None. Correlation is made with an MRI of the thoracicspine dated 05/13/2020 Pulmonary arteries: No large or central pulmonary embolism is identified. Lung parenchyma: Low lung volumes. No consolidation or mass. No suspicious nodule or worrisome groundglass opacification. Pleural effusion: None. Pneumothorax: None. Tracheobronchial tree: No significant findings. Pulmonary vasculature: No significant findings. Cardiac contours and great vessels: No significant findings. Mediastinum: No significant findings. Lymph Nodes: No adenopathy in the mediastinum or emma. Skeleton: No acute abnormality. Redemonstrated compression deformity of T12 vertebral body. Limited images of upper abdomen: No significant findings. IMPRESSION: Limited examination, as described. No large or central pulmonary embolism is identified. If there is continued clinical concern for a small or peripheral pulmonary embolism further evaluation with V/Q scan can be considered. Signed: Anthony Santillan Verified Date/Time: 10/04/2020 20:55:53 US DOPPLER LEGS, [id number] 19:49:00Reason for exam:->CHEST PAINReason for exam:->bilateral leg painReason for exam:->left [facility]ENTER[facility]: NATASHA HEDRICK : 1960 Sex: MFINAL REPORT CLINICAL HISTORY: Lower extremity pain. Bilateral lower extremity venous Doppler dated 10/04/2020 COMMENT: Real-time grayscale, color and spectral Doppler ultrasound examination of both lower extremities was performed. The bilateral common femoral, superficial femoral, greater saphenous, profunda femoral, popliteal, posterior tibial, and peroneal veins are patent without filling defect present. There is normal compressibility and augmentation in the veins of both lower extremities. IMPRESSION: Unremarkable Doppler ultrasound of the veins of both lower extremities without deep venous thrombosis. Signed: Anthony Santillan MDReport Verified Date/Time: 10/04/2020 19:49:01 -[id number] 18:12:00 Test Item Value Reference Range Interpretation Comments D-DIMER QUANTITATIVE 0.52 MG/L FEU <0.50 H Final Information (BESTEVO) (test code = (Wmma Output) 695) REGARDING D-DIMER RESULTS: The 98% NPV (Negative Predictive Value) for DVT/PE exclusion is 0.50 mg/LFEU as suggested by the reading tutor and as approved by the FDA.TROPONIN [id number] 18:12:00 Test Item Value Reference Range Interpretation Comments TROPONIN I (ESA) (test code = 397) < ng/mL 0.00-0.15 Troponin I (TnI) levels must be interpreted in the context of the presenting symptoms and the clinical findings. Elevated TnI levels indicate myocardial damage, but are not specific for ischemic heart disease. Elevated TnI levels are seen in patients with other cardiac conditions (including myocarditis and congestive heart failure), and slight TnI elevations occur in patients with other conditions, including sepsis, renal failure, acidosis, acute neurological disease, and persistent tachyarrhythmia.Staff Interpreter ID - [id number] METABOLIC [id number] 18:05:00 Test Item Value Reference Range Interpretation Comments SODIUM (BEAKER) 137 meq/L 135-148 (test code = 381) POTASSIUM (BEAKER) 4.7 meq/L 3.6-5.5 (test code = 379) CHLORIDE (BEAKER) 104 meq/L 98-106 (test code = 382) CO2 (BEAKER) (test 24 meq/L 20-29 code = 355) BLOOD UREA NITROGEN 15 mg/dL 10-26 (BEAKER) (test code = 354) CREATININE (BEAKER) 0.79 mg/dL 0.50-1.20 (test code = 358) GLUCOSE RANDOM 81 mg/dL 70-110 (BEAKER) (test code = 652) CALCIUM (BEAKER) 9.0 mg/dL 8.5-10.5 (test code = 697) EGFR (BEAKER) (test 100 mL/min/1.73 ESTIM ATED GFR IS code = 1092) sq m NOT ACCURATE CREATININE CLEARANCE IN PREDICTING GLOMERULAR FILTRATION RATE . ESTIMATED GFR I S NOT APPLICABLE FOR DIALYSIS PATIEN TS. Staff Interpreter ID - [id number] ID - [id number] ID - [id number] ID - [id number] ID - [id number] ID - [id number] ID - [id number] ID - [id number] ID - [id number] ID - [id number] ID - [id number] ID - [id number] W/PLT COUNT & AUTO [id number] 17:55:00 Test Item Value Reference Range Interpretation Comments WHITE BLOOD CELL COUNT (BEAKER) 6.1 K/ L 4.0-10.0 (test code = 775) RED BLOOD CELL COUNT (BEAKER) 5.39 M/ L 4.20-5.80 (test code = 761) HEMOGLOBIN (BEAKER) (test code = 14.3 GM/DL 13.0-16.8 410) HEMATOCRIT (BEAKER) (test code = 45.2 % 36.0-50.0 411) MEAN CORPUSCULAR VOLUME (BEAKER) 83.9 fL 82.0-99.0 (test code = 753) MEAN CORPUSCULAR HEMOGLOBIN 26.5 pg 27.0-33.0 L (BEAKER) (test code = 751) MEAN CORPUSCULAR HEMOGLOBIN CONC 31.6 GM/DL 32.0-36.0 L (BEAKER) (test code = 752) RED CELL DISTRIBUTION WIDTH 15.6 % 12.0-15.0 H (BEAKER) (test code = 412) PLATELET COUNT (BEAKER) (test 173 K/CU MM 150-430 code = 756) MEAN PLATELET VOLUME (BEAKER) 12.1 fL 6.0-11.5 H (test code = 754) NUCLEATED RED BLOOD CELLS 0 /100 WBC 0-0 (BEAKER) (test code = 413) NEUTROPHILS RELATIVE PERCENT 68 % (BEAKER) (test code = 429) LYMPHOCYTES RELATIVE PERCENT 20 % (BEAKER) (test code = 430) MONOCYTES RELATIVE PERCENT 9 % (BEAKER) (test code = 431) EOSINOPHILS RELATIVE PERCENT 2 % (BEAKER) (test code = 432) BASOPHILS RELATIVE PERCENT 1 % (BEAKER) (test code = 437) NEUTROPHILS ABSOLUTE COUNT 4.18 K/ L 1.80-8.00 (BEAKER) (test code = 670) LYMPHOCYTES ABSOLUTE COUNT 1.22 K/ L 1.48-4.50 L (BEAKER) (test code = 414) MONOCYTES ABSOLUTE COUNT (BEAKER) 0.56 K/ L 0.00-1.30 (test code = 415) EOSINOPHILS ABSOLUTE COUNT 0.11 K/ L 0.00-0.50 (BEAKER) (test code = 416) BASOPHILS ABSOLUTE COUNT (BEAKER) 0.03 K/ L 0.00-0.20 (test code = 417) IMMATURE GRANULOCYTES-RELATIVE 1 % 0-0 H PERCENT (BEAKER) (test code = 2801) RAD, CHEST, 1 VIEW, NON [id number] 17:12:00Reason for exam:->CHEST PAINReason for exam:->BACK PAINReason for exam:->ARM PAINleftReasonfor exam:->Should this be performed at the bedside?->Yes [facility]ENTER[facility]: [facility]HA [facility]EDRICK : 1960 Sex: MFINAL REPORT Chest, one view History: Chest pain Comparison: 05/17/2020 Findings:The lungs are hypoexpanded, but grossly clear. Normal size heart. No pleural effusion or pneumothorax. Impression:No acute findings in the chest Signed: Edmond Scherer Verified Date/Time: 10/04/2020 17:12:15 Reading Location: [address] Transitional Reading Room BLOOD [id number] 07:01:00 Test Item Value Reference Range Interpretation Comments CULTURE (BEAKER) (test No growth in 5 days code = 1095) BLOOD [id number] 07:01:00 Test Item Value Reference Range Interpretation Comments CULTURE (BEAKER) (test No growth in 5 days code = 1095) BASIC METABOLIC [id number] 05:26:00 Test Item Value Reference Range Interpretation Comments SODIUM (BEAKER) 137 meq/L 135-148 (test code = 381) POTASSIUM (BEAKER) 4.2 meq/L 3.6-5.5 (test code = 379) CHLORIDE (BEAKER) 102 meq/L 98-106 (test code = 382) CO2 (BEAKER) (test 27 meq/L 20-29 code = 355) BLOOD UREA NITROGEN 20 mg/dL 10-26 (BEAKER) (test code = 354) CREATININE (BEAKER) 0.79 mg/dL 0.50-1.20 (test code = 358) GLUCOSE RANDOM 97 mg/dL 70-110 (BEAKER) (test code = 652) CALCIUM (BEAKER) 8.5 mg/dL 8.5-10.5 (test code = 697) EGFR (BEAKER) (test 100 mL/min/1.73 ESTIM ATED GFR IS code = 1092) sq m NOT ACCURATE CREATININE CLEARANCE IN PREDICTING GLOMERULAR FILTRATION RATE . ESTIMATED GFR I S NOT APPLICABLE FOR DIALYSIS PATIEN TS. Staff Interpreter ID - ANSBERTOGOperator ID - ANSBERTOGOperator ID - ANSBERTOGOperator ID - ANSBERTOGOperatorID - ANSBERTOGOperator ID - ANSBERTOGOperator ID - ANSBERTOGOperator ID - ANSBERTOGOperator ID - ANSBERTOGOperator ID - ANSBERTOGOperator ID - ANSBERTOGOperator ID - ANSBERTOGCBC W/PLT COUNT & AUTO [id number] 05:22:00 Test Item Value Reference Range Interpretation Comments WHITE BLOOD CELL COUNT (BEAKER) 5.9 K/ L 4.0-10.0 (test code = 775) RED BLOOD CELL COUNT (BEAKER) 4.69 M/ L 4.20-5.80 (test code = 761) HEMOGLOBIN (BEAKER) (test code = 12.8 GM/DL 13.0-16.8 L 410) HEMATOCRIT (BEAKER) (test code = 40.8 % 36.0-50.0 411) MEAN CORPUSCULAR VOLUME (BEAKER) 87.0 fL 82.0-99.0 (test code = 753) MEAN CORPUSCULAR HEMOGLOBIN 27.3 pg 27.0-33.0 (BEAKER) (test code = 751) MEAN CORPUSCULAR HEMOGLOBIN CONC 31.4 GM/DL 32.0-36.0 L (BEAKER) (test code = 752) RED CELL DISTRIBUTION WIDTH 14.9 % 12.0-15.0 (BEAKER) (test code = 412) PLATELET COUNT (BEAKER) (test 258 K/CU MM 150-430 code = 756) MEAN PLATELET VOLUME (BEAKER) 10.8 fL 6.0-11.5 (test code = 754) NUCLEATED RED BLOOD CELLS 0 /100 WBC 0-0 (BEAKER) (test code = 413) NEUTROPHILS RELATIVE PERCENT 59 % (BEAKER) (test code = 429) LYMPHOCYTES RELATIVE PERCENT 23 % (BEAKER) (test code = 430) MONOCYTES RELATIVE PERCENT 9 % (BEAKER) (test code = 431) EOSINOPHILS RELATIVE PERCENT 7 % (BEAKER) (test code = 432) BASOPHILS RELATIVE PERCENT 1 % (BEAKER) (test code = 437) NEUTROPHILS ABSOLUTE COUNT 3.49 K/ L 1.80-8.00 (BEAKER) (test code = 670) LYMPHOCYTES ABSOLUTE COUNT 1.35 K/ L 1.48-4.50 L (BEAKER) (test code = 414) MONOCYTES ABSOLUTE COUNT (BEAKER) 0.55 K/ L 0.00-1.30 (test code = 415) EOSINOPHILS ABSOLUTE COUNT 0.42 K/ L 0.00-0.50 (BEAKER) (test code = 416) BASOPHILS ABSOLUTE COUNT (BEAKER) 0.03 K/ L 0.00-0.20 (test code = 417) IMMATURE GRANULOCYTES-RELATIVE 1 % 0-0 H PERCENT (BEAKER) (test code = 2801) BASIC METABOLIC [id number] 05:47:00 Test Item Value Reference Range Interpretation Comments SODIUM (BEAKER) 139 meq/L 135-148 (test code = 381) POTASSIUM (BEAKER) 4.3 meq/L 3.6-5.5 Specimen slightly (test code = 379) hemolyzed CHLORIDE (BEAKER) 99 meq/L 98-106 (test code = 382) CO2 (BEAKER) (test 31 meq/L 20-29 H code = 355) BLOOD UREA NITROGEN 23 mg/dL 10-26 (BEAKER) (test code = 354) CREATININE (BEAKER) 0.87 mg/dL 0.50-1.20 Specimen slightly (test code = 358) hemolyzed GLUCOSE RANDOM 112 mg/dL 70-110 H (BEAKER) (test code = 652) CALCIUM (BEAKER) 8.7 mg/dL 8.5-10.5 (test code = 697) EGFR (BEAKER) (test 90 mL/min/1.73 ESTIMA JJ GFR IS code = 1092) sq m NOT ACCURATE CREATININE CLEARANCE IN PREDICTING GLOMERULAR FILTRATION RATE . ESTIMATED GFR I S NOT APPLICABLE FOR DIALYSIS PATIEN TS. Staff Interpreter ID - ANSBERTOGOperator ID - ANSBERTOGOperator ID - ANSBERTOGOperator ID - ANSBERTOGOperatorID - ANSBERTOGOperator ID - ANSBERTOGOperator ID - ANSBERTOGOperator ID - ANSBERTOGOperator ID - ANSBERTOGOperator ID - ANSBERTOGOperator ID - ANSBERTOGOperator ID - ANSBERTOGCBC W/PLT COUNT & AUTO [id number] 05:13:00 Test Item Value Reference Range Interpretation Comments WHITE BLOOD CELL COUNT (BEAKER) 6.6 K/ L 4.0-10.0 (test code = 775) RED BLOOD CELL COUNT (BEAKER) 4.46 M/ L 4.20-5.80 (test code = 761) HEMOGLOBIN (BEAKER) (test code = 12.1 GM/DL 13.0-16.8 L 410) HEMATOCRIT (BEAKER) (test code = 38.3 % 36.0-50.0 411) MEAN CORPUSCULAR VOLUME (BEAKER) 85.9 fL 82.0-99.0 (test code = 753) MEAN CORPUSCULAR HEMOGLOBIN 27.1 pg 27.0-33.0 (BEAKER) (test code = 751) MEAN CORPUSCULAR HEMOGLOBIN CONC 31.6 GM/DL 32.0-36.0 L (BEAKER) (test code = 752) RED CELL DISTRIBUTION WIDTH 15.1 % 12.0-15.0 H (BEAKER) (test code = 412) PLATELET COUNT (BEAKER) (test 271 K/CU MM 150-430 code = 756) MEAN PLATELET VOLUME (BEAKER) 10.8 fL 6.0-11.5 (test code = 754) NUCLEATED RED BLOOD CELLS 0 /100 WBC 0-0 (BEAKER) (test code = 413) NEUTROPHILS RELATIVE PERCENT 60 % (BEAKER) (test code = 429) LYMPHOCYTES RELATIVE PERCENT 20 % (BEAKER) (test code = 430) MONOCYTES RELATIVE PERCENT 11 % (BEAKER) (test code = 431) EOSINOPHILS RELATIVE PERCENT 8 % (BEAKER) (test code = 432) BASOPHILS RELATIVE PERCENT 1 % (BEAKER) (test code = 437) NEUTROPHILS ABSOLUTE COUNT 3.96 K/ L 1.80-8.00 (BEAKER) (test code = 670) LYMPHOCYTES ABSOLUTE COUNT 1.34 K/ L 1.48-4.50 L (BEAKER) (test code = 414) MONOCYTES ABSOLUTE COUNT (BEAKER) 0.72 K/ L 0.00-1.30 (test code = 415) EOSINOPHILS ABSOLUTE COUNT 0.50 K/ L 0.00-0.50 (BEAKER) (test code = 416) BASOPHILS ABSOLUTE COUNT (BEAKER) 0.04 K/ L 0.00-0.20 (test code = 417) IMMATURE GRANULOCYTES-RELATIVE 1 % 0-0 H PERCENT (BEAKER) (test code = 2801) BASIC METABOLIC [id number] 06:33:00 Test Item Value Reference Range Interpretation Comments SODIUM (BEAKER) 137 meq/L 135-148 (test code = 381) POTASSIUM (BEAKER) 4.3 meq/L 3.6-5.5 (test code = 379) CHLORIDE (BEAKER) 101 meq/L 98-106 (test code = 382) CO2 (BEAKER) (test 27 meq/L 20-29 code = 355) BLOOD UREA NITROGEN 18 mg/dL 10-26 (BEAKER) (test code = 354) CREATININE (BEAKER) 0.77 mg/dL 0.50-1.20 (test code = 358) GLUCOSE RANDOM 104 mg/dL 70-110 (BEAKER) (test code = 652) CALCIUM (BEAKER) 8.7 mg/dL 8.5-10.5 (test code = 697) EGFR (BEAKER) (test 103 mL/min/1.73 ESTIM ATED GFR IS code = 1092) sq m NOT ACCURATE CREATININE CLEARANCE IN PREDICTING GLOMERULAR FILTRATION RATE . ESTIMATED GFR I S NOT APPLICABLE FOR DIALYSIS PATIEN TS. Staff Interpreter ID - JUSTINOperator ID - JUSTINOperator ID - JUSTINOperator ID - JUSTINOperator ID - JUSTINOperator ID - JUSTINOperator ID - JUSTINOperator ID - JUSTINOperator ID - JUSTINOperator ID - JUSTINOperator ID - JUSTINOperator ID - JUSTINCBC W/PLT COUNT & AUTO [id number] 05:55:00 Test Item Value Reference Range Interpretation Comments WHITE BLOOD CELL COUNT (BEAKER) 5.4 K/ L 4.0-10.0 (test code = 775) RED BLOOD CELL COUNT (BEAKER) 4.63 M/ L 4.20-5.80 (test code = 761) HEMOGLOBIN (BEAKER) (test code = 12.4 GM/DL 13.0-16.8 L 410) HEMATOCRIT (BEAKER) (test code = 39.8 % 36.0-50.0 411) MEAN CORPUSCULAR VOLUME (BEAKER) 86.0 fL 82.0-99.0 (test code = 753) MEAN CORPUSCULAR HEMOGLOBIN 26.8 pg 27.0-33.0 L (BEAKER) (test code = 751) MEAN CORPUSCULAR HEMOGLOBIN CONC 31.2 GM/DL 32.0-36.0 L (BEAKER) (test code = 752) RED CELL DISTRIBUTION WIDTH 14.9 % 12.0-15.0 (BEAKER) (test code = 412) PLATELET COUNT (BEAKER) (test 259 K/CU MM 150-430 code = 756) MEAN PLATELET VOLUME (BEAKER) 9.8 fL 6.0-11.5 (test code = 754) NUCLEATED RED BLOOD CELLS 0 /100 WBC 0-0 (BEAKER) (test code = 413) NEUTROPHILS RELATIVE PERCENT 55 % (BEAKER) (test code = 429) LYMPHOCYTES RELATIVE PERCENT 27 % (BEAKER) (test code = 430) MONOCYTES RELATIVE PERCENT 9 % (BEAKER) (test code = 431) EOSINOPHILS RELATIVE PERCENT 8 % (BEAKER) (test code = 432) BASOPHILS RELATIVE PERCENT 1 % (BEAKER) (test code = 437) NEUTROPHILS ABSOLUTE COUNT 2.94 K/ L 1.80-8.00 (BEAKER) (test code = 670) LYMPHOCYTES ABSOLUTE COUNT 1.46 K/ L 1.48-4.50 L (BEAKER) (test code = 414) MONOCYTES ABSOLUTE COUNT (BEAKER) 0.51 K/ L 0.00-1.30 (test code = 415) EOSINOPHILS ABSOLUTE COUNT 0.42 K/ L 0.00-0.50 (BEAKER) (test code = 416) BASOPHILS ABSOLUTE COUNT (BEAKER) 0.04 K/ L 0.00-0.20 (test code = 417) IMMATURE GRANULOCYTES-RELATIVE 1 % 0-0 H PERCENT (BEAKER) (test code = 2801) URINALYSIS W/ REFLEX URINE [id number] 05:42:00 Test Item Value Reference Range Interpretation Comments COLOR (BEAKER) (test code = Yellow 470) CLARITY (BEAKER) (test code = Clear 469) SPECIFIC GRAVITY UA (BEAKER) 1.020 1.001-1.035 (test code = 468) PH UA (BEAKER) (test code = 6.0 5.0-8.0 467) PROTEIN UA (BEAKER) (test code Negative Negative = 464) GLUCOSE UA (BEAKER) (test code Negative Negative = 365) KETONES UA (BEAKER) (test code Negative Negative = 371) BILIRUBIN UA (BEAKER) (test Negative Negative code = 462) BLOOD UA (BEAKER) (test code = Negative Negative 461) NITRITE UA (BEAKER) (test code Negative Negative = 465) LEUKOCYTE ESTERASE UA (BEAKER) Negative Negative (test code = 466) UROBILINOGEN UA (BEAKER) (test 0.2 mg/dL 0.2-1.0 code = 463) BACTERIA (BEAKER) (test code = None Seen 517) RBC UA-MANUAL (BEAKER) (test None Seen /HPF code = 1659) WBC UA-MANUAL (BEAKER) (test <5 /HPF code = 1661) SQUAMOUS EPITHELIAL MANUAL None Seen /HPF (BEAKER) (test code = 1663) SOURCE(BEAKER) (test code = 2795) CT, BRAIN, WITHOUT [id number] 05:20:00Unlisted Reason for Exam - Click Yes and Enter Reason Below->No [facility] : 1960 Sex: MFINAL REPORT CT, BRAIN, WITHOUT CONTRAST CLINICAL INDICATION: Headache, acute, normal neuro exam COMPARISON: None TECHNIQUE: Noncontrast axial CT imaging of the brain and skull. Coronal and sagittal reformats obtained. DOSE REDUCTION: Dose modulation, iterative reconstruction, and/or weight-based adjustment of the mA/kV was utilized to reduce the radiation dose to as low as reasonably achievable. FINDINGS:Cerebral parenchyma: No mass, acute intracranial hemorrhage or evidence of acute cortical infarct.Cerebellum and brainstem: No acute finding.Ventricles: No evidence of hydrocephalus.Extra-axial spaces: Unremarkable. Calvarium and skull base: Intact.Paranasal sinuses and mastoid air cells: Trace fluid within the right mastoid air cells. Minimal ethmoid sinus mucosal thickening.Orbital contents: Included portions unremarkable. Additional findings: None. IMPRESSION: No acute intracranial abnormality. If there is persistent clinical concern for intracranial pathology, MR examination is recommended for further characterization. Signed: Dipak Hsu MDReport Verified Date/Time: 05/18/2020 05:20:00 [id number] 04:06:00 Test Item Value Reference Range Interpretation Comments MAGNESIUM (BEAKER) (test code = 1.8 mg/dL 1.5-3.0 627) Staff Interpreter ID - JUSTINOperator ID - JUSTINOperator ID - JUSTINOperator ID - ANITA B-TYPE NATRIURETIC FACTOR (BNP)2020-05-18 03:58:00 Test Item Value Reference Range Interpretation Comments B-TYPE NATRIURETIC PEPTIDE (BEAKER) 389 pg/mL 0-100 H (test code = 700) Staff Interpreter ID - JUSTINSARS-COV2/RT-PCR ([facility])2020-05-18 03:42:00 Test Item Value Reference Range Interpretation Comments SARS-COV2/RT-PCR (test Negative Not Detected, code = 9894874) Negative, See external report for linked test SARS-COV-[address] [facility] (test code = [facility] - [facility] [place] [id number]) Hospital TSH/FREE T4 IF [id number] 03:32:00 Test Item Value Reference Range Interpretation Comments THYROID STIMULATING HORMONE 1.720 uIU/mL 0.350-5.500 (BEAKER) (test code = 772) Staff Interpreter ID - JUSTINLACTIC ACID, [id number] 03:10:00 Test Item Value Reference Range Interpretation Comments LACTATE BLOOD VENOUS (2) (BEAKER) 1.13 mmol/L 0.50-<2.00 (test code = 2872) Staff Interpreter ID - JUSTINOperator ID - JUSTINOperator ID - JUSTINOperator ID - ANITA PROTHROMBIN TIME/[id number] 03:10:00 Test Item Value Reference Range Interpretation Comments PROTIME (BEAKER) 10.8 seconds 9.3-12.0 Final Infor mation (test code = 759) (Auto Outp ut) INR (BEAKER) (test 0.99 <=5.90 Final Inf ormation code = 370) (Auto Output) RECOMMENDED COUMADIN/WARFARIN INR THERAPY RANGESSTANDARD DOSE: 2.0 - 3.0 Includes: PROPHYLAXIS for venous thrombosis, systemic embolization; TREATMENT for venous thrombosis and/or pulmonary embolus.HIGH RISK: Target INR is 2.5-3.5 for patients with mechanical heart valves.RAD, CHEST, 1 VIEW, NON [id number] 22:47:00Reason for exam:->HYPERTENSIONcompliant with HTN meds , pt states on his BP machine it reads 240/160 Reason for exam:->hx of afib, HR fluctuates from 97-135 Reason for exam:->CHEST PAINchronic, left sideShould this be performed at the bedside?->Yes [facility] : 1960 Sex: MFINAL REPORT INDICATION: HYPERTENSIONCHEST PAIN COMPARISON: 05/04/2020 TECHNIQUE: Single frontal view of the chest. IMPRESSION: Lungs and pleura: Unchanged hypoinflated lungs with central venous congestion. No focal consolidation or sizable effusion. No pneumothorax.Heart and mediastinum: Stable enlargement of the cardiac silhouette. Unremarkable mediastinal contours.Osseous structures: No acute abnormality.Other: None. Signed: Wilmer Garyeptim Verified Date/Time: 05/17/2020 22:47:41 TROPONIN [id number] 22:14:00 Test Item Value Reference Range Interpretation Comments TROPONIN I (BEAKER) (test code = 397) < ng/mL 0.00-0.15 Troponin I (TnI) levels must be interpreted in the context of the presenting symptoms and the clinical findings. Elevated TnI levels indicate myocardial damage, but are not specific for ischemic heart disease. Elevated TnI levels are seen in patients with other cardiac conditions (including myocarditis and congestive heart failure), and slight TnI elevations occur in patients with other conditions, including sepsis, renal failure, acidosis, acute neurological disease, and persistent tachyarrhythmia.Staff Interpreter ID - JUSTINBASIC METABOLIC [id number] 22:11:00 Test Item Value Reference Range Interpretation Comments SODIUM (BEAKER) 137 meq/L 135-148 (test code = 381) POTASSIUM (BEAKER) 5.0 meq/L 3.6-5.5 (test code = 379) CHLORIDE (BEAKER) 102 meq/L 98-106 (test code = 382) CO2 (BEAKER) (test 28 meq/L 20-29 code = 355) BLOOD UREA NITROGEN 23 mg/dL 10-26 (BEAKER) (test code = 354) CREATININE (BEAKER) 0.86 mg/dL 0.50-1.20 (test code = 358) GLUCOSE RANDOM 103 mg/dL 70-110 (BEAKER) (test code = 652) CALCIUM (BEAKER) 9.1 mg/dL 8.5-10.5 (test code = 697) EGFR (BEAKER) (test 91 mL/min/1.73 ESTIMA JJ GFR IS code = 1092) sq m NOT ACCURATE CREATININE CLEARANCE IN PREDICTING GLOMERULAR FILTRATION RATE . ESTIMATED GFR I S NOT APPLICABLE FOR DIALYSIS PATIEN TS. Staff Interpreter ID - JUSTINOperator ID - JUSTINOperator ID - JUSTINOperator ID - JUSTINOperator ID - JUSTINOperator ID - JUSTINOperator ID - JUSTINOperator ID - JUSTINOperator ID - JUSTINOperator ID - JUSTINOperator ID - JUSTINOperator ID - JUSTINCBC W/PLT COUNT & AUTO [id number] 21:53:00 Test Item Value Reference Range Interpretation Comments WHITE BLOOD CELL COUNT (BEAKER) 7.8 K/ L 4.0-10.0 (test code = 775) RED BLOOD CELL COUNT (BEAKER) 4.72 M/ L 4.20-5.80 (test code = 761) HEMOGLOBIN (BEAKER) (test code = 12.8 GM/DL 13.0-16.8 L 410) HEMATOCRIT (BEAKER) (test code = 40.4 % 36.0-50.0 411) MEAN CORPUSCULAR VOLUME (BEAKER) 85.6 fL 82.0-99.0 (test code = 753) MEAN CORPUSCULAR HEMOGLOBIN 27.1 pg 27.0-33.0 (BEAKER) (test code = 751) MEAN CORPUSCULAR HEMOGLOBIN CONC 31.7 GM/DL 32.0-36.0 L (BEAKER) (test code = 752) RED CELL DISTRIBUTION WIDTH 14.6 % 12.0-15.0 (BEAKER) (test code = 412) PLATELET COUNT (BEAKER) (test 290 K/CU MM 150-430 code = 756) MEAN PLATELET VOLUME (BEAKER) 9.9 fL 6.0-11.5 (test code = 754) NUCLEATED RED BLOOD CELLS 0 /100 WBC 0-0 (BEAKER) (test code = 413) NEUTROPHILS RELATIVE PERCENT 63 % (BEAKER) (test code = 429) LYMPHOCYTES RELATIVE PERCENT 20 % (BEAKER) (test code = 430) MONOCYTES RELATIVE PERCENT 10 % (BEAKER) (test code = 431) EOSINOPHILS RELATIVE PERCENT 6 % (BEAKER) (test code = 432) BASOPHILS RELATIVE PERCENT 0 % (BEAKER) (test code = 437) NEUTROPHILS ABSOLUTE COUNT 4.93 K/ L 1.80-8.00 (BEAKER) (test code = 670) LYMPHOCYTES ABSOLUTE COUNT 1.60 K/ L 1.48-4.50 (BEAKER) (test code = 414) MONOCYTES ABSOLUTE COUNT (BEAKER) 0.80 K/ L 0.00-1.30 (test code = 415) EOSINOPHILS ABSOLUTE COUNT 0.44 K/ L 0.00-0.50 (BEAKER) (test code = 416) BASOPHILS ABSOLUTE COUNT (BEAKER) 0.03 K/ L 0.00-0.20 (test code = 417) IMMATURE GRANULOCYTES-RELATIVE 1 % 0-0 H PERCENT (BEAKER) (test code = 2801) RAPID DRUG SCREEN, [id number] 06:11:00 Test Item Value Reference Range Interpretation Comments BARBITURATE URINE (BEAKER) (test Negative Negative code = 725) BENZODIAZEPINE SCREEN URINE (BEAKER) Positive Negative A (test code = 726) COCAINE (METAB.) SCREEN (BEAKER) Negative Negative (test code = 1164) METHADONE SCREEN (BEAKER) (test code Negative Negative = 1436) OPIATE SCREEN URINE (BEAKER) (test Positive Negative A code = 734) CANNABINOID SCREEN URINE (BEAKER) Negative Negative (test code = 727) AMPH/METHAMPH SCREEN (BEAKER) (test Negative Negative code = 1438) PHENCYCLIDINE SCREEN URINE (BEAKER) Negative Negative (test code = 608) PH UA (BEAKER) (test code = 467) 5.5 5.0-8.0 DRUG CUTOFF CONC.Cocaine 300 ng/mL Cannabinoid 50 ng/mLBenzodiazepine 200 ng/mLBarbiturate 200 ng/mLPhencyclidine 25 ng/mLOpiate 300 ng/mLMethadone 300 ng/mLAmphetamine/ 1000 ng/mL MethamphetamineThis assay provides an unconfirmed qualitative test result for the clinical management of patients in emergency situations. Chain of custody not maintained. Some aovu-tgs-xwjhopw medications, as well as adulterants, may cause inaccurate results. Clinical correlation should be applied. A more comprehensive drug screen or confirmation of a detected drug may be performed upon request.Staff Interpreter ID - JOANIE MOperator ID - [auto]HEPATIC FUNCTION [id number] 05:10:00 Test Item Value Reference Range Interpretation Comments TOTAL PROTEIN (BEAKER) (test code = 7.3 gm/dL 6.0-8.3 770) ALBUMIN (BEAKER) (test code = 1145) 4.1 g/dL 3.5-5.0 BILIRUBIN TOTAL (BEAKER) (test code 0.5 mg/dL 0.2-1.2 = 377) BILIRUBIN DIRECT (BEAKER) (test 0.3 mg/dL 0.1-0.5 code = 706) ALKALINE PHOSPHATASE (BEAKER) (test 111 U/L 40-150 code = 346) AST (SGOT) (BEAKER) (test code = 18 U/L 5-34 353) ALT (SGPT) (BEAKER) (test code = 16 U/L 6-55 347) Staff Interpreter ID - JOANIE MBASIC METABOLIC [id number] 05:09:00 Test Item Value Reference Range Interpretation Comments SODIUM (BEAKER) 136 meq/L 136-145 (test code = 381) POTASSIUM (BEAKER) 4.8 meq/L 3.5-5.1 (test code = 379) CHLORIDE (BEAKER) 99 meq/L 98-107 (test code = 382) CO2 (BEAKER) (test 29 meq/L 22-29 code = 355) BLOOD UREA NITROGEN 15 mg/dL 7-21 (BEAKER) (test code = 354) CREATININE (BEAKER) 1.02 mg/dL 0.57-1.25 (test code = 358) GLUCOSE RANDOM 127 mg/dL 70-105 H (BEAKER) (test code = 652) CALCIUM (BEAKER) 9.3 mg/dL 8.4-10.2 (test code = 697) EGFR (BEAKER) (test 75 mL/min/1.73 ESTIMA JJ GFR IS code = 1092) sq m NOT ACCURATE CREATININE CLEARANCE IN PREDICTING GLOMERULAR FILTRATION RATE . ESTIMATED GFR I S NOT APPLICABLE FOR DIALYSIS PATIEN TS. Staff Interpreter ID - JOANIE MPT/[id number] 04:43:00 Test Item Value Reference Range Interpretation Comments PROTIME (BEAKER) (test code = 13.7 seconds 11.9-14.2 759) INR (BEAKER) (test code = 370) 1.08 <=5.90 PARTIAL THROMBOPLASTIN TIME 29.4 seconds 22.5-36.0 (BEAKER) (test code = 760) Effective 10/17/2018: PT Reference Range ChangeNew: 11.9-14.2 Previous: 11.7- 14.7RECOMMENDED COUMADIN/WARFARIN INR THERAPY RANGESSTANDARD DOSE: 2.0-3.0 Includes: PROPHYLAXIS for venous thrombosis, systemic embolization; TREATMENT for venous thrombosis and/or pulmonary embolus.HIGH RISK: Target INR is 2.5-3.5 for patients wiht mechanical heart valves.MR, SPINE, CERVICAL, [id number] 22:45:00With anesthesiaUnlisted Reason for Exam - Click Yes and Enter Reason Below->No[facility] : 1960 Sex: MFINAL REPORT EXAM: MR, SPINE, THORACIC, WITH \\T\\ WITHOUT CONTRAST, MR, SPINE, CERVICAL, WITH \\T\\ WITHOUT CONTRAST INDICATION: Mid-back pain, compression fracture suspected TECHNIQUE: Pre-contrast sagittal T1-, T2-, and T2-w fat-saturated images, and axial T1-w and T2-w images of the cervical and thoracic spine. Post-contrast axial T1-w and sagittal T1-w fat-saturated images. Intravenous contrast material was administered for the examination. COMPARISON: 05/13/2020 CT FINDINGS:CERVICAL SPINE: Alignment: No malalignment or significant listhesis. Vertebral Bodies: No acute fracture. Marrow Signal: Expected Intervertebral Discs: Multilevel disc dessication with moderate loss of disc space height at C4-C5. Spinal Cord: Normal in signal intensity. Included Intracranial Structures: Unremarkable Paraspinal Soft Tissues: Unremarkable Individual Levels: C1-C2: Mild degenerative changes ofthe atlantoaxial joint C2- C3: No spinal canal or foraminal stenosis. C3-C4: Moderate right facet arth ropathy. No spinal canal or foraminal stenosis. C4-C5: Minimal posterior disc osteophyte complex with uncovertebral spurring and mild bilateral facet arthropathy. No spinal canal stenosis. There is moderate bilateral foraminal stenosis. C5-C6: Small disc osteophyte complex, mild uncovertebral spurring, and mild bilateral facet arthropathy. No spinal canal stenosis. There is mild bilateral foraminal stenosis. C6-C7: Small disc osteophyte complex. No spinal canal or foraminal stenosis. C7-T1: No spinal canal or foraminal stenosis. Abnormal Enhancement: None THORACIC SPINE: Surgical: Bilateral fusion of the posterior elements from T8 to L2 extending out of the [id number]. Alignment: There is moderate kyphosis centered at T11-T12 Vertebral Bodies: Severe compression deformity of T12 with greater than 75% height loss and moderate kyphotic angulation. No retropulsion. Mild concavity is at the superior endplates of T10 and T11 without significant height loss strangulation. Marrow Signal: Expected. No inflammatory marrow signal. Intervertebral Discs: Multilevel disc dessication without significant loss of disc space height Spinal cord: Focus increased T2 signal within the dorsal cord at T10-T11 suggestive of mild myelomalacia. Paraspinal Soft Tissues: There is bibasilar atelectasis or consolidations. Individual Levels: No evidence of disc herniation, spinal canal stenosis, or neural foraminal narrowing. Abnormal Enhancement: None IMPRESSION: 1. No acute abnormality on MRI of the cervicothoracicspine. 2.Chronic severe anterior wedge compression deformity of T12 and chronic mild superior endplate concavities of T10 and T11.3. Modest multilevel degenerative changes without high-grade spinal canal stenosis. Moderate bilateral foraminal stenosis at C4-C5 on a degenerative basis.4.Small focal cord myelomalacia suggested at the T10- T11 level.5.Bibasilar lung atelectasis or consolidations. Signed:Wilmer Gary [facility] Verified Date/Time: 05/13/2020 22:45:35 MR, SPINE, THORACIC, [id number] 22:45:00 With anesthesiaUnlisted Reason for Exam - Click Yes and Enter Reason Below->No[facility] : 1960 Sex: MFINAL REPORT EXAM: MR, SPINE, THORACIC, WITH \\T\\ WITHOUT CONTRAST, MR, SPINE, CERVICAL, WITH \\T\\ WITHOUT CONTRAST INDICATION: Mid-back pain, compression fracture suspected TECHNIQUE: Pre-contrast sagittal T1-, T2-, and T2-w fat-saturated images, and axial T1-w and T2-w images of the cervical and thoracic spine. Post-contrast axial T1-w and sagittal T1-w fat-saturated images. Intravenous contrast material was administered for the examination. COMPARISON: 05/13/2020 CT FINDINGS:CERVICAL SPINE: Alignment: No malalignment or significant listhesis. Vertebral Bodies: No acute fracture. Marrow Signal: Expected Intervertebral Discs: Multilevel disc dessication with moderate loss of disc space height at C4-C5. Spinal Cord: Normal in signal intensity. Included Intracranial Structures: Unremarkable Paraspinal Soft Tissues: Unremarkable Individual Levels: C1-C2: Mild degenerative changes of the atlantoaxial joint C2-C3: No spinal canal or foraminal stenosis. C3-C4: Moderate right facet art hropathy. No spinal canal or foraminal stenosis. C4-C5: Minimal posterior disc osteophyte complex with uncovertebral spurring and mild bilateral facet arthropathy. No spinal canal stenosis. There is moderate bilateral foraminal stenosis. C5-C6: Small disc osteophyte complex, mild uncovertebral spurring, and mild bilateral facet arthropathy. No spinal canal stenosis. There is mild bilateral foraminal stenosis. C6-C7: Small disc osteophyte complex. No spinal canal or foraminal stenosis. C7-T1: No spinal canal or foraminal stenosis. Abnormal Enhancement: None THORACIC SPINE: Surgical: Bilateral fusionof the posterior elements from T8 to L2 extending out of the [id number]. Alignment: There is moderate kyphosis centered at T11-T12 Vertebral Bodies: Severe compression deformity of T12 with greater than 75% height loss and moderate kyphotic angulation. No retropulsion. Mild concavity is at the superior endplates of T10 and T11 without significant height loss strangulation. Marrow Signal: Expected.No inflammatory marrow signal. Intervertebral Discs: Multilevel disc dessication without significantloss of disc space height Spinal cord: Focus increased T2 signal within the dorsal cord at T10-T11 suggestive of mild myelomalacia. Paraspinal Soft Tissues: There is bibasilar atelectasis or consolidations. Individual Levels: No evidence of disc herniation, spinal canal stenosis, or neural foraminal narrowing. Abnormal Enhancement: None IMPRESSION: 1. No acute abnormality on MRI of the cervicothoracic spine. 2.Chronic severe anterior wedge compression deformity of T12 and chronic mild superior endplate concavities of T10 and T11.3. Modest multilevel degenerative changes without high-grade spinal canal stenosis. Moderate bilateral foraminal stenosis at C4-C5 on a degenerative basis.4.Small focal cord myelomalacia suggested at the T10- T11 level.5.Bibasilar lung atelectasis or consolidations. Signed: Wilmer Gary MDReport Verified Date/Time: 05/13/2020 22:45:35 CT, SPINE, THORACIC, WO [id number] 12:40:00Unlisted Reason for Exam - Click Yes and Enter Reason Below->No [facility] : 1960 Sex: MFINAL REPORT CT Thoracic and Lumbar spine CLINICAL HISTORY: L/S-spine fusion, follow up TECHNIQUE: Contiguous noncontrast axial images of the thoracic and lumbar spine with coronal andsagittal reformations to assess the alignment. This exam was performed according to the [facility] [place] optimization program which includes automated exposure control, adjustment of the mA and/or kV a ccording to the patient size, and/or use of an iterative reconstruction technique. COMPARISON: Plainfilm 05/13/2020 FINDINGS: A severe T12 compression fracture is again seen. Mild superior endplate concavities of T10 and T11 are again noted. A L2 superior endplate Schmorl's node is again seen. The thoracic and lumbar vertebral body heights are otherwise maintained. There is bilateral posterior bone fusion graft with solid-appearing osseous fusion of the T8 through L5 posterior elements. There is nospinal hardware. There is an exaggerated thoracic kyphosis centered at T11-T12. The thoracic alignment is preserved. There is grade 1 retrolisthesis of L4-L5. The lumbar alignment is otherwise maintained. The central canal contents are not well evaluated given the lack of intrathecal contrast. Allowing for this, and L4-L5, a mild disc osteophyte complex and severe facet arthrosis is seen with mild tomoderate appearing central canal stenosis. There is no other obvious significant central canal stenosis in the thoracolumbar spine. The visualized soft tissues are grossly unremarkable. IMPRESSION: Severe T12 compression fracture. Mild T10 and T11 superior endplate concavities. Solid-appearing bone graft fusion of the T8 through L5 posterior elements. Signed: Alen Aragon MDReport Verified Date/Time: 05/13/2020 12:40:04 Reading Location: [address] Neuro Reading Room CT, SPINE, LUMBAR, WO [id number] 12:40:00Unlisted Reason for Exam - Click Yes and Enter Reason Below->No [facility] : 1960 Sex: MFINAL REPORT CT Thoracic and Lumbar spine CLINICAL HISTORY: L/S-spine fusion, follow up TECHNIQUE: Contiguous noncontrast axial images of the thoracic and lumbar spine with coronal andsagittal reformations to assess the alignment. This exam was performed according to the [facility] optimization program which includes automated exposure control, adjustment of the mA and/or kV a ccording to the patient size, and/or use of an iterative reconstruction technique. COMPARISON: Plainfilm 05/13/2020 FINDINGS: A severe T12 compression fracture is again seen. Mild superior endplate concavities of T10 and T11 are again noted. A L2 superior endplate Schmorl's node is again seen. The thoracic and lumbar vertebral body heights are otherwise maintained. There is bilateral posterior bone fusion graft with solid-appearing osseous fusion of the T8 through L5 posterior elements. There is nospinal hardware. There is an exaggerated thoracic kyphosis centered at T11-T12. The thoracic alignment is preserved. There is grade 1 retrolisthesis of L4-L5. The lumbar alignment is otherwise maintained. The central canal contents are not well evaluated given the lack of intrathecal contrast. Allowing for this, and L4-L5, a mild disc osteophyte complex and severe facet arthrosis is seen with mild tomoderate appearing central canal stenosis. There is no other obvious significant central canal stenosis in the thoracolumbar spine. The visualized soft tissues are grossly unremarkable. IMPRESSION: Severe T12 compression fracture. Mild T10 and T11 superior endplate concavities. Solid-appearing bone graft fusion of the T8 through L5 posterior elements. Signed: Alen Aragon MDReport Verified Date/Time: 05/13/2020 12:40:04 Reading Location: [address] Neuro Reading Room RAD, SPINE, SCOLIOSIS STUDY, 4 OR 5 [id number] 11:58:00Reason for exam:->New deformity; please obtain standing films [facility] : 1960 Sex: MFINAL REPORT RAD, SPINE, SCOLIOSIS STUDY, 4 OR 5 VIEWS INDICATION: New deformity; please obtain standing films COMPARISON: May 09, 2020 TECHNIQUE: Multiple frontal and lateral views of the axial skeleton. FINDINGS:The examination is of limited by body habitus and degraded capability to stand upright. IMPRESSION: Exaggeration of thoracic kyphosis due to severe height loss/vertebra plana at the T12 vertebral body. There is approximately 50% height loss at the L3 vertebral body. Degenerative endplate changes are present throughout the thoracic skeleton. There is slight dextroconvex scoliotic curvature in the upper thoracic spine, with Cha angle of approximately 5.6 degrees (measured from T6 inferior endplate and T12 inferior endplate). Signed: JR Mcmillan Robert MDReportVerified Date/Time: 05/13/2020 11:58:25 Reading Location: [facility] Radiology Reading Room POCT-GLUCOSE [id number] 09:25:00 Test Item Value Reference Range Interpretation Comments POC-GLUCOSE METER 98 mg/dL 70-110 : TESTED A T [facility] 67[address] (BEAKER) (test code = [place], 1538) [address]: Staff Interpreter/Techni santiago ID = [id number] for YARA SÁNCHEZ BASIC METABOLIC [id number] 06:59:00 Test Item Value Reference Range Interpretation Comments SODIUM (BEAKER) 135 meq/L 136-145 L (test code = 381) POTASSIUM (BEAKER) 4.2 meq/L 3.5-5.1 (test code = 379) CHLORIDE (BEAKER) 101 meq/L 98-107 (test code = 382) CO2 (BEAKER) (test 26 meq/L 22-29 code = 355) BLOOD UREA NITROGEN 18 mg/dL 7-21 (BEAKER) (test code = 354) CREATININE (BEAKER) 0.83 mg/dL 0.57-1.25 (test code = 358) GLUCOSE RANDOM 128 mg/dL 70-105 H (BEAKER) (test code = 652) CALCIUM (BEAKER) 8.8 mg/dL 8.4-10.2 (test code = 697) EGFR (BEAKER) (test 95 mL/min/1.73 ESTIMA JJ GFR IS code = 1092) sq m NOT ACCURATE CREATININE CLEARANCE IN PREDICTING GLOMERULAR FILTRATION RATE . ESTIMATED GFR I S NOT APPLICABLE FOR DIALYSIS PATIEN TS. Staff Interpreter ID - JOANIE [id number] 06:59:00 Test Item Value Reference Range Interpretation Comments MAGNESIUM (BEAKER) (test code = 2.2 mg/dL 1.6-2.6 627) Staff Interpreter ID - JOANIE MHEPATIC FUNCTION [id number] 06:59:00 Test Item Value Reference Range Interpretation Comments TOTAL PROTEIN (BEAKER) (test code = 6.8 gm/dL 6.0-8.3 770) ALBUMIN (BEAKER) (test code = 1145) 3.8 g/dL 3.5-5.0 BILIRUBIN TOTAL (BEAKER) (test code 0.4 mg/dL 0.2-1.2 = 377) BILIRUBIN DIRECT (BEAKER) (test 0.1 mg/dL 0.1-0.5 code = 706) ALKALINE PHOSPHATASE (BEAKER) (test 108 U/L 40-150 code = 346) AST (SGOT) (BEAKER) (test code = 14 U/L 5-34 353) ALT (SGPT) (BEAKER) (test code = 14 U/L 6-55 347) Staff Interpreter ID - JOANIE MPROTHROMBIN [id number] 06:36:00 Test Item Value Reference Range Interpretation Comments PROTIME (BEAKER) (test code = 13.7 seconds 11.9-14.2 759) INR (BEAKER) (test code = 370) 1.09 <=5.90 Effective 10/17/2018: PT Reference Range ChangeNew: 11.9-14.2 Previous: 11.7- 14.7RECOMMENDED COUMADIN/WARFARIN INR THERAPY RANGESSTANDARD DOSE: 2.0-3.0 Includes: PROPHYLAXIS for venous thrombosis, systemic embolization; TREATMENT for venous thrombosis and/or pulmonary embolus.HIGH RISK: Target INR is 2.5-3.5 for patients wiht mechanical heart valves.CBC W/PLT COUNT & AUTO [id number] 06:26:00 Test Item Value Reference Range Interpretation Comments WHITE BLOOD CELL COUNT (BEAKER) 5.7 K/ L 3.5-10.5 (test code = 775) RED BLOOD CELL COUNT (BEAKER) 4.69 M/ L 4.63-6.08 (test code = 761) HEMOGLOBIN (BEAKER) (test code = 12.6 GM/DL 13.7-17.5 L 410) HEMATOCRIT (BEAKER) (test code = 40.9 % 40.1-51.0 411) MEAN CORPUSCULAR VOLUME (BEAKER) 87.2 fL 79.0-92.2 (test code = 753) MEAN CORPUSCULAR HEMOGLOBIN 26.9 pg 25.7-32.2 (BEAKER) (test code = 751) MEAN CORPUSCULAR HEMOGLOBIN CONC 30.8 GM/DL 32.3-36.5 L (BEAKER) (test code = 752) RED CELL DISTRIBUTION WIDTH 14.7 % 11.6-14.4 H (BEAKER) (test code = 412) PLATELET COUNT (BEAKER) (test 252 K/CU MM 150-450 code = 756) MEAN PLATELET VOLUME (BEAKER) 10.6 fL 9.4-12.4 (test code = 754) NUCLEATED RED BLOOD CELLS 0 /100 WBC 0-0 (BEAKER) (test code = 413) NEUTROPHILS RELATIVE PERCENT 61 % (BEAKER) (test code = 429) LYMPHOCYTES RELATIVE PERCENT 21 % (BEAKER) (test code = 430) MONOCYTES RELATIVE PERCENT 10 % (BEAKER) (test code = 431) EOSINOPHILS RELATIVE PERCENT 8 % (BEAKER) (test code = 432) BASOPHILS RELATIVE PERCENT 1 % (BEAKER) (test code = 437) NEUTROPHILS ABSOLUTE COUNT 3.44 K/ L 1.78-5.38 (BEAKER) (test code = 670) LYMPHOCYTES ABSOLUTE COUNT 1.16 K/ L 1.32-3.57 L (BEAKER) (test code = 414) MONOCYTES ABSOLUTE COUNT (BEAKER) 0.54 K/ L 0.30-0.82 (test code = 415) EOSINOPHILS ABSOLUTE COUNT 0.46 K/ L 0.04-0.54 (BEAKER) (test code = 416) BASOPHILS ABSOLUTE COUNT (BEAKER) 0.03 K/ L 0.01-0.08 (test code = 417) IMMATURE GRANULOCYTES-RELATIVE 1 % 0-1 PERCENT (BEAKER) (test code = 2801) SARS-COV2/RT-PCR ([facility])2020-05-12 12:43:00 Test Item Value Reference Range Interpretation Comments SARS-COV2/RT-PCR (test code Negative Not Detected, Negative, = [id number]) See external report for linked test SARS-COV-2 PERFORMING LAB [facility] (test code = 0259191) BASIC METABOLIC [id number] 05:39:00 Test Item Value Reference Range Interpretation Comments SODIUM (BEAKER) 137 meq/L 135-148 (test code = 381) POTASSIUM (BEAKER) 4.5 meq/L 3.6-5.5 (test code = 379) CHLORIDE (BEAKER) 102 meq/L 98-106 (test code = 382) CO2 (BEAKER) (test 26 meq/L 20-29 code = 355) BLOOD UREA NITROGEN 20 mg/dL 10-26 (BEAKER) (test code = 354) CREATININE (BEAKER) 0.78 mg/dL 0.50-1.20 (test code = 358) GLUCOSE RANDOM 103 mg/dL 70-110 (BEAKER) (test code = 652) CALCIUM (BEAKER) 8.5 mg/dL 8.5-10.5 (test code = 697) EGFR (BEAKER) (test 102 mL/min/1.73 ESTIM ATED GFR IS code = 1092) sq m NOT ACCURATE CREATININE CLEARANCE IN PREDICTING GLOMERULAR FILTRATION RATE . ESTIMATED GFR I S NOT APPLICABLE FOR DIALYSIS PATIEN TS. Staff Interpreter ID - [id number] ID - [id number] ID - [id number] ID - [id number] ID - [id number] ID - [id number] ID - [id number] ID - [id number] ID - [id number] ID - [id number] ID - [id number] ID - [id number] W/PLT COUNT & AUTO [id number] 05:22:00 Test Item Value Reference Range Interpretation Comments WHITE BLOOD CELL COUNT (BEAKER) 6.4 K/ L 4.0-10.0 (test code = 775) RED BLOOD CELL COUNT (BEAKER) 4.83 M/ L 4.20-5.80 (test code = 761) HEMOGLOBIN (BEAKER) (test code = 13.1 GM/DL 13.0-16.8 410) HEMATOCRIT (BEAKER) (test code = 41.9 % 36.0-50.0 411) MEAN CORPUSCULAR VOLUME (BEAKER) 86.7 fL 82.0-99.0 (test code = 753) MEAN CORPUSCULAR HEMOGLOBIN 27.1 pg 27.0-33.0 (BEAKER) (test code = 751) MEAN CORPUSCULAR HEMOGLOBIN CONC 31.3 GM/DL 32.0-36.0 L (BEAKER) (test code = 752) RED CELL DISTRIBUTION WIDTH 14.9 % 12.0-15.0 (BEAKER) (test code = 412) PLATELET COUNT (BEAKER) (test 243 K/CU MM 150-430 code = 756) MEAN PLATELET VOLUME (BEAKER) 10.6 fL 6.0-11.5 (test code = 754) NUCLEATED RED BLOOD CELLS 0 /100 WBC 0-0 (BEAKER) (test code = 413) NEUTROPHILS RELATIVE PERCENT 58 % (BEAKER) (test code = 429) LYMPHOCYTES RELATIVE PERCENT 23 % (BEAKER) (test code = 430) MONOCYTES RELATIVE PERCENT 12 % (BEAKER) (test code = 431) EOSINOPHILS RELATIVE PERCENT 6 % (BEAKER) (test code = 432) BASOPHILS RELATIVE PERCENT 1 % (BEAKER) (test code = 437) NEUTROPHILS ABSOLUTE COUNT 3.71 K/ L 1.80-8.00 (BEAKER) (test code = 670) LYMPHOCYTES ABSOLUTE COUNT 1.47 K/ L 1.48-4.50 L (BEAKER) (test code = 414) MONOCYTES ABSOLUTE COUNT (BEAKER) 0.75 K/ L 0.00-1.30 (test code = 415) EOSINOPHILS ABSOLUTE COUNT 0.39 K/ L 0.00-0.50 (BEAKER) (test code = 416) BASOPHILS ABSOLUTE COUNT (BEAKER) 0.05 K/ L 0.00-0.20 (test code = 417) IMMATURE GRANULOCYTES-RELATIVE 1 % 0-0 H PERCENT (BEAKER) (test code = 2801) BASIC METABOLIC [id number] 05:24:00 Test Item Value Reference Range Interpretation Comments SODIUM (BEAKER) 137 meq/L 135-148 (test code = 381) POTASSIUM (BEAKER) 4.5 meq/L 3.6-5.5 (test code = 379) CHLORIDE (BEAKER) 102 meq/L 98-106 (test code = 382) CO2 (BEAKER) (test 27 meq/L 20-29 code = 355) BLOOD UREA NITROGEN 19 mg/dL 10-26 (BEAKER) (test code = 354) CREATININE (BEAKER) 0.77 mg/dL 0.50-1.20 (test code = 358) GLUCOSE RANDOM 102 mg/dL 70-110 (BEAKER) (test code = 652) CALCIUM (BEAKER) 8.9 mg/dL 8.5-10.5 (test code = 697) EGFR (BEAKER) (test 103 mL/min/1.73 ESTIM ATED GFR IS code = 1092) sq m NOT ACCURATE CREATININE CLEARANCE IN PREDICTING GLOMERULAR FILTRATION RATE . ESTIMATED GFR I S NOT APPLICABLE FOR DIALYSIS PATIEN TS. Staff Interpreter ID - [id number] ID - [id number] ID - [id number] ID - [id number] ID - [id number] ID - [id number] ID - [id number] ID - [id number] ID - [id number] ID - [id number] ID - [id number] ID - [id number] W/PLT COUNT & AUTO [id number] 05:12:00 Test Item Value Reference Range Interpretation Comments WHITE BLOOD CELL COUNT (BEAKER) 6.0 K/ L 4.0-10.0 (test code = 775) RED BLOOD CELL COUNT (BEAKER) 4.91 M/ L 4.20-5.80 (test code = 761) HEMOGLOBIN (BEAKER) (test code = 13.1 GM/DL 13.0-16.8 410) HEMATOCRIT (BEAKER) (test code = 42.7 % 36.0-50.0 411) MEAN CORPUSCULAR VOLUME (BEAKER) 87.0 fL 82.0-99.0 (test code = 753) MEAN CORPUSCULAR HEMOGLOBIN 26.7 pg 27.0-33.0 L (BEAKER) (test code = 751) MEAN CORPUSCULAR HEMOGLOBIN CONC 30.7 GM/DL 32.0-36.0 L (BEAKER) (test code = 752) RED CELL DISTRIBUTION WIDTH 14.9 % 12.0-15.0 (BEAKER) (test code = 412) PLATELET COUNT (BEAKER) (test 222 K/CU MM 150-430 code = 756) MEAN PLATELET VOLUME (BEAKER) 10.2 fL 6.0-11.5 (test code = 754) NUCLEATED RED BLOOD CELLS 0 /100 WBC 0-0 (BEAKER) (test code = 413) NEUTROPHILS RELATIVE PERCENT 56 % (BEAKER) (test code = 429) LYMPHOCYTES RELATIVE PERCENT 24 % (BEAKER) (test code = 430) MONOCYTES RELATIVE PERCENT 12 % (BEAKER) (test code = 431) EOSINOPHILS RELATIVE PERCENT 6 % (BEAKER) (test code = 432) BASOPHILS RELATIVE PERCENT 1 % (BEAKER) (test code = 437) NEUTROPHILS ABSOLUTE COUNT 3.41 K/ L 1.80-8.00 (BEAKER) (test code = 670) LYMPHOCYTES ABSOLUTE COUNT 1.42 K/ L 1.48-4.50 L (BEAKER) (test code = 414) MONOCYTES ABSOLUTE COUNT (BEAKER) 0.73 K/ L 0.00-1.30 (test code = 415) EOSINOPHILS ABSOLUTE COUNT 0.36 K/ L 0.00-0.50 (BEAKER) (test code = 416) BASOPHILS ABSOLUTE COUNT (BEAKER) 0.05 K/ L 0.00-0.20 (test code = 417) IMMATURE GRANULOCYTES-RELATIVE 1 % 0-0 H PERCENT (BEAKER) (test code = 2801) BASIC METABOLIC [id number] 05:06:00 Test Item Value Reference Range Interpretation Comments SODIUM (BEAKER) 137 meq/L 135-148 (test code = 381) POTASSIUM (BEAKER) 4.5 meq/L 3.6-5.5 (test code = 379) CHLORIDE (BEAKER) 101 meq/L 98-106 (test code = 382) CO2 (BEAKER) (test 28 meq/L 20-29 code = 355) BLOOD UREA NITROGEN 21 mg/dL 10-26 (BEAKER) (test code = 354) CREATININE (BEAKER) 0.76 mg/dL 0.50-1.20 (test code = 358) GLUCOSE RANDOM 120 mg/dL 70-110 H (BEAKER) (test code = 652) CALCIUM (BEAKER) 8.6 mg/dL 8.5-10.5 (test code = 697) EGFR (BEAKER) (test 105 mL/min/1.73 ESTIM ATED GFR IS code = 1092) sq m NOT ACCURATE CREATININE CLEARANCE IN PREDICTING GLOMERULAR FILTRATION RATE . ESTIMATED GFR I S NOT APPLICABLE FOR DIALYSIS PATIEN TS. Staff Interpreter ID - JBERNOperator ID - JBERNOperator ID - JBERNOperator ID - JBERNOperator ID - JBERNOperator ID - JBERNOperator ID - JBERNOperator ID - JBERNOperator ID - JBERNOperator ID - JBERNOperator ID- JBERNOperator ID - JBERN CBC W/PLT COUNT & AUTO [id number] 04:50:00 Test Item Value Reference Range Interpretation Comments WHITE BLOOD CELL COUNT (BEAKER) 6.0 K/ L 4.0-10.0 (test code = 775) RED BLOOD CELL COUNT (BEAKER) 4.75 M/ L 4.20-5.80 (test code = 761) HEMOGLOBIN (BEAKER) (test code = 12.6 GM/DL 13.0-16.8 L 410) HEMATOCRIT (BEAKER) (test code = 41.1 % 36.0-50.0 411) MEAN CORPUSCULAR VOLUME (BEAKER) 86.5 fL 82.0-99.0 (test code = 753) MEAN CORPUSCULAR HEMOGLOBIN 26.5 pg 27.0-33.0 L (BEAKER) (test code = 751) MEAN CORPUSCULAR HEMOGLOBIN CONC 30.7 GM/DL 32.0-36.0 L (BEAKER) (test code = 752) RED CELL DISTRIBUTION WIDTH 14.8 % 12.0-15.0 (BEAKER) (test code = 412) PLATELET COUNT (BEAKER) (test 204 K/CU MM 150-430 code = 756) MEAN PLATELET VOLUME (BEAKER) 10.2 fL 6.0-11.5 (test code = 754) NUCLEATED RED BLOOD CELLS 0 /100 WBC 0-0 (BEAKER) (test code = 413) NEUTROPHILS RELATIVE PERCENT 56 % (BEAKER) (test code = 429) LYMPHOCYTES RELATIVE PERCENT 23 % (BEAKER) (test code = 430) MONOCYTES RELATIVE PERCENT 12 % (BEAKER) (test code = 431) EOSINOPHILS RELATIVE PERCENT 7 % (BEAKER) (test code = 432) BASOPHILS RELATIVE PERCENT 1 % (BEAKER) (test code = 437) NEUTROPHILS ABSOLUTE COUNT 3.35 K/ L 1.80-8.00 (BEAKER) (test code = 670) LYMPHOCYTES ABSOLUTE COUNT 1.35 K/ L 1.48-4.50 L (BEAKER) (test code = 414) MONOCYTES ABSOLUTE COUNT (BEAKER) 0.71 K/ L 0.00-1.30 (test code = 415) EOSINOPHILS ABSOLUTE COUNT 0.44 K/ L 0.00-0.50 (BEAKER) (test code = 416) BASOPHILS ABSOLUTE COUNT (BEAKER) 0.04 K/ L 0.00-0.20 (test code = 417) IMMATURE GRANULOCYTES-RELATIVE 1 % 0-0 H PERCENT (BEAKER) (test code = 2801) RAD, SPINE, THORACIC, 2 [id number] 16:41:00Reason for exam:->[facility] 1960 Sex: MFINAL REPORT THORACIC SPINE 2 VIEWS HISTORY: Back pain COMPARISON: No comparison thoracic spine imaging FINDINGS: AP and lateral radiograph of the thoracic spine were performed. There is a moderate to severe compression fracture at the approximate T12 level. Mild superior endplate concavity at T11 and T10 may reflect mild compression fractures. No comparison studies are available to determine the acuity of these findings. If clinically indicated, this could be further evaluated withMRI. There is ossification of the anterior longitudinal ligament and there are multilevel lateral syndesmophytes. It is not clear if this is secondary to underlying ankylosing spondylitis or if this is just hypertrophic change related to idiopathic skeletal hyperostosis. IMPRESSION: 1. Age-indeterminate moderate to severe T12 and mild T10 and T11 compression fractures. Signed: Javy Hudson Verified Date/Time: 05/09/2020 16:41:11 Reading Location: [address] Reading Room RAD, SPINE, CERVICAL, 2 OR 3 [id number] 16:38:00Reason for exam:->Neck pain [facility] : 1960 Sex: MFINAL REPORT CERVICAL SPINE 2 VIEWS HISTORY: Neck pain COMPARISON: No comparison cervical spine imaging FINDINGS: AP and lateral cervical spine radius were obtained. Mild disc space narrowing and endplate osteophyte formation at C3-C4. Moderate disc space narrowing at C4-C5 with mild C4 retrolisthesis. There may be partial osseous interbody fusion at C4-C5. No fracture or dislocationare visualized. C7 is obscured by the overlying soft tissues of the shoulders. The contour of the prevertebral soft tissues appears normal. IMPRESSION: Moderate degenerative disease at C4-C5. Signed: Javy Hudson Verified Date/Time: 05/09/2020 16:38:41 Reading Location: [facility] C0[facility] Transitional Reading Room [facility] METABOLIC [id number] 05:32:00 Test Item Value Reference Range Interpretation Comments SODIUM (BEAKER) 138 meq/L 135-148 (test code = 381) POTASSIUM (BEAKER) 4.5 meq/L 3.6-5.5 (test code = 379) CHLORIDE (BEAKER) 101 meq/L 98-106 (test code = 382) CO2 (BEAKER) (test 29 meq/L 20-29 code = 355) BLOOD UREA NITROGEN 19 mg/dL 10-26 (BEAKER) (test code = 354) CREATININE (BEAKER) 0.84 mg/dL 0.50-1.20 (test code = 358) GLUCOSE RANDOM 96 mg/dL 70-110 (BEAKER) (test code = 652) CALCIUM (BEAKER) 9.0 mg/dL 8.5-10.5 (test code = 697) EGFR (BEAKER) (test 94 mL/min/1.73 ESTIMA JJ GFR IS code = 1092) sq m NOT ACCURATE CREATININE CLEARANCE IN PREDICTING GLOMERULAR FILTRATION RATE . ESTIMATED GFR I S NOT APPLICABLE FOR DIALYSIS PATIEN TS. Staff Interpreter ID - ANSBERTOGOperator ID - ANSBERTOGOperator ID - ANSBERTOGOperator ID - ANSBERTOGOperatorID - ANSBERTOGOperator ID - ANSBERTOGOperator ID - ANSBERTOGOperator ID - ANSBERTOGOperator ID - ANSBERTOGOperator ID - ANSBERTOGOperator ID - ANSBERTOGOperator ID - ANSBERTOGCBC W/PLT COUNT & AUTO [id number] 04:49:00 Test Item Value Reference Range Interpretation Comments WHITE BLOOD CELL COUNT (BEAKER) 6.1 K/ L 4.0-10.0 (test code = 775) RED BLOOD CELL COUNT (BEAKER) 4.92 M/ L 4.20-5.80 (test code = 761) HEMOGLOBIN (BEAKER) (test code = 13.3 GM/DL 13.0-16.8 410) HEMATOCRIT (BEAKER) (test code = 42.9 % 36.0-50.0 411) MEAN CORPUSCULAR VOLUME (BEAKER) 87.2 fL 82.0-99.0 (test code = 753) MEAN CORPUSCULAR HEMOGLOBIN 27.0 pg 27.0-33.0 (BEAKER) (test code = 751) MEAN CORPUSCULAR HEMOGLOBIN CONC 31.0 GM/DL 32.0-36.0 L (BEAKER) (test code = 752) RED CELL DISTRIBUTION WIDTH 14.9 % 12.0-15.0 (BEAKER) (test code = 412) PLATELET COUNT (BEAKER) (test 220 K/CU MM 150-430 code = 756) MEAN PLATELET VOLUME (BEAKER) 10.6 fL 6.0-11.5 (test code = 754) NUCLEATED RED BLOOD CELLS 0 /100 WBC 0-0 (BEAKER) (test code = 413) NEUTROPHILS RELATIVE PERCENT 58 % (BEAKER) (test code = 429) LYMPHOCYTES RELATIVE PERCENT 23 % (BEAKER) (test code = 430) MONOCYTES RELATIVE PERCENT 11 % (BEAKER) (test code = 431) EOSINOPHILS RELATIVE PERCENT 6 % (BEAKER) (test code = 432) BASOPHILS RELATIVE PERCENT 1 % (BEAKER) (test code = 437) NEUTROPHILS ABSOLUTE COUNT 3.54 K/ L 1.80-8.00 (BEAKER) (test code = 670) LYMPHOCYTES ABSOLUTE COUNT 1.39 K/ L 1.48-4.50 L (BEAKER) (test code = 414) MONOCYTES ABSOLUTE COUNT (BEAKER) 0.66 K/ L 0.00-1.30 (test code = 415) EOSINOPHILS ABSOLUTE COUNT 0.39 K/ L 0.00-0.50 (BEAKER) (test code = 416) BASOPHILS ABSOLUTE COUNT (BEAKER) 0.05 K/ L 0.00-0.20 (test code = 417) IMMATURE GRANULOCYTES-RELATIVE 1 % 0-0 H PERCENT (BEAKER) (test code = 2806) BASIC METABOLIC [id number] 05:53:00 Test Item Value Reference Range Interpretation Comments SODIUM (BEAKER) 136 meq/L 135-148 (test code = 381) POTASSIUM (BEAKER) 4.3 meq/L 3.6-5.5 (test code = 379) CHLORIDE (BEAKER) 101 meq/L 98-106 (test code = 382) CO2 (BEAKER) (test 26 meq/L 20-29 code = 355) BLOOD UREA NITROGEN 19 mg/dL 10-26 (BEAKER) (test code = 354) CREATININE (BEAKER) 0.82 mg/dL 0.50-1.20 (test code = 358) GLUCOSE RANDOM 100 mg/dL 70-110 (BEAKER) (test code = 652) CALCIUM (BEAKER) 8.6 mg/dL 8.5-10.5 (test code = 697) EGFR (BEAKER) (test 96 mL/min/1.73 ESTIMA JJ GFR IS code = 1092) sq m NOT ACCURATE CREATININE CLEARANCE IN PREDICTING GLOMERULAR FILTRATION RATE . ESTIMATED GFR I S NOT APPLICABLE FOR DIALYSIS PATIEN TS. Staff Interpreter ID - [id number] ID - [id number] ID - [id number] ID - [id number] ID - [id number] ID - [id number] ID - [id number] ID - [id number] ID - [id number] ID - [id number] ID - [id number] ID - [id number] W/PLT COUNT & AUTO [id number] 05:26:00 Test Item Value Reference Range Interpretation Comments WHITE BLOOD CELL COUNT (BEAKER) 7.4 K/ L 4.0-10.0 (test code = 775) RED BLOOD CELL COUNT (BEAKER) 4.76 M/ L 4.20-5.80 (test code = 761) HEMOGLOBIN (BEAKER) (test code = 12.6 GM/DL 13.0-16.8 L 410) HEMATOCRIT (BEAKER) (test code = 40.7 % 36.0-50.0 411) MEAN CORPUSCULAR VOLUME (BEAKER) 85.5 fL 82.0-99.0 (test code = 753) MEAN CORPUSCULAR HEMOGLOBIN 26.5 pg 27.0-33.0 L (BEAKER) (test code = 751) MEAN CORPUSCULAR HEMOGLOBIN CONC 31.0 GM/DL 32.0-36.0 L (BEAKER) (test code = 752) RED CELL DISTRIBUTION WIDTH 14.8 % 12.0-15.0 (BEAKER) (test code = 412) PLATELET COUNT (BEAKER) (test 210 K/CU MM 150-430 code = 756) MEAN PLATELET VOLUME (BEAKER) 10.2 fL 6.0-11.5 (test code = 754) NUCLEATED RED BLOOD CELLS 0 /100 WBC 0-0 (BEAKER) (test code = 413) NEUTROPHILS RELATIVE PERCENT 61 % (BEAKER) (test code = 429) LYMPHOCYTES RELATIVE PERCENT 21 % (BEAKER) (test code = 430) MONOCYTES RELATIVE PERCENT 11 % (BEAKER) (test code = 431) EOSINOPHILS RELATIVE PERCENT 6 % (BEAKER) (test code = 432) BASOPHILS RELATIVE PERCENT 1 % (BEAKER) (test code = 437) NEUTROPHILS ABSOLUTE COUNT 4.46 K/ L 1.80-8.00 (BEAKER) (test code = 670) LYMPHOCYTES ABSOLUTE COUNT 1.55 K/ L 1.48-4.50 (BEAKER) (test code = 414) MONOCYTES ABSOLUTE COUNT (BEAKER) 0.83 K/ L 0.00-1.30 (test code = 415) EOSINOPHILS ABSOLUTE COUNT 0.41 K/ L 0.00-0.50 (BEAKER) (test code = 416) BASOPHILS ABSOLUTE COUNT (BEAKER) 0.05 K/ L 0.00-0.20 (test code = 417) IMMATURE GRANULOCYTES-RELATIVE 1 % 0-0 H PERCENT (BEAKER) (test code = 2801) [id number] 04:41:00 Test Item Value Reference Range Interpretation Comments MAGNESIUM (BEAKER) (test code = 2.2 mg/dL 1.5-3.0 627) Staff Interpreter ID - [id number] ID - [id number] ID - [id number] ID - [id number] BASIC METABOLIC [id number] 04:40:00 Test Item Value Reference Range Interpretation Comments SODIUM (BEAKER) 138 meq/L 135-148 (test code = 381) POTASSIUM (BEAKER) 4.4 meq/L 3.6-5.5 (test code = 379) CHLORIDE (BEAKER) 103 meq/L 98-106 (test code = 382) CO2 (BEAKER) (test 27 meq/L 20-29 code = 355) BLOOD UREA NITROGEN 16 mg/dL 10-26 (BEAKER) (test code = 354) CREATININE (BEAKER) 0.81 mg/dL 0.50-1.20 (test code = 358) GLUCOSE RANDOM 105 mg/dL 70-110 (BEAKER) (test code = 652) CALCIUM (BEAKER) 8.7 mg/dL 8.5-10.5 (test code = 697) EGFR (BEAKER) (test 98 mL/min/1.73 ESTIMA JJ GFR IS code = 1092) sq m NOT ACCURATE CREATININE CLEARANCE IN PREDICTING GLOMERULAR FILTRATION RATE . ESTIMATED GFR I S NOT APPLICABLE FOR DIALYSIS PATIEN TS. Staff Interpreter ID - [id number] ID - [id number] ID - [id number] ID - [id number] ID - [id number] ID - [id number] ID - [id number] ID - [id number] ID - [id number] W/PLT COUNT & AUTO [id number] 04:30:00 Test Item Value Reference Range Interpretation Comments WHITE BLOOD CELL COUNT (BEAKER) 5.0 K/ L 4.0-10.0 (test code = 775) RED BLOOD CELL COUNT (BEAKER) 4.87 M/ L 4.20-5.80 (test code = 761) HEMOGLOBIN (BEAKER) (test code = 13.0 GM/DL 13.0-16.8 410) HEMATOCRIT (BEAKER) (test code = 41.8 % 36.0-50.0 411) MEAN CORPUSCULAR VOLUME (BEAKER) 85.8 fL 82.0-99.0 (test code = 753) MEAN CORPUSCULAR HEMOGLOBIN 26.7 pg 27.0-33.0 L (BEAKER) (test code = 751) MEAN CORPUSCULAR HEMOGLOBIN CONC 31.1 GM/DL 32.0-36.0 L (BEAKER) (test code = 752) RED CELL DISTRIBUTION WIDTH 15.0 % 12.0-15.0 (BEAKER) (test code = 412) PLATELET COUNT (BEAKER) (test 204 K/CU MM 150-430 code = 756) MEAN PLATELET VOLUME (BEAKER) 10.4 fL 6.0-11.5 (test code = 754) NUCLEATED RED BLOOD CELLS 0 /100 WBC 0-0 (BEAKER) (test code = 413) NEUTROPHILS RELATIVE PERCENT 55 % (BEAKER) (test code = 429) LYMPHOCYTES RELATIVE PERCENT 26 % (BEAKER) (test code = 430) MONOCYTES RELATIVE PERCENT 11 % (BEAKER) (test code = 431) EOSINOPHILS RELATIVE PERCENT 6 % (BEAKER) (test code = 432) BASOPHILS RELATIVE PERCENT 1 % (BEAKER) (test code = 437) NEUTROPHILS ABSOLUTE COUNT 2.77 K/ L 1.80-8.00 (BEAKER) (test code = 670) LYMPHOCYTES ABSOLUTE COUNT 1.33 K/ L 1.48-4.50 L (BEAKER) (test code = 414) MONOCYTES ABSOLUTE COUNT (BEAKER) 0.55 K/ L 0.00-1.30 (test code = 415) EOSINOPHILS ABSOLUTE COUNT 0.30 K/ L 0.00-0.50 (BEAKER) (test code = 416) BASOPHILS ABSOLUTE COUNT (BEAKER) 0.04 K/ L 0.00-0.20 (test code = 417) IMMATURE GRANULOCYTES-RELATIVE 1 % 0-0 H PERCENT (BEAKER) (test code = 2801) [id number] 05:02:00 Test Item Value Reference Range Interpretation Comments MAGNESIUM (BEAKER) (test code = 2.2 mg/dL 1.5-3.0 627) Staff Interpreter ID - ANSBERTOGOperator ID - ANSBERTOGOperator ID - ANSBERTOGOperator ID - ANSBERTOGBASIC METABOLIC [id number] 05:01:00 Test Item Value Reference Range Interpretation Comments SODIUM (BEAKER) 138 meq/L 135-148 (test code = 381) POTASSIUM (BEAKER) 4.2 meq/L 3.6-5.5 (test code = 379) CHLORIDE (BEAKER) 104 meq/L 98-106 (test code = 382) CO2 (BEAKER) (test 26 meq/L 20-29 code = 355) BLOOD UREA NITROGEN 17 mg/dL 10-26 (BEAKER) (test code = 354) CREATININE (BEAKER) 0.79 mg/dL 0.50-1.20 (test code = 358) GLUCOSE RANDOM 107 mg/dL 70-110 (BEAKER) (test code = 652) CALCIUM (BEAKER) 8.5 mg/dL 8.5-10.5 (test code = 697) EGFR (BEAKER) (test 100 mL/min/1.73 ESTIM ATED GFR IS code = 1092) sq m NOT ACCURATE CREATININE CLEARANCE IN PREDICTING GLOMERULAR FILTRATION RATE . ESTIMATED GFR I S NOT APPLICABLE FOR DIALYSIS PATIEN TS. Staff Interpreter ID - ANSBERTOGOperator ID - ANSBERTOGOperator ID - ANSBERTOGOperator ID - ANSBERTOGOperatorID - ANSBERTOGOperator ID - ANSBERTOGOperator ID - ANSBERTOGOperator ID - ANSBERTOGOperator ID - ANSBERTOGCBC W/PLT COUNT & AUTO [id number] 04:48:00 Test Item Value Reference Range Interpretation Comments WHITE BLOOD CELL COUNT (BEAKER) 6.2 K/ L 4.0-10.0 (test code = 775) RED BLOOD CELL COUNT (BEAKER) 4.80 M/ L 4.20-5.80 (test code = 761) HEMOGLOBIN (BEAKER) (test code = 12.7 GM/DL 13.0-16.8 L 410) HEMATOCRIT (BEAKER) (test code = 40.8 % 36.0-50.0 411) MEAN CORPUSCULAR VOLUME (BEAKER) 85.0 fL 82.0-99.0 (test code = 753) MEAN CORPUSCULAR HEMOGLOBIN 26.5 pg 27.0-33.0 L (BEAKER) (test code = 751) MEAN CORPUSCULAR HEMOGLOBIN CONC 31.1 GM/DL 32.0-36.0 L (BEAKER) (test code = 752) RED CELL DISTRIBUTION WIDTH 15.0 % 12.0-15.0 (BEAKER) (test code = 412) PLATELET COUNT (BEAKER) (test 216 K/CU MM 150-430 code = 756) MEAN PLATELET VOLUME (BEAKER) 10.3 fL 6.0-11.5 (test code = 754) NUCLEATED RED BLOOD CELLS 0 /100 WBC 0-0 (BEAKER) (test code = 413) NEUTROPHILS RELATIVE PERCENT 63 % (BEAKER) (test code = 429) LYMPHOCYTES RELATIVE PERCENT 20 % (BEAKER) (test code = 430) MONOCYTES RELATIVE PERCENT 12 % (BEAKER) (test code = 431) EOSINOPHILS RELATIVE PERCENT 4 % (BEAKER) (test code = 432) BASOPHILS RELATIVE PERCENT 1 % (BEAKER) (test code = 437) NEUTROPHILS ABSOLUTE COUNT 3.86 K/ L 1.80-8.00 (BEAKER) (test code = 670) LYMPHOCYTES ABSOLUTE COUNT 1.23 K/ L 1.48-4.50 L (BEAKER) (test code = 414) MONOCYTES ABSOLUTE COUNT (BEAKER) 0.73 K/ L 0.00-1.30 (test code = 415) EOSINOPHILS ABSOLUTE COUNT 0.27 K/ L 0.00-0.50 (BEAKER) (test code = 416) BASOPHILS ABSOLUTE COUNT (BEAKER) 0.04 K/ L 0.00-0.20 (test code = 417) IMMATURE GRANULOCYTES-RELATIVE 1 % 0-0 H PERCENT (BEAKER) (test code = 2801) LIPID [id number] 07:54:00 Test Item Value Reference Range Interpretation Comments TRIGLYCERIDES (BEAKER) 141 mg/dL Speci men slightly (test code = 540) hemolyzed CHOLESTEROL (BEAKER) 184 mg/dL Specime n slightly (test code = 631) hemolyzed HDL CHOLESTEROL (BEAKER) 54 mg/dL (test code = 976) LDL CHOLESTEROL 102 mg/dL CALCULATED (BEAKER) (test code = 633) Triglyceride Reference Range: Low Risk <150 Borderline 150-199 High Risk 200-499 Very High Risk >=500Cholesterol Reference Range: Low Risk <200 Borderline 200-239 High Risk >240HDL Cholesterol Reference Range: Low Risk >=60 High Risk <40LDL Cholesterol Reference Range: Optimal <100 Near Optimal 100-129 Borderline 130-159 High 160-189 Very High >=190 Staff Interpreter ID - [id number] ID - [id number] ID - [id number] 07:54:00 Test Item Value Reference Range Interpretation Comments MAGNESIUM (BEAKER) 2.0 mg/dL 1.5-3.0 Specimen slightly (test code = 627) hemolyzed Staff Interpreter ID - [id number] ID - [id number] ID - [id number] ID - [id number] METABOLIC [id number] 07:52:00 Test Item Value Reference Range Interpretation Comments SODIUM (BEAKER) 137 meq/L 135-148 (test code = 381) POTASSIUM (BEAKER) 4.2 meq/L 3.6-5.5 Specimen slightly (test code = 379) hemolyzed CHLORIDE (BEAKER) 104 meq/L 98-106 (test code = 382) CO2 (BEAKER) (test 24 meq/L 20-29 code = 355) BLOOD UREA NITROGEN 14 mg/dL 10-26 (BEAKER) (test code = 354) CREATININE (BEAKER) 0.80 mg/dL 0.50-1.20 Specimen slightly (test code = 358) hemolyzed GLUCOSE RANDOM 93 mg/dL 70-110 (BEAKER) (test code = 652) CALCIUM (BEAKER) 8.7 mg/dL 8.5-10.5 (test code = 697) EGFR (BEAKER) (test 99 mL/min/1.73 ESTIMA JJ GFR IS code = 1092) sq m NOT ACCURATE CREATININE CLEARANCE IN PREDICTING GLOMERULAR FILTRATION RATE . ESTIMATED GFR I S NOT APPLICABLE FOR DIALYSIS PATIEN TS. Staff Interpreter ID - [id number] ID - [id number] ID - [id number] ID - [id number] ID - [id number] ID - [id number] ID - [id number] ID - [id number] ID - [id number] [id number] 05:23:00 Test Item Value Reference Range Interpretation Comments TROPONIN I (BEAKER) (test code = 397) < ng/mL 0.00-0.15 Troponin I (TnI) levels must be interpreted in the context of the presenting symptoms and the clinical findings. Elevated TnI levels indicate myocardial damage, but are not specific for ischemic heart disease. Elevated TnI levels are seen in patients with other cardiac conditions (including myocarditis and congestive heart failure), and slight TnI elevations occur in patients with other conditions, including sepsis, renal failure, acidosis, acute neurological disease, and persistent tachyarrhythmia.Staff Interpreter ID - JUSTINCBC W/PLT COUNT & AUTO [id number] 05:05:00 Test Item Value Reference Range Interpretation Comments WHITE BLOOD CELL COUNT (BEAKER) 6.4 K/ L 4.0-10.0 (test code = 775) RED BLOOD CELL COUNT (BEAKER) 4.89 M/ L 4.20-5.80 (test code = 761) HEMOGLOBIN (BEAKER) (test code = 13.2 GM/DL 13.0-16.8 410) HEMATOCRIT (BEAKER) (test code = 41.5 % 36.0-50.0 411) MEAN CORPUSCULAR VOLUME (BEAKER) 84.9 fL 82.0-99.0 (test code = 753) MEAN CORPUSCULAR HEMOGLOBIN 27.0 pg 27.0-33.0 (BEAKER) (test code = 751) MEAN CORPUSCULAR HEMOGLOBIN CONC 31.8 GM/DL 32.0-36.0 L (BEAKER) (test code = 752) RED CELL DISTRIBUTION WIDTH 15.7 % 12.0-15.0 H (BEAKER) (test code = 412) PLATELET COUNT (BEAKER) (test 301 K/CU MM 150-430 code = 756) MEAN PLATELET VOLUME (BEAKER) 12.1 fL 6.0-11.5 H (test code = 754) NUCLEATED RED BLOOD CELLS 0 /100 WBC 0-0 (BEAKER) (test code = 413) NEUTROPHILS RELATIVE PERCENT 63 % (BEAKER) (test code = 429) LYMPHOCYTES RELATIVE PERCENT 21 % (BEAKER) (test code = 430) MONOCYTES RELATIVE PERCENT 10 % (BEAKER) (test code = 431) EOSINOPHILS RELATIVE PERCENT 4 % (BEAKER) (test code = 432) BASOPHILS RELATIVE PERCENT 1 % (BEAKER) (test code = 437) NEUTROPHILS ABSOLUTE COUNT 4.03 K/ L 1.80-8.00 (BEAKER) (test code = 670) LYMPHOCYTES ABSOLUTE COUNT 1.37 K/ L 1.48-4.50 L (BEAKER) (test code = 414) MONOCYTES ABSOLUTE COUNT (BEAKER) 0.66 K/ L 0.00-1.30 (test code = 415) EOSINOPHILS ABSOLUTE COUNT 0.23 K/ L 0.00-0.50 (BEAKER) (test code = 416) BASOPHILS ABSOLUTE COUNT (BEAKER) 0.05 K/ L 0.00-0.20 (test code = 417) IMMATURE GRANULOCYTES-RELATIVE 1 % 0-0 H PERCENT (BEAKER) (test code = 2801) TROPONIN [id number] 23:57:00 Test Item Value Reference Range Interpretation Comments TROPONIN I (BEAKER) (test code = 397) < ng/mL 0.00-0.15 Troponin I (TnI) levels must be interpreted in the context of the presenting symptoms and the clinical findings. Elevated TnI levels indicate myocardial damage, but are not specific for ischemic heart disease. Elevated TnI levels are seen in patients with other cardiac conditions (including myocarditis and congestive heart failure), and slight TnI elevations occur in patients with other conditions, including sepsis, renal failure, acidosis, acute neurological disease, and persistent tachyarrhythmia.Staff Interpreter ID - [id number] METER 2020-05-04 22:20:00 Test Item Value Reference Range Interpretation Comments POC-GLUCOSE METER 107 mg/dL 70-110 : TESTED A T [facility] 1317 (BEAKER) (test code [address], = 1538) [facility] 77 478: Staff Interpreter/Techni santiago ID = [id number] for Taylor King TROPONIN [id number] 18:39:00 Test Item Value Reference Range Interpretation Comments TROPONIN I (BEAKER) (test code = 397) < ng/mL 0.00-0.15 Troponin I (TnI) levels must be interpreted in the context of the presenting symptoms and the clinical findings. Elevated TnI levels indicate myocardial damage, but are not specific for ischemic heart disease. Elevated TnI levels are seen in patients with other cardiac conditions (including myocarditis and congestive heart failure), and slight TnI elevations occur in patients with other conditions, including sepsis, renal failure, acidosis, acute neurological disease, and persistent tachyarrhythmia.Staff Interpreter ID - JUSTINRAPID RSV ANTIGEN 2020-05-04 18:12:00 Test Item Value Reference Range Interpretation Comments RSV RAPID ANTIGEN (BEAKER) Negative Negative, Inconclusive (test code = 1078) RAPID INFLUENZA A&B [id number] 18:12:00 Test Item Value Reference Range Interpretation Comments RAPID INFLUENZA A AG (BEAKER) Negative Negative, Inconclusive (test code = 1622) RAPID INFLUENZA B AG (BEAKER) Negative Negative, Inconclusive (test code = 1623) SARS-COV2/RT-PCR ([facility])2020-05-04 16:10:00 Test Item Value Reference Range Interpretation Comments SARS-COV2/RT-PCR (test code Negative Not Detected, Negative, = 3019139) See external report for linked test SARS-COV-2 PERFORMING LAB [facility] (test code = 2261008) B-TYPE NATRIURETIC FACTOR (BNP)2020-05-04 15:38:00 Test Item Value Reference Range Interpretation Comments B-TYPE NATRIURETIC PEPTIDE (BEAKER) 42 pg/mL 0-100 (test code = 700) Staff Interpreter ID - JUSTINTROPONIN [id number] 15:37:00 Test Item Value Reference Range Interpretation Comments TROPONIN I (BEAKER) (test code = 397) < ng/mL 0.00-0.15 Troponin I (TnI) levels must be interpreted in the context of the presenting symptoms and the clinical findings. Elevated TnI levels indicate myocardial damage, but are not specific for ischemic heart disease. Elevated TnI levels are seen in patients with other cardiac conditions (including myocarditis and congestive heart failure), and slight TnI elevations occur in patients with other conditions, including sepsis, renal failure, acidosis, acute neurological disease, and persistent tachyarrhythmia.Staff Interpreter ID - JUSTINPT/[id number] 15:30:00 Test Item Value Reference Range Interpretation Comments PROTIME (BEAKER) (test 10.5 seconds 9.3-12.0 Final Information code = 759) (Auto Output) INR (BEAKER) (test 0.96 <=5.90 Final Inf ormation code = 370) (Auto Output) PARTIAL THROMBOPLASTIN 21.4 seconds 23.0-35.0 L Final Information TIME (BEAKER) (test (Auto Ou tput) code = 760) RECOMMENDED COUMADIN/WARFARIN INR THERAPY RANGESSTANDARD DOSE: 2.0 - 3.0 Includes: PROPHYLAXIS for venous thrombosis, systemic embolization; TREATMENT for venous thrombosis and/or pulmonary embolus.HIGH RISK: Target INR is 2.5-3.5 for patients with mechanical heart valves.[id number] 15:30:00 Test Item Value Reference Range Interpretation Comments MAGNESIUM (BEAKER) (test code = 2.0 mg/dL 1.5-3.0 627) Staff Interpreter ID - JUSTINOperator ID - JUSTINOperator ID - JUSTINOperator ID - ANITA BASIC METABOLIC [id number] 15:29:00 Test Item Value Reference Range Interpretation Comments SODIUM (BEAKER) 141 meq/L 135-148 (test code = 381) POTASSIUM (BEAKER) 4.2 meq/L 3.6-5.5 (test code = 379) CHLORIDE (BEAKER) 108 meq/L 98-106 H (test code = 382) CO2 (BEAKER) (test 22 meq/L 20-29 code = 355) BLOOD UREA NITROGEN 17 mg/dL 10-26 (BEAKER) (test code = 354) CREATININE (BEAKER) 0.78 mg/dL 0.50-1.20 (test code = 358) GLUCOSE RANDOM 98 mg/dL 70-110 (BEAKER) (test code = 652) CALCIUM (BEAKER) 8.7 mg/dL 8.5-10.5 (test code = 697) EGFR (BEAKER) (test 102 mL/min/1.73 ESTIM ATED GFR IS code = 1092) sq m NOT ACCURATE CREATININE CLEARANCE IN PREDICTING GLOMERULAR FILTRATION RATE . ESTIMATED GFR I S NOT APPLICABLE FOR DIALYSIS PATIEN TS. Staff Interpreter ID - JUSTINOperator ID - JUSTINOperator ID - JUSTINOperator ID - JUSTINOperator ID - JUSTINOperator ID - JUSTINOperator ID - JUSTINOperator ID - JUSTINOperator ID - JUSTINCBC W/PLT COUNT & AUTO [id number] 15:14:00 Test Item Value Reference Range Interpretation Comments WHITE BLOOD CELL COUNT (BEAKER) 7.3 K/ L 4.0-10.0 (test code = 775) RED BLOOD CELL COUNT (BEAKER) 5.00 M/ L 4.20-5.80 (test code = 761) HEMOGLOBIN (BEAKER) (test code = 13.4 GM/DL 13.0-16.8 410) HEMATOCRIT (BEAKER) (test code = 41.6 % 36.0-50.0 411) MEAN CORPUSCULAR VOLUME (BEAKER) 83.2 fL 82.0-99.0 (test code = 753) MEAN CORPUSCULAR HEMOGLOBIN 26.8 pg 27.0-33.0 L (BEAKER) (test code = 751) MEAN CORPUSCULAR HEMOGLOBIN CONC 32.2 GM/DL 32.0-36.0 (BEAKER) (test code = 752) RED CELL DISTRIBUTION WIDTH 15.0 % 12.0-15.0 (BEAKER) (test code = 412) PLATELET COUNT (BEAKER) (test 216 K/CU MM 150-430 code = 756) MEAN PLATELET VOLUME (BEAKER) 10.2 fL 6.0-11.5 (test code = 754) NUCLEATED RED BLOOD CELLS 0 /100 WBC 0-0 (BEAKER) (test code = 413) NEUTROPHILS RELATIVE PERCENT 73 % (BEAKER) (test code = 429) LYMPHOCYTES RELATIVE PERCENT 15 % (BEAKER) (test code = 430) MONOCYTES RELATIVE PERCENT 9 % (BEAKER) (test code = 431) EOSINOPHILS RELATIVE PERCENT 1 % (BEAKER) (test code = 432) BASOPHILS RELATIVE PERCENT 1 % (BEAKER) (test code = 437) NEUTROPHILS ABSOLUTE COUNT 5.36 K/ L 1.80-8.00 (BEAKER) (test code = 670) LYMPHOCYTES ABSOLUTE COUNT 1.11 K/ L 1.48-4.50 L (BEAKER) (test code = 414) MONOCYTES ABSOLUTE COUNT (BEAKER) 0.65 K/ L 0.00-1.30 (test code = 415) EOSINOPHILS ABSOLUTE COUNT 0.07 K/ L 0.00-0.50 (BEAKER) (test code = 416) BASOPHILS ABSOLUTE COUNT (BEAKER) 0.05 K/ L 0.00-0.20 (test code = 417) IMMATURE GRANULOCYTES-RELATIVE 1 % 0-0 H PERCENT (BEAKER) (test code = 2801) RAD, CHEST, 1 VIEW, NON [id number] 15:08:00Reason for exam:->[facility] : 1960 Sex: MFINAL REPORT INDICATION: CHEST PAIN COMPARISON: None TECHNIQUE: Single frontal viewof the chest. FINDINGS: Lungs and pleura: Clear lungs. No effusion.Heart and mediastinum: Normal heart size. Unremarkable mediastinal contours.Osseous structures: No acute abnormality.Other: None. IMPRESSION: No acute intrathoracic abnormality. Signed: Pia Buttseport Verified Date/Time: 05/04/2020 15:08:51 [facility] URINE [id number] 10:33:00 Test Item Value Reference Range Interpretation Comments Isolate 1 (test code = ISO1) Escherichia coli A ampicillin (test code = am) ug/mL S piperacillin/tazobactam ug/mL S (test code = tzp) ceftazidime (test code = ug/mL S mar[place]) ceftriaxone1 (test code = ug/mL S ctr) cefepime (test code = fep) ug/mL S aztreonam (test code = azm) ug/mL S ertapenem (test code = etp) ug/mL S meropenem (test code = mem) ug/mL S gentamicin (test code = gm) ug/mL S tobramycin (test code = tob) ug/mL S levofloxacin (test code = ug/mL S lev) trimethoprim/sulfamethoxazol ug/mL S e (test code = sxt) URINALYSIS WITH [id number] 13:53:00 Test Item Value Reference Range Interpretation Comments COLOR (test code = COLU) DK YELLOW YELLOW A CLARITY (test code = CLA) CLOUDY CLEAR A GLUCOSE UR (test code = UA NEGATIVE NEGATIVE GLUCOSE) BILI UR (test code = BILE) NEGATIVE NEGATIVE KETONES UR (test code = TAYLOR) TRACE NEGATIVE A SP GRAVITY (test code = 1.014 1.005-1.030 SPGR) PH UR (test code = PH) 6.0 4.5-8.0 PROTEIN UR (test code = PU) 2+ NEGATIVE A UROBIL UR (test code = UROQ) 0.2 EU/dL 0.2-1.0 NITRITE UR (test code = POSITIVE NEGATIVE A NITRITE) BLOOD UR (test code = UA 3+ NEGATIVE A BLOOD) LEUK ES UR (test code = 2+ NEGATIVE A LEUK) WBC UR (test code = UWBC) 25 /HPF 0-3 H RBC UR (test code = URBC) 5 /HPF 0-2 H EPITH UR (test code = UEPC) NONE /LPF NONE BACTERIA UR (test code = MANY /HPF NONE A UBACT) CAST UR (test code = CAST) HYALINE FEW /LPF NONE A CRYSTAL UR (test code = / LPF NONE CRYU) MUCUS UR (test code = MUC) MODERATE / HPF NONE A AMORPH UR (test code = WADE) / HPF NONE TRICH UR (test code = /HPF NONE UTRICH) YEAST UR (test code = UY) /HPF NONE SPERM UR (test code = /HPF NONE USPERM) [id number] 11:44:00 Test Item Value Reference Range Interpretation Comments COLOR (test code = COLU) YELLOW YELLOW CLARITY (test code = CLA) CLEAR CLEAR GLUCOSE UR (test code = UA GLUCOSE) NEGATIVE NEGATIVE BILI UR (test code = BILE) NEGATIVE NEGATIVE KETONES UR (test code = TAYLOR) NEGATIVE NEGATIVE SP GRAVITY (test code = SPGR) 1.016 1.005-1.030 PH UR (test code = PH) 6.0 4.5-8.0 PROTEIN UR (test code = PU) NEGATIVE NEGATIVE UROBIL UR (test code = UROQ) 0.2 EU/dL 0.2-1.0 NITRITE UR (test code = NITRITE) NEGATIVE NEGATIVE BLOOD UR (test code = UA BLOOD) NEGATIVE NEGATIVE LEUK ES UR (test code = LEUK) NEGATIVE NEGATIVE COMPREHENSIVE METABOLIC [id number] 17:32:00 Test Item Value Reference Range Interpretation Comments GLUCOSE (test code = 103 mg/dL 75-100 H 06D) SODIUM (test code = 139 mmol/L 136-145 01A) POTASSIUM (test code = 4.7 mmol/L 3.6-5.1 01B) CHLORIDE (test code = 109 mmol/L 98-107 H 04A) CO2 (test code = 02A) 25 mmol/L 22-32 ANION GAP (test code = 9.7 mmol/L ANG) BUN (test code = 05D) 25 mg/dL 7-18 H CREATININE (test code 0.9 mg/dL 0.7-1.3 = 03E) GFR (test code = GFR) 94 mL/min/1.73m\\S\\2 >=90 GFR 109 mL/min/1.73m\\S\\2 >=90 (test code = GFRAA) EGFR (test code = eGFR BY CKD-EPI EGFR) CALCULATION IS NOT RECOMMENDED FOR PATIENTS UNDER 18 YEARS OF AGE. BUN/CREA (test code = 29 12-20 H BCR) CALCIUM (test code = 9.0 mg/dL 8.3-9.5 09D) BILI TOTAL (test code 0.3 mg/dL 0.2-1.0 = 11A) PROTEIN (test code = 8.0 g/dL 6.4-8.2 07D) ALBUMIN (test code = 3.5 g/dL 3.5-4.8 08D) GLOBULIN (test code = 4.5 g/dL 1.5-3.8 H GLB) ALB/GLOB (test code = 0.8 1.0-2.6 L AGRR) ALK PHOS (test code = 158 IU/L 42-121 H 35A) AST (test code = 30A) 32 IU/L <=42 ALT (test code = 31A) 26 IU/L <=78 [id number] 17:25:00 Test Item Value Reference Range Interpretation Comments MAGNESIUM (test code = 48A) 2.4 mg/dL 1.8-2.4 PRO TIME AND [id number] 17:16:00 Test Item Value Reference Range Interpretation Comments PT (test code = 12.7 s 9.8-13.6 TT) INR (test code = 1.1 INR) INRH (test code = SUGGESTED THERAPEUTIC INRH) RANGE FOR INR: 2.5 - 3.5 For Patients with Prosthetic Valves or Patients with recurrent Thromboembolic Events 2.0 - 3.0 For Most Other Applications PTT (test code = 19.5 s 20.2-38.0 L PTT) PTTH (test code = To monitor the PTTH) effectiveness of heparin, we offer the Anti-Xa (Heparin Assay). It can be used for either unfractionated or LMW Heparin. Order Code is ANTI-XA CBC (INCLUDES AUTOMATED DIFFERENTIAL)[id number] 17:11:00 Test Item Value Reference Range Interpretation Comments WBC (test code = WBC) 6.8 10\\S\\3/uL 4.5-11.0 RBC (test code = RBC) 5.21 10\\S\\6/uL 4.20-5.60 HGB (test code = HBG) 14.0 g/dL 14.0-18.0 HCT (test code = HCT) 44.6 % 35.0-46.0 MCV (test code = MCV) 85.6 fL 80.0-94.0 MCH (test code = MCH) 26.9 pg 27.0-31.0 L MCHC (test code = MCHC) 31.4 g/dL 32.0-36.0 L RDW (test code = RDW) 16.0 % 11.5-14.5 H PLT (test code = PLT) 272 10\\S\\3/uL 130-400 MPV (test code = MPV) 10.2 fL 9.4-12.4 NEUTROP # (test code = NE#) 3.9 10\\S\\3/uL 2.0-8.0 LYMPH # (test code = LY#) 1.8 10\\S\\3/uL 1.2-4.0 MONOCYTE # (test code = MO#) 0.7 10\\S\\3/uL 0.0-1.1 EOSINOPH # (test code = EO#) 0.3 10\\S\\3/uL 0.0-0.7 BASOPHIL # (test code = BA#) 0.0 10\\S\\3/uL 0.0-0.3 IG # (test code = IG#) 0.02 10\\S\\3/uL 0.00-0.06 NRBC # (test code = NRBC#) 0.00 10\\S\\3/uL 0.00-0.01 NEUTROPH % (test code = NE%) 57.5 % 35.0-73.0 LYMPH % (test code = LY%) 26.6 % 20.0-55.0 MONO % (test code = MO%) 10.2 % 2.5-10.0 H EOSINOPH % (test code = EO%) 4.8 % 0.0-5.0 BASOPHIL % (test code = BA%) 0.6 % 0.0-2.0 IG % (test code = IG%) 0.3 % 0.0-0.8 NRBC% (test code = NRBC%) 0.0 % 0.0-0.2 MANDIFF (test code = MDIFF) NO NO BLOOD [id number] 22:19:00 Test Item Value Reference Range Interpretation Comments Culture Observations (test NO GROWTH AFTER 5 code = COB1) DAYS BLOOD [id number] 22:19:00 Test Item Value Reference Range Interpretation Comments Culture Observations (test NO GROWTH AFTER 5 code = COB1) DAYS GLUCOMETER GLUCOSE- LAB USE [id number] 11:36:00 Test Item Value Reference Range Interpretation Comments GLUCOMETER (test 108 mg/dL 70-100 H Result Not code = GMG) ConfirmedMeter ID: [id number] tor: [id number] [address] HERRERA N DIRECT STREP GROUP [id number] 09:21:00 Test Item Value Reference Range Interpretation Comments Culture Observations NO BETA HEMOLYTIC (test code = COB1) STREPTOCOCCUS ISOLATED Direct Exam (test code NEGATIVE FOR STREP A = DE1) ANTIGEN T4 [id number] 07:38:00 Test Item Value Reference Range Interpretation Comments T4 FREE (test code = A91) 1.00 ng/dL 0.76-1.46 THYROID PANEL/SCREEN (TSH)2019-12-23 07:25:00 Test Item Value Reference Range Interpretation Comments TSH (test code = A57) 3.850 uIU/mL 0.358-3.740 H COMPREHENSIVE METABOLIC [id number] 06:05:00 Test Item Value Reference Range Interpretation Comments GLUCOSE (test code = 107 mg/dL 75-100 H 06D) SODIUM (test code = 137 mmol/L 136-145 01A) POTASSIUM (test code = 3.7 mmol/L 3.6-5.1 01B) CHLORIDE (test code = 102 mmol/L 98-107 04A) CO2 (test code = 02A) 30 mmol/L 22-32 ANION GAP (test code = 8.7 mmol/L ANG) BUN (test code = 05D) 13 mg/dL 7-18 CREATININE (test code 1.0 mg/dL 0.7-1.3 = 03E) GFR (test code = GFR) 80 mL/min/1.73m\\S\\2 >=90 L GFR 93 mL/min/1.73m\\S\\2 >=90 (test code = GFRAA) EGFR (test code = eGFR BY CKD-EPI EGFR) CALCULATION IS NOT RECOMMENDED FOR PATIENTS UNDER 18 YEARS OF AGE. BUN/CREA (test code = 13 12-20 BCR) CALCIUM (test code = 8.3 mg/dL 8.3-9.5 09D) BILI TOTAL (test code 0.4 mg/dL 0.2-1.0 = 11A) PROTEIN (test code = 7.5 g/dL 6.4-8.2 07D) ALBUMIN (test code = 2.9 g/dL 3.5-4.8 L 08D) GLOBULIN (test code = 4.6 g/dL 1.5-3.8 H GLB) ALB/GLOB (test code = 0.6 1.0-2.6 L AGRR) ALK PHOS (test code = 116 IU/L 42-121 35A) AST (test code = 30A) 20 IU/L <=42 ALT (test code = 31A) 18 IU/L <=78 CBC (INCLUDES AUTOMATED DIFFERENTIAL)2019-12-23 05:52:00 Test Item Value Reference Range Interpretation Comments WBC (test code = WBC) 5.2 10\\S\\3/uL 4.5-11.0 RBC (test code = RBC) 4.38 10\\S\\6/uL 4.20-5.60 HGB (test code = HBG) 11.5 g/dL 14.0-18.0 L HCT (test code = HCT) 37.1 % 35.0-46.0 MCV (test code = MCV) 84.7 fL 80.0-94.0 MCH (test code = MCH) 26.3 pg 27.0-31.0 L MCHC (test code = MCHC) 31.0 g/dL 32.0-36.0 L RDW (test code = RDW) 14.9 % 11.5-14.5 H PLT (test code = PLT) 303 10\\S\\3/uL 130-400 MPV (test code = MPV) 10.0 fL 9.4-12.4 NEUTROP # (test code = NE#) 2.8 10\\S\\3/uL 2.0-8.0 LYMPH # (test code = LY#) 1.3 10\\S\\3/uL 1.2-4.0 MONOCYTE # (test code = MO#) 0.7 10\\S\\3/uL 0.0-1.1 EOSINOPH # (test code = EO#) 0.4 10\\S\\3/uL 0.0-0.7 BASOPHIL # (test code = BA#) 0.0 10\\S\\3/uL 0.0-0.3 IG # (test code = IG#) 0.02 10\\S\\3/uL 0.00-0.06 NRBC # (test code = NRBC#) 0.00 10\\S\\3/uL 0.00-0.01 NEUTROPH % (test code = NE%) 53.9 % 35.0-73.0 LYMPH % (test code = LY%) 24.3 % 20.0-55.0 MONO % (test code = MO%) 13.0 % 2.5-10.0 H EOSINOPH % (test code = EO%) 7.8 % 0.0-5.0 H BASOPHIL % (test code = BA%) 0.6 % 0.0-2.0 IG % (test code = IG%) 0.4 % 0.0-0.8 NRBC% (test code = NRBC%) 0.0 % 0.0-0.2 MANDIFF (test code = MDIFF) NO NO RBC MORPH (test code = RBCMOR) NORMAL BASIC METABOLIC [id number] 06:59:00 Test Item Value Reference Range Interpretation Comments GLUCOSE (test code = 90 mg/dL 75-100 06D) SODIUM (test code = 137 mmol/L 136-145 01A) POTASSIUM (test code = 3.7 mmol/L 3.6-5.1 01B) CHLORIDE (test code = 103 mmol/L 98-107 04A) CO2 (test code = 02A) 30 mmol/L 22-32 ANION GAP (test code = 7.7 mmol/L ANG) BUN (test code = 05D) 11 mg/dL 7-18 CREATININE (test code 0.8 mg/dL 0.7-1.3 = 03E) GFR (test code = GFR) 97 mL/min/1.73m\\S\\2 >=90 GFR 112 mL/min/1.73m\\S\\2 >=90 (test code = GFRAA) EGFR (test code = eGFR BY CKD-EPI EGFR) CALCULATION IS NOT RECOMMENDED FOR PATIENTS UNDER 18 YEARS OF AGE. BUN/CREA (test code = 14 12-20 BCR) CALCIUM (test code = 8.4 mg/dL 8.3-9.5 09D) CBC (INCLUDES AUTOMATED DIFFERENTIAL)2019-12-22 06:56:00 Test Item Value Reference Range Interpretation Comments WBC (test code = WBC) 4.4 10\\S\\3/uL 4.5-11.0 L RBC (test code = RBC) 4.20 10\\S\\6/uL 4.20-5.60 HGB (test code = HBG) 11.2 g/dL 14.0-18.0 L HCT (test code = HCT) 35.8 % 35.0-46.0 MCV (test code = MCV) 85.2 fL 80.0-94.0 MCH (test code = MCH) 26.7 pg 27.0-31.0 L MCHC (test code = MCHC) 31.3 g/dL 32.0-36.0 L RDW (test code = RDW) 14.7 % 11.5-14.5 H PLT (test code = PLT) 248 10\\S\\3/uL 130-400 MPV (test code = MPV) 10.7 fL 9.4-12.4 NEUTROP # (test code = NE#) 2.3 10\\S\\3/uL 2.0-8.0 LYMPH # (test code = LY#) 0.9 10\\S\\3/uL 1.2-4.0 L MONOCYTE # (test code = MO#) 0.6 10\\S\\3/uL 0.0-1.1 EOSINOPH # (test code = EO#) 0.5 10\\S\\3/uL 0.0-0.7 BASOPHIL # (test code = BA#) 0.0 10\\S\\3/uL 0.0-0.3 IG # (test code = IG#) 0.01 10\\S\\3/uL 0.00-0.06 NRBC # (test code = NRBC#) 0.00 10\\S\\3/uL 0.00-0.01 NEUTROPH % (test code = NE%) 52.9 % 35.0-73.0 LYMPH % (test code = LY%) 21.6 % 20.0-55.0 MONO % (test code = MO%) 13.6 % 2.5-10.0 H EOSINOPH % (test code = EO%) 11.0 % 0.0-5.0 H BASOPHIL % (test code = BA%) 0.7 % 0.0-2.0 IG % (test code = IG%) 0.2 % 0.0-0.8 NRBC% (test code = NRBC%) 0.0 % 0.0-0.2 MANDIFF (test code = MDIFF) NO NO RBC MORPH (test code = RBCMOR) NORMAL URINALYSIS WITH [id number] 00:05:00 Test Item Value Reference Range Interpretation Comments COLOR (test code = COLU) YELLOW YELLOW CLARITY (test code = CLA) CLOUDY CLEAR A GLUCOSE UR (test code = UA GLUCOSE) NEGATIVE NEGATIVE BILI UR (test code = BILE) NEGATIVE NEGATIVE KETONES UR (test code = TAYLOR) NEGATIVE NEGATIVE SP GRAVITY (test code = SPGR) 1.013 1.005-1.030 PH UR (test code = PH) 6.0 4.5-8.0 PROTEIN UR (test code = PU) 1+ NEGATIVE A UROBIL UR (test code = UROQ) 0.2 EU/dL 0.2-1.0 NITRITE UR (test code = NITRITE) NEGATIVE NEGATIVE BLOOD UR (test code = UA BLOOD) NEGATIVE NEGATIVE LEUK ES UR (test code = LEUK) NEGATIVE NEGATIVE WBC UR (test code = UWBC) 0 /HPF 0-3 RBC UR (test code = URBC) 0 /HPF 0-2 EPITH UR (test code = UEPC) FEW /LPF NONE A BACTERIA UR (test code = UBACT) NONE /HPF NONE CAST UR (test code = CAST) /LPF NONE CRYSTAL UR (test code = CRYU) / LPF NONE MUCUS UR (test code = MUC) FEW / HPF NONE A AMORPH UR (test code = WADE) / HPF NONE TRICH UR (test code = UTRICH) /HPF NONE YEAST UR (test code = UY) /HPF NONE SPERM UR (test code = USPERM) /HPF NONE C-REACTIVE PROTEIN [id number] 20:12:00 Test Item Value Reference Range Interpretation Comments CRP QUANT (test code 12.2 mg/L 0.0-2.9 H = CRPQ) Method Change (test Please note the code = METHOD) change in Method and the reference range SARS-CoV (RAPID ANTIGEN)2019-12-21 19:49:00 Test Item Value Reference Range Interpretation Comments SARS-CoV (ANTIGEN) NEGATIVE NEGATIVE (test code = COVAG) COVID AG (test This test has been code = COVAGC) marketed under the FDA Emergency Use Authorization (EUA) to meet challenges of the COVID-19 pandemic. The validation standards normally enforced by the FDA and the [employer] ([employer]) are more stringent than those required for this test. Therefore, the result should be interpreted with caution and close attention to other clinical and epidemiological data [id number] 19:45:00 Test Item Value Reference Range Interpretation Comments FERRITIN (test code = A19) 108.6 ng/mL 26.0-388.0 [id number] 19:40:00 Test Item Value Reference Range Interpretation Comments CPK (test code = 32A) 241 IU/L 39-308 COMPREHENSIVE METABOLIC [id number] 19:40:00 Test Item Value Reference Range Interpretation Comments GLUCOSE (test code = 90 mg/dL 75-100 06D) SODIUM (test code = 136 mmol/L 136-145 01A) POTASSIUM (test code = 4.3 mmol/L 3.6-5.1 01B) CHLORIDE (test code = 104 mmol/L 98-107 04A) CO2 (test code = 02A) 26 mmol/L 22-32 ANION GAP (test code = 10.3 mmol/L ANG) BUN (test code = 05D) 15 mg/dL 7-18 CREATININE (test code 0.9 mg/dL 0.7-1.3 = 03E) GFR (test code = GFR) 93 mL/min/1.73m\\S\\2 >=90 GFR 107 mL/min/1.73m\\S\\2 >=90 (test code = GFRAA) EGFR (test code = eGFR BY CKD-EPI EGFR) CALCULATION IS NOT RECOMMENDED FOR PATIENTS UNDER 18 YEARS OF AGE. BUN/CREA (test code = 17 12-20 BCR) CALCIUM (test code = 8.5 mg/dL 8.3-9.5 09D) BILI TOTAL (test code 0.2 mg/dL 0.2-1.0 = 11A) PROTEIN (test code = 7.8 g/dL 6.4-8.2 07D) ALBUMIN (test code = 3.2 g/dL 3.5-4.8 L 08D) GLOBULIN (test code = 4.6 g/dL 1.5-3.8 H GLB) ALB/GLOB (test code = 0.7 1.0-2.6 L AGRR) ALK PHOS (test code = 136 IU/L 42-121 H 35A) AST (test code = 30A) 26 IU/L <=42 ALT (test code = 31A) 22 IU/L <=78 LDH-LACTIC [id number] 19:39:00 Test Item Value Reference Range Interpretation Comments LDH (test code = 33A) 292 IU/L 100-190 H BRAIN NATRIURETIC [id number] 19:38:00 Test Item Value Reference Range Interpretation Comments proBNP (test code = PBNP) 1096 pg/mL 0-125 H LACTIC [id number] 19:37:00 Test Item Value Reference Range Interpretation Comments LACTIC ACD (test code = LA) 1.7 mmol/L 0.4-2.0 [id number] 19:34:00 Test Item Value Reference Range Interpretation Comments D-DIMER DILUTED (test 1743 ng/mL D-DU 0-234 H code = DDD) D-DIMER COMMENT (test *Level to rule out code = DDCOM) DVT or PE: <235 ng/mL D-DU* TROPONIN [id number] 19:34:00 Test Item Value Reference Range Interpretation Comments TROPONIN I (test code = A84) <0.015 ng/mL 0.000-0.045 PRO TIME AND [id number] 19:33:00 Test Item Value Reference Range Interpretation Comments PT (test code = 13.3 s 9.8-13.6 TT) INR (test code = 1.2 INR) INRH (test code = SUGGESTED THERAPEUTIC INRH) RANGE FOR INR: 2.5 - 3.5 For Patients with Prosthetic Valves or Patients with recurrent Thromboembolic Events 2.0 - 3.0 For Most Other Applications PTT (test code = 31.0 s 20.2-38.0 PTT) PTTH (test code = To monitor the PTTH) effectiveness of heparin, we offer the Anti-Xa (Heparin Assay). It can be used for either unfractionated or LMW Heparin. Order Code is ANTI-XA [id number] 19:32:00 Test Item Value Reference Range Interpretation Comments MAGNESIUM (test code = 48A) 2.2 mg/dL 1.8-2.4 CBC (INCLUDES AUTOMATED DIFFERENTIAL)2019-12-21 19:26:00 Test Item Value Reference Range Interpretation Comments WBC (test code = WBC) 4.1 10\\S\\3/uL 4.5-11.0 L RBC (test code = RBC) 4.35 10\\S\\6/uL 4.20-5.60 HGB (test code = HBG) 11.8 g/dL 14.0-18.0 L HCT (test code = HCT) 37.6 % 35.0-46.0 MCV (test code = MCV) 86.4 fL 80.0-94.0 MCH (test code = MCH) 27.1 pg 27.0-31.0 MCHC (test code = MCHC) 31.4 g/dL 32.0-36.0 L RDW (test code = RDW) 14.6 % 11.5-14.5 H PLT (test code = PLT) 241 10\\S\\3/uL 130-400 MPV (test code = MPV) 10.1 fL 9.4-12.4 NEUTROP # (test code = NE#) 2.4 10\\S\\3/uL 2.0-8.0 LYMPH # (test code = LY#) 0.9 10\\S\\3/uL 1.2-4.0 L MONOCYTE # (test code = MO#) 0.4 10\\S\\3/uL 0.0-1.1 EOSINOPH # (test code = EO#) 0.4 10\\S\\3/uL 0.0-0.7 BASOPHIL # (test code = BA#) 0.0 10\\S\\3/uL 0.0-0.3 IG # (test code = IG#) 0.02 10\\S\\3/uL 0.00-0.06 NRBC # (test code = NRBC#) 0.00 10\\S\\3/uL 0.00-0.01 NEUTROPH % (test code = NE%) 57.7 % 35.0-73.0 LYMPH % (test code = LY%) 21.2 % 20.0-55.0 MONO % (test code = MO%) 10.2 % 2.5-10.0 H EOSINOPH % (test code = EO%) 9.7 % 0.0-5.0 H BASOPHIL % (test code = BA%) 0.7 % 0.0-2.0 IG % (test code = IG%) 0.5 % 0.0-0.8 NRBC% (test code = NRBC%) 0.0 % 0.0-0.2 MANDIFF (test code = MDIFF) NO NO RBC MORPH (test code = RBCMOR) NORMAL BASIC METABOLIC [id number] 07:01:00 Test Item Value Reference Range Interpretation Comments GLUCOSE (test code = 126 mg/dL 75-100 H 06D) SODIUM (test code = 134 mmol/L 136-145 L 01A) POTASSIUM (test code = 4.4 mmol/L 3.6-5.1 01B) CHLORIDE (test code = 100 mmol/L 98-107 04A) CO2 (test code = 02A) 30 mmol/L 22-32 ANION GAP (test code = 8.4 mmol/L ANG) BUN (test code = 05D) 19 mg/dL 7-18 H CREATININE (test code 1.0 mg/dL 0.7-1.3 = 03E) GFR (test code = GFR) 86 mL/min/1.73m\\S\\2 >=90 L GFR 100 mL/min/1.73m\\S\\2 >=90 (test code = GFRAA) EGFR (test code = eGFR BY CKD-EPI EGFR) CALCULATION IS NOT RECOMMENDED FOR PATIENTS UNDER 18 YEARS OF AGE. BUN/CREA (test code = 20 12-20 BCR) CALCIUM (test code = 8.6 mg/dL 8.3-9.5 09D) CBC (INCLUDES AUTOMATED DIFFERENTIAL)2019-12-04 06:52:00 Test Item Value Reference Range Interpretation Comments WBC (test code = WBC) 5.8 10\\S\\3/uL 4.5-11.0 RBC (test code = RBC) 4.46 10\\S\\6/uL 4.20-5.60 HGB (test code = HBG) 12.0 g/dL 14.0-18.0 L HCT (test code = HCT) 39.4 % 35.0-46.0 MCV (test code = MCV) 88.3 fL 80.0-94.0 MCH (test code = MCH) 26.9 pg 27.0-31.0 L MCHC (test code = MCHC) 30.5 g/dL 32.0-36.0 L RDW (test code = RDW) 14.6 % 11.5-14.5 H PLT (test code = PLT) 345 10\\S\\3/uL 130-400 MPV (test code = MPV) 8.9 fL 9.4-12.4 L NEUTROP # (test code = NE#) 3.6 10\\S\\3/uL 2.0-8.0 LYMPH # (test code = LY#) 1.3 10\\S\\3/uL 1.2-4.0 MONOCYTE # (test code = MO#) 0.6 10\\S\\3/uL 0.0-1.1 EOSINOPH # (test code = EO#) 0.1 10\\S\\3/uL 0.0-0.7 BASOPHIL # (test code = BA#) 0.1 10\\S\\3/uL 0.0-0.3 IG # (test code = IG#) 0.09 10\\S\\3/uL 0.00-0.06 H NRBC # (test code = NRBC#) 0.00 10\\S\\3/uL 0.00-0.01 NEUTROPH % (test code = NE%) 62.2 % 35.0-73.0 LYMPH % (test code = LY%) 22.9 % 20.0-55.0 MONO % (test code = MO%) 10.1 % 2.5-10.0 H EOSINOPH % (test code = EO%) 2.4 % 0.0-5.0 BASOPHIL % (test code = BA%) 0.9 % 0.0-2.0 IG % (test code = IG%) 1.5 % 0.0-0.8 H NRBC% (test code = NRBC%) 0.0 % 0.0-0.2 MANDIFF (test code = MDIFF) NO NO RBC MORPH (test code = RBCMOR) NORMAL URIC [id number] 15:35:00 Test Item Value Reference Range Interpretation Comments URIC ACID (test code = 41A) 7.2 mg/dL 3.5-7.2 BASIC METABOLIC [id number] 05:38:00 Test Item Value Reference Range Interpretation Comments GLUCOSE (test code = 101 mg/dL 75-100 H 06D) SODIUM (test code = 135 mmol/L 136-145 L 01A) POTASSIUM (test code = 4.3 mmol/L 3.6-5.1 01B) CHLORIDE (test code = 100 mmol/L 98-107 04A) CO2 (test code = 02A) 32 mmol/L 22-32 ANION GAP (test code = 7.3 mmol/L ANG) BUN (test code = 05D) 19 mg/dL 7-18 H CREATININE (test code 0.8 mg/dL 0.7-1.3 = 03E) GFR (test code = GFR) 98 mL/min/1.73m\\S\\2 >=90 GFR 114 mL/min/1.73m\\S\\2 >=90 (test code = GFRAA) EGFR (test code = eGFR BY CKD-EPI EGFR) CALCULATION IS NOT RECOMMENDED FOR PATIENTS UNDER 18 YEARS OF AGE. BUN/CREA (test code = 24 12-20 H BCR) CALCIUM (test code = 8.4 mg/dL 8.3-9.5 09D) CBC (INCLUDES AUTOMATED DIFFERENTIAL)2019-12-03 05:24:00 Test Item Value Reference Range Interpretation Comments WBC (test code = WBC) 6.2 10\\S\\3/uL 4.5-11.0 RBC (test code = RBC) 4.25 10\\S\\6/uL 4.20-5.60 HGB (test code = HBG) 11.5 g/dL 14.0-18.0 L HCT (test code = HCT) 36.5 % 35.0-46.0 MCV (test code = MCV) 85.9 fL 80.0-94.0 MCH (test code = MCH) 27.1 pg 27.0-31.0 MCHC (test code = MCHC) 31.5 g/dL 32.0-36.0 L RDW (test code = RDW) 14.4 % 11.5-14.5 PLT (test code = PLT) 347 10\\S\\3/uL 130-400 MPV (test code = MPV) 9.0 fL 9.4-12.4 L NEUTROP # (test code = NE#) 4.6 10\\S\\3/uL 2.0-8.0 LYMPH # (test code = LY#) 1.0 10\\S\\3/uL 1.2-4.0 L MONOCYTE # (test code = MO#) 0.5 10\\S\\3/uL 0.0-1.1 EOSINOPH # (test code = EO#) 0.1 10\\S\\3/uL 0.0-0.7 BASOPHIL # (test code = BA#) 0.0 10\\S\\3/uL 0.0-0.3 IG # (test code = IG#) 0.05 10\\S\\3/uL 0.00-0.06 NRBC # (test code = NRBC#) 0.00 10\\S\\3/uL 0.00-0.01 NEUTROPH % (test code = NE%) 73.6 % 35.0-73.0 H LYMPH % (test code = LY%) 16.2 % 20.0-55.0 L MONO % (test code = MO%) 7.6 % 2.5-10.0 EOSINOPH % (test code = EO%) 1.5 % 0.0-5.0 BASOPHIL % (test code = BA%) 0.3 % 0.0-2.0 IG % (test code = IG%) 0.8 % 0.0-0.8 NRBC% (test code = NRBC%) 0.0 % 0.0-0.2 MANDIFF (test code = MDIFF) NO NO RBC MORPH (test code = RBCMOR) NORMAL BASIC METABOLIC [id number] 05:43:00 Test Item Value Reference Range Interpretation Comments GLUCOSE (test code = 161 mg/dL 75-100 H 06D) SODIUM (test code = 132 mmol/L 136-145 L 01A) POTASSIUM (test code = 5.0 mmol/L 3.6-5.1 01B) CHLORIDE (test code = 99 mmol/L 98-107 04A) CO2 (test code = 02A) 30 mmol/L 22-32 ANION GAP (test code = 8.0 mmol/L ANG) BUN (test code = 05D) 17 mg/dL 7-18 CREATININE (test code 0.9 mg/dL 0.7-1.3 = 03E) GFR (test code = GFR) 94 mL/min/1.73m\\S\\2 >=90 GFR 109 mL/min/1.73m\\S\\2 >=90 (test code = GFRAA) EGFR (test code = eGFR BY CKD-EPI EGFR) CALCULATION IS NOT RECOMMENDED FOR PATIENTS UNDER 18 YEARS OF AGE. BUN/CREA (test code = 19 12-20 BCR) CALCIUM (test code = 8.8 mg/dL 8.3-9.5 09D) CBC (INCLUDES AUTOMATED DIFFERENTIAL)2019-12-02 05:34:00 Test Item Value Reference Range Interpretation Comments WBC (test code = WBC) 9.5 10\\S\\3/uL 4.5-11.0 RBC (test code = RBC) 4.20 10\\S\\6/uL 4.20-5.60 HGB (test code = HBG) 11.4 g/dL 14.0-18.0 L HCT (test code = HCT) 36.1 % 35.0-46.0 MCV (test code = MCV) 86.0 fL 80.0-94.0 MCH (test code = MCH) 27.1 pg 27.0-31.0 MCHC (test code = MCHC) 31.6 g/dL 32.0-36.0 L RDW (test code = RDW) 13.8 % 11.5-14.5 PLT (test code = PLT) 358 10\\S\\3/uL 130-400 MPV (test code = MPV) 8.9 fL 9.4-12.4 L NEUTROP # (test code = NE#) 8.4 10\\S\\3/uL 2.0-8.0 H LYMPH # (test code = LY#) 0.7 10\\S\\3/uL 1.2-4.0 L MONOCYTE # (test code = MO#) 0.3 10\\S\\3/uL 0.0-1.1 EOSINOPH # (test code = EO#) 0.0 10\\S\\3/uL 0.0-0.7 BASOPHIL # (test code = BA#) 0.0 10\\S\\3/uL 0.0-0.3 IG # (test code = IG#) 0.05 10\\S\\3/uL 0.00-0.06 NRBC # (test code = NRBC#) 0.00 10\\S\\3/uL 0.00-0.01 NEUTROPH % (test code = NE%) 88.5 % 35.0-73.0 H LYMPH % (test code = LY%) 7.8 % 20.0-55.0 L MONO % (test code = MO%) 3.0 % 2.5-10.0 EOSINOPH % (test code = EO%) 0.0 % 0.0-5.0 BASOPHIL % (test code = BA%) 0.2 % 0.0-2.0 IG % (test code = IG%) 0.5 % 0.0-0.8 NRBC% (test code = NRBC%) 0.0 % 0.0-0.2 MANDIFF (test code = MDIFF) NO NO RBC MORPH (test code = RBCMOR) NORMAL BASIC METABOLIC [id number] 06:00:00 Test Item Value Reference Range Interpretation Comments GLUCOSE (test code = 110 mg/dL 75-100 H 06D) SODIUM (test code = 132 mmol/L 136-145 L 01A) POTASSIUM (test code = 4.2 mmol/L 3.6-5.1 01B) CHLORIDE (test code = 98 mmol/L 98-107 04A) CO2 (test code = 02A) 30 mmol/L 22-32 ANION GAP (test code = 8.2 mmol/L ANG) BUN (test code = 05D) 15 mg/dL 7-18 CREATININE (test code 0.9 mg/dL 0.7-1.3 = 03E) GFR (test code = GFR) 94 mL/min/1.73m\\S\\2 >=90 GFR 109 mL/min/1.73m\\S\\2 >=90 (test code = GFRAA) EGFR (test code = eGFR BY CKD-EPI EGFR) CALCULATION IS NOT RECOMMENDED FOR PATIENTS UNDER 18 YEARS OF AGE. BUN/CREA (test code = 17 12-20 BCR) CALCIUM (test code = 8.6 mg/dL 8.3-9.5 09D) CBC (INCLUDES AUTOMATED DIFFERENTIAL)2019-12-01 05:54:00 Test Item Value Reference Range Interpretation Comments WBC (test code = WBC) 7.2 10\\S\\3/uL 4.5-11.0 RBC (test code = RBC) 4.27 10\\S\\6/uL 4.20-5.60 HGB (test code = HBG) 11.6 g/dL 14.0-18.0 L HCT (test code = HCT) 36.8 % 35.0-46.0 MCV (test code = MCV) 86.2 fL 80.0-94.0 MCH (test code = MCH) 27.2 pg 27.0-31.0 MCHC (test code = MCHC) 31.5 g/dL 32.0-36.0 L RDW (test code = RDW) 14.6 % 11.5-14.5 H PLT (test code = PLT) 364 10\\S\\3/uL 130-400 MPV (test code = MPV) 9.1 fL 9.4-12.4 L NEUTROP # (test code = NE#) 5.5 10\\S\\3/uL 2.0-8.0 LYMPH # (test code = LY#) 0.9 10\\S\\3/uL 1.2-4.0 L MONOCYTE # (test code = MO#) 0.5 10\\S\\3/uL 0.0-1.1 EOSINOPH # (test code = EO#) 0.2 10\\S\\3/uL 0.0-0.7 BASOPHIL # (test code = BA#) 0.0 10\\S\\3/uL 0.0-0.3 IG # (test code = IG#) 0.09 10\\S\\3/uL 0.00-0.06 H NRBC # (test code = NRBC#) 0.00 10\\S\\3/uL 0.00-0.01 NEUTROPH % (test code = NE%) 76.5 % 35.0-73.0 H LYMPH % (test code = LY%) 12.8 % 20.0-55.0 L MONO % (test code = MO%) 6.8 % 2.5-10.0 EOSINOPH % (test code = EO%) 2.2 % 0.0-5.0 BASOPHIL % (test code = BA%) 0.4 % 0.0-2.0 IG % (test code = IG%) 1.3 % 0.0-0.8 H NRBC% (test code = NRBC%) 0.0 % 0.0-0.2 MANDIFF (test code = MDIFF) NO NO RBC MORPH (test code = RBCMOR) NORMAL BASIC METABOLIC [id number] 07:26:00 Test Item Value Reference Range Interpretation Comments GLUCOSE (test code = 110 mg/dL 75-100 H 06D) SODIUM (test code = 131 mmol/L 136-145 L 01A) POTASSIUM (test code = 4.4 mmol/L 3.6-5.1 01B) CHLORIDE (test code = 97 mmol/L 98-107 L 04A) CO2 (test code = 02A) 29 mmol/L 22-32 ANION GAP (test code = 9.4 mmol/L ANG) BUN (test code = 05D) 10 mg/dL 7-18 CREATININE (test code 0.8 mg/dL 0.7-1.3 = 03E) GFR (test code = GFR) 96 mL/min/1.73m\\S\\2 >=90 GFR 112 mL/min/1.73m\\S\\2 >=90 (test code = GFRAA) EGFR (test code = eGFR BY CKD-EPI EGFR) CALCULATION IS NOT RECOMMENDED FOR PATIENTS UNDER 18 YEARS OF AGE. BUN/CREA (test code = 12 12-20 BCR) CALCIUM (test code = 8.5 mg/dL 8.3-9.5 09D) CBC (INCLUDES AUTOMATED DIFFERENTIAL)2019-11-30 07:15:00 Test Item Value Reference Range Interpretation Comments WBC (test code = WBC) 7.8 10\\S\\3/uL 4.5-11.0 RBC (test code = RBC) 4.46 10\\S\\6/uL 4.20-5.60 HGB (test code = HBG) 12.0 g/dL 14.0-18.0 L HCT (test code = HCT) 37.9 % 35.0-46.0 MCV (test code = MCV) 85.0 fL 80.0-94.0 MCH (test code = MCH) 26.9 pg 27.0-31.0 L MCHC (test code = MCHC) 31.7 g/dL 32.0-36.0 L RDW (test code = RDW) 14.2 % 11.5-14.5 PLT (test code = PLT) 373 10\\S\\3/uL 130-400 MPV (test code = MPV) 9.4 fL 9.4-12.4 NEUTROP # (test code = NE#) 6.2 10\\S\\3/uL 2.0-8.0 LYMPH # (test code = LY#) 0.8 10\\S\\3/uL 1.2-4.0 L MONOCYTE # (test code = MO#) 0.6 10\\S\\3/uL 0.0-1.1 EOSINOPH # (test code = EO#) 0.1 10\\S\\3/uL 0.0-0.7 BASOPHIL # (test code = BA#) 0.0 10\\S\\3/uL 0.0-0.3 IG # (test code = IG#) 0.10 10\\S\\3/uL 0.00-0.06 H NRBC # (test code = NRBC#) 0.00 10\\S\\3/uL 0.00-0.01 NEUTROPH % (test code = NE%) 78.9 % 35.0-73.0 H LYMPH % (test code = LY%) 10.3 % 20.0-55.0 L MONO % (test code = MO%) 7.2 % 2.5-10.0 EOSINOPH % (test code = EO%) 1.8 % 0.0-5.0 BASOPHIL % (test code = BA%) 0.5 % 0.0-2.0 IG % (test code = IG%) 1.3 % 0.0-0.8 H NRBC% (test code = NRBC%) 0.0 % 0.0-0.2 MANDIFF (test code = MDIFF) NO NO RBC MORPH (test code = RBCMOR) NORMAL BASIC METABOLIC [id number] 07:11:00 Test Item Value Reference Range Interpretation Comments GLUCOSE (test code = 127 mg/dL 75-100 H 06D) SODIUM (test code = 131 mmol/L 136-145 L 01A) POTASSIUM (test code = 4.1 mmol/L 3.6-5.1 01B) CHLORIDE (test code = 96 mmol/L 98-107 L 04A) CO2 (test code = 02A) 28 mmol/L 22-32 ANION GAP (test code = 11.1 mmol/L ANG) BUN (test code = 05D) 13 mg/dL 7-18 CREATININE (test code 0.9 mg/dL 0.7-1.3 = 03E) GFR (test code = GFR) 95 mL/min/1.73m\\S\\2 >=90 GFR 110 mL/min/1.73m\\S\\2 >=90 (test code = GFRAA) EGFR (test code = eGFR BY CKD-EPI EGFR) CALCULATION IS NOT RECOMMENDED FOR PATIENTS UNDER 18 YEARS OF AGE. BUN/CREA (test code = 15 12-20 BCR) CALCIUM (test code = 8.3 mg/dL 8.3-9.5 09D) CBC (INCLUDES AUTOMATED DIFFERENTIAL)2019-11-29 07:05:00 Test Item Value Reference Range Interpretation Comments WBC (test code = WBC) 7.1 10\\S\\3/uL 4.5-11.0 RBC (test code = RBC) 4.23 10\\S\\6/uL 4.20-5.60 HGB (test code = HBG) 11.6 g/dL 14.0-18.0 L HCT (test code = HCT) 36.5 % 35.0-46.0 MCV (test code = MCV) 86.3 fL 80.0-94.0 MCH (test code = MCH) 27.4 pg 27.0-31.0 MCHC (test code = MCHC) 31.8 g/dL 32.0-36.0 L RDW (test code = RDW) 14.6 % 11.5-14.5 H PLT (test code = PLT) 314 10\\S\\3/uL 130-400 MPV (test code = MPV) 10.4 fL 9.4-12.4 NEUTROP # (test code = NE#) 5.0 10\\S\\3/uL 2.0-8.0 LYMPH # (test code = LY#) 1.2 10\\S\\3/uL 1.2-4.0 MONOCYTE # (test code = MO#) 0.6 10\\S\\3/uL 0.0-1.1 EOSINOPH # (test code = EO#) 0.2 10\\S\\3/uL 0.0-0.7 BASOPHIL # (test code = BA#) 0.1 10\\S\\3/uL 0.0-0.3 IG # (test code = IG#) 0.14 10\\S\\3/uL 0.00-0.06 H NRBC # (test code = NRBC#) 0.00 10\\S\\3/uL 0.00-0.01 NEUTROPH % (test code = NE%) 69.9 % 35.0-73.0 LYMPH % (test code = LY%) 16.2 % 20.0-55.0 L MONO % (test code = MO%) 8.5 % 2.5-10.0 EOSINOPH % (test code = EO%) 2.4 % 0.0-5.0 BASOPHIL % (test code = BA%) 1.0 % 0.0-2.0 IG % (test code = IG%) 2.0 % 0.0-0.8 H NRBC% (test code = NRBC%) 0.0 % 0.0-0.2 MANDIFF (test code = MDIFF) NO NO RBC MORPH (test code = RBCMOR) NORMAL CBC WITH MANUAL [id number] 05:33:00 Test Item Value Reference Range Interpretation Comments WBC (test code = WBC) 7.3 10\\S\\3/uL 4.5-11.0 RBC (test code = RBC) 4.14 10\\S\\6/uL 4.20-5.60 L HGB (test code = HBG) 11.3 g/dL 14.0-18.0 L HCT (test code = HCT) 35.4 % 35.0-46.0 MCV (test code = MCV) 85.5 fL 80.0-94.0 MCH (test code = MCH) 27.3 pg 27.0-31.0 MCHC (test code = MCHC) 31.9 g/dL 32.0-36.0 L RDW (test code = RDW) 14.7 % 11.5-14.5 H PLT (test code = PLT) 309 10\\S\\3/uL 130-400 MPV (test code = MPV) 10.4 fL 9.4-12.4 NEUTROP # (test code = 4.7 10\\S\\3/uL 2.0-8.0 NE#) LYMPH # (test code = 1.4 10\\S\\3/uL 1.2-4.0 LY#) MONOCYTE # (test code = 0.7 10\\S\\3/uL 0.0-1.1 MO#) EOSINOPH # (test code = 0.2 10\\S\\3/uL 0.0-0.7 EO#) BASOPHIL # (test code = 0.0 10\\S\\3/uL 0.0-0.3 BA#) IG # (test code = IG#) 0.37 10\\S\\3/uL 0.00-0.06 H NRBC # (test code = 0.00 10\\S\\3/uL 0.00-0.01 NRBC#) NEUTROPH % (test code = 63.4 % 35.0-73.0 NE%) LYMPH % (test code = 19.3 % 20.0-55.0 L LY%) MONO % (test code = 9.3 % 2.5-10.0 MO%) EOSINOPH % (test code = 2.5 % 0.0-5.0 EO%) BASOPHIL % (test code = 0.4 % 0.0-2.0 BA%) IG % (test code = IG%) 5.1 % 0.0-0.8 H NRBC% (test code = 0.0 % 0.0-0.2 NRBC%) MAN DIFF (test code = MANUAL HMDIFF) DIFFERENTIAL SEG (test code = SEG) 61 % 42-75 BAND (test code = BAND) 3 % 0-8 LYMPH (test code = 19 % 20-51 L LYMPH) MONO (test code = MONO) 9 % 3-11 EOS (test code = EOS) 6 % <=10 BASO (test code = BASO) 1 % 0-2 META (test code = META) 1 % <=1 RBC MORPH (test code = ABNORMAL NORMAL A RBCMORN) PLT EST (test code = ADEQUATE ADEQUATE PLTEST) PLT MORPH (test code = NORMAL (1.5-3 um) NORMAL PLTMOR) ANISO (test code = 1+ NONE A ANISO) HYPOCHROM (test code = 1+ NONE A HYPOC) BASIC METABOLIC [id number] 05:09:00 Test Item Value Reference Range Interpretation Comments GLUCOSE (test code = 92 mg/dL 75-100 06D) SODIUM (test code = 133 mmol/L 136-145 L 01A) POTASSIUM (test code = 4.3 mmol/L 3.6-5.1 01B) CHLORIDE (test code = 97 mmol/L 98-107 L 04A) CO2 (test code = 02A) 31 mmol/L 22-32 ANION GAP (test code = 9.3 mmol/L ANG) BUN (test code = 05D) 11 mg/dL 7-18 CREATININE (test code 0.9 mg/dL 0.7-1.3 = 03E) GFR (test code = GFR) 94 mL/min/1.73m\\S\\2 >=90 GFR 109 mL/min/1.73m\\S\\2 >=90 (test code = GFRAA) EGFR (test code = eGFR BY CKD-EPI EGFR) CALCULATION IS NOT RECOMMENDED FOR PATIENTS UNDER 18 YEARS OF AGE. BUN/CREA (test code = 13 12-20 BCR) CALCIUM (test code = 8.4 mg/dL 8.3-9.5 09D) BLOOD [id number] 18:11:00 Test Item Value Reference Range Interpretation Comments Culture Observations (test NO GROWTH AFTER 5 code = COB1) DAYS BLOOD [id number] 18:11:00 Test Item Value Reference Range Interpretation Comments Culture Observations (test NO GROWTH AFTER 5 code = COB1) DAYS URINE [id number] 10:59:00 Test Item Value Reference Range Interpretation Comments Culture Observations (test NO GROWTH (<1,000 code = COB1) CFU/ML) BASIC METABOLIC [id number] 07:09:00 Test Item Value Reference Range Interpretation Comments GLUCOSE (test code = 106 mg/dL 75-100 H 06D) SODIUM (test code = 133 mmol/L 136-145 L 01A) POTASSIUM (test code = 3.9 mmol/L 3.6-5.1 01B) CHLORIDE (test code = 98 mmol/L 98-107 04A) CO2 (test code = 02A) 31 mmol/L 22-32 ANION GAP (test code = 7.9 mmol/L ANG) BUN (test code = 05D) 9 mg/dL 7-18 CREATININE (test code 0.8 mg/dL 0.7-1.3 = 03E) GFR (test code = GFR) 96 mL/min/1.73m\\S\\2 >=90 GFR 111 mL/min/1.73m\\S\\2 >=90 (test code = GFRAA) EGFR (test code = eGFR BY CKD-EPI EGFR) CALCULATION IS NOT RECOMMENDED FOR PATIENTS UNDER 18 YEARS OF AGE. BUN/CREA (test code = 11 12-20 L BCR) CALCIUM (test code = 8.3 mg/dL 8.3-9.5 09D) CBC (INCLUDES AUTOMATED DIFFERENTIAL)2019-11-27 06:55:00 Test Item Value Reference Range Interpretation Comments WBC (test code = WBC) 9.2 10\\S\\3/uL 4.5-11.0 RBC (test code = RBC) 4.36 10\\S\\6/uL 4.20-5.60 HGB (test code = HBG) 11.7 g/dL 14.0-18.0 L HCT (test code = HCT) 37.4 % 35.0-46.0 MCV (test code = MCV) 85.8 fL 80.0-94.0 MCH (test code = MCH) 26.8 pg 27.0-31.0 L MCHC (test code = MCHC) 31.3 g/dL 32.0-36.0 L RDW (test code = RDW) 14.6 % 11.5-14.5 H PLT (test code = PLT) 288 10\\S\\3/uL 130-400 MPV (test code = MPV) 9.8 fL 9.4-12.4 NEUTROP # (test code = NE#) 6.3 10\\S\\3/uL 2.0-8.0 LYMPH # (test code = LY#) 1.4 10\\S\\3/uL 1.2-4.0 MONOCYTE # (test code = MO#) 1.0 10\\S\\3/uL 0.0-1.1 EOSINOPH # (test code = EO#) 0.2 10\\S\\3/uL 0.0-0.7 BASOPHIL # (test code = BA#) 0.1 10\\S\\3/uL 0.0-0.3 IG # (test code = IG#) 0.28 10\\S\\3/uL 0.00-0.06 H NRBC # (test code = NRBC#) 0.00 10\\S\\3/uL 0.00-0.01 NEUTROPH % (test code = NE%) 68.1 % 35.0-73.0 LYMPH % (test code = LY%) 15.7 % 20.0-55.0 L MONO % (test code = MO%) 10.8 % 2.5-10.0 H EOSINOPH % (test code = EO%) 1.6 % 0.0-5.0 BASOPHIL % (test code = BA%) 0.7 % 0.0-2.0 IG % (test code = IG%) 3.1 % 0.0-0.8 H NRBC% (test code = NRBC%) 0.0 % 0.0-0.2 MANDIFF (test code = MDIFF) NO NO RBC MORPH (test code = RBCMOR) NORMAL BASIC METABOLIC [id number] 04:37:00 Test Item Value Reference Range Interpretation Comments GLUCOSE (test code = 154 mg/dL 75-100 H 06D) SODIUM (test code = 129 mmol/L 136-145 L 01A) POTASSIUM (test code = 3.4 mmol/L 3.6-5.1 L 01B) CHLORIDE (test code = 98 mmol/L 98-107 04A) CO2 (test code = 02A) 26 mmol/L 22-32 ANION GAP (test code = 8.4 mmol/L ANG) BUN (test code = 05D) 13 mg/dL 7-18 CREATININE (test code 1.0 mg/dL 0.7-1.3 = 03E) GFR (test code = GFR) 83 mL/min/1.73m\\S\\2 >=90 L GFR 97 mL/min/1.73m\\S\\2 >=90 (test code = GFRAA) EGFR (test code = eGFR BY CKD-EPI EGFR) CALCULATION IS NOT RECOMMENDED FOR PATIENTS UNDER 18 YEARS OF AGE. BUN/CREA (test code = 13 12-20 BCR) CALCIUM (test code = 8.1 mg/dL 8.3-9.5 L 09D) CBC (INCLUDES AUTOMATED DIFFERENTIAL)2019-11-26 04:20:00 Test Item Value Reference Range Interpretation Comments WBC (test code = WBC) 9.3 10\\S\\3/uL 4.5-11.0 RBC (test code = RBC) 4.36 10\\S\\6/uL 4.20-5.60 HGB (test code = HBG) 11.9 g/dL 14.0-18.0 L HCT (test code = HCT) 36.8 % 35.0-46.0 MCV (test code = MCV) 84.4 fL 80.0-94.0 MCH (test code = MCH) 27.3 pg 27.0-31.0 MCHC (test code = MCHC) 32.3 g/dL 32.0-36.0 RDW (test code = RDW) 14.6 % 11.5-14.5 H PLT (test code = PLT) 204 10\\S\\3/uL 130-400 MPV (test code = MPV) 10.5 fL 9.4-12.4 NEUTROP # (test code = NE#) 7.0 10\\S\\3/uL 2.0-8.0 LYMPH # (test code = LY#) 1.2 10\\S\\3/uL 1.2-4.0 MONOCYTE # (test code = MO#) 0.9 10\\S\\3/uL 0.0-1.1 EOSINOPH # (test code = EO#) 0.1 10\\S\\3/uL 0.0-0.7 BASOPHIL # (test code = BA#) 0.0 10\\S\\3/uL 0.0-0.3 IG # (test code = IG#) 0.12 10\\S\\3/uL 0.00-0.06 H NRBC # (test code = NRBC#) 0.00 10\\S\\3/uL 0.00-0.01 NEUTROPH % (test code = NE%) 75.1 % 35.0-73.0 H LYMPH % (test code = LY%) 12.9 % 20.0-55.0 L MONO % (test code = MO%) 9.3 % 2.5-10.0 EOSINOPH % (test code = EO%) 1.2 % 0.0-5.0 BASOPHIL % (test code = BA%) 0.2 % 0.0-2.0 IG % (test code = IG%) 1.3 % 0.0-0.8 H NRBC% (test code = NRBC%) 0.0 % 0.0-0.2 MANDIFF (test code = MDIFF) NO NO RBC MORPH (test code = RBCMOR) NORMAL BASIC METABOLIC [id number] 07:16:00 Test Item Value Reference Range Interpretation Comments GLUCOSE (test code = 122 mg/dL 75-100 H 06D) SODIUM (test code = 131 mmol/L 136-145 L 01A) POTASSIUM (test code = 3.3 mmol/L 3.6-5.1 L 01B) CHLORIDE (test code = 98 mmol/L 98-107 04A) CO2 (test code = 02A) 28 mmol/L 22-32 ANION GAP (test code = 8.3 mmol/L ANG) BUN (test code = 05D) 17 mg/dL 7-18 CREATININE (test code 1.1 mg/dL 0.7-1.3 = 03E) GFR (test code = GFR) 73 mL/min/1.73m\\S\\2 >=90 L GFR 85 mL/min/1.73m\\S\\2 >=90 L (test code = GFRAA) EGFR (test code = eGFR BY CKD-EPI EGFR) CALCULATION IS NOT RECOMMENDED FOR PATIENTS UNDER 18 YEARS OF AGE. BUN/CREA (test code = 16 12-20 BCR) CALCIUM (test code = 8.2 mg/dL 8.3-9.5 L 09D) CBC (INCLUDES AUTOMATED DIFFERENTIAL)2019-11-25 07:03:00 Test Item Value Reference Range Interpretation Comments WBC (test code = WBC) 8.6 10\\S\\3/uL 4.5-11.0 RBC (test code = RBC) 4.53 10\\S\\6/uL 4.20-5.60 HGB (test code = HBG) 12.3 g/dL 14.0-18.0 L HCT (test code = HCT) 38.8 % 35.0-46.0 MCV (test code = MCV) 85.7 fL 80.0-94.0 MCH (test code = MCH) 27.2 pg 27.0-31.0 MCHC (test code = MCHC) 31.7 g/dL 32.0-36.0 L RDW (test code = RDW) 14.7 % 11.5-14.5 H PLT (test code = PLT) 179 10\\S\\3/uL 130-400 MPV (test code = MPV) 10.5 fL 9.4-12.4 NEUTROP # (test code = NE#) 6.3 10\\S\\3/uL 2.0-8.0 LYMPH # (test code = LY#) 1.1 10\\S\\3/uL 1.2-4.0 L MONOCYTE # (test code = MO#) 1.0 10\\S\\3/uL 0.0-1.1 EOSINOPH # (test code = EO#) 0.1 10\\S\\3/uL 0.0-0.7 BASOPHIL # (test code = BA#) 0.0 10\\S\\3/uL 0.0-0.3 IG # (test code = IG#) 0.05 10\\S\\3/uL 0.00-0.06 NRBC # (test code = NRBC#) 0.00 10\\S\\3/uL 0.00-0.01 NEUTROPH % (test code = NE%) 72.9 % 35.0-73.0 LYMPH % (test code = LY%) 13.3 % 20.0-55.0 L MONO % (test code = MO%) 12.0 % 2.5-10.0 H EOSINOPH % (test code = EO%) 0.9 % 0.0-5.0 BASOPHIL % (test code = BA%) 0.3 % 0.0-2.0 IG % (test code = IG%) 0.6 % 0.0-0.8 NRBC% (test code = NRBC%) 0.0 % 0.0-0.2 MANDIFF (test code = MDIFF) NO NO RBC MORPH (test code = RBCMOR) NORMAL DIRECT STREP GROUP [id number] 14:56:00 Test Item Value Reference Range Interpretation Comments Culture Observations NO BETA HEMOLYTIC (test code = COB1) STREPTOCOCCUS ISOLATED Direct Exam (test code NEGATIVE FOR STREP A = DE3) ANTIGEN BASIC METABOLIC [id number] 07:36:00 Test Item Value Reference Range Interpretation Comments GLUCOSE (test code = 128 mg/dL 75-100 H 06D) SODIUM (test code = 131 mmol/L 136-145 L 01A) POTASSIUM (test code = 3.5 mmol/L 3.6-5.1 L 01B) CHLORIDE (test code = 99 mmol/L 98-107 04A) CO2 (test code = 02A) 27 mmol/L 22-32 ANION GAP (test code = 8.5 mmol/L ANG) BUN (test code = 05D) 17 mg/dL 7-18 CREATININE (test code 1.0 mg/dL 0.7-1.3 = 03E) GFR (test code = GFR) 80 mL/min/1.73m\\S\\2 >=90 L GFR 93 mL/min/1.73m\\S\\2 >=90 (test code = GFRAA) EGFR (test code = eGFR BY CKD-EPI EGFR) CALCULATION IS NOT RECOMMENDED FOR PATIENTS UNDER 18 YEARS OF AGE. BUN/CREA (test code = 17 12-20 BCR) CALCIUM (test code = 8.0 mg/dL 8.3-9.5 L 09D) CBC (INCLUDES AUTOMATED DIFFERENTIAL)2019-11-24 07:35:00 Test Item Value Reference Range Interpretation Comments WBC (test code = WBC) 11.0 10\\S\\3/uL 4.5-11.0 RBC (test code = RBC) 4.80 10\\S\\6/uL 4.20-5.60 HGB (test code = HBG) 12.8 g/dL 14.0-18.0 L HCT (test code = HCT) 41.2 % 35.0-46.0 MCV (test code = MCV) 85.8 fL 80.0-94.0 MCH (test code = MCH) 26.7 pg 27.0-31.0 L MCHC (test code = MCHC) 31.1 g/dL 32.0-36.0 L RDW (test code = RDW) 14.6 % 11.5-14.5 H PLT (test code = PLT) 182 10\\S\\3/uL 130-400 MPV (test code = MPV) 10.7 fL 9.4-12.4 NEUTROP # (test code = NE#) 8.3 10\\S\\3/uL 2.0-8.0 H LYMPH # (test code = LY#) 1.4 10\\S\\3/uL 1.2-4.0 MONOCYTE # (test code = MO#) 1.2 10\\S\\3/uL 0.0-1.1 H EOSINOPH # (test code = EO#) 0.1 10\\S\\3/uL 0.0-0.7 BASOPHIL # (test code = BA#) 0.0 10\\S\\3/uL 0.0-0.3 IG # (test code = IG#) 0.05 10\\S\\3/uL 0.00-0.06 NRBC # (test code = NRBC#) 0.00 10\\S\\3/uL 0.00-0.01 NEUTROPH % (test code = NE%) 75.3 % 35.0-73.0 H LYMPH % (test code = LY%) 12.9 % 20.0-55.0 L MONO % (test code = MO%) 10.5 % 2.5-10.0 H EOSINOPH % (test code = EO%) 0.5 % 0.0-5.0 BASOPHIL % (test code = BA%) 0.3 % 0.0-2.0 IG % (test code = IG%) 0.5 % 0.0-0.8 NRBC% (test code = NRBC%) 0.0 % 0.0-0.2 MANDIFF (test code = MDIFF) NO NO RBC MORPH (test code = RBCMOR) NORMAL THYROID PANEL/SCREEN (TSH)2019-11-23 07:01:00 Test Item Value Reference Range Interpretation Comments TSH (test code = A57) 2.550 uIU/mL 0.358-3.740 COMPREHENSIVE METABOLIC [id number] 06:59:00 Test Item Value Reference Range Interpretation Comments GLUCOSE (test code = 105 mg/dL 75-100 H 06D) SODIUM (test code = 133 mmol/L 136-145 L 01A) POTASSIUM (test code = 3.6 mmol/L 3.6-5.1 01B) CHLORIDE (test code = 100 mmol/L 98-107 04A) CO2 (test code = 02A) 26 mmol/L 22-32 ANION GAP (test code = 10.6 mmol/L ANG) BUN (test code = 05D) 16 mg/dL 7-18 CREATININE (test code 1.2 mg/dL 0.7-1.3 = 03E) GFR (test code = GFR) 66 mL/min/1.73m\\S\\2 >=90 L GFR 77 mL/min/1.73m\\S\\2 >=90 L (test code = GFRAA) EGFR (test code = eGFR BY CKD-EPI EGFR) CALCULATION IS NOT RECOMMENDED FOR PATIENTS UNDER 18 YEARS OF AGE. BUN/CREA (test code = 13 12-20 BCR) CALCIUM (test code = 8.2 mg/dL 8.3-9.5 L 09D) BILI TOTAL (test code 1.0 mg/dL 0.2-1.0 = 11A) PROTEIN (test code = 7.8 g/dL 6.4-8.2 07D) ALBUMIN (test code = 3.2 g/dL 3.5-4.8 L 08D) GLOBULIN (test code = 4.6 g/dL 1.5-3.8 H GLB) ALB/GLOB (test code = 0.7 1.0-2.6 L AGRR) ALK PHOS (test code = 111 IU/L 42-121 35A) AST (test code = 30A) 23 IU/L <=42 ALT (test code = 31A) 28 IU/L <=78 CBC (INCLUDES AUTOMATED DIFFERENTIAL)2019-11-23 06:26:00 Test Item Value Reference Range Interpretation Comments WBC (test code = WBC) 11.9 10\\S\\3/uL 4.5-11.0 H RBC (test code = RBC) 5.59 10\\S\\6/uL 4.20-5.60 HGB (test code = HBG) 15.1 g/dL 14.0-18.0 HCT (test code = HCT) 48.1 % 35.0-46.0 H MCV (test code = MCV) 86.0 fL 80.0-94.0 MCH (test code = MCH) 27.0 pg 27.0-31.0 MCHC (test code = MCHC) 31.4 g/dL 32.0-36.0 L RDW (test code = RDW) 14.8 % 11.5-14.5 H PLT (test code = PLT) 199 10\\S\\3/uL 130-400 MPV (test code = MPV) 10.4 fL 9.4-12.4 NEUTROP # (test code = NE#) 9.8 10\\S\\3/uL 2.0-8.0 H LYMPH # (test code = LY#) 1.3 10\\S\\3/uL 1.2-4.0 MONOCYTE # (test code = MO#) 0.7 10\\S\\3/uL 0.0-1.1 EOSINOPH # (test code = EO#) 0.0 10\\S\\3/uL 0.0-0.7 BASOPHIL # (test code = BA#) 0.0 10\\S\\3/uL 0.0-0.3 IG # (test code = IG#) 0.04 10\\S\\3/uL 0.00-0.06 NRBC # (test code = NRBC#) 0.00 10\\S\\3/uL 0.00-0.01 NEUTROPH % (test code = NE%) 82.4 % 35.0-73.0 H LYMPH % (test code = LY%) 11.1 % 20.0-55.0 L MONO % (test code = MO%) 5.9 % 2.5-10.0 EOSINOPH % (test code = EO%) 0.2 % 0.0-5.0 BASOPHIL % (test code = BA%) 0.1 % 0.0-2.0 IG % (test code = IG%) 0.3 % 0.0-0.8 NRBC% (test code = NRBC%) 0.0 % 0.0-0.2 MANDIFF (test code = MDIFF) NO NO DRUGS OF [id number] 20:48:00 Test Item Value Reference Range Interpretation Comments DRUG SCRN (test code = URINE DRUG HDOA) SCREEN This is an unconfirmed screening result and should not be used for non-medical purposes CANNABINOD (test code Negative NEGATIVE = 88C) AMPHETAMINE (test code Negative NEGATIVE = 84A) BENZODIAZP (test code Negative NEGATIVE = 86A) BARBITURAT (test code Negative NEGATIVE = 85A) OPIATES (test code = POSITIVE NEGATIVE A 92B) COCAINE (test code = Negative NEGATIVE 87A) PHENCYCLID (test code Negative NEGATIVE = 66A) METHADONE (test code = Negative NEGATIVE 64A) DOAH (test code = DOAH.) URINE DRUG SCREEN Cut-off values are as follows: Cannabinoids 50 ng/mL Cocaine 300 ng/mL Amphetamines 1000 ng/mL Phencyclidine 25 ng/mL Benzodiazepines 200 ng.mL Methadone 300 ng/mL Barbiturates 200 ng/mL Opiates 2000 ng/mL [id number] 20:42:00 Test Item Value Reference Range Interpretation Comments COLOR (test code = COLU) YELLOW YELLOW CLARITY (test code = CLA) CLEAR CLEAR GLUCOSE UR (test code = UA GLUCOSE) NEGATIVE NEGATIVE BILI UR (test code = BILE) NEGATIVE NEGATIVE KETONES UR (test code = TAYLOR) NEGATIVE NEGATIVE SP GRAVITY (test code = SPGR) 1.071 1.005-1.030 H PH UR (test code = PH) 6.0 4.5-8.0 PROTEIN UR (test code = PU) NEGATIVE NEGATIVE UROBIL UR (test code = UROQ) 0.2 EU/dL 0.2-1.0 NITRITE UR (test code = NITRITE) NEGATIVE NEGATIVE BLOOD UR (test code = UA BLOOD) NEGATIVE NEGATIVE LEUK ES UR (test code = LEUK) NEGATIVE NEGATIVE AUAM (test code = AUAM) NO NO LACTIC [id number] 20:06:00 Test Item Value Reference Range Interpretation Comments LACTIC ACD (test code = LA) 1.7 mmol/L 0.4-2.0 [id number] 20:02:00 Test Item Value Reference Range Interpretation Comments FERRITIN (test code = A19) 245.4 ng/mL 26.0-388.0 DIRECT INFLUENZA A AND B [id number] 17:41:00 Test Item Value Reference Range Interpretation Comments Direct Exam (test PRESUMPTIVE NEGATIVE FOR code = DE3) THE PRESENCE OF INFLUENZA ANTIGEN SARS-CoV (RAPID ANTIGEN)2019-11-22 17:32:00 Test Item Value Reference Range Interpretation Comments SARS-CoV (ANTIGEN) NEGATIVE NEGATIVE (test code = COVAG) COVID AG (test This test has been code = COVAGC) marketed under the FDA Emergency Use Authorization (EUA) to meet challenges of the COVID-19 pandemic. The validation standards normally enforced by the FDA and the [employer] ([employer]) are more stringent than those required for this test. Therefore, the result should be interpreted with caution and close attention to other clinical and epidemiological data [id number] 17:30:00 Test Item Value Reference Range Interpretation Comments D-DIMER DILUTED (test 2904 ng/mL D-DU 0-234 H code = DDD) D-DIMER COMMENT (test *Level to rule out code = DDCOM) DVT or PE: <235 ng/mL D-DU* PRO TIME AND [id number] 17:30:00 Test Item Value Reference Range Interpretation Comments PT (test code = 13.3 s 9.8-13.6 TT) INR (test code = 1.2 INR) INRH (test code = SUGGESTED THERAPEUTIC INRH) RANGE FOR INR: 2.5 - 3.5 For Patients with Prosthetic Valves or Patients with recurrent Thromboembolic Events 2.0 - 3.0 For Most Other Applications PTT (test code = 30.4 s 20.2-38.0 PTT) PTTH (test code = To monitor the PTTH) effectiveness of heparin, we offer the Anti-Xa (Heparin Assay). It can be used for either unfractionated or LMW Heparin. Order Code is ANTI-XA BRAIN NATRIURETIC [id number] 17:27:00 Test Item Value Reference Range Interpretation Comments proBNP (test code = PBNP) 4159 pg/mL 0-125 H LACTIC [id number] 17:23:00 Test Item Value Reference Range Interpretation Comments LACTIC ACD (test code = LA) 4.3 mmol/L 0.4-2.0 H C-REACTIVE PROTEIN [id number] 17:23:00 Test Item Value Reference Range Interpretation Comments CRP (test code = CRP) POSITIVE (>=6MG/L) NEGATIVE (<6MG/L) A COMPREHENSIVE METABOLIC [id number] 17:20:00 Test Item Value Reference Range Interpretation Comments GLUCOSE (test code = 119 mg/dL 75-100 H 06D) SODIUM (test code = 131 mmol/L 136-145 L 01A) POTASSIUM (test code = 3.7 mmol/L 3.6-5.1 01B) CHLORIDE (test code = 101 mmol/L 98-107 04A) CO2 (test code = 02A) 21 mmol/L 22-32 L ANION GAP (test code = 12.7 mmol/L ANG) BUN (test code = 05D) 18 mg/dL 7-18 CREATININE (test code 1.4 mg/dL 0.7-1.3 H = 03E) GFR (test code = GFR) 54 mL/min/1.73m\\S\\2 >=90 L GFR 63 mL/min/1.73m\\S\\2 >=90 L (test code = GFRAA) EGFR (test code = eGFR BY CKD-EPI EGFR) CALCULATION IS NOT RECOMMENDED FOR PATIENTS UNDER 18 YEARS OF AGE. BUN/CREA (test code = 13 12-20 BCR) CALCIUM (test code = 8.6 mg/dL 8.3-9.5 09D) BILI TOTAL (test code 0.7 mg/dL 0.2-1.0 = 11A) PROTEIN (test code = 8.0 g/dL 6.4-8.2 07D) ALBUMIN (test code = 3.6 g/dL 3.5-4.8 08D) GLOBULIN (test code = 4.4 g/dL 1.5-3.8 H GLB) ALB/GLOB (test code = 0.8 1.0-2.6 L AGRR) ALK PHOS (test code = 112 IU/L 42-121 35A) AST (test code = 30A) 24 IU/L <=42 ALT (test code = 31A) 33 IU/L <=78 LDH-LACTIC [id number] 17:20:00 Test Item Value Reference Range Interpretation Comments LDH (test code = 33A) 256 IU/L 100-190 H CARDIAC [id number] 17:20:00 Test Item Value Reference Range Interpretation Comments TROPONIN I (test code = A84) <0.015 ng/mL 0.000-0.045 [id number] 17:16:00 Test Item Value Reference Range Interpretation Comments MAGNESIUM (test code = 48A) 1.8 mg/dL 1.8-2.4 CBC (INCLUDES AUTOMATED DIFFERENTIAL)2019-11-22 17:10:00 Test Item Value Reference Range Interpretation Comments WBC (test code = WBC) 17.5 10\\S\\3/uL 4.5-11.0 H RBC (test code = RBC) 5.95 10\\S\\6/uL 4.20-5.60 H HGB (test code = HBG) 16.0 g/dL 14.0-18.0 HCT (test code = HCT) 49.9 % 35.0-46.0 H MCV (test code = MCV) 83.9 fL 80.0-94.0 MCH (test code = MCH) 26.9 pg 27.0-31.0 L MCHC (test code = MCHC) 32.1 g/dL 32.0-36.0 RDW (test code = RDW) 14.6 % 11.5-14.5 H PLT (test code = PLT) 234 10\\S\\3/uL 130-400 MPV (test code = MPV) 10.6 fL 9.4-12.4 NEUTROP # (test code = NE#) 15.1 10\\S\\3/uL 2.0-8.0 H LYMPH # (test code = LY#) 1.7 10\\S\\3/uL 1.2-4.0 MONOCYTE # (test code = MO#) 0.6 10\\S\\3/uL 0.0-1.1 EOSINOPH # (test code = EO#) 0.0 10\\S\\3/uL 0.0-0.7 BASOPHIL # (test code = BA#) 0.0 10\\S\\3/uL 0.0-0.3 IG # (test code = IG#) 0.12 10\\S\\3/uL 0.00-0.06 H NRBC # (test code = NRBC#) 0.00 10\\S\\3/uL 0.00-0.01 NEUTROPH % (test code = NE%) 86.1 % 35.0-73.0 H LYMPH % (test code = LY%) 9.5 % 20.0-55.0 L MONO % (test code = MO%) 3.5 % 2.5-10.0 EOSINOPH % (test code = EO%) 0.0 % 0.0-5.0 BASOPHIL % (test code = BA%) 0.2 % 0.0-2.0 IG % (test code = IG%) 0.7 % 0.0-0.8 NRBC% (test code = NRBC%) 0.0 % 0.0-0.2 MANDIFF (test code = MDIFF) NO NO RBC MORPH (test code = RBCMOR) NORMAL TROPONIN [id number] 15:11:00 Test Item Value Reference Range Interpretation Comments TROPONIN I (test code = A84) <0.015 ng/mL 0.000-0.045 AMYLASE AND [id number] 15:11:00 Test Item Value Reference Range Interpretation Comments AMYLASE (test code = 10A) 23 U/L 28-100 L LIPASE (test code = 60A) 58 IU/L 73-393 L COMPREHENSIVE METABOLIC [id number] 15:11:00 Test Item Value Reference Range Interpretation Comments GLUCOSE (test code = 92 mg/dL 75-100 06D) SODIUM (test code = 140 mmol/L 136-145 01A) POTASSIUM (test code = 4.2 mmol/L 3.6-5.1 01B) CHLORIDE (test code = 107 mmol/L 98-107 04A) CO2 (test code = 02A) 27 mmol/L 22-32 ANION GAP (test code = 10.2 mmol/L ANG) BUN (test code = 05D) 11 mg/dL 7-18 CREATININE (test code 0.8 mg/dL 0.7-1.3 = 03E) GFR (test code = GFR) 96 mL/min/1.73m\\S\\2 >=90 GFR 112 mL/min/1.73m\\S\\2 >=90 (test code = GFRAA) EGFR (test code = eGFR BY CKD-EPI EGFR) CALCULATION IS NOT RECOMMENDED FOR PATIENTS UNDER 18 YEARS OF AGE. BUN/CREA (test code = 13 12-20 BCR) CALCIUM (test code = 8.5 mg/dL 8.3-9.5 09D) BILI TOTAL (test code 0.5 mg/dL 0.2-1.0 = 11A) PROTEIN (test code = 7.0 g/dL 6.4-8.2 07D) ALBUMIN (test code = 3.4 g/dL 3.5-4.8 L 08D) GLOBULIN (test code = 3.6 g/dL 1.5-3.8 GLB) ALB/GLOB (test code = 0.9 1.0-2.6 L AGRR) ALK PHOS (test code = 116 IU/L 42-121 35A) AST (test code = 30A) 28 IU/L <=42 ALT (test code = 31A) 35 IU/L <=78 CBC (INCLUDES AUTOMATED DIFFERENTIAL)2019-11-03 14:58:00 Test Item Value Reference Range Interpretation Comments WBC (test code = WBC) 6.2 10\\S\\3/uL 4.5-11.0 RBC (test code = RBC) 5.12 10\\S\\6/uL 4.20-5.60 HGB (test code = HBG) 14.1 g/dL 14.0-18.0 HCT (test code = HCT) 42.2 % 35.0-46.0 MCV (test code = MCV) 82.4 fL 80.0-94.0 MCH (test code = MCH) 27.5 pg 27.0-31.0 MCHC (test code = MCHC) 33.4 g/dL 32.0-36.0 RDW (test code = RDW) 13.8 % 11.5-14.5 PLT (test code = PLT) 253 10\\S\\3/uL 130-400 MPV (test code = MPV) 10.1 fL 9.4-12.4 NEUTROP # (test code = NE#) 4.1 10\\S\\3/uL 2.0-8.0 LYMPH # (test code = LY#) 1.3 10\\S\\3/uL 1.2-4.0 MONOCYTE # (test code = MO#) 0.6 10\\S\\3/uL 0.0-1.1 EOSINOPH # (test code = EO#) 0.2 10\\S\\3/uL 0.0-0.7 BASOPHIL # (test code = BA#) 0.0 10\\S\\3/uL 0.0-0.3 IG # (test code = IG#) 0.01 10\\S\\3/uL 0.00-0.06 NRBC # (test code = NRBC#) 0.00 10\\S\\3/uL 0.00-0.01 NEUTROPH % (test code = NE%) 65.6 % 35.0-73.0 LYMPH % (test code = LY%) 21.0 % 20.0-55.0 MONO % (test code = MO%) 10.0 % 2.5-10.0 EOSINOPH % (test code = EO%) 2.6 % 0.0-5.0 BASOPHIL % (test code = BA%) 0.6 % 0.0-2.0 IG % (test code = IG%) 0.2 % 0.0-0.8 NRBC% (test code = NRBC%) 0.0 % 0.0-0.2 MANDIFF (test code = MDIFF) NO NO PRO TIME AND [id number] 14:58:00 Test Item Value Reference Range Interpretation Comments PT (test code = 14.1 s 9.8-13.6 H TT) INR (test code = 1.2 INR) INRH (test code = SUGGESTED THERAPEUTIC INRH) RANGE FOR INR: 2.5 - 3.5 For Patients with Prosthetic Valves or Patients with recurrent Thromboembolic Events 2.0 - 3.0 For Most Other Applications PTT (test code = 30.2 s 20.2-38.0 PTT) PTTH (test code = To monitor the PTTH) effectiveness of heparin, we offer the Anti-Xa (Heparin Assay). It can be used for either unfractionated or LMW Heparin. Order Code is ANTI-XA C-REACTIVE PROTEIN [id number] 18:04:00 Test Item Value Reference Range Interpretation Comments CRP (test code POSITIVE (>=6MG/L) NEGATIVE (<6MG/L) A Pr eviously reported = CRP) as: NEGATIVE (<6MG/L) On 10/30/2019 18:0 4 By km16 LDH-LACTIC [id number] 18:02:00 Test Item Value Reference Range Interpretation Comments LDH (test code = 33A) 260 IU/L 100-190 H [id number] 18:01:00 Test Item Value Reference Range Interpretation Comments D-DIMER (test code = 1715 ng/mL D-DU 0-234 H DDI) D-DIMER COMMENT (test *Level to rule out code = DDCOM) DVT or PE: <235 ng/mL D-DU* SARS-CoV (RAPID ANTIGEN)2019-10-30 17:56:00 Test Item Value Reference Range Interpretation Comments SARS-CoV (ANTIGEN) NEGATIVE NEGATIVE (test code = COVAG) COVID AG (test This test has been code = COVAGC) marketed under the FDA Emergency Use Authorization (EUA) to meet challenges of the COVID-19 pandemic. The validation standards normally enforced by the FDA and the [employer] ([employer]) are more stringent than those required for this test. Therefore, the result should be interpreted with caution and close attention to other clinical and epidemiological data BRAIN NATRIURETIC [id number] 17:56:00 Test Item Value Reference Range Interpretation Comments proBNP (test code = PBNP) 3805 pg/mL 0-125 H COMPREHENSIVE METABOLIC [id number] 17:56:00 Test Item Value Reference Range Interpretation Comments GLUCOSE (test code = 108 mg/dL 75-100 H 06D) SODIUM (test code = 136 mmol/L 136-145 01A) POTASSIUM (test code = 4.4 mmol/L 3.6-5.1 01B) CHLORIDE (test code = 105 mmol/L 98-107 04A) CO2 (test code = 02A) 28 mmol/L 22-32 ANION GAP (test code = 7.4 mmol/L ANG) BUN (test code = 05D) 15 mg/dL 7-18 CREATININE (test code 1.0 mg/dL 0.7-1.3 = 03E) GFR (test code = GFR) 79 mL/min/1.73m\\S\\2 >=90 L GFR 92 mL/min/1.73m\\S\\2 >=90 (test code = GFRAA) EGFR (test code = eGFR BY CKD-EPI EGFR) CALCULATION IS NOT RECOMMENDED FOR PATIENTS UNDER 18 YEARS OF AGE. BUN/CREA (test code = 15 12-20 BCR) CALCIUM (test code = 8.2 mg/dL 8.3-9.5 L 09D) BILI TOTAL (test code 0.4 mg/dL 0.2-1.0 = 11A) PROTEIN (test code = 7.1 g/dL 6.4-8.2 07D) ALBUMIN (test code = 3.2 g/dL 3.5-4.8 L 08D) GLOBULIN (test code = 3.9 g/dL 1.5-3.8 H GLB) ALB/GLOB (test code = 0.8 1.0-2.6 L AGRR) ALK PHOS (test code = 114 IU/L 42-121 35A) AST (test code = 30A) 23 IU/L <=42 ALT (test code = 31A) 34 IU/L <=78 TROPONIN [id number] 17:54:00 Test Item Value Reference Range Interpretation Comments TROPONIN I (test code = A84) <0.015 ng/mL 0.000-0.045 [id number] 17:54:00 Test Item Value Reference Range Interpretation Comments FERRITIN (test code = A19) 123.5 ng/mL 26.0-388.0 PRO TIME AND [id number] 17:49:00 Test Item Value Reference Range Interpretation Comments PT (test code = 14.5 s 9.8-13.6 H TT) INR (test code = 1.3 INR) INRH (test code = SUGGESTED THERAPEUTIC INRH) RANGE FOR INR: 2.5 - 3.5 For Patients with Prosthetic Valves or Patients with recurrent Thromboembolic Events 2.0 - 3.0 For Most Other Applications PTT (test code = 30.5 s 20.2-38.0 PTT) PTTH (test code = To monitor the PTTH) effectiveness of heparin, we offer the Anti-Xa (Heparin Assay). It can be used for either unfractionated or LMW Heparin. Order Code is ANTI-XA CBC (INCLUDES AUTOMATED DIFFERENTIAL)2019-10-30 17:39:00 Test Item Value Reference Range Interpretation Comments WBC (test code = WBC) 7.5 10\\S\\3/uL 4.5-11.0 RBC (test code = RBC) 4.76 10\\S\\6/uL 4.20-5.60 HGB (test code = HBG) 13.1 g/dL 14.0-18.0 L HCT (test code = HCT) 40.2 % 35.0-46.0 MCV (test code = MCV) 84.5 fL 80.0-94.0 MCH (test code = MCH) 27.5 pg 27.0-31.0 MCHC (test code = MCHC) 32.6 g/dL 32.0-36.0 RDW (test code = RDW) 13.8 % 11.5-14.5 PLT (test code = PLT) 237 10\\S\\3/uL 130-400 MPV (test code = MPV) 10.3 fL 9.4-12.4 NEUTROP # (test code = NE#) 5.2 10\\S\\3/uL 2.0-8.0 LYMPH # (test code = LY#) 1.2 10\\S\\3/uL 1.2-4.0 MONOCYTE # (test code = MO#) 0.9 10\\S\\3/uL 0.0-1.1 EOSINOPH # (test code = EO#) 0.3 10\\S\\3/uL 0.0-0.7 BASOPHIL # (test code = BA#) 0.0 10\\S\\3/uL 0.0-0.3 IG # (test code = IG#) 0.03 10\\S\\3/uL 0.00-0.06 NRBC # (test code = NRBC#) 0.00 10\\S\\3/uL 0.00-0.01 NEUTROPH % (test code = NE%) 68.8 % 35.0-73.0 LYMPH % (test code = LY%) 15.5 % 20.0-55.0 L MONO % (test code = MO%) 11.3 % 2.5-10.0 H EOSINOPH % (test code = EO%) 3.5 % 0.0-5.0 BASOPHIL % (test code = BA%) 0.5 % 0.0-2.0 IG % (test code = IG%) 0.4 % 0.0-0.8 NRBC% (test code = NRBC%) 0.0 % 0.0-0.2 MANDIFF (test code = MDIFF) NO NO RBC MORPH (test code = RBCMOR) NORMAL COMPREHENSIVE METABOLIC [id number] 14:25:00 Test Item Value Reference Range Interpretation Comments GLUCOSE (test code = 83 mg/dL 75-100 06D) SODIUM (test code = 137 mmol/L 136-145 01A) POTASSIUM (test code = 4.8 mmol/L 3.6-5.1 01B) CHLORIDE (test code = 105 mmol/L 98-107 04A) CO2 (test code = 02A) 30 mmol/L 22-32 ANION GAP (test code = 6.8 mmol/L ANG) BUN (test code = 05D) 10 mg/dL 7-18 CREATININE (test code 0.9 mg/dL 0.7-1.3 = 03E) GFR (test code = GFR) 90 mL/min/1.73m\\S\\2 >=90 GFR 104 mL/min/1.73m\\S\\2 >=90 (test code = GFRAA) EGFR (test code = eGFR BY CKD-EPI EGFR) CALCULATION IS NOT RECOMMENDED FOR PATIENTS UNDER 18 YEARS OF AGE. BUN/CREA (test code = 11 12-20 L BCR) CALCIUM (test code = 8.5 mg/dL 8.3-9.5 09D) BILI TOTAL (test code 0.3 mg/dL 0.2-1.0 = 11A) PROTEIN (test code = 7.0 g/dL 6.4-8.2 07D) ALBUMIN (test code = 3.3 g/dL 3.5-4.8 L 08D) GLOBULIN (test code = 3.7 g/dL 1.5-3.8 GLB) ALB/GLOB (test code = 0.9 1.0-2.6 L AGRR) ALK PHOS (test code = 126 IU/L 42-121 H 35A) AST (test code = 30A) 18 IU/L <=42 ALT (test code = 31A) 27 IU/L <=78 BRAIN NATRIURETIC [id number] 14:23:00 Test Item Value Reference Range Interpretation Comments proBNP (test code = PBNP) 440 pg/mL 0-125 H TROPONIN [id number] 14:18:00 Test Item Value Reference Range Interpretation Comments TROPONIN I (test code = A84) <0.015 ng/mL 0.000-0.045 AMYLASE AND [id number] 14:15:00 Test Item Value Reference Range Interpretation Comments AMYLASE (test code = 10A) 28 U/L 28-100 LIPASE (test code = 60A) 48 IU/L 73-393 L PRO TIME AND [id number] 14:10:00 Test Item Value Reference Range Interpretation Comments PT (test code = 12.2 s 9.8-13.6 TT) INR (test code = 1.1 INR) INRH (test code = SUGGESTED THERAPEUTIC INRH) RANGE FOR INR: 2.5 - 3.5 For Patients with Prosthetic Valves or Patients with recurrent Thromboembolic Events 2.0 - 3.0 For Most Other Applications PTT (test code = 29.7 s 20.2-38.0 PTT) PTTH (test code = To monitor the PTTH) effectiveness of heparin, we offer the Anti-Xa (Heparin Assay). It can be used for either unfractionated or LMW Heparin. Order Code is ANTI-XA [id number] 14:10:00 Test Item Value Reference Range Interpretation Comments MAGNESIUM (test code = 48A) 2.3 mg/dL 1.8-2.4 CBC (INCLUDES AUTOMATED DIFFERENTIAL)2019-10-13 13:57:00 Test Item Value Reference Range Interpretation Comments WBC (test code = WBC) 5.6 10\\S\\3/uL 4.5-11.0 RBC (test code = RBC) 4.90 10\\S\\6/uL 4.20-5.60 HGB (test code = HBG) 13.7 g/dL 14.0-18.0 L HCT (test code = HCT) 42.3 % 35.0-46.0 MCV (test code = MCV) 86.3 fL 80.0-94.0 MCH (test code = MCH) 28.0 pg 27.0-31.0 MCHC (test code = MCHC) 32.4 g/dL 32.0-36.0 RDW (test code = RDW) 14.0 % 11.5-14.5 PLT (test code = PLT) 215 10\\S\\3/uL 130-400 MPV (test code = MPV) 10.3 fL 9.4-12.4 NEUTROP # (test code = NE#) 3.4 10\\S\\3/uL 2.0-8.0 LYMPH # (test code = LY#) 1.3 10\\S\\3/uL 1.2-4.0 MONOCYTE # (test code = MO#) 0.6 10\\S\\3/uL 0.0-1.1 EOSINOPH # (test code = EO#) 0.3 10\\S\\3/uL 0.0-0.7 BASOPHIL # (test code = BA#) 0.0 10\\S\\3/uL 0.0-0.3 IG # (test code = IG#) 0.02 10\\S\\3/uL 0.00-0.06 NRBC # (test code = NRBC#) 0.00 10\\S\\3/uL 0.00-0.01 NEUTROPH % (test code = NE%) 60.3 % 35.0-73.0 LYMPH % (test code = LY%) 23.2 % 20.0-55.0 MONO % (test code = MO%) 10.4 % 2.5-10.0 H EOSINOPH % (test code = EO%) 5.0 % 0.0-5.0 BASOPHIL % (test code = BA%) 0.7 % 0.0-2.0 IG % (test code = IG%) 0.4 % 0.0-0.8 NRBC% (test code = NRBC%) 0.0 % 0.0-0.2 MANDIFF (test code = MDIFF) NO NO RBC MORPH (test code = RBCMOR) NORMAL CBC (INCLUDES AUTOMATED DIFFERENTIAL)2019-10-11 06:12:00 Test Item Value Reference Range Interpretation Comments WBC (test code = WBC) 5.4 10\\S\\3/uL 4.5-11.0 RBC (test code = RBC) 4.74 10\\S\\6/uL 4.20-5.60 HGB (test code = HBG) 13.2 g/dL 14.0-18.0 L HCT (test code = HCT) 41.5 % 35.0-46.0 MCV (test code = MCV) 87.6 fL 80.0-94.0 MCH (test code = MCH) 27.8 pg 27.0-31.0 MCHC (test code = MCHC) 31.8 g/dL 32.0-36.0 L RDW (test code = RDW) 14.2 % 11.5-14.5 PLT (test code = PLT) 205 10\\S\\3/uL 130-400 MPV (test code = MPV) 10.7 fL 9.4-12.4 NEUTROP # (test code = NE#) 3.3 10\\S\\3/uL 2.0-8.0 LYMPH # (test code = LY#) 1.2 10\\S\\3/uL 1.2-4.0 MONOCYTE # (test code = MO#) 0.5 10\\S\\3/uL 0.0-1.1 EOSINOPH # (test code = EO#) 0.3 10\\S\\3/uL 0.0-0.7 BASOPHIL # (test code = BA#) 0.0 10\\S\\3/uL 0.0-0.3 IG # (test code = IG#) 0.03 10\\S\\3/uL 0.00-0.06 NRBC # (test code = NRBC#) 0.00 10\\S\\3/uL 0.00-0.01 NEUTROPH % (test code = NE%) 60.3 % 35.0-73.0 LYMPH % (test code = LY%) 22.9 % 20.0-55.0 MONO % (test code = MO%) 10.0 % 2.5-10.0 EOSINOPH % (test code = EO%) 5.5 % 0.0-5.0 H BASOPHIL % (test code = BA%) 0.7 % 0.0-2.0 IG % (test code = IG%) 0.6 % 0.0-0.8 NRBC% (test code = NRBC%) 0.0 % 0.0-0.2 MANDIFF (test code = MDIFF) NO NO RBC MORPH (test code = RBCMOR) NORMAL BASIC METABOLIC [id number] 05:56:00 Test Item Value Reference Range Interpretation Comments GLUCOSE (test code = 90 mg/dL 75-100 06D) SODIUM (test code = 136 mmol/L 136-145 01A) POTASSIUM (test code = 4.5 mmol/L 3.6-5.1 01B) CHLORIDE (test code = 104 mmol/L 98-107 04A) CO2 (test code = 02A) 29 mmol/L 22-32 ANION GAP (test code = 7.5 mmol/L ANG) BUN (test code = 05D) 21 mg/dL 7-18 H CREATININE (test code 1.1 mg/dL 0.7-1.3 = 03E) GFR (test code = GFR) 72 mL/min/1.73m\\S\\2 >=90 L GFR 83 mL/min/1.73m\\S\\2 >=90 L (test code = GFRAA) EGFR (test code = eGFR BY CKD-EPI EGFR) CALCULATION IS NOT RECOMMENDED FOR PATIENTS UNDER 18 YEARS OF AGE. BUN/CREA (test code = 19 12-20 BCR) CALCIUM (test code = 8.3 mg/dL 8.3-9.5 09D) T4 [id number] 07:05:00 Test Item Value Reference Range Interpretation Comments T4 FREE (test code = A91) 1.06 ng/dL 0.76-1.46 THYROID PANEL/SCREEN (TSH)2019-10-10 06:54:00 Test Item Value Reference Range Interpretation Comments TSH (test code = A57) 4.570 uIU/mL 0.358-3.740 H BASIC METABOLIC [id number] 06:26:00 Test Item Value Reference Range Interpretation Comments GLUCOSE (test code = 144 mg/dL 75-100 H 06D) SODIUM (test code = 136 mmol/L 136-145 01A) POTASSIUM (test code = 3.7 mmol/L 3.6-5.1 01B) CHLORIDE (test code = 103 mmol/L 98-107 04A) CO2 (test code = 02A) 26 mmol/L 22-32 ANION GAP (test code = 10.7 mmol/L ANG) BUN (test code = 05D) 21 mg/dL 7-18 H CREATININE (test code 1.2 mg/dL 0.7-1.3 = 03E) GFR (test code = GFR) 65 mL/min/1.73m\\S\\2 >=90 L GFR 76 mL/min/1.73m\\S\\2 >=90 L (test code = GFRAA) EGFR (test code = eGFR BY CKD-EPI EGFR) CALCULATION IS NOT RECOMMENDED FOR PATIENTS UNDER 18 YEARS OF AGE. BUN/CREA (test code = 17 12-20 BCR) CALCIUM (test code = 8.3 mg/dL 8.3-9.5 09D) CBC (INCLUDES AUTOMATED DIFFERENTIAL)2019-10-10 06:17:00 Test Item Value Reference Range Interpretation Comments WBC (test code = WBC) 5.8 10\\S\\3/uL 4.5-11.0 RBC (test code = RBC) 4.99 10\\S\\6/uL 4.20-5.60 HGB (test code = HBG) 13.8 g/dL 14.0-18.0 L HCT (test code = HCT) 44.3 % 35.0-46.0 MCV (test code = MCV) 88.8 fL 80.0-94.0 MCH (test code = MCH) 27.7 pg 27.0-31.0 MCHC (test code = MCHC) 31.2 g/dL 32.0-36.0 L RDW (test code = RDW) 14.2 % 11.5-14.5 PLT (test code = PLT) 237 10\\S\\3/uL 130-400 MPV (test code = MPV) 10.9 fL 9.4-12.4 NEUTROP # (test code = NE#) 3.5 10\\S\\3/uL 2.0-8.0 LYMPH # (test code = LY#) 1.4 10\\S\\3/uL 1.2-4.0 MONOCYTE # (test code = MO#) 0.6 10\\S\\3/uL 0.0-1.1 EOSINOPH # (test code = EO#) 0.2 10\\S\\3/uL 0.0-0.7 BASOPHIL # (test code = BA#) 0.0 10\\S\\3/uL 0.0-0.3 IG # (test code = IG#) 0.03 10\\S\\3/uL 0.00-0.06 NRBC # (test code = NRBC#) 0.00 10\\S\\3/uL 0.00-0.01 NEUTROPH % (test code = NE%) 60.1 % 35.0-73.0 LYMPH % (test code = LY%) 23.6 % 20.0-55.0 MONO % (test code = MO%) 11.0 % 2.5-10.0 H EOSINOPH % (test code = EO%) 4.1 % 0.0-5.0 BASOPHIL % (test code = BA%) 0.7 % 0.0-2.0 IG % (test code = IG%) 0.5 % 0.0-0.8 NRBC% (test code = NRBC%) 0.0 % 0.0-0.2 MANDIFF (test code = MDIFF) NO NO RBC MORPH (test code = RBCMOR) NORMAL BRAIN NATRIURETIC [id number] 14:08:00 Test Item Value Reference Range Interpretation Comments proBNP (test code = PBNP) 603 pg/mL 0-125 H CARDIAC [id number] 14:03:00 Test Item Value Reference Range Interpretation Comments TROPONIN I (test code = A84) <0.015 ng/mL 0.000-0.045 BASIC METABOLIC [id number] 13:59:00 Test Item Value Reference Range Interpretation Comments GLUCOSE (test code = 121 mg/dL 75-100 H 06D) SODIUM (test code = 138 mmol/L 136-145 01A) POTASSIUM (test code = 3.9 mmol/L 3.6-5.1 01B) CHLORIDE (test code = 106 mmol/L 98-107 04A) CO2 (test code = 02A) 26 mmol/L 22-32 ANION GAP (test code = 9.9 mmol/L ANG) BUN (test code = 05D) 22 mg/dL 7-18 H CREATININE (test code 1.2 mg/dL 0.7-1.3 = 03E) GFR (test code = GFR) 67 mL/min/1.73m\\S\\2 >=90 L GFR 77 mL/min/1.73m\\S\\2 >=90 L (test code = GFRAA) EGFR (test code = eGFR BY CKD-EPI EGFR) CALCULATION IS NOT RECOMMENDED FOR PATIENTS UNDER 18 YEARS OF AGE. BUN/CREA (test code = 19 -20 BCR) CALCIUM (test code = 8.9 mg/dL 8.3-9.5 09D) PROTHROMBIN [id number] 13:58:00 Test Item Value Reference Range Interpretation Comments PT (test code = 12.7 s 9.8-13.6 TT) INR (test code = 1.1 INR) INRH (test code = SUGGESTED THERAPEUTIC INRH) RANGE FOR INR: 2.5 - 3.5 For Patients with Prosthetic Valves or Patients with recurrent Thromboembolic Events 2.0 - 3.0 For Most Other Applications PTT (PARTIAL THROMBOPLASTIN TIME)2019-10-09 13:58:00 Test Item Value Reference Range Interpretation Comments PTT (test code = 26.0 s 20.2-38.0 PTT) PTTH (test code = To monitor the PTTH) effectiveness of heparin, we offer the Anti-Xa (Heparin Assay). It can be used for either unfractionated or LMW Heparin. Order Code is ANTI-XA [id number] 13:58:00 Test Item Value Reference Range Interpretation Comments D-DIMER (test code = 546 ng/mL D-DU 0-234 H DDI) D-DIMER COMMENT (test *Level to rule out code = DDCOM) DVT or PE: <235 ng/mL D-DU* CBC (INCLUDES AUTOMATED DIFFERENTIAL)2019-10-09 13:57:00 Test Item Value Reference Range Interpretation Comments WBC (test code = WBC) 9.2 10\\S\\3/uL 4.5-11.0 RBC (test code = RBC) 5.69 10\\S\\6/uL 4.20-5.60 H HGB (test code = HBG) 15.8 g/dL 14.0-18.0 HCT (test code = HCT) 48.2 % 35.0-46.0 H MCV (test code = MCV) 84.7 fL 80.0-94.0 MCH (test code = MCH) 27.8 pg 27.0-31.0 MCHC (test code = MCHC) 32.8 g/dL 32.0-36.0 RDW (test code = RDW) 14.3 % 11.5-14.5 PLT (test code = PLT) 295 10\\S\\3/uL 130-400 MPV (test code = MPV) 10.5 fL 9.4-12.4 NEUTROP # (test code = NE#) 6.4 10\\S\\3/uL 2.0-8.0 LYMPH # (test code = LY#) 1.7 10\\S\\3/uL 1.2-4.0 MONOCYTE # (test code = MO#) 0.9 10\\S\\3/uL 0.0-1.1 EOSINOPH # (test code = EO#) 0.2 10\\S\\3/uL 0.0-0.7 BASOPHIL # (test code = BA#) 0.1 10\\S\\3/uL 0.0-0.3 IG # (test code = IG#) 0.04 10\\S\\3/uL 0.00-0.06 NRBC # (test code = NRBC#) 0.00 10\\S\\3/uL 0.00-0.01 NEUTROPH % (test code = NE%) 69.7 % 35.0-73.0 LYMPH % (test code = LY%) 18.0 % 20.0-55.0 L MONO % (test code = MO%) 9.8 % 2.5-10.0 EOSINOPH % (test code = EO%) 1.6 % 0.0-5.0 BASOPHIL % (test code = BA%) 0.5 % 0.0-2.0 IG % (test code = IG%) 0.4 % 0.0-0.8 NRBC% (test code = NRBC%) 0.0 % 0.0-0.2 MANDIFF (test code = MDIFF) NO NO RBC MORPH (test code = RBCMOR) NORMAL URINE [id number] 10:22:00 Test Item Value Reference Range Interpretation Comments Culture Observations THREE OR MORE SPECIES (test code = COB1) OF BACTERIA ISOLATED. PROBABLE CONTAMINATION. Culture Observations IDENTIFICATION AND (test code = COB17) SUSCEPTIBILITY NOT INDICATED. RECOLLECTION RECOMMENDED [id number] 11:43:00 Test Item Value Reference Range Interpretation Comments COLOR (test code = COLU) YELLOW YELLOW CLARITY (test code = CLA) CLEAR CLEAR GLUCOSE UR (test code = UA GLUCOSE) NEGATIVE NEGATIVE BILI UR (test code = BILE) NEGATIVE NEGATIVE KETONES UR (test code = TAYLOR) NEGATIVE NEGATIVE SP GRAVITY (test code = SPGR) 1.022 1.005-1.030 PH UR (test code = PH) 6.0 4.5-8.0 PROTEIN UR (test code = PU) NEGATIVE NEGATIVE UROBIL UR (test code = UROQ) 0.2 EU/dL 0.2-1.0 NITRITE UR (test code = NITRITE) NEGATIVE NEGATIVE BLOOD UR (test code = UA BLOOD) NEGATIVE NEGATIVE LEUK ES UR (test code = LEUK) NEGATIVE NEGATIVE T4 [id number] 07:03:00 Test Item Value Reference Range Interpretation Comments T4 FREE (test code = A91) 1.12 ng/dL 0.76-1.46 THYROID PANEL/SCREEN (TSH)2019-09-14 05:36:00 Test Item Value Reference Range Interpretation Comments TSH (test code = A57) 3.770 uIU/mL 0.358-3.740 H PROSTATIC SPECIFIC [id number] 05:06:00 Test Item Value Reference Range Interpretation Comments PROST S AG (test code = A62) 0.44 ng/mL 0.00-4.00 BASIC METABOLIC [id number] 04:32:00 Test Item Value Reference Range Interpretation Comments GLUCOSE (test code = 126 mg/dL 75-100 H 06D) SODIUM (test code = 135 mmol/L 136-145 L 01A) POTASSIUM (test code = 3.7 mmol/L 3.6-5.1 01B) CHLORIDE (test code = 101 mmol/L 98-107 04A) CO2 (test code = 02A) 28 mmol/L 22-32 ANION GAP (test code = 9.7 mmol/L ANG) BUN (test code = 05D) 12 mg/dL 7-18 CREATININE (test code 1.1 mg/dL 0.7-1.3 = 03E) GFR (test code = GFR) 76 mL/min/1.73m\\S\\2 >=90 L GFR 88 mL/min/1.73m\\S\\2 >=90 L (test code = GFRAA) EGFR (test code = eGFR BY CKD-EPI EGFR) CALCULATION IS NOT RECOMMENDED FOR PATIENTS UNDER 18 YEARS OF AGE. BUN/CREA (test code = 11 12-20 L BCR) CALCIUM (test code = 8.5 mg/dL 8.3-9.5 09D) CBC (INCLUDES AUTOMATED DIFFERENTIAL)2019-09-14 04:28:00 Test Item Value Reference Range Interpretation Comments WBC (test code = WBC) 5.4 10\\S\\3/uL 4.5-11.0 RBC (test code = RBC) 5.03 10\\S\\6/uL 4.20-5.60 HGB (test code = HBG) 14.0 g/dL 14.0-18.0 HCT (test code = HCT) 43.0 % 35.0-46.0 MCV (test code = MCV) 85.5 fL 80.0-94.0 MCH (test code = MCH) 27.8 pg 27.0-31.0 MCHC (test code = MCHC) 32.6 g/dL 32.0-36.0 RDW (test code = RDW) 13.5 % 11.5-14.5 PLT (test code = PLT) 267 10\\S\\3/uL 130-400 MPV (test code = MPV) 10.6 fL 9.4-12.4 NEUTROP # (test code = NE#) 3.3 10\\S\\3/uL 2.0-8.0 LYMPH # (test code = LY#) 1.1 10\\S\\3/uL 1.2-4.0 L MONOCYTE # (test code = MO#) 0.6 10\\S\\3/uL 0.0-1.1 EOSINOPH # (test code = EO#) 0.3 10\\S\\3/uL 0.0-0.7 BASOPHIL # (test code = BA#) 0.0 10\\S\\3/uL 0.0-0.3 IG # (test code = IG#) 0.03 10\\S\\3/uL 0.00-0.06 NRBC # (test code = NRBC#) 0.00 10\\S\\3/uL 0.00-0.01 NEUTROPH % (test code = NE%) 61.4 % 35.0-73.0 LYMPH % (test code = LY%) 20.3 % 20.0-55.0 MONO % (test code = MO%) 11.0 % 2.5-10.0 H EOSINOPH % (test code = EO%) 6.1 % 0.0-5.0 H BASOPHIL % (test code = BA%) 0.6 % 0.0-2.0 IG % (test code = IG%) 0.6 % 0.0-0.8 NRBC% (test code = NRBC%) 0.0 % 0.0-0.2 MANDIFF (test code = MDIFF) NO NO RBC MORPH (test code = RBCMOR) NORMAL BASIC METABOLIC [id number] 18:44:00 Test Item Value Reference Range Interpretation Comments GLUCOSE (test code = 146 mg/dL 75-100 H 06D) SODIUM (test code = 134 mmol/L 136-145 L 01A) POTASSIUM (test code = 3.8 mmol/L 3.6-5.1 01B) CHLORIDE (test code = 101 mmol/L 98-107 04A) CO2 (test code = 02A) 27 mmol/L 22-32 ANION GAP (test code = 9.8 mmol/L ANG) BUN (test code = 05D) 12 mg/dL 7-18 CREATININE (test code 1.2 mg/dL 0.7-1.3 = 03E) GFR (test code = GFR) 69 mL/min/1.73m\\S\\2 >=90 L GFR 80 mL/min/1.73m\\S\\2 >=90 L (test code = GFRAA) EGFR (test code = eGFR BY CKD-EPI EGFR) CALCULATION IS NOT RECOMMENDED FOR PATIENTS UNDER 18 YEARS OF AGE. BUN/CREA (test code = 10 12-20 L BCR) CALCIUM (test code = 8.4 mg/dL 8.3-9.5 09D) CBC (INCLUDES AUTOMATED DIFFERENTIAL)2019-09-13 18:36:00 Test Item Value Reference Range Interpretation Comments WBC (test code = WBC) 5.9 10\\S\\3/uL 4.5-11.0 RBC (test code = RBC) 5.18 10\\S\\6/uL 4.20-5.60 HGB (test code = HBG) 14.6 g/dL 14.0-18.0 HCT (test code = HCT) 44.0 % 35.0-46.0 MCV (test code = MCV) 84.9 fL 80.0-94.0 MCH (test code = MCH) 28.2 pg 27.0-31.0 MCHC (test code = MCHC) 33.2 g/dL 32.0-36.0 RDW (test code = RDW) 13.3 % 11.5-14.5 PLT (test code = PLT) 283 10\\S\\3/uL 130-400 MPV (test code = MPV) 10.7 fL 9.4-12.4 NEUTROP # (test code = NE#) 3.8 10\\S\\3/uL 2.0-8.0 LYMPH # (test code = LY#) 1.2 10\\S\\3/uL 1.2-4.0 MONOCYTE # (test code = MO#) 0.6 10\\S\\3/uL 0.0-1.1 EOSINOPH # (test code = EO#) 0.3 10\\S\\3/uL 0.0-0.7 BASOPHIL # (test code = BA#) 0.0 10\\S\\3/uL 0.0-0.3 IG # (test code = IG#) 0.03 10\\S\\3/uL 0.00-0.06 NRBC # (test code = NRBC#) 0.00 10\\S\\3/uL 0.00-0.01 NEUTROPH % (test code = NE%) 64.4 % 35.0-73.0 LYMPH % (test code = LY%) 19.5 % 20.0-55.0 L MONO % (test code = MO%) 9.8 % 2.5-10.0 EOSINOPH % (test code = EO%) 5.3 % 0.0-5.0 H BASOPHIL % (test code = BA%) 0.5 % 0.0-2.0 IG % (test code = IG%) 0.5 % 0.0-0.8 NRBC% (test code = NRBC%) 0.0 % 0.0-0.2 MANDIFF (test code = MDIFF) NO NO RBC MORPH (test code = RBCMOR) NORMAL CARDIAC [id number] 05:40:00 Test Item Value Reference Range Interpretation Comments TROPONIN I (test code = A84) <0.015 ng/mL 0.000-0.045 CBC (INCLUDES AUTOMATED DIFFERENTIAL)2019-09-13 05:26:00 Test Item Value Reference Range Interpretation Comments WBC (test code = WBC) 4.8 10\\S\\3/uL 4.5-11.0 RBC (test code = RBC) 4.80 10\\S\\6/uL 4.20-5.60 HGB (test code = HBG) 13.7 g/dL 14.0-18.0 L HCT (test code = HCT) 40.8 % 35.0-46.0 MCV (test code = MCV) 85.0 fL 80.0-94.0 MCH (test code = MCH) 28.5 pg 27.0-31.0 MCHC (test code = MCHC) 33.6 g/dL 32.0-36.0 RDW (test code = RDW) 13.3 % 11.5-14.5 PLT (test code = PLT) 254 10\\S\\3/uL 130-400 MPV (test code = MPV) 10.2 fL 9.4-12.4 NEUTROP # (test code = NE#) 3.0 10\\S\\3/uL 2.0-8.0 LYMPH # (test code = LY#) 1.0 10\\S\\3/uL 1.2-4.0 L MONOCYTE # (test code = MO#) 0.5 10\\S\\3/uL 0.0-1.1 EOSINOPH # (test code = EO#) 0.3 10\\S\\3/uL 0.0-0.7 BASOPHIL # (test code = BA#) 0.0 10\\S\\3/uL 0.0-0.3 IG # (test code = IG#) 0.02 10\\S\\3/uL 0.00-0.06 NRBC # (test code = NRBC#) 0.00 10\\S\\3/uL 0.00-0.01 NEUTROPH % (test code = NE%) 62.8 % 35.0-73.0 LYMPH % (test code = LY%) 20.2 % 20.0-55.0 MONO % (test code = MO%) 10.2 % 2.5-10.0 H EOSINOPH % (test code = EO%) 5.8 % 0.0-5.0 H BASOPHIL % (test code = BA%) 0.6 % 0.0-2.0 IG % (test code = IG%) 0.4 % 0.0-0.8 NRBC% (test code = NRBC%) 0.0 % 0.0-0.2 MANDIFF (test code = MDIFF) NO NO RBC MORPH (test code = RBCMOR) NORMAL BASIC METABOLIC [id number] 05:26:00 Test Item Value Reference Range Interpretation Comments GLUCOSE (test code = 118 mg/dL 75-100 H 06D) SODIUM (test code = 137 mmol/L 136-145 01A) POTASSIUM (test code = 3.7 mmol/L 3.6-5.1 01B) CHLORIDE (test code = 105 mmol/L 98-107 04A) CO2 (test code = 02A) 26 mmol/L 22-32 ANION GAP (test code = 9.7 mmol/L ANG) BUN (test code = 05D) 12 mg/dL 7-18 CREATININE (test code 0.9 mg/dL 0.7-1.3 = 03E) GFR (test code = GFR) 94 mL/min/1.73m\\S\\2 >=90 GFR 109 mL/min/1.73m\\S\\2 >=90 (test code = GFRAA) EGFR (test code = eGFR BY CKD-EPI EGFR) CALCULATION IS NOT RECOMMENDED FOR PATIENTS UNDER 18 YEARS OF AGE. BUN/CREA (test code = 14 12-20 BCR) CALCIUM (test code = 8.3 mg/dL 8.3-9.5 09D) CARDIAC [id number] 21:49:00 Test Item Value Reference Range Interpretation Comments TROPONIN I (test code = A84) <0.015 ng/mL 0.000-0.045 [id number] 13:57:00 Test Item Value Reference Range Interpretation Comments COLOR (test code = COLU) YELLOW YELLOW CLARITY (test code = CLA) CLEAR CLEAR GLUCOSE UR (test code = UA GLUCOSE) NEGATIVE NEGATIVE BILI UR (test code = BILE) NEGATIVE NEGATIVE KETONES UR (test code = TAYLOR) TRACE NEGATIVE A SP GRAVITY (test code = SPGR) 1.022 1.005-1.030 PH UR (test code = PH) 8.0 4.5-8.0 PROTEIN UR (test code = PU) NEGATIVE NEGATIVE UROBIL UR (test code = UROQ) 0.2 EU/dL 0.2-1.0 NITRITE UR (test code = NITRITE) NEGATIVE NEGATIVE BLOOD UR (test code = UA BLOOD) NEGATIVE NEGATIVE LEUK ES UR (test code = LEUK) NEGATIVE NEGATIVE [id number] 12:58:00 Test Item Value Reference Range Interpretation Comments D-DIMER (test code = 682 ng/mL D-DU 0-234 H DDI) D-DIMER COMMENT (test *Level to rule out code = DDCOM) DVT or PE: <235 ng/mL D-DU* COMPREHENSIVE METABOLIC [id number] 12:56:00 Test Item Value Reference Range Interpretation Comments GLUCOSE (test code = 129 mg/dL 75-100 H 06D) SODIUM (test code = 138 mmol/L 136-145 01A) POTASSIUM (test code = 4.1 mmol/L 3.6-5.1 01B) CHLORIDE (test code = 107 mmol/L 98-107 04A) CO2 (test code = 02A) 26 mmol/L 22-32 ANION GAP (test code = 9.1 mmol/L ANG) BUN (test code = 05D) 11 mg/dL 7-18 CREATININE (test code 0.9 mg/dL 0.7-1.3 = 03E) GFR (test code = GFR) 89 mL/min/1.73m\\S\\2 >=90 L GFR 104 mL/min/1.73m\\S\\2 >=90 (test code = GFRAA) EGFR (test code = eGFR BY CKD-EPI EGFR) CALCULATION IS NOT RECOMMENDED FOR PATIENTS UNDER 18 YEARS OF AGE. BUN/CREA (test code = 12 12-20 BCR) CALCIUM (test code = 8.4 mg/dL 8.3-9.5 09D) BILI TOTAL (test code 0.7 mg/dL 0.2-1.0 = 11A) PROTEIN (test code = 6.3 g/dL 6.4-8.2 L 07D) ALBUMIN (test code = 3.3 g/dL 3.5-4.8 L 08D) GLOBULIN (test code = 3.0 g/dL 1.5-3.8 GLB) ALB/GLOB (test code = 1.1 1.0-2.6 AGRR) ALK PHOS (test code = 123 IU/L 42-121 H 35A) AST (test code = 30A) 24 IU/L <=42 ALT (test code = 31A) 40 IU/L <=78 BRAIN NATRIURETIC [id number] 12:55:00 Test Item Value Reference Range Interpretation Comments proBNP (test code = PBNP) 2160 pg/mL 0-125 H CARDIAC [id number] 12:49:00 Test Item Value Reference Range Interpretation Comments TROPONIN I (test code = A84) <0.015 ng/mL 0.000-0.045 PRO TIME AND [id number] 12:48:00 Test Item Value Reference Range Interpretation Comments PT (test code = 13.2 s 9.8-13.6 TT) INR (test code = 1.1 INR) INRH (test code = SUGGESTED THERAPEUTIC INRH) RANGE FOR INR: 2.5 - 3.5 For Patients with Prosthetic Valves or Patients with recurrent Thromboembolic Events 2.0 - 3.0 For Most Other Applications PTT (test code = 19.5 s 20.2-38.0 L PTT) PTTH (test code = To monitor the PTTH) effectiveness of heparin, we offer the Anti-Xa (Heparin Assay). It can be used for either unfractionated or LMW Heparin. Order Code is ANTI-XA CBC (INCLUDES AUTOMATED DIFFERENTIAL)2019-09-12 12:39:00 Test Item Value Reference Range Interpretation Comments WBC (test code = WBC) 5.5 10\\S\\3/uL 4.5-11.0 RBC (test code = RBC) 4.92 10\\S\\6/uL 4.20-5.60 HGB (test code = HBG) 13.8 g/dL 14.0-18.0 L HCT (test code = HCT) 42.1 % 35.0-46.0 MCV (test code = MCV) 85.6 fL 80.0-94.0 MCH (test code = MCH) 28.0 pg 27.0-31.0 MCHC (test code = MCHC) 32.8 g/dL 32.0-36.0 RDW (test code = RDW) 13.2 % 11.5-14.5 PLT (test code = PLT) 257 10\\S\\3/uL 130-400 MPV (test code = MPV) 10.4 fL 9.4-12.4 NEUTROP # (test code = NE#) 3.9 10\\S\\3/uL 2.0-8.0 LYMPH # (test code = LY#) 1.0 10\\S\\3/uL 1.2-4.0 L MONOCYTE # (test code = MO#) 0.4 10\\S\\3/uL 0.0-1.1 EOSINOPH # (test code = EO#) 0.1 10\\S\\3/uL 0.0-0.7 BASOPHIL # (test code = BA#) 0.0 10\\S\\3/uL 0.0-0.3 IG # (test code = IG#) 0.03 10\\S\\3/uL 0.00-0.06 NRBC # (test code = NRBC#) 0.00 10\\S\\3/uL 0.00-0.01 NEUTROPH % (test code = NE%) 70.7 % 35.0-73.0 LYMPH % (test code = LY%) 17.9 % 20.0-55.0 L MONO % (test code = MO%) 7.9 % 2.5-10.0 EOSINOPH % (test code = EO%) 2.5 % 0.0-5.0 BASOPHIL % (test code = BA%) 0.5 % 0.0-2.0 IG % (test code = IG%) 0.5 % 0.0-0.8 NRBC% (test code = NRBC%) 0.0 % 0.0-0.2 MANDIFF (test code = MDIFF) NO NO RBC MORPH (test code = RBCMOR) NORMAL TROPONIN [id number] 16:51:00 Test Item Value Reference Range Interpretation Comments TROPONIN I (test code = A84) <0.015 ng/mL 0.000-0.045 COMPREHENSIVE METABOLIC [id number] 16:51:00 Test Item Value Reference Range Interpretation Comments GLUCOSE (test code = 90 mg/dL 75-100 06D) SODIUM (test code = 138 mmol/L 136-145 01A) POTASSIUM (test code = 4.4 mmol/L 3.6-5.1 01B) CHLORIDE (test code = 107 mmol/L 98-107 04A) CO2 (test code = 02A) 26 mmol/L 22-32 ANION GAP (test code = 9.4 mmol/L ANG) BUN (test code = 05D) 19 mg/dL 7-18 H CREATININE (test code 0.8 mg/dL 0.7-1.3 = 03E) GFR (test code = GFR) 97 mL/min/1.73m\\S\\2 >=90 GFR 112 mL/min/1.73m\\S\\2 >=90 (test code = GFRAA) EGFR (test code = eGFR BY CKD-EPI EGFR) CALCULATION IS NOT RECOMMENDED FOR PATIENTS UNDER 18 YEARS OF AGE. BUN/CREA (test code = 23 12-20 H BCR) CALCIUM (test code = 8.6 mg/dL 8.3-9.5 09D) BILI TOTAL (test code 0.6 mg/dL 0.2-1.0 = 11A) PROTEIN (test code = 6.8 g/dL 6.4-8.2 07D) ALBUMIN (test code = 3.5 g/dL 3.5-4.8 08D) GLOBULIN (test code = 3.3 g/dL 1.5-3.8 GLB) ALB/GLOB (test code = 1.1 1.0-2.6 AGRR) ALK PHOS (test code = 153 IU/L 42-121 H 35A) AST (test code = 30A) 60 IU/L <=42 H ALT (test code = 31A) 88 IU/L <=78 H CBC (INCLUDES AUTOMATED DIFFERENTIAL)2019-09-02 16:38:00 Test Item Value Reference Range Interpretation Comments WBC (test code = WBC) 6.1 10\\S\\3/uL 4.5-11.0 RBC (test code = RBC) 5.38 10\\S\\6/uL 4.20-5.60 HGB (test code = HBG) 15.3 g/dL 14.0-18.0 HCT (test code = HCT) 46.4 % 35.0-46.0 H MCV (test code = MCV) 86.2 fL 80.0-94.0 MCH (test code = MCH) 28.4 pg 27.0-31.0 MCHC (test code = MCHC) 33.0 g/dL 32.0-36.0 RDW (test code = RDW) 13.3 % 11.5-14.5 PLT (test code = PLT) 212 10\\S\\3/uL 130-400 MPV (test code = MPV) 11.9 fL 9.4-12.4 NEUTROP # (test code = NE#) 4.1 10\\S\\3/uL 2.0-8.0 LYMPH # (test code = LY#) 1.4 10\\S\\3/uL 1.2-4.0 MONOCYTE # (test code = MO#) 0.5 10\\S\\3/uL 0.0-1.1 EOSINOPH # (test code = EO#) 0.1 10\\S\\3/uL 0.0-0.7 BASOPHIL # (test code = BA#) 0.0 10\\S\\3/uL 0.0-0.3 IG # (test code = IG#) 0.03 10\\S\\3/uL 0.00-0.06 NRBC # (test code = NRBC#) 0.00 10\\S\\3/uL 0.00-0.01 NEUTROPH % (test code = NE%) 66.4 % 35.0-73.0 LYMPH % (test code = LY%) 22.6 % 20.0-55.0 MONO % (test code = MO%) 7.7 % 2.5-10.0 EOSINOPH % (test code = EO%) 2.1 % 0.0-5.0 BASOPHIL % (test code = BA%) 0.7 % 0.0-2.0 IG % (test code = IG%) 0.5 % 0.0-0.8 NRBC% (test code = NRBC%) 0.0 % 0.0-0.2 MANDIFF (test code = MDIFF) NO NO RBC MORPH (test code = RBCMOR) NORMAL TROPONIN [id number] 07:21:00 Test Item Value Reference Range Interpretation Comments TROPONIN I (test code = A84) <0.015 ng/mL 0.000-0.045 BASIC METABOLIC [id number] 07:18:00 Test Item Value Reference Range Interpretation Comments GLUCOSE (test code = 108 mg/dL 75-100 H 06D) SODIUM (test code = 137 mmol/L 136-145 01A) POTASSIUM (test code = 3.8 mmol/L 3.6-5.1 01B) CHLORIDE (test code = 105 mmol/L 98-107 04A) CO2 (test code = 02A) 28 mmol/L 22-32 ANION GAP (test code = 7.8 mmol/L ANG) BUN (test code = 05D) 9 mg/dL 7-18 CREATININE (test code 0.8 mg/dL 0.7-1.3 = 03E) GFR (test code = GFR) 96 mL/min/1.73m\\S\\2 >=90 GFR 111 mL/min/1.73m\\S\\2 >=90 (test code = GFRAA) EGFR (test code = eGFR BY CKD-EPI EGFR) CALCULATION IS NOT RECOMMENDED FOR PATIENTS UNDER 18 YEARS OF AGE. BUN/CREA (test code = 11 12-20 L BCR) CALCIUM (test code = 8.6 mg/dL 8.3-9.5 09D) CBC (INCLUDES AUTOMATED DIFFERENTIAL)2019-08-20 07:12:00 Test Item Value Reference Range Interpretation Comments WBC (test code = WBC) 5.2 10\\S\\3/uL 4.5-11.0 RBC (test code = RBC) 5.41 10\\S\\6/uL 4.20-5.60 HGB (test code = HBG) 15.4 g/dL 14.0-18.0 HCT (test code = HCT) 45.6 % 35.0-46.0 MCV (test code = MCV) 84.3 fL 80.0-94.0 MCH (test code = MCH) 28.5 pg 27.0-31.0 MCHC (test code = MCHC) 33.8 g/dL 32.0-36.0 RDW (test code = RDW) 13.2 % 11.5-14.5 PLT (test code = PLT) 280 10\\S\\3/uL 130-400 MPV (test code = MPV) 10.5 fL 9.4-12.4 NEUTROP # (test code = NE#) 3.3 10\\S\\3/uL 2.0-8.0 LYMPH # (test code = LY#) 1.1 10\\S\\3/uL 1.2-4.0 L MONOCYTE # (test code = MO#) 0.5 10\\S\\3/uL 0.0-1.1 EOSINOPH # (test code = EO#) 0.2 10\\S\\3/uL 0.0-0.7 BASOPHIL # (test code = BA#) 0.0 10\\S\\3/uL 0.0-0.3 IG # (test code = IG#) 0.03 10\\S\\3/uL 0.00-0.06 NRBC # (test code = NRBC#) 0.00 10\\S\\3/uL 0.00-0.01 NEUTROPH % (test code = NE%) 63.8 % 35.0-73.0 LYMPH % (test code = LY%) 20.4 % 20.0-55.0 MONO % (test code = MO%) 10.2 % 2.5-10.0 H EOSINOPH % (test code = EO%) 4.4 % 0.0-5.0 BASOPHIL % (test code = BA%) 0.6 % 0.0-2.0 IG % (test code = IG%) 0.6 % 0.0-0.8 NRBC% (test code = NRBC%) 0.0 % 0.0-0.2 MANDIFF (test code = MDIFF) NO NO RBC MORPH (test code = RBCMOR) NORMAL URINALYSIS WITH [id number] 15:19:00 Test Item Value Reference Range Interpretation Comments COLOR (test code = COLU) ORANGE YELLOW A CLARITY (test code = CLA) CLOUDY CLEAR A GLUCOSE UR (test code = UA NEGATIVE NEGATIVE GLUCOSE) BILI UR (test code = BILE) 1+ NEGATIVE A KETONES UR (test code = TAYLOR) TRACE NEGATIVE A SP GRAVITY (test code = SPGR) 1.042 1.005-1.030 H PH UR (test code = PH) 5.0 4.5-8.0 PROTEIN UR (test code = PU) 2+ NEGATIVE A UROBIL UR (test code = UROQ) 1.0 EU/dL 0.2-1.0 NITRITE UR (test code = NEGATIVE NEGATIVE NITRITE) BLOOD UR (test code = UA NEGATIVE NEGATIVE BLOOD) LEUK ES UR (test code = LEUK) TRACE NEGATIVE A WBC UR (test code = UWBC) 4 /HPF 0-3 H RBC UR (test code = URBC) 0 /HPF 0-2 EPITH UR (test code = UEPC) FEW /LPF NONE A BACTERIA UR (test code = NONE /HPF NONE UBACT) CAST UR (test code = CAST) /LPF NONE CRYSTAL UR (test code = CRYU) / LPF NONE MUCUS UR (test code = MUC) / HPF NONE AMORPH UR (test code = WADE) MODERATE / HPF NONE A TRICH UR (test code = UTRICH) /HPF NONE YEAST UR (test code = UY) /HPF NONE SPERM UR (test code = USPERM) /HPF NONE BRAIN NATRIURETIC [id number] 13:14:00 Test Item Value Reference Range Interpretation Comments proBNP (test code = PBNP) 1008 pg/mL 0-125 H COMPREHENSIVE METABOLIC [id number] 13:14:00 Test Item Value Reference Range Interpretation Comments GLUCOSE (test code = 101 mg/dL 75-100 H 06D) SODIUM (test code = 141 mmol/L 136-145 01A) POTASSIUM (test code = 4.2 mmol/L 3.6-5.1 01B) CHLORIDE (test code = 110 mmol/L 98-107 H 04A) CO2 (test code = 02A) 24 mmol/L 22-32 ANION GAP (test code = 11.2 mmol/L ANG) BUN (test code = 05D) 16 mg/dL 7-18 CREATININE (test code 1.1 mg/dL 0.7-1.3 = 03E) GFR (test code = GFR) 73 mL/min/1.73m\\S\\2 >=90 L GFR 85 mL/min/1.73m\\S\\2 >=90 L (test code = GFRAA) EGFR (test code = eGFR BY CKD-EPI EGFR) CALCULATION IS NOT RECOMMENDED FOR PATIENTS UNDER 18 YEARS OF AGE. BUN/CREA (test code = 15 12-20 BCR) CALCIUM (test code = 8.7 mg/dL 8.3-9.5 09D) BILI TOTAL (test code 0.6 mg/dL 0.2-1.0 = 11A) PROTEIN (test code = 6.8 g/dL 6.4-8.2 07D) ALBUMIN (test code = 3.7 g/dL 3.5-4.8 08D) GLOBULIN (test code = 3.1 g/dL 1.5-3.8 GLB) ALB/GLOB (test code = 1.2 1.0-2.6 AGRR) ALK PHOS (test code = 110 IU/L 42-121 35A) AST (test code = 30A) 27 IU/L <=42 ALT (test code = 31A) 46 IU/L <=78 PRO TIME AND [id number] 13:10:00 Test Item Value Reference Range Interpretation Comments PT (test code = 13.1 s 9.8-13.6 TT) INR (test code = 1.1 INR) INRH (test code = SUGGESTED THERAPEUTIC INRH) RANGE FOR INR: 2.5 - 3.5 For Patients with Prosthetic Valves or Patients with recurrent Thromboembolic Events 2.0 - 3.0 For Most Other Applications PTT (test code = 28.2 s 20.2-38.0 PTT) PTTH (test code = To monitor the PTTH) effectiveness of heparin, we offer the Anti-Xa (Heparin Assay). It can be used for either unfractionated or LMW Heparin. Order Code is ANTI-XA TROPONIN [id number] 13:08:00 Test Item Value Reference Range Interpretation Comments TROPONIN I (test code = A84) <0.015 ng/mL 0.000-0.045 CBC (INCLUDES AUTOMATED DIFFERENTIAL)2019-08-14 12:50:00 Test Item Value Reference Range Interpretation Comments WBC (test code = WBC) 8.0 10\\S\\3/uL 4.5-11.0 RBC (test code = RBC) 5.61 10\\S\\6/uL 4.20-5.60 H HGB (test code = HBG) 16.1 g/dL 14.0-18.0 HCT (test code = HCT) 48.4 % 35.0-46.0 H MCV (test code = MCV) 86.3 fL 80.0-94.0 MCH (test code = MCH) 28.7 pg 27.0-31.0 MCHC (test code = MCHC) 33.3 g/dL 32.0-36.0 RDW (test code = RDW) 13.8 % 11.5-14.5 PLT (test code = PLT) 276 10\\S\\3/uL 130-400 MPV (test code = MPV) 10.7 fL 9.4-12.4 NEUTROP # (test code = NE#) 6.1 10\\S\\3/uL 2.0-8.0 LYMPH # (test code = LY#) 1.0 10\\S\\3/uL 1.2-4.0 L MONOCYTE # (test code = MO#) 0.7 10\\S\\3/uL 0.0-1.1 EOSINOPH # (test code = EO#) 0.1 10\\S\\3/uL 0.0-0.7 BASOPHIL # (test code = BA#) 0.0 10\\S\\3/uL 0.0-0.3 IG # (test code = IG#) 0.04 10\\S\\3/uL 0.00-0.06 NRBC # (test code = NRBC#) 0.00 10\\S\\3/uL 0.00-0.01 NEUTROPH % (test code = NE%) 76.4 % 35.0-73.0 H LYMPH % (test code = LY%) 12.8 % 20.0-55.0 L MONO % (test code = MO%) 8.5 % 2.5-10.0 EOSINOPH % (test code = EO%) 1.3 % 0.0-5.0 BASOPHIL % (test code = BA%) 0.5 % 0.0-2.0 IG % (test code = IG%) 0.5 % 0.0-0.8 NRBC% (test code = NRBC%) 0.0 % 0.0-0.2 MANDIFF (test code = MDIFF) NO NO RBC MORPH (test code = RBCMOR) NORMAL [id number] 16:42:00 Test Item Value Reference Range Interpretation Comments COLOR (test code = COLU) YELLOW YELLOW CLARITY (test code = CLA) CLEAR CLEAR GLUCOSE UR (test code = UA GLUCOSE) NEGATIVE NEGATIVE BILI UR (test code = BILE) NEGATIVE NEGATIVE KETONES UR (test code = TAYLOR) NEGATIVE NEGATIVE SP GRAVITY (test code = SPGR) 1.022 1.005-1.030 PH UR (test code = PH) 6.0 4.5-8.0 PROTEIN UR (test code = PU) NEGATIVE NEGATIVE UROBIL UR (test code = UROQ) 0.2 EU/dL 0.2-1.0 NITRITE UR (test code = NITRITE) NEGATIVE NEGATIVE BLOOD UR (test code = UA BLOOD) NEGATIVE NEGATIVE LEUK ES UR (test code = LEUK) NEGATIVE NEGATIVE XR SPINE LUMBAR [id number] 16:30:58LOCATION: [id number]: XR SPINE LUMBAR COMPLETEHISTORY: [id number]: Low back pain TECHNIQUE: Frontal, lateral, bilateral oblique and [place] views of thelumbar spine.COMPARISON: None.FINDINGS: Stable greater than 50% compression deformity of L1. Stable mild superiorendplate deformity at T11 and T12. Vertebral body alignment and height areotherwise maintained. A stable rounded 10 mm sclerotic lesion is noted withinthe L3 vertebral body. The bone marrow mineralization is otherwise homogeneous.Prominent facet sclerosis is noted at L5-S1, unchanged. Essential fusion of theposterior elements of the lumbar spine is again noted.IMPRESSION:Stable radiographic appearance of the lumbar spine.URINALYSIS 2019-03-03 23:36:00 Test Item Value Reference Range Interpretation Comments COLOR (test code = COLU) YELLOW YELLOW CLARITY (test code = CLA) CLEAR CLEAR GLUCOSE UR (test code = UA GLUCOSE) NEGATIVE NEGATIVE BILI UR (test code = BILE) NEGATIVE NEGATIVE KETONES UR (test code = TAYLOR) NEGATIVE NEGATIVE SP GRAVITY (test code = SPGR) 1.031 1.005-1.030 H PH UR (test code = PH) 6.5 4.5-8.0 PROTEIN UR (test code = PU) NEGATIVE NEGATIVE UROBIL UR (test code = UROQ) 0.2 EU/dL 0.2-1.0 NITRITE UR (test code = NITRITE) NEGATIVE NEGATIVE BLOOD UR (test code = UA BLOOD) NEGATIVE NEGATIVE LEUK ES UR (test code = LEUK) NEGATIVE NEGATIVE BRAIN NATRIURETIC [id number] 22:04:00 Test Item Value Reference Range Interpretation Comments proBNP (test code = PBNP) 766 pg/mL 0-[address] ABDOMEN AND PELVIS W/O [id number] 22:03:01Exam: CT abdomen and pelvis without contrast.Location: H 12History: [id number]: Low back painComparison: 08/06/2017.Technique: Unenhanced spiral slices were taken from the domes of the diaphragm,throughthe pubic symphysis. Coronal reformations were performed. One or moreof the following radiation dosereduction techniques was used: automatedexposure control, adjustment of mA and/or KV according to patient size, and/orutilization of iterative reconstruction technique.Findings:The liver is diffusely of decreased attenuation consistent fatty infiltration.No mass is seen. The intra-and extrahepatic biliary tree is normal. Thegallbladder is unremarkable. No pericholecystic fluid or wall thickening ispresent.The pancreas is normal. The pancreatic duct is normal in caliber. The spleenand adrenal glands are normal in size and shape.The right kidney is slightly atrophic. The kidneys are otherwise unremarkable.No nephrolithiasis, perinephric fluid collections or hydronephrosis is seen.The large and smallintestine are normal in caliber. The appendix is normal. No inflammatory change is seen.No lymphadeno nixon or free fluid is found in the abdomen or the pelvis. Asmall, fatty umbilical hernia is noted.The pelvic structures are unremarkable.Atherosclerosis, spondylosis and osteoarthritis are noted The lung bases areclear.No incidental abdominal findings are seen.Impression:1. No acute abdominal findings.2. Fatty liver.3. Small, fatty umbilical hernia.4. Otherwise stable exam.TROPONIN [id number] 22:02:00 Test Item Value Reference Range Interpretation Comments TROPONIN I (test code = A84) <0.015 ng/mL 0.000-0.045 COMPREHENSIVE METABOLIC [id number] 22:01:00 Test Item Value Reference Range Interpretation Comments GLUCOSE (test code = 06D) 121 mg/dL 75-100 H SODIUM (test code = 01A) 141 mmol/L 136-145 POTASSIUM (test code = 01B) 4.3 mmol/L 3.6-5.1 CHLORIDE (test code = 04A) 108 mmol/L 98-107 H CO2 (test code = 02A) 30 mmol/L 22-32 ANION GAP (test code = ANG) 7.3 mmol/L BUN (test code = 05D) 13 mg/dL 7-18 CREATININE (test code = 03E) 1.3 mg/dL 0.7-1.3 BUN/CREA (test code = BCR) 10 12-20 L CALCIUM (test code = 09D) 8.5 mg/dL 8.3-9.5 BILI TOTAL (test code = 11A) 0.3 mg/dL 0.2-1.0 PROTEIN (test code = 07D) 6.7 g/dL 6.4-8.2 ALBUMIN (test code = 08D) 3.4 g/dL 3.5-4.8 L GLOBULIN (test code = GLB) 3.3 g/dL 1.5-3.8 ALB/GLOB (test code = AGRR) 1.0 1.0-2.6 ALK PHOS (test code = 35A) 116 IU/L 42-121 AST (test code = 30A) 28 IU/L <=42 ALT (test code = 31A) 44 IU/L <=78 XR CHEST 2 [id number] 21:59:50LOCATION: H43 EXAM: XR CHEST 2 VIEWHISTORY: [id number]: Chest pain TECHNIQUE: Frontal and lateral views of the chest.COMPARISON: None.FINDINGS:The lungs are well inflated. Mild pulmonary vascular congestive changes arepresent. There is no focal consolidation.No evidence of pneumothorax or pleural effusion. Stable cardiomegaly. Chronic compression deformity lower thoracic spine. IMPRESSION:Mild pulmonary vascular congestion.[id number] 21:56:00 Test Item Value Reference Range Interpretation Comments MAGNESIUM (test code = 48A) 2.1 mg/dL 1.8-2.4 PRO TIME AND [id number] 21:53:00 Test Item Value Reference Range Interpretation Comments PT (test code = 10.7 s 9.8-13.6 TT) INR (test code = 0.9 INR) INRH (test code = SUGGESTED THERAPEUTIC INRH) RANGE FOR INR: 2.5 - 3.5 For Patients with Prosthetic Valves or Patients with recurrent Thromboembolic Events 2.0 - 3.0 For Most Other Applications PTT (test code = 29.0 s 20.2-38.0 PTT) PTTH (test code = To monitor the PTTH) effectiveness of heparin, we offer the Anti-Xa (Heparin Assay). It can be used for either unfractionated or LMW Heparin. Order Code is ANTI-XA CBC (INCLUDES AUTOMATED DIFFERENTIAL)2019-03-03 21:46:00 Test Item Value Reference Range Interpretation Comments WBC (test code = WBC) 5.5 10\\S\\3/uL 4.5-11.0 RBC (test code = RBC) 4.92 10\\S\\6/uL 4.20-5.60 HGB (test code = HBG) 13.7 g/dL 14.0-18.0 L HCT (test code = HCT) 42.2 % 35.0-46.0 MCV (test code = MCV) 85.8 fL 80.0-94.0 MCH (test code = MCH) 27.8 pg 27.0-31.0 MCHC (test code = MCHC) 32.5 g/dL 32.0-36.0 RDW (test code = RDW) 13.3 % 11.5-14.5 PLT (test code = PLT) 241 10\\S\\3/uL 130-400 MPV (test code = MPV) 10.0 fL 9.4-12.4 NEUTROP # (test code = NE#) 3.6 10\\S\\3/uL 2.0-8.0 LYMPH # (test code = LY#) 1.2 10\\S\\3/uL 1.2-4.0 MONOCYTE # (test code = MO#) 0.5 10\\S\\3/uL 0.0-1.1 EOSINOPH # (test code = EO#) 0.1 10\\S\\3/uL 0.0-0.7 BASOPHIL # (test code = BA#) 0.0 10\\S\\3/uL 0.0-0.3 IG # (test code = IG#) 0.03 10\\S\\3/uL 0.00-0.06 NRBC # (test code = NRBC#) 0.00 10\\S\\3/uL 0.00-0.01 NEUTROPH % (test code = NE%) 65.6 % 35.0-73.0 LYMPH % (test code = LY%) 21.5 % 20.0-55.0 MONO % (test code = MO%) 9.3 % 2.5-10.0 EOSINOPH % (test code = EO%) 2.6 % 0.0-5.0 BASOPHIL % (test code = BA%) 0.5 % 0.0-2.0 IG % (test code = IG%) 0.5 % 0.0-0.8 NRBC% (test code = NRBC%) 0.0 % 0.0-0.2 MANDIFF (test code = MDIFF) NO NO RBC MORPH (test code = RBCMOR) NORMAL BASIC METABOLIC PANEL *WW*2018-08-23 06:09:00 Test Item Value Reference Range Interpretation Comments GLUCOSE (test code = 06D) 101 mg/dL 75-100 H SODIUM (test code = 01A) 135 mmol/L 136-145 L POTASSIUM (test code = 01B) 3.9 mmol/L 3.6-5.1 CHLORIDE (test code = 04A) 99 mmol/L 98-107 CO2 (test code = 02A) 29 mmol/L 22-32 ANION GAP (test code = ANG) 11.1 mmol/L BUN (test code = 05D) 23 mg/dL 7-18 H CREATININE (test code = 03E) 0.8 mg/dL 0.7-1.3 BUN/CREA (test code = BCR) 27 12-20 H CALCIUM (test code = 09D) 7.9 mg/dL 8.3-9.5 L COMPREHENSIVE METABOLIC DAWN 2018-08-22 05:59:00 Test Item Value Reference Range Interpretation Comments GLUCOSE (test code = 06D) 96 mg/dL 75-100 SODIUM (test code = 01A) 136 mmol/L 136-145 POTASSIUM (test code = 01B) 3.8 mmol/L 3.6-5.1 CHLORIDE (test code = 04A) 99 mmol/L 98-107 CO2 (test code = 02A) 30 mmol/L 22-32 ANION GAP (test code = ANG) 10.6 mmol/L BUN (test code = 05D) 19 mg/dL 7-18 H CREATININE (test code = 03E) 0.9 mg/dL 0.7-1.3 BUN/CREA (test code = BCR) 20 12-20 CALCIUM (test code = 09D) 8.2 mg/dL 8.3-9.5 L BILI TOTAL (test code = 11A) 0.4 mg/dL 0.2-1.0 PROTEIN (test code = 07D) 6.6 g/dL 6.4-8.2 ALBUMIN (test code = 08D) 3.3 g/dL 3.5-4.8 L GLOBULIN (test code = GLB) 3.3 g/dL 1.5-3.8 ALB/GLOB (test code = AGRR) 1.0 1.0-2.6 ALK PHOS (test code = 35A) 122 IU/L 42-121 H AST (test code = 30A) 44 IU/L <=42 H ALT (test code = 31A) 95 IU/L <=78 H BRAIN NATRIURETIC PROTEIN *WW*2018-08-22 05:57:00 Test Item Value Reference Range Interpretation Comments proBNP (test code = PBNP) 1112 pg/mL 0-125 H CBC (INCLUDES AUTOMATED DIFFERENTIAL)*[id number] 16:18:00 Test Item Value Reference Range Interpretation Comments WBC (test code = WBC) 6.6 10\\S\\3/uL 4.5-11.0 RBC (test code = RBC) 4.78 10\\S\\6/uL 4.20-5.60 HGB (test code = HBG) 13.7 g/dL 14.0-18.0 L HCT (test code = HCT) 41.2 % 35.0-46.0 MCV (test code = MCV) 86.2 fL 80.0-94.0 MCH (test code = MCH) 28.7 pg 27.0-31.0 MCHC (test code = MCHC) 33.3 g/dL 32.0-36.0 RDW (test code = RDW) 13.7 % 11.5-14.5 PLT (test code = PLT) 243 10\\S\\3/uL 130-400 MPV (test code = MPV) 10.6 fL 9.4-12.4 NEUTROP # (test code = NE#) 4.6 10\\S\\3/uL 2.0-8.0 LYMPH # (test code = LY#) 1.3 10\\S\\3/uL 1.2-4.0 MONOCYTE # (test code = MO#) 0.6 10\\S\\3/uL 0.0-1.1 EOSINOPH # (test code = EO#) 0.1 10\\S\\3/uL 0.0-0.7 BASOPHIL # (test code = BA#) 0.0 10\\S\\3/uL 0.0-0.3 IG # (test code = IG#) 0.07 10\\S\\3/uL 0.00-0.06 H NRBC # (test code = NRBC#) 0.00 10\\S\\3/uL 0.00-0.01 NEUTROPH % (test code = NE%) 68.9 % 35.0-73.0 LYMPH % (test code = LY%) 19.7 % 20.0-55.0 L MONO % (test code = MO%) 8.5 % 2.5-10.0 EOSINOPH % (test code = EO%) 1.5 % 0.0-5.0 BASOPHIL % (test code = BA%) 0.3 % 0.0-2.0 IG % (test code = IG%) 1.1 % 0.0-0.8 H NRBC% (test code = NRBC%) 0.0 % 0.0-0.2 MANDIFF (test code = WMDIFF) NO NO RBC MORPH (test code = NORMAL WRBCMOR) BRAIN NATRIURETIC PROTEIN 2018-08-21 16:18:00 Test Item Value Reference Range Interpretation Comments proBNP (test code = PBNP) 1426 pg/mL 0-125 H XR CHEST 2 VIEW *WW*2018-08-21 16:04:35EXAMINATION: XR CHEST 2 VIEW *WW*.LOCATION: S17.HISTORY: Chest pain.COMPARISON: Chest x-ray 08/20/18. FINDINGS: Examination is limited due to low lung volumes and patient bodyhabitus.Cardiac silhouette/Mediastinal contour: Enlargement of cardiac silhouette.Atherosclerotic calcification of aortic arch.Lungs: No focal consolidation. No pleural effusion. Osseous Structures: Degenerative changes of thoracic spine. Chronic appearingcompression fracture of lower thoracic spine vertebral body.IMPRESSION: Low lung volumes, no focal consolidation. COMPREHENSIVE METABOLIC [id number] 16:18:00 Test Item Value Reference Range Interpretation Comments GLUCOSE (test code = 06D) 95 mg/dL 75-100 SODIUM (test code = 01A) 139 mmol/L 136-145 POTASSIUM (test code = 01B) 4.1 mmol/L 3.6-5.1 CHLORIDE (test code = 04A) 104 mmol/L 98-107 CO2 (test code = 02A) 27 mmol/L 22-32 ANION GAP (test code = ANG) 12.1 mmol/L BUN (test code = 05D) 16 mg/dL 7-18 CREATININE (test code = 03E) 1.0 mg/dL 0.7-1.3 BUN/CREA (test code = BCR) 16 12-20 CALCIUM (test code = 09D) 8.5 mg/dL 8.3-9.5 BILI TOTAL (test code = 11A) 0.3 mg/dL 0.2-1.0 PROTEIN (test code = 07D) 7.3 g/dL 6.4-8.2 ALBUMIN (test code = 08D) 3.9 g/dL 3.5-4.8 GLOBULIN (test code = GLB) 3.4 g/dL 1.5-3.8 ALB/GLOB (test code = AGRR) 1.1 1.0-2.6 ALK PHOS (test code = 35A) 109 IU/L 42-121 AST (test code = 30A) 82 IU/L <=42 H ALT (test code = 31A) 116 IU/L <=78 H TROPONIN [id number] 16:17:00 Test Item Value Reference Range Interpretation Comments TROPONIN I (test code = A84) <0.015 ng/mL 0.000-0.045 PTT (PARTIAL THROMBOPLASTIN TIME)2018-08-20 16:10:00 Test Item Value Reference Range Interpretation Comments PTT (test code = 25.3 s 20.2-38.0 PTT) PTTH (test code = To monitor the PTTH) effectiveness of heparin, we offer the Anti-Xa (Heparin Assay). It can be used for either unfractionated or LMW Heparin. Order Code is ANTI-XA PROTHROMBIN [id number] 16:10:00 Test Item Value Reference Range Interpretation Comments PT (test code = 11.0 s 9.8-13.6 TT) INR (test code = 1.0 INR) INRH (test code = SUGGESTED THERAPEUTIC INRH) RANGE FOR INR: 2.5 - 3.5 For Patients with Prosthetic Valves or Patients with recurrent Thromboembolic Events 2.0 - 3.0 For Most Other Applications XR CHEST 1 VIEW [id number] 15:59:58Portable AP chest, 1 viewLocation Code: [id number] HISTORY: PainCOMPARISON: 08/18/2018COMMENT: There is mild prominence of the central pulmonary vasculature and interstitium.Mild airspace disease is present within the lower lobes. Small left effusion issuspected. Cardiomegaly is stableIMPRESSION: Persistent mild congestion with left greater than right mildbibasilar airspace disease and likely small left effusion.CBC (INCLUDES AUTOMATED DIFFERENTIAL)2018-08-20 15:57:00 Test Item Value Reference Range Interpretation Comments WBC (test code = WBC) 8.2 10\\S\\3/uL 4.5-11.0 RBC (test code = RBC) 4.97 10\\S\\6/uL 4.20-5.60 HGB (test code = HBG) 14.1 g/dL 14.0-18.0 HCT (test code = HCT) 43.5 % 35.0-46.0 MCV (test code = MCV) 87.5 fL 80.0-94.0 MCH (test code = MCH) 28.4 pg 27.0-31.0 MCHC (test code = MCHC) 32.4 g/dL 32.0-36.0 RDW (test code = RDW) 14.3 % 11.5-14.5 PLT (test code = PLT) 248 10\\S\\3/uL 130-400 MPV (test code = MPV) 10.2 fL 9.4-12.4 NEUTROP # (test code = NE#) 5.8 10\\S\\3/uL 2.0-8.0 LYMPH # (test code = LY#) 1.5 10\\S\\3/uL 1.2-4.0 MONOCYTE # (test code = MO#) 0.7 10\\S\\3/uL 0.0-1.1 EOSINOPH # (test code = EO#) 0.0 10\\S\\3/uL 0.0-0.7 BASOPHIL # (test code = BA#) 0.0 10\\S\\3/uL 0.0-0.3 IG # (test code = IG#) 0.09 10\\S\\3/uL 0.00-0.06 H NRBC # (test code = NRBC#) 0.00 10\\S\\3/uL 0.00-0.01 NEUTROPH % (test code = NE%) 70.4 % 35.0-73.0 LYMPH % (test code = LY%) 18.7 % 20.0-55.0 L MONO % (test code = MO%) 8.8 % 2.5-10.0 EOSINOPH % (test code = EO%) 0.5 % 0.0-5.0 BASOPHIL % (test code = BA%) 0.5 % 0.0-2.0 IG % (test code = IG%) 1.1 % 0.0-0.8 H NRBC% (test code = NRBC%) 0.0 % 0.0-0.2 MANDIFF (test code = MDIFF) NO NO RBC MORPH (test code = RBCMOR) NORMAL CT CHEST W/ [id number] 17:40:59Chest CT without contrast.Location Code: [id number] HISTORY: [id number]: DyspneaCOMPARISON: 05/11/16Technique: Helical CT of the chest was performed without intravenous contrast.5 mm axial, sagittal and coronal images were obtained. One or more of thefollowing dose reduction techniques were used: Automated exposure control,adjustment of the mA and or KV according to patient size, and/or utilization ofiterative reconstruction technique. DLP: 729 mGy-cm.FINDINGS:Mild central congestion seen. Slightly im proved since prior exam. No focalconsolidations, pulmonary nodules, or significant effusions.There is no mediastinal, hilar, or axillary adenopathy. There is no pericardialeffusion. The heart is not enlarged. There is no mediastinal hematoma.Images through the upper abdomen demonstrate hepatic steatosis without change..The bones, skin, and surrounding soft tissues are unremarkable.IMPRESSION: 1. Borderline cardiomegaly with mild pulmonary congestion improved since priorexam.BRAIN NATRIURETIC [id number] 17:21:00 Test Item Value Reference Range Interpretation Comments proBNP (test code = PBNP) 574 pg/mL 0-125 H XR CHEST 1 VIEW [id number] 16:25:26LOCATION: V20 EXAM: XR CHEST 1 VIEW PORTABLEHISTORY: [id number]: Psychiatric treatment changed TECHNIQUE: Frontal view of the chest.COMPARISON: 08/06/2017FINDINGS: Lungs are hypoinflated. Mild vascular congestion is present. Asymmetricopacity in the medial right lung base may represent asymmetric edema oratelectasis.No evidence of pneumothorax or sizable pleural effusion. The heart is mildly enlarged. The mediastinal contours are not well assesseddue to patient rotation.Osseous structures are intact. I MPRESSION:Mild pulmonary vascular congestion. Asymmetric opacity in the right lung basemay representatelectasis or edema. Cardiomegaly.DRUGS OF ABUSE 2018-08-18 16:01:00 Test Item Value Reference Range Interpretation Comments DRUG SCRN (test code = URINE DRUG HDOA) SCREEN This is an unconfirmed screening result and should not be used for non-medical purposes CANNABINOD (test code Negative NEGATIVE = 88C) AMPHETAMINE (test code Negative NEGATIVE = 84A) BENZODIAZP (test code Negative NEGATIVE = 86A) BARBITURAT (test code Negative NEGATIVE = 85A) OPIATES (test code = POSITIVE NEGATIVE A 92B) COCAINE (test code = Negative NEGATIVE 87A) PHENCYCLID (test code Negative NEGATIVE = 66A) METHADONE (test code = Negative NEGATIVE 64A) DOAH (test code = DOAH.) URINE DRUG SCREEN Cut-off values are as follows: Cannabinoids 50 ng/mL Cocaine 300 ng/mL Amphetamines 1000 ng/mL Phencyclidine 25 ng/mL Benzodiazepines 200 ng.mL Methadone 300 ng/mL Barbiturates 200 ng/mL Opiates 2000 ng/mL [id number] 16:00:00 Test Item Value Reference Range Interpretation Comments ACETAMINPH (test code = 94M) <2.0 ug/mL 10.0-30.0 L CARDIAC [id number] 15:58:00 Test Item Value Reference Range Interpretation Comments TROPONIN I (test code = A84) <0.015 ng/mL 0.000-0.045 ALCOHOL BLOOD (ETOH)2018-08-18 15:56:00 Test Item Value Reference Range Interpretation Comments ETOH (test code = HALC) ETHANOL The result is to be used only for medical purposes ALCOHOL (test code = <10 mg/dL <=10 56A) AMMONIA [id number] 15:54:00 Test Item Value Reference Range Interpretation Comments AMMONIA (test code = 54A) 21 umol/L 11-32 [id number] 15:53:00 Test Item Value Reference Range Interpretation Comments SALICYLATE (test code = 94B) 3.4 mg/dL 2.8-20.0 [id number] 14:04:00 Test Item Value Reference Range Interpretation Comments COLOR (test code = COLU) YELLOW YELLOW CLARITY (test code = CLA) CLEAR CLEAR GLUCOSE UR (test code = UA GLUCOSE) NEGATIVE NEGATIVE BILI UR (test code = BILE) NEGATIVE NEGATIVE KETONES UR (test code = TAYLOR) NEGATIVE NEGATIVE SP GRAVITY (test code = SPGR) 1.026 1.005-1.030 PH UR (test code = PH) 6.0 4.5-8.0 PROTEIN UR (test code = PU) NEGATIVE NEGATIVE UROBIL UR (test code = UROQ) 0.2 EU/dL 0.2-1.0 NITRITE UR (test code = NITRITE) NEGATIVE NEGATIVE BLOOD UR (test code = UA BLOOD) NEGATIVE NEGATIVE LEUK ES UR (test code = LEUK) NEGATIVE NEGATIVE XR SPINE LUMBAR [id number] 13:06:44Lumbar spine series, 5 viewsLocation Code: [id number] HISTORY: [id number]: Low back painCOMPARISON: None.COMMENTS: AP, oblique, and lateral views of the lumbar spine demonstrate noacute fracture or malalignment. There is moderate multilevel disc spacenarrowing with endplate sclerosis and osteophyte formation. 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 Chronic appearing 60%compression fracture of L1 is unchanged from 04/08/18. The soft tissues areunremarkable.IMPRESSION: Moderate multilevel lumbar spondylosis with otherwise no acuteabnormality. Chronic appearing L1 compression fracture without change.COMPREHENSIVE METABOLIC [id number] 12:48:00 Test Item Value Reference Range Interpretation Comments GLUCOSE (test code = 06D) 122 mg/dL 75-100 H SODIUM (test code = 01A) 142 mmol/L 136-145 POTASSIUM (test code = 01B) 4.4 mmol/L 3.6-5.1 CHLORIDE (test code = 04A) 110 mmol/L 98-107 H CO2 (test code = 02A) 24 mmol/L 22-32 ANION GAP (test code = ANG) 12.4 mmol/L BUN (test code = 05D) 13 mg/dL 7-18 CREATININE (test code = 03E) 0.8 mg/dL 0.7-1.3 BUN/CREA (test code = BCR) 15 12-20 CALCIUM (test code = 09D) 8.3 mg/dL 8.3-9.5 BILI TOTAL (test code = 11A) 0.2 mg/dL 0.2-1.0 PROTEIN (test code = 07D) 6.6 g/dL 6.4-8.2 ALBUMIN (test code = 08D) 3.3 g/dL 3.5-4.8 L GLOBULIN (test code = GLB) 3.3 g/dL 1.5-3.8 ALB/GLOB (test code = AGRR) 1.0 1.0-2.6 ALK PHOS (test code = 35A) 124 IU/L 42-121 H AST (test code = 30A) 26 IU/L <=42 ALT (test code = 31A) 37 IU/L <=78 [id number] 12:48:00 Test Item Value Reference Range Interpretation Comments MAGNESIUM (test code = 48A) 1.8 mg/dL 1.8-2.4 PRO TIME AND [id number] 12:27:00 Test Item Value Reference Range Interpretation Comments PT (test code = 10.8 s 9.8-13.6 TT) INR (test code = 1.0 INR) INRH (test code = SUGGESTED THERAPEUTIC INRH) RANGE FOR INR: 2.5 - 3.5 For Patients with Prosthetic Valves or Patients with recurrent Thromboembolic Events 2.0 - 3.0 For Most Other Applications PTT (test code = 19.1 s 20.2-38.0 L PTT) PTTH (test code = To monitor the PTTH) effectiveness of heparin, we offer the Anti-Xa (Heparin Assay). It can be used for either unfractionated or LMW Heparin. Order Code is ANTI-XA CBC (INCLUDES AUTOMATED DIFFERENTIAL)2018-08-18 12:19:00 Test Item Value Reference Range Interpretation Comments WBC (test code = WBC) 5.8 10\\S\\3/uL 4.5-11.0 RBC (test code = RBC) 4.89 10\\S\\6/uL 4.20-5.60 HGB (test code = HBG) 13.9 g/dL 14.0-18.0 L HCT (test code = HCT) 42.9 % 35.0-46.0 MCV (test code = MCV) 87.7 fL 80.0-94.0 MCH (test code = MCH) 28.4 pg 27.0-31.0 MCHC (test code = MCHC) 32.4 g/dL 32.0-36.0 RDW (test code = RDW) 13.4 % 11.5-14.5 PLT (test code = PLT) 189 10\\S\\3/uL 130-400 MPV (test code = MPV) 10.7 fL 9.4-12.4 NEUTROP # (test code = NE#) 4.0 10\\S\\3/uL 2.0-8.0 LYMPH # (test code = LY#) 1.2 10\\S\\3/uL 1.2-4.0 MONOCYTE # (test code = MO#) 0.4 10\\S\\3/uL 0.0-1.1 EOSINOPH # (test code = EO#) 0.2 10\\S\\3/uL 0.0-0.7 BASOPHIL # (test code = BA#) 0.0 10\\S\\3/uL 0.0-0.3 IG # (test code = IG#) 0.03 10\\S\\3/uL 0.00-0.06 NRBC # (test code = NRBC#) 0.00 10\\S\\3/uL 0.00-0.01 NEUTROPH % (test code = NE%) 69.3 % 35.0-73.0 LYMPH % (test code = LY%) 20.3 % 20.0-55.0 MONO % (test code = MO%) 6.8 % 2.5-10.0 EOSINOPH % (test code = EO%) 2.8 % 0.0-5.0 BASOPHIL % (test code = BA%) 0.3 % 0.0-2.0 IG % (test code = IG%) 0.5 % 0.0-0.8 NRBC% (test code = NRBC%) 0.0 % 0.0-0.2 MANDIFF (test code = MDIFF) NO NO RBC MORPH (test code = RBCMOR) NORMAL URINALYSIS WITH [id number] 01:48:00 Test Item Value Reference Range Interpretation Comments COLOR (test code = COLU) YELLOW YELLOW CLARITY (test code = CLA) CLEAR CLEAR GLUCOSE UR (test code = UA GLUCOSE) NEGATIVE NEGATIVE BILI UR (test code = BILE) NEGATIVE NEGATIVE KETONES UR (test code = TAYLOR) NEGATIVE NEGATIVE SP GRAVITY (test code = SPGR) 1.035 1.005-1.030 H PH UR (test code = PH) 5.5 4.5-8.0 PROTEIN UR (test code = PU) TRACE NEGATIVE A UROBIL UR (test code = UROQ) 0.2 EU/dL 0.2-1.0 NITRITE UR (test code = NITRITE) NEGATIVE NEGATIVE BLOOD UR (test code = UA BLOOD) NEGATIVE NEGATIVE LEUK ES UR (test code = LEUK) NEGATIVE NEGATIVE WBC UR (test code = UWBC) 0 /HPF 0-3 RBC UR (test code = URBC) 0 /HPF 0-2 EPITH UR (test code = UEPC) NONE /LPF NONE BACTERIA UR (test code = UBACT) FEW /HPF NONE A CAST UR (test code = CAST) /LPF NONE CRYSTAL UR (test code = CRYU) / LPF NONE MUCUS UR (test code = MUC) FEW / HPF NONE A AMORPH UR (test code = WADE) / HPF NONE TRICH UR (test code = UTRICH) /HPF NONE YEAST UR (test code = UY) /HPF NONE SPERM UR (test code = USPERM) /HPF NONE CT LUMBAR SPINE W/O [id number] 01:14:56LOCATION: [id number]: 57-year-old male who suffered a fall.COMMENT: Field 3Axial CT imaging of this patient's lumbar spine was obtained. Soft tissue andbone window images were submitted in the axial plane. Coronal and sagittal bonereconstructions were included. Plain radiographs of the lumbar spine obtained 04/08/18 are available forcomparison.One or more of the following dose reduction techniques were used: Automatedexposure control, adjustment of the mA and/or kV according to the patient size,and/or utilization of iterative reconstruction technique.DLP: 1216.52 mGy-cmCONTRAST: NoneFINDINGS:The lumbar skeleton exhibits no evidence of an acute bony injury. The alignmentis essentially unchanged from the plain radiographic study obtained last year.Again seen is considerable of vertebral body heightloss of T12 which appearsunchanged from the prior study. The paraspinous soft tissues are unremarkable.No significant posterior facet arthropathy is seen.IMPRESSION:No acute bony injury is seen in thispatient's lumbar spine and this CTexamination. The overall appearance of the anatomy is stable when compared to aradiographic examination of the lumbar spine obtained March,.CT PELVIS W/O [id number] 01:11:26LOCATION: Field 1HISTORY: Field 2.COMMENT: Field 3Axial CT imaging of this patient's bony pelvis wasobtained. Soft tissue andbone window images were submitted in the axial plane. Coronal and sagittal bonereconstructions were included. Field 4One or more of the following dose reduction techniques wereused: Automatedexposure control, adjustment of the mA and/or kV according to the patient size,and/or utilization of iterative reconstruction technique.DLP: 645.19 mGy-cmCONTRAST: NoneFINDINGS:No acute bony injury is seen in the pelvis. The visualized lower lumbar spineexhibits no acute or destructive bony lesion. The proximal femora are intact.The soft tissues are unremarkable.IMPRESSION:UnremarkableCT examination of the bony pelvis.XR KNEE LEFT 3 VIEWS 2018-07-10 16:40:46Left knee, 3 viewsLocation Code: [id number] HISTORY: PainCOMMENTS: AP, lateral, and oblique views ofthe left knee demonstrate no acutefracture or malalignment. Fixation screws are noted within the proximal tibia.There is mild joint space narrowing within all 3 compartments of the knee withsubchondralsclerosis and osteophyte formation. The soft tissues areunremarkable.IMPRESSION: Mild osteoarthritiswith otherwise no acute radiographicabnormality.XR HIP LEFT UNILATERAL 2 VIEWS2018-07-10 16:40:07Left tibia/fibula, 2 views.Location code: [id number] HISTORY: PainCOMPARISON: None.COMMENTS: AP and lateral views of the left tibia and fibula demonstrate noacute fracture or malalignment. The soft tissues are unremarkable.IMPRESSION: No acute radiographic abnormality.XR SPINE THORACIC W/SWIM 3VWS2018-04-08 17:25:58XR SPINE THORACIC W/SWIM 3VWS*WW*CLINICAL INFORMATION: Fall COMPARISONS: CT lumbar spine dated 03/20/17, thoracic spine series dated1FINDINGS:. There is a chronic severe compression fracture ofthe T12 vertebra. Hyperkyphosis is centered at this level. Otherwise no acute fracture is identified.Multilevel disc space narrowing, endplate sclerosis, and spondylosis are noted.IMPRESSION:1. Chronic severe T12 compression fracture.2. No acute fracture is identified.Location: R16 XR SPINE LUMBAR COMPLETE2018-04-08 17:23:16XR SPINE LUMBAR COMPLETE*WW*CLINICAL INFORMATION: : Unspecified fall COMPARISONS: None available.FINDINGS:AP, bilateral oblique, and lateral images of the lumbar spine were obtained.A chronic severe T12 compression fracture is redemonstrated. No acute lumbarspine fracture is identified. Endplate sclerosis and disc space narrowing arenoted at all levels.IMPRESSION:1. No acute lumbar spine fracture is identified.2. Chronic severe T12 compression fracture.Location: [id number] NATRIURETIC PROTEIN *WW*2018-02-18 09:26:00 Test Item Value Reference Range Interpretation Comments proBNP (test code = PBNP) 949 pg/mL 0-125 H AMYLASE AND LIPASE *WW*2018-02-18 09:23:00 Test Item Value Reference Range Interpretation Comments AMYLASE (test code = 10A) 23 U/L 28-100 L LIPASE (test code = 60A) 45 IU/L 73-393 L COMPREHENSIVE METABOLIC DAWN *WW*2018-02-18 09:23:00 Test Item Value Reference Range Interpretation Comments GLUCOSE (test code = 06D) 102 mg/dL 75-100 H SODIUM (test code = 01A) 140 mmol/L 136-145 POTASSIUM (test code = 01B) 4.0 mmol/L 3.6-5.1 CHLORIDE (test code = 04A) 109 mmol/L 98-107 H CO2 (test code = 02A) 25 mmol/L 22-32 ANION GAP (test code = ANG) 10.0 mmol/L BUN (test code = 05D) 10 mg/dL 7-18 CREATININE (test code = 03E) 0.9 mg/dL 0.7-1.3 BUN/CREA (test code = BCR) 12 12-20 CALCIUM (test code = 09D) 8.3 mg/dL 8.3-9.5 BILI TOTAL (test code = 11A) 0.3 mg/dL 0.2-1.0 PROTEIN (test code = 07D) 6.7 g/dL 6.4-8.2 ALBUMIN (test code = 08D) 3.4 g/dL 3.5-4.8 L GLOBULIN (test code = GLB) 3.3 g/dL 1.5-3.8 ALB/GLOB (test code = AGRR) 1.0 1.0-2.6 ALK PHOS (test code = 35A) 92 IU/L 42-121 AST (test code = 30A) 31 IU/L <=42 ALT (test code = 31A) 52 IU/L <=78 MAGNESIUM WW2018-02-18 09:23:00 Test Item Value Reference Range Interpretation Comments MAGNESIUM (test code = 48A) 2.2 mg/dL 1.8-2.4 PRO TIME AND PTT *WW*2018-02-18 09:21:00 Test Item Value Reference Range Interpretation Comments PT (test code = 11.5 s 9.8-13.6 TT) INR (test code = 1.0 INR) INRH (test code = SUGGESTED THERAPEUTIC INRH) RANGE FOR INR: 2.5 - 3.5 For Patients with Prosthetic Valves or Patients with recurrent Thromboembolic Events 2.0 - 3.0 For Most Other Applications PTT (test code = 24.5 s 20.2-38.0 PTT) PTTH (test code = To monitor the PTTH) effectiveness of heparin, we offer the Anti-Xa (Heparin Assay). It can be used for either unfractionated or LMW Heparin. Order Code is ANTI-XA CBC (INCLUDES AUTOMATED DIFFERENTIAL)*[id number] 09:09:00 Test Item Value Reference Range Interpretation Comments WBC (test code = WBC) 5.2 10\\S\\3/uL 4.5-11.0 RBC (test code = RBC) 4.51 10\\S\\6/uL 4.20-5.60 HGB (test code = HBG) 12.7 g/dL 14.0-18.0 L HCT (test code = HCT) 38.8 % 35.0-46.0 MCV (test code = MCV) 86.0 fL 80.0-94.0 MCH (test code = MCH) 28.2 pg 27.0-31.0 MCHC (test code = MCHC) 32.7 g/dL 32.0-36.0 RDW (test code = RDW) 13.7 % 11.5-14.5 PLT (test code = PLT) 214 10\\S\\3/uL 130-400 MPV (test code = MPV) 10.4 fL 9.4-12.4 NEUTROP # (test code = NE#) 3.5 10\\S\\3/uL 2.0-8.0 LYMPH # (test code = LY#) 1.1 10\\S\\3/uL 1.2-4.0 L MONOCYTE # (test code = MO#) 0.4 10\\S\\3/uL 0.0-1.1 EOSINOPH # (test code = EO#) 0.2 10\\S\\3/uL 0.0-0.7 BASOPHIL # (test code = BA#) 0.0 10\\S\\3/uL 0.0-0.3 IG # (test code = IG#) 0.01 10\\S\\3/uL 0.00-0.06 NRBC # (test code = NRBC#) 0.00 10\\S\\3/uL 0.00-0.01 NEUTROPH % (test code = NE%) 66.6 % 35.0-73.0 LYMPH % (test code = LY%) 21.0 % 20.0-55.0 MONO % (test code = MO%) 7.8 % 2.5-10.0 EOSINOPH % (test code = EO%) 4.0 % 0.0-5.0 BASOPHIL % (test code = BA%) 0.4 % 0.0-2.0 IG % (test code = IG%) 0.2 % 0.0-0.8 NRBC% (test code = NRBC%) 0.0 % 0.0-0.2 MANDIFF (test code = WMDIFF) NO NO RBC MORPH (test code = NORMAL WRBCMOR) BASIC METABOLIC [id number] 09:50:00 Test Item Value Reference Range Interpretation Comments GLUCOSE (test code = 06D) 106 mg/dL 75-100 H SODIUM (test code = 01A) 135 mmol/L 136-145 L POTASSIUM (test code = 01B) 4.2 mmol/L 3.6-5.1 CHLORIDE (test code = 04A) 101 mmol/L 98-107 CO2 (test code = 02A) 28 mmol/L 22-32 ANION GAP (test code = ANG) 10.2 mmol/L BUN (test code = 05D) 14 mg/dL 7-18 CREATININE (test code = 03E) 0.8 mg/dL 0.7-1.3 BUN/CREA (test code = BCR) 18 12-20 CALCIUM (test code = 09D) 8.6 mg/dL 8.3-9.5 PRO TIME AND [id number] 09:39:00 Test Item Value Reference Range Interpretation Comments PT (test code = 11.0 s 9.8-13.6 TT) INR (test code = 1.0 INR) INRH (test code = SUGGESTED THERAPEUTIC INRH) RANGE FOR INR: 2.5 - 3.5 For Patients with Prosthetic Valves or Patients with recurrent Thromboembolic Events 2.0 - 3.0 For Most Other Applications PTT (test code = 24.7 s 20.2-38.0 PTT) PTTH (test code = To monitor the PTTH) effectiveness of heparin, we offer the Anti-Xa (Heparin Assay). It can be used for either unfractionated or LMW Heparin. Order Code is ANTI-XA CBC (INCLUDES AUTOMATED DIFFERENTIAL)2017-11-10 09:28:00 Test Item Value Reference Range Interpretation Comments WBC (test code = WBC) 6.6 10\\S\\3/uL 4.5-11.0 RBC (test code = RBC) 4.77 10\\S\\6/uL 4.20-5.60 HGB (test code = HBG) 13.3 g/dL 14.0-18.0 L HCT (test code = HCT) 40.4 % 35.0-46.0 MCV (test code = MCV) 84.7 fL 80.0-94.0 MCH (test code = MCH) 27.9 pg 27.0-31.0 MCHC (test code = MCHC) 32.9 g/dL 32.0-36.0 RDW (test code = RDW) 13.6 % 11.5-14.5 PLT (test code = PLT) 246 10\\S\\3/uL 130-400 MPV (test code = MPV) 10.0 fL 9.4-12.4 NEUTROP # (test code = NE#) 4.6 10\\S\\3/uL 2.0-8.0 LYMPH # (test code = LY#) 1.3 10\\S\\3/uL 1.2-4.0 MONOCYTE # (test code = MO#) 0.5 10\\S\\3/uL 0.0-1.1 EOSINOPH # (test code = EO#) 0.1 10\\S\\3/uL 0.0-0.7 BASOPHIL # (test code = BA#) 0.0 10\\S\\3/uL 0.0-0.3 IG # (test code = IG#) 0.05 10\\S\\3/uL 0.00-0.06 NRBC # (test code = NRBC#) 0.00 10\\S\\3/uL 0.00-0.01 NEUTROPH % (test code = NE%) 70.7 % 35.0-73.0 LYMPH % (test code = LY%) 19.2 % 20.0-55.0 L MONO % (test code = MO%) 7.3 % 2.5-10.0 EOSINOPH % (test code = EO%) 1.4 % 0.0-5.0 BASOPHIL % (test code = BA%) 0.6 % 0.0-2.0 IG % (test code = IG%) 0.8 % 0.0-0.8 NRBC% (test code = NRBC%) 0.0 % 0.0-0.2 MANDIFF (test code = MDIFF) NO NO RBC MORPH (test code = RBCMOR) NORMAL XR SHOULDER RIGHT 3 [id number] 09:31:20Location: D4EXAM: RIGHT SHOULDER, 3 VIEWSHistory: Shoulder painComparison: Shoulder radiograph dated 09/04/17indings: Glenohumeral and acromioclavicular alignment are maintained. No acute orhealing fracture. Mild hypertrophic change at the acromioclavicular joint isredemonstrated.Impression: 1. No fracture/malalignment.2. Moderate chromic clavicular joint hypertrophic change.BASIC METABOLIC [id number] 09:38:00 Test Item Value Reference Range Interpretation Comments GLUCOSE (test code = 06D) 109 mg/dL 75-100 H SODIUM (test code = 01A) 135 mmol/L 136-145 L POTASSIUM (test code = 01B) 4.1 mmol/L 3.6-5.1 CHLORIDE (test code = 04A) 102 mmol/L 98-107 CO2 (test code = 02A) 27 mmol/L 22-32 ANION GAP (test code = ANG) 10.1 mmol/L BUN (test code = 05D) 12 mg/dL 7-18 CREATININE (test code = 03E) 0.8 mg/dL 0.7-1.3 BUN/CREA (test code = BCR) 14 12-20 CALCIUM (test code = 09D) 8.7 mg/dL 8.3-9.5 XR HIP LEFT UNILATERAL 2 VIEWS2017-10-05 02:39:26LEFT HIP RADIOGRAPHS, 2 VIEWSLOCATION: R16.INDICATION: : Unspecified fall.COMPARISON: None.NAVJOT HNIQUE: AP and frog-leg radiographs of the left hip.FINDINGS:There is no acute fracture or dislocation. The joint spaces are maintained.IMPRESSION:No acute osseous abnormality.XR SPINE LUMBAR COMPLETE2017-10-05 01:39:49LUMBAR SPINE RADIOGRAPHS, 5 VIEWSLOCATION: R16.INDICATION: : Unspecified fall.TECHNIQUE: AP, lateral, oblique, and spot radiographs of the lumbar spine.COMPARISON: CT dated 03/20/17.FINDINGS:A T12 compression fracture is unchanged. The vertebral body heights andalignment are otherwise maintained. No acute fracture is visualized.Degenerative changes are present throughout the spine. Visualized soft tissuesare normal.IMPRESSION:No acute abnormality in the lumbar spine. Old T12 compression fracture.U/S VENOUS DOPPLER LAZARO LOW EXT 2017-09-14 12:56:39Exam: Bilateral lower extremity venous Doppler ultrasoundHistory: Pain and swellingLocation: [id number]: High-resolution grayscale, color Doppler, and spectral analysis ofthe deep venous system of the lower extremities bilaterally was performed.Findings:There is normal compression and augmentation ofthe common and superficialfemoral as well as the popliteal veins and tibioperoneal trunks as well astheanterior and posterior tibial as well as peroneal veins. Normal flowidentified.Impression:1. No evidence of venous thrombosis.NM HIDA SCAN WITH [id number] 11:58:24HIDA scanLocation code: P0Mqiczlyc history: Calculus of bile duct without cholangitis or cholecystitisComments: Following the intravenous administration of 6.0 mCi of technetium 99mCholetec, sequentialimaging of the abdomen was performed. There is promptclearance and uptake by the liver with prompt excretion into the biliarysystem. There is visualization of the common bile duct and gallbladder at 15minutes and opacification of the small bowel at 30 minutes.Impression:1. No evidence of acute cholecystitis or biliary obstruction.XR SHOULDER RIGHT 3 VIEWS 2017-09-04 11:18:16Right shoulder, 3 viewsLocation Code: [id number] HISTORY: Shoulder painCOMMENTS: AP views in internal and external rotation along with a transscapularY view of the right shoulder were obtained. There is no acute fracture ormalalignment. Osteoarthritic changes are noted at the acromioclavicular jointwith mild spurring. The soft tissues are unremarkable.IMPRESSION: Mild right acromioclavicular osteoarthritis with otherwise no acuteabnormality.CT ABDOMEN AND PELVIS WITHOUT CONTRAST *CORINE* 2017-08-06 19:16:06AFTER HOURS SERVICE ON: 08/06/2017 7:11 PM *Study available for review on PACS at 7:02 PMCT Scan of the Abdomen and Pelvis Without ContrastLocation Code [id number]: [id number]: Lower abdominal painTechnique: Axial and reconstructed coronal scans were performed on a helicalscanner pre oral and IV contrast. Study is limited secondary to lack of oraland IV contrast. One or more of the following dose reduction techniques were used: Automatedexposure control, adjustment of the mA and/or kV according to patient size,and/or utilization of iterative reconstruction technique.Findings: Liver: No significant findings. Gallbladder/Biliary: No significant findings. Pancreas: No significant findings. Spleen: No significant findings.Adrenals: No significant findings. Kidneys: Right kidney is smaller/atrophic compared to the left. Nonephrolithiasis or hydronephrosis. Bladder: No significant findings. Bowel: No significant findings. The appendix is unremarkable.Other: There is a small fat- containing umbilical hernia without evidence ofstrangulation measuring 2.6 cm.Impression:No acute findings in the abdomen or pelvis.XR CHEST 2 VIEW *CORINE* 2017-08-06 19:04:12EXAM: XR CHEST 2 VIEW *WW*HISTORY: [id number]: Upper abdominal pain TECHNIQUE: Frontal and lateral views of the chest.COMPARISON: 05/28/2017 05/22/2016FINDINGS: The lungs are hypoinflated. Patchy atelectasisor infiltrate is present at thebilateral lung bases.No evidence of pneumothorax or pleural effusion.The heart is at the upperlimits of normal in size. Mediastinal contours are unremarkable. Partially visualized wedge compression deformity of the lower thoracic spine isstable. IMPRESSION:Bibasilar atelectasis/infiltrate.U/S GALLBLADDER*WW*2017-08-06 19:01:50EXAM: ABDOMINAL ULTRASOUND-LIMITEDHISTORY: [id number]: Upper abdominal painTECHNIQUE: Sonographic imaging of the right upper quadrant in the transverseand sagittal plane employing young scale and color terence ging.COMPARISON: 07/11/2017FINDINGS:Overlying bowel gas limits assessment.The liver is mildly enlarged measuring 18.0 cm in length. The hepaticparenchymal echogenicity is not well assessed. No focal masses are identified.The gallbladder is appropriately distended. There is no gallbladder wallthickeningor pericholecystic fluid. A sonographic Benítez's sign is notelicited per the performing correctional officer.There is no biliary ductal dilatation.The common bile duct measures 4 mm.The pancreas is not well visualized.The right kidney is slightly small in size measuring 8.5 cm. The right kidneyis suboptimally visualized. The renal parenchymal echogenicity appears mildlyincreased.No contour deforming masses on the submitted still images. There isno evidence of nephrolithiasis or hydronephrosis. The abdominalaorta and inferior vena cava are not well seen.IMPRESSION:Limited examination.No evidence of cholelithiasis or findings to indicate acute cholecystitis.The renal parenchymal echogenicity appears mildlyincreased. Correlate withhistory/laboratory values to exclude medical renal disease.THYROID PANEL/SCREEN (TSH) *WW*2017-08-06 18:58:00 Test Item Value Reference Range Interpretation Comments TSH (test code = WTSH) 3.230 uIU/mL 0.358-3.740 MAGNESIUM WW2017-08-06 18:51:00 Test Item Value Reference Range Interpretation Comments MAGNESIUM (test code = 48A) 2.2 mg/dL 1.8-2.4 BRAIN NATRIURETIC PROTEIN *WW*2017-08-06 18:22:00 Test Item Value Reference Range Interpretation Comments proBNP (test code = PBNP) 69 pg/mL 0-125 CARDIAC PROFILE *WW*2017-08-06 18:14:00 Test Item Value Reference Range Interpretation Comments TROPONIN I (test code = A84) <0.015 ng/mL 0.000-0.045 CKMB (test code = A49) 12.3 ng/mL <=3.6 HH CPK (test code = 32A) 286 IU/L 39-308 COMPREHENSIVE METABOLIC DAWN 2017-08-06 18:13:00 Test Item Value Reference Range Interpretation Comments GLUCOSE (test code = 06D) 133 mg/dL 75-100 H SODIUM (test code = 01A) 138 mmol/L 136-145 POTASSIUM (test code = 01B) 4.0 mmol/L 3.6-5.1 CHLORIDE (test code = 04A) 104 mmol/L 98-107 CO2 (test code = 02A) 27 mmol/L 22-32 ANION GAP (test code = ANG) 11.0 mmol/L BUN (test code = 05D) 15 mg/dL 7-18 CREATININE (test code = 03E) 1.0 mg/dL 0.7-1.3 BUN/CREA (test code = BCR) 15 12-20 CALCIUM (test code = 09D) 8.6 mg/dL 8.3-9.5 BILI TOTAL (test code = 11A) 0.2 mg/dL 0.2-1.0 PROTEIN (test code = 07D) 7.5 g/dL 6.4-8.2 ALBUMIN (test code = 08D) 3.6 g/dL 3.5-4.8 GLOBULIN (test code = GLB) 3.9 g/dL 1.5-3.8 H ALB/GLOB (test code = AGRR) 0.9 1.0-2.6 L ALK PHOS (test code = 35A) 142 IU/L 42-121 H AST (test code = 30A) 34 IU/L <=42 ALT (test code = 31A) 36 IU/L <=78 AMYLASE AND LIPASE 2017-08-06 18:13:00 Test Item Value Reference Range Interpretation Comments AMYLASE (test code = 10A) 34 U/L 28-100 LIPASE (test code = 60A) 71 IU/L 73-393 L PRO TIME AND PTT 2017-08-06 18:07:00 Test Item Value Reference Range Interpretation Comments PT (test code = 11.9 s 9.8-13.6 TT) INR (test code = 1.0 INR) INRH (test code = SUGGESTED THERAPEUTIC INRH) RANGE FOR INR: 2.5 - 3.5 For Patients with Prosthetic Valves or Patients with recurrent Thromboembolic Events 2.0 - 3.0 For Most Other Applications PTT (test code = 20.3 s 20.2-38.0 PTT) PTTH (test code = To monitor the PTTH) effectiveness of heparin, we offer the Anti-Xa (Heparin Assay). It can be used for either unfractionated or LMW Heparin. Order Code is ANTI-XA CBC (INCLUDES AUTOMATED DIFFERENTIAL)*[id number] 17:52:00 Test Item Value Reference Range Interpretation Comments WBC (test code = WBC) 5.2 10\\S\\3/uL 4.5-11.0 RBC (test code = RBC) 4.89 10\\S\\6/uL 4.20-5.60 HGB (test code = HBG) 13.8 g/dL 14.0-18.0 L HCT (test code = HCT) 42.1 % 35.0-46.0 MCV (test code = MCV) 86.1 fL 80.0-94.0 MCH (test code = MCH) 28.2 pg 27.0-31.0 MCHC (test code = MCHC) 32.8 g/dL 32.0-36.0 RDW (test code = RDW) 13.1 % 11.5-14.5 PLT (test code = PLT) 259 10\\S\\3/uL 130-400 MPV (test code = MPV) 9.9 fL 9.4-12.4 NEUTROP # (test code = NE#) 3.0 10\\S\\3/uL 2.0-8.0 LYMPH # (test code = LY#) 1.4 10\\S\\3/uL 1.2-4.0 MONOCYTE # (test code = MO#) 0.6 10\\S\\3/uL 0.0-1.1 EOSINOPH # (test code = EO#) 0.2 10\\S\\3/uL 0.0-0.7 BASOPHIL # (test code = BA#) 0.0 10\\S\\3/uL 0.0-0.3 IG # (test code = IG#) 0.01 10\\S\\3/uL 0.00-0.06 NRBC # (test code = NRBC#) 0.00 10\\S\\3/uL 0.00-0.01 NEUTROPH % (test code = NE%) 58.1 % 35.0-73.0 LYMPH % (test code = LY%) 26.4 % 20.0-55.0 MONO % (test code = MO%) 11.8 % 2.5-10.0 H EOSINOPH % (test code = EO%) 2.9 % 0.0-5.0 BASOPHIL % (test code = BA%) 0.6 % 0.0-2.0 IG % (test code = IG%) 0.2 % 0.0-0.8 NRBC% (test code = NRBC%) 0.0 % 0.0-0.2 MANDIFF (test code = WMDIFF) NO NO RBC MORPH (test code = NORMAL WRBCMOR) U/S ABDOMEN*WW*2017-07-11 09:53:16ABDOMINAL ULTRASOUND Location code: [id number] HISTORY: Abdominal pain COMPARISON: NoneTECHNIQUE: Transverse and longitudinal sonographic images of the abdomen wereobtained. FINDINGS: The liver is increased in echogenicity with no focal mass orintrahepatic biliary dilatation. The right lobe measures approximately 18.3 cm. There are no intraluminal gallstones however some sludge is seen. Gallbladderwall is normal at 2 mm. The common duct is normal at 7 mm in diameter. Thereis no pericholecystic fluid. Sonographic Benítez sign is negative. The kidneys are normal in echogenicity with no focal mass, calcification orhydronephrosis. The right kidney measures 10.8 x 4.7 x 6.5 cm. The leftkidney measures 12.5 x 6.2 x 6.4cm. The spleen is unremarkable and measuresapproximately 11.0 cm in span. The visualized portions of the pancreas, abdominal aorta and inferior vena cavaare unremarkable but very limited due to body habitusIMPRESSION:Mild hepatomegaly with moderate hepatic steatosis.Sludge in the gallbladder without stones. HIDA scan may be of further benefit.CT EXTREM LOWER W/O CONTRA [id number] 13:05:59CT left knee without contrastLocation Code: [id number] history: PainTechnique: Helical CT of the left knee was performed without contrast. Thinsection axial, coronal, and sagittal images were obtained.Automatic exposurecontrol was utilized. Findings:There is no acute fracture. Postsurgical changes ofORIF with 2 lateralfixation screws along the lateral tibial plateau are noted. There is persistentmild depression irregularity along the lateral tibial plateau articularsurface. There is prominent subchondral sclerosis and osteophyte formation atthe medial and patellofemoral compartments, as well. Calcifications are notedinvolving the menisci and posterior cruciate ligament. There is a trace kneeeffusion. The periarticular soft tissues are otherwise unremarkable.Impression:1. Postsurgical changes ofORIF of the lateral plateau with residual articularsurface irregularity and associated posttraumaticosteoarthritis.2. Trace effusion.CT EXTREM LOWER W/O CONTRA [id number] 13:03:22CT right knee without contrastLocation Code: [id number] history: PainTechnique: Helical CT of the rig ht knee was performed without contrast. Thinsection axial, coronal, and sagittal images were obtained. Automatic exposurecontrol was utilized. Findings:There is no acute fracture. There is mild narrowing of joint spaces withsubchondral sclerosis and osteophyte formation. There is no articular surfacedefect. Calcifications are noted involving the menisci and cruciate ligaments.There is no effusion. The periarticular soft tissues are unremarkable.Impression:1. Mild osteoarthritis.2. Chondrocalcinosis.3. Otherwise, no acute abnormality.BRAIN NATRIURETIC PROTEIN 2017-05-28 15:13:00 Test Item Value Reference Range Interpretation Comments proBNP (test code = PBNP) 170 pg/mL 0-125 H CARDIAC PROFILE 2017-05-28 14:51:00 Test Item Value Reference Range Interpretation Comments TROPONIN I (test code = A84) <0.015 ng/mL 0.000-0.045 CKMB (test code = A49) 4.4 ng/mL <=3.6 HH CPK (test code = 32A) 214 IU/L 39-308 CBC (INCLUDES AUTOMATED DIFFERENTIAL)*[id number] 14:49:00 Test Item Value Reference Range Interpretation Comments WBC (test code = WBC) 9.5 10\\S\\3/uL 4.5-11.0 RBC (test code = RBC) 5.17 10\\S\\6/uL 4.20-5.60 HGB (test code = HBG) 15.0 g/dL 14.0-18.0 HCT (test code = HCT) 44.3 % 35.0-46.0 MCV (test code = MCV) 85.7 fL 80.0-94.0 MCH (test code = MCH) 29.0 pg 27.0-31.0 MCHC (test code = MCHC) 33.9 g/dL 32.0-36.0 RDW (test code = RDW) 13.7 % 11.5-14.5 PLT (test code = PLT) 378 10\\S\\3/uL 130-400 MPV (test code = MPV) 9.5 fL 9.4-12.4 NEUTROP # (test code = NE#) 6.8 10\\S\\3/uL 2.0-8.0 LYMPH # (test code = LY#) 1.8 10\\S\\3/uL 1.2-4.0 MONOCYTE # (test code = MO#) 0.8 10\\S\\3/uL 0.0-1.1 EOSINOPH # (test code = EO#) 0.1 10\\S\\3/uL 0.0-0.7 BASOPHIL # (test code = BA#) 0.1 10\\S\\3/uL 0.0-0.3 IG # (test code = IG#) 0.03 10\\S\\3/uL 0.00-0.06 NRBC # (test code = NRBC#) 0.00 10\\S\\3/uL 0.00-0.01 NEUTROPH % (test code = NE%) 71.5 % 35.0-73.0 LYMPH % (test code = LY%) 19.1 % 20.0-55.0 L MONO % (test code = MO%) 8.1 % 2.5-10.0 EOSINOPH % (test code = EO%) 0.5 % 0.0-5.0 BASOPHIL % (test code = BA%) 0.5 % 0.0-2.0 IG % (test code = IG%) 0.3 % 0.0-0.8 NRBC% (test code = NRBC%) 0.0 % 0.0-0.2 MANDIFF (test code = WMDIFF) NO NO RBC MORPH (test code = NORMAL WRBCMOR) AMYLASE AND LIPASE 2017-05-28 14:46:00 Test Item Value Reference Range Interpretation Comments AMYLASE (test code = 10A) 30 U/L 28-100 LIPASE (test code = 60A) 67 IU/L 73-393 L COMPREHENSIVE METABOLIC DAWN *WW*2017-05-28 14:46:00 Test Item Value Reference Range Interpretation Comments GLUCOSE (test code = 06D) 99 mg/dL 75-100 SODIUM (test code = 01A) 136 mmol/L 136-145 POTASSIUM (test code = 01B) 4.0 mmol/L 3.6-5.1 CHLORIDE (test code = 04A) 104 mmol/L 98-107 CO2 (test code = 02A) 25 mmol/L 22-32 ANION GAP (test code = ANG) 11.0 mmol/L BUN (test code = 05D) 13 mg/dL 7-18 CREATININE (test code = 03E) 0.9 mg/dL 0.7-1.3 BUN/CREA (test code = BCR) 15 12-20 CALCIUM (test code = 09D) 8.8 mg/dL 8.3-9.5 BILI TOTAL (test code = 11A) 0.6 mg/dL 0.2-1.0 PROTEIN (test code = 07D) 8.0 g/dL 6.4-8.2 ALBUMIN (test code = 08D) 4.0 g/dL 3.5-4.8 GLOBULIN (test code = GLB) 4.0 g/dL 1.5-3.8 H ALB/GLOB (test code = AGRR) 1.0 1.0-2.6 ALK PHOS (test code = 35A) 128 IU/L 42-121 H AST (test code = 30A) 31 IU/L <=42 ALT (test code = 31A) 50 IU/L <=78 DIRECT INFLUENZA A AND B [id number] 14:43:00 Test Item Value Reference Range Interpretation Comments Direct Exam (test PRESUMPTIVE NEGATIVE FOR code = DE3) THE PRESENCE OF INFLUENZA ANTIGEN XR CHEST 1 VIEW PORTABLE 2017-05-28 14:13:22CLINICAL HISTORY: Cough. LOCATION: D4.FINDINGS: Comparison is made with a previous study dated May 04, 2017. Aportable AP view of the chest is dated May 28, 2017 at 1403 hours. There isstable mild cardiomegaly. There is central vascular congestion and mildinterstitial prominence. No focal consolidation or pleural effusions. There aremild degenerative changes at the acromioclavicular joints. IMPRESSION:1. Mild cardiomegaly, central vascular congestion, and mild diffuseinterstitial prominence is suggestive of volume overload/edema. Pleasecorrelate clinically.XR CHEST 1 VIEW PORTABLE 2017-05-04 12:06:28Portable AP chest, 1 viewLocation Code: [id number] HISTORY: SOBCOMPARISON: 01/30/17COMMENT: The heart size is enlarged with mild central congestion and some minimalbibasilar subsegmental atelectasis similar to prior exam. No alveolarconsolidations. Osseous structures are intact.IMPRESSION: Cardiomegaly with mild central congestion and mild bibasilarsubsegmental atelectasis.CARDIAC PROFILE 2017-05-04 11:45:00 Test Item Value Reference Range Interpretation Comments TROPONIN I (test code = A84) <0.015 ng/mL 0.000-0.045 CKMB (test code = A49) 7.3 ng/mL <=3.6 HH CPK (test code = 32A) 229 IU/L 39-308 BRAIN NATRIURETIC PROTEIN 2017-05-04 11:41:00 Test Item Value Reference Range Interpretation Comments proBNP (test code = PBNP) 232 pg/mL 0-125 H COMPREHENSIVE METABOLIC DAWN 2017-05-04 11:35:00 Test Item Value Reference Range Interpretation Comments GLUCOSE (test code = 06D) 86 mg/dL 75-100 SODIUM (test code = 01A) 134 mmol/L 136-145 L POTASSIUM (test code = 01B) 4.2 mmol/L 3.6-5.1 CHLORIDE (test code = 04A) 100 mmol/L 98-107 CO2 (test code = 02A) 28 mmol/L 22-32 ANION GAP (test code = ANG) 10.2 mmol/L BUN (test code = 05D) 12 mg/dL 7-18 CREATININE (test code = 03E) 1.0 mg/dL 0.7-1.3 BUN/CREA (test code = BCR) 12 12-20 CALCIUM (test code = 09D) 9.3 mg/dL 8.3-9.5 BILI TOTAL (test code = 11A) 0.6 mg/dL 0.2-1.0 PROTEIN (test code = 07D) 7.8 g/dL 6.4-8.2 ALBUMIN (test code = 08D) 4.0 g/dL 3.5-4.8 GLOBULIN (test code = GLB) 3.8 g/dL 1.5-3.8 ALB/GLOB (test code = AGRR) 1.1 1.0-2.6 ALK PHOS (test code = 35A) 154 IU/L 42-121 H AST (test code = 30A) 23 IU/L <=42 ALT (test code = 31A) 41 IU/L <=78 CBC (INCLUDES AUTOMATED DIFFERENTIAL)*[id number] 11:22:00 Test Item Value Reference Range Interpretation Comments WBC (test code = WBC) 7.7 10\\S\\3/uL 4.5-11.0 RBC (test code = RBC) 4.82 10\\S\\6/uL 4.20-5.60 HGB (test code = HBG) 13.8 g/dL 14.0-18.0 L HCT (test code = HCT) 41.7 % 35.0-46.0 MCV (test code = MCV) 86.5 fL 80.0-94.0 MCH (test code = MCH) 28.6 pg 27.0-31.0 MCHC (test code = MCHC) 33.1 g/dL 32.0-36.0 RDW (test code = RDW) 14.1 % 11.5-14.5 PLT (test code = PLT) 334 10\\S\\3/uL 130-400 MPV (test code = MPV) 9.7 fL 9.4-12.4 NEUTROP # (test code = NE#) 4.9 10\\S\\3/uL 2.0-8.0 LYMPH # (test code = LY#) 1.7 10\\S\\3/uL 1.2-4.0 MONOCYTE # (test code = MO#) 0.8 10\\S\\3/uL 0.0-1.1 EOSINOPH # (test code = EO#) 0.2 10\\S\\3/uL 0.0-0.7 BASOPHIL # (test code = BA#) 0.1 10\\S\\3/uL 0.0-0.3 IG # (test code = IG#) 0.05 10\\S\\3/uL 0.00-0.06 NRBC # (test code = NRBC#) 0.00 10\\S\\3/uL 0.00-0.01 NEUTROPH % (test code = NE%) 63.0 % 35.0-73.0 LYMPH % (test code = LY%) 21.8 % 20.0-55.0 MONO % (test code = MO%) 10.9 % 2.5-10.0 H EOSINOPH % (test code = EO%) 3.1 % 0.0-5.0 BASOPHIL % (test code = BA%) 0.6 % 0.0-2.0 IG % (test code = IG%) 0.6 % 0.0-0.8 NRBC% (test code = NRBC%) 0.0 % 0.0-0.2 MANDIFF (test code = WMDIFF) NO NO RBC MORPH (test code = NORMAL WRBCMOR) CT LUMBAR SPINE W/O [id number] 10:17:33Exam: CT scan of the lumbar spine without contrastHistory: Back pain with radiculopathyLocation: [id number]: Multiple contiguous thin section axial images of the lumbar spinewas performed with sagittal and coronal reconstructions. One or more of thefollowing dose reduction techniques were used: Automated exposure control,adjustment of the mA and or KV according to patient size, and/or utilization ofiterative reconstruction technique. DLP: 1335 mGy-cm. Findings:There is estimated 60% chronic appearing compression fracture of T12 withoutsignificant retropulsion.Extensive postoperative decompression of the thoracic spine noted extendingfrom T12 to the S1 level.Mild retrolisthesis of L4 relative to L5 noted with vacuum phenomenon withinthe disc along with bilateral posterolateral 4 mm disc protrusion/osteophytecomplexes with moderate bilateral facet arthropathy creating moderate stenosiswith bilateral L5 nerve root and foraminal encroachment.Mild posterior spondylosis with facet arthropathy at theL1-2, L2-3, and L5-F9gcsytw but without significant stenosis or nerve root compromise.No evidence ofparaspinal soft tissue mass or fluid collection.Impression:1. Extensive postoperative posterior decompression as detailed above. There anais chronic appearing 60% compression fracture of T12 although if indicated MRImay be of further benefit.2. Mild retrolisthesis of L4 relative to L5 with bilateral posterolateral 4 mmdisc protrusion/osteophyte complexes with moderate bilateral facet arthropathycreating moderate stenosis with bilateral L5 nerve root and foraminalencroachment. Please see above.XR SPINE THORACIC W/SWIM 3VWS*WW* 2017-03-01 14:06:41Thoracic spine, 3 viewsLocation Code: [id number] history: PainComparison: CT dated 05/11/2016Comments: AP, lateral, and swimmer lateral views of the thoracic spine wereobtained. Chronic anterior wedge compression fracture at T12 with resultingkyphosis appears stable. There is no acute fracture or malalignment. There ismoderate multilevel disc space narrowing with endplate sclerosis and osteophyteformation. The paraspinal soft tissues are unremarkable.Impression: 1. Stable chronic anterior wedge compression fracture at T12.2. Moderatemultilevel thoracic spondylosis.3. Otherwise, no acute abnormality.BASIC METABOLIC [id number] 10:03:00 Test Item Value Reference Range Interpretation Comments GLUCOSE (test code = 06D) 107 mg/dL 75-100 H SODIUM (test code = 01A) 138 mmol/L 136-145 POTASSIUM (test code = 01B) 4.5 mmol/L 3.6-5.1 CHLORIDE (test code = 04A) 104 mmol/L 98-107 CO2 (test code = 02A) 25 mmol/L 22-32 ANION GAP (test code = ANG) 13.5 mmol/L BUN (test code = 05D) 13 mg/dL 7-18 CREATININE (test code = 03E) 0.9 mg/dL 0.7-1.3 BUN/CREA (test code = BCR) 15 12-20 CALCIUM (test code = 09D) 9.0 mg/dL 8.3-9.5 PRO TIME AND [id number] 09:21:00 Test Item Value Reference Range Interpretation Comments PT (test code = 10.9 s 9.8-13.6 TT) INR (test code = 1.0 INR) INRH (test code = SUGGESTED THERAPEUTIC INRH) RANGE FOR INR: 2.5 - 3.5 For Patients with Prosthetic Valves or Patients with recurrent Thromboembolic Events 2.0 - 3.0 For Most Other Applications PTT (test code = 28.5 s 20.2-38.0 PTT) PTTH (test code = To monitor the PTTH) effectiveness of heparin, we offer the Anti-Xa (Heparin Assay). It can be used for either unfractionated or LMW Heparin. Order Code is ANTI-XA XR RIBS LT UNIL 3VWS W/PA CHEST*WW*2017-01-30 15:12:20Left rib series, 5 views.Location Code: D4 CLINICAL HISTORY: Left rib pain.COMMENT: Frontal view of the chest shows the lungs to be clear with nopneumothorax, consolidation, or effusion. The cardiomediastinal silhouette isunremarkable. AP and oblique views of the left ribs demonstrate no displaced fracture. Thesoft tissues are unremarkable.IMPRESSION: No acute abnormality.BASIC METABOLIC [id number] 11:33:00 Test Item Value Reference Range Interpretation Comments GLUCOSE (test code = 06D) 113 mg/dL 75-100 H SODIUM (test code = 01A) 136 mmol/L 136-145 POTASSIUM (test code = 01B) 4.7 mmol/L 3.6-5.1 CHLORIDE (test code = 04A) 104 mmol/L 98-107 CO2 (test code = 02A) 26 mmol/L 22-32 ANION GAP (test code = ANG) 10.7 mmol/L BUN (test code = 05D) 24 mg/dL 7-18 H CREATININE (test code = 03E) 0.8 mg/dL 0.7-1.3 BUN/CREA R (test code = BCR) 31 12-20 H CALCIUM (test code = 09D) 9.1 mg/dL 8.3-9.5 CBC (INCLUDES AUTOMATED DIFFERENTIAL)2016-11-03 11:20:00 Test Item Value Reference Range Interpretation Comments WBC (test code = WBC) 6.3 10\\S\\3/uL 4.5-11.0 RBC (test code = RBC) 5.00 10\\S\\6/uL 4.20-5.60 HGB (test code = HBG) 14.8 g/dL 14.0-18.0 HCT (test code = HCT) 43.8 % 35.0-46.0 MCV (test code = MCV) 87.6 fL 80.0-94.0 MCH (test code = MCH) 29.6 pg 27.0-31.0 MCHC (test code = MCHC) 33.8 g/dL 32.0-36.0 RDW (test code = RDW) 13.7 % 11.5-14.5 PLT (test code = PLT) 248 10\\S\\3/uL 130-400 MPV (test code = MPV) 10.0 fL 9.4-12.4 NEUTROP # (test code = NE#) 4.2 10\\S\\3/uL 2.0-8.0 LYMPH # (test code = LY#) 1.3 10\\S\\3/uL 1.2-4.0 MONOCYTE # (test code = MO#) 0.6 10\\S\\3/uL 0.0-1.1 EOSINOPH # (test code = EO#) 0.1 10\\S\\3/uL 0.0-0.7 BASOPHIL # (test code = BA#) 0.1 10\\S\\3/uL 0.0-0.3 IG # (test code = IG#) 0.05 10\\S\\3/uL 0.00-0.06 NRBC # (test code = NRBC#) 0.00 10\\S\\3/uL 0.00-0.01 NEUTROPH % (test code = NE%) 67.2 % 35.0-73.0 LYMPH % (test code = LY%) 21.0 % 20.0-55.0 MONO % (test code = MO%) 8.9 % 2.5-10.0 EOSINOPH % (test code = EO%) 1.3 % 0.0-5.0 BASOPHIL % (test code = BA%) 0.8 % 0.0-2.0 IG % (test code = IG%) 0.8 % 0.0-0.8 NRBC% (test code = NRBC%) 0.0 % 0.0-0.2 MANDIFF (test code = MDIFF) NO NO RBC MORPH (test code = RBCMOR) NORMAL ALCOHOL BLOOD (ETOH)2016-07-14 01:14:00 Test Item Value Reference Range Interpretation Comments ALCOHOL (test code = 69 mg/dL <=10 H 56A) Ref Range Change (test Please note the code = REF RANGE) change in reference range ALCOHOL BLOOD (ETOH)2016-07-13 23:48:00 Test Item Value Reference Range Interpretation Comments ALCOHOL (test code = 106 mg/dL <=10 H 56A) Ref Range Change (test Please note the code = REF RANGE) change in reference range CARDIAC [id number] 19:00:00 Test Item Value Reference Range Interpretation Comments TROPONIN I (test code = A84) 0.048 ng/mL 0.000-0.045 H CKMB (test code = A49) 1.3 ng/mL <=3.6 CPK (test code = 32A) 189 IU/L 39-308 [id number] 15:50:00 Test Item Value Reference Range Interpretation Comments ACETAMINPH (test code = 94M) <2.0 ug/mL 10.0-30.0 L DRUGS OF [id number] 15:49:00 Test Item Value Reference Range Interpretation Comments DRUG SCRN (test code URINE DRUG SCREEN = HDOA) This is an unconfirmed screening result and should not be used for non-medical purposes CANNABINOD (test Negative NEGATIVE code = 88C) AMPHETHETM (test Negative NEGATIVE code = 84A) BENZODIAZP (test POSITIVE NEGATIVE A code = 86A) BARBITURAT (test Negative NEGATIVE code = 85A) OPIATES (test code = Negative NEGATIVE 92B) COCAINE (test code = Negative NEGATIVE 87A) PHENCYCLID (test Negative NEGATIVE code = 66A) METHADONE (test code Negative NEGATIVE = 64A) DOAH (test code = DOAH) URINE DRUG SCREEN Cut-off values are as follows: Cannabinoids 50 ng/mL Cocaine 300 ng/mL Amphetamines 1000 ng/mL Phencyclidine 25 ng/mL Benzodiazepines 200 ng.mL Methadone 300 ng/mL Barbiturates 200 ng/mL Opiates 2000 ng/mL URINALYSIS WITH [id number] 15:48:00 Test Item Value Reference Range Interpretation Comments COLOR (test code = COLU) YELLOW YELLOW CLARITY (test code = CLA) CLEAR CLEAR GLUCOSE UR (test code = UA GLUCOSE) NEGATIVE NEGATIVE BILI UR (test code = BILE) NEGATIVE NEGATIVE KETONES UR (test code = TAYLOR) NEGATIVE NEGATIVE SP GRAVITY (test code = SPGR) 1.017 1.005-1.030 PH UR (test code = PH) 6.0 4.5-8.0 PROTEIN UR (test code = PU) 1+ NEGATIVE A UROBIL UR (test code = UROQ) 0.2 EU/dL 0.2-1.0 NITRITE UR (test code = NITRITE) NEGATIVE NEGATIVE BLOOD UR (test code = UA BLOOD) NEGATIVE NEGATIVE LEUK ES UR (test code = LEUK) NEGATIVE NEGATIVE WBC UR (test code = UWBC) 0 /HPF 0-3 RBC UR (test code = URBC) 0 /HPF 0-2 EPITH UR (test code = UEPC) FEW /LPF NONE A BACTERIA UR (test code = UBACT) NONE /HPF NONE CAST UR (test code = CAST) /LPF NONE CRYSTAL UR (test code = CRYU) / LPF NONE MUCUS UR (test code = MUC) FEW / HPF NONE A AMORPH UR (test code = WADE) / HPF NONE TRICH UR (test code = UTRICH) /HPF NONE YEAST UR (test code = UY) /HPF NONE SPERM UR (test code = USPERM) /HPF NONE [id number] 15:48:00 Test Item Value Reference Range Interpretation Comments SALICYLATE (test code = 94B) 2.1 mg/dL 2.8-20.0 L XR CHEST 1 VIEW [id number] 15:47:15Location: [id number], AP ViewHistory: Altered mental statusComparison: Chest radiograph dated 06/18/16Findings: With a somewhat shallow inspiration with mild right basilar atelectasis,similar to the priorexam. No evidence of acute airspace consolidation.Cardiomediastinal silhouette is stable as well.No acute osseous findings.Impression: Shallow inspiration with right basilar atelectasis.AMMONIA [id number] 15:44:00 Test Item Value Reference Range Interpretation Comments AMMONIA (test code = 54A) 47 umol/L 11-32 H ALCOHOL BLOOD (ETOH)2016-07-13 15:42:00 Test Item Value Reference Range Interpretation Comments ALCOHOL (test code = 290 mg/dL <=10 H 56A) Ref Range Change (test Please note the code = REF RANGE) change in reference range COMPREHENSIVE METABOLIC [id number] 15:41:00 Test Item Value Reference Range Interpretation Comments GLUCOSE (test code = 06D) 123 mg/dL 75-100 H SODIUM (test code = 01A) 139 mmol/L 136-145 POTASSIUM (test code = 01B) 4.3 mmol/L 3.6-5.1 CHLORIDE (test code = 04A) 105 mmol/L 98-107 CO2 (test code = 02A) 24 mmol/L 22-32 ANION GAP (test code = ANG) 14.3 mmol/L BUN (test code = 05D) 18 mg/dL 7-18 CREATININE (test code = 03E) 0.9 mg/dL 0.7-1.3 BUN/CREA R (test code = BCR) 19 12-20 CALCIUM (test code = 09D) 7.8 mg/dL 8.3-9.5 L BILI TOTAL (test code = 11A) 0.2 mg/dL 0.2-1.0 PROTEIN (test code = 07D) 7.6 g/dL 6.4-8.2 ALBUMIN (test code = 08D) 3.8 g/dL 3.5-4.8 GLOBULIN (test code = GLB) 3.8 g/dL 1.5-3.8 ALB/GLOB (test code = AGRR) 1.0 1.0-2.6 ALK PHOS (test code = 35A) 130 IU/L 42-121 H AST (test code = 30A) 35 IU/L <=42 ALT (test code = 31A) 58 IU/L <=78 CARDIAC [id number] 15:41:00 Test Item Value Reference Range Interpretation Comments TROPONIN I (test code = A84) 0.048 ng/mL 0.000-0.045 H CKMB (test code = A49) 1.4 ng/mL <=3.6 CPK (test code = 32A) 113 IU/L 39-308 PRO TIME AND [id number] 15:34:00 Test Item Value Reference Range Interpretation Comments PT (test code = 11.1 s 9.8-13.6 TT) INR (test code = 1.0 INR) INRH (test code = SUGGESTED THERAPEUTIC INRH) RANGE FOR INR: 2.5 - 3.5 For Patients with Prosthetic Valves or Patients with recurrent Thromboembolic Events 2.0 - 3.0 For Most Other Applications PTT (test code = 23.1 s 20.2-38.0 PTT) PTTH (test code = To monitor the PTTH) effectiveness of heparin, we offer the Anti-Xa (Heparin Assay). It can be used for either unfractinated or LMW Heparin. Order Code is ANTI-XA CBC (INCLUDES AUTOMATED DIFFERENTIAL)2016-07-13 15:28:00 Test Item Value Reference Range Interpretation Comments WBC (test code = WBC) 8.0 10\\S\\3/uL 4.5-11.0 RBC (test code = RBC) 5.51 10\\S\\6/uL 4.20-5.60 HGB (test code = HBG) 16.3 g/dL 14.0-18.0 HCT (test code = HCT) 47.4 % 35.0-46.0 H MCV (test code = MCV) 86.0 fL 80.0-94.0 MCH (test code = MCH) 29.6 pg 27.0-31.0 MCHC (test code = MCHC) 34.4 g/dL 32.0-36.0 RDW (test code = RDW) 13.0 % 11.5-14.5 PLT (test code = PLT) 356 10\\S\\3/uL 130-400 MPV (test code = MPV) 10.2 fL 9.4-12.4 NEUTROP # (test code = NE#) 5.3 10\\S\\3/uL 2.0-8.0 LYMPH # (test code = LY#) 2.0 10\\S\\3/uL 1.2-4.0 MONOCYTE # (test code = MO#) 0.7 10\\S\\3/uL 0.0-1.1 EOSINOPH # (test code = EO#) 0.0 10\\S\\3/uL 0.0-0.7 BASOPHIL # (test code = BA#) 0.1 10\\S\\3/uL 0.0-0.3 IG # (test code = IG#) 0.07 10\\S\\3/uL 0.00-0.06 H NRBC # (test code = NRBC#) 0.00 10\\S\\3/uL 0.00-0.01 NEUTROPH % (test code = NE%) 65.5 % 35.0-73.0 LYMPH % (test code = LY%) 24.3 % 20.0-55.0 MONO % (test code = MO%) 8.7 % 2.5-10.0 EOSINOPH % (test code = EO%) 0.0 % 0.0-5.0 BASOPHIL % (test code = BA%) 0.6 % 0.0-2.0 IG % (test code = IG%) 0.9 % 0.0-0.8 H NRBC% (test code = NRBC%) 0.0 % 0.0-0.2 MANDIFF (test code = MDIFF) NO NO RBC MORPH (test code = RBCMOR) NORMAL CT HEAD W/O [id number] 15:23:17Location [id number] CT BRAINHistory: Altered mental statusCOMPARISON: CT brain dated 06/18/16.TECHNIQUE : Serial axial CT of the brain obtained without the use ofintravenous contrast in the brain and bone window settings. Sagittalreconstruction is provided. One or more of the following dose reductiontechniques were used: Automated exposure control, adjustment of the mAs and Kv.According to patient size, use of iterative reconstruction reconstructiontechnique. DLP 1091 mGy-cm.FINDINGS:There is no evidence of acute cerebrovascular injury, mass effect or midlineshift. No evidence of subarachnoid hemorrhage, intracerebral hematoma, orextraaxial fluid collections.There is mild generalized parenchymal volume loss with compensatory widening ofthe ventricular system. Mild periventricular white matterhypodensity iscompatible with chronic microangiopathy changes.Note ectasia and tortuosity of the basilar artery. There is atherosclerosis ofthe carotid arteries as well.Osseous structures are unremarkable. The orbits appear normal. The visibleparanasal sinuses and mastoid air spaces are clear. If symptomatology persists, correlation with MRI may be of further benefit.IMPRESSION:1. No CT evidence for acute intracranial process. 2. Note of ectatic tortuous basilar artery.3. If symptoms persist or progress, correlation with MRI may be obtained.
[2022-09-15] MEDS ORDERED: HYDROCODONE/APAP 5/325 MG TAB ONE (13:44)
--- NOTE | 2022-09-15 14:15 | RAD REPORT ---
EXAM DESCRIPTION: RAD - Ribs Left - 09/15/2022 1:58 pm CLINICAL HISTORY: PAIN COMPARISON: No comparisons TECHNIQUE: Left ribs, 4 views. FINDINGS: No displaced rib fracture is evident. No aggressive rib lesion. Suspected small left pleural effusion. No underlying pneumothorax, infiltr ate or pulmonary contusion. IMPRESSION: No acute displaced rib fractures. Suspected small left pleural effusion.
[2022-09-15] MEDS ORDERED: MORPHINE 4 MG/ML SYR ONE (14:27)
[2022-09-15 14:35] LABS: Absolute Lymphocytes (CBC) 0.9 K/uL (0.7-4.9); Hematocrit 47.1 % (39.6-49.0); Lymphocytes % 15.1 % (15.3-44.8); MCV 84.9 fL (80-100); MPV 8.4 fL (7.6-11.3); RBC Red Blood Cell Count 5.54 M/uL (4.33-5.43)
[2022-09-15 14:47] LABS: Potassium 4.8 mEq/L (3.5-5.1)
--- NOTE | 2022-09-15 15:24 | RAD REPORT ---
EXAM DESCRIPTION: CT - Thorax Wo Con - 09/15/2022 2:38 pm CLINICAL HISTORY: Chest pain;Trauma COMPARISON: Head C Spine Mpr Wo Con dated 09/15/2022; Ribs Left dated 09/15/2022 TECHNIQUE: Axial thin cut images of the chest were obtained without IV contrast. Multiplanar reforma ts were generated and reviewed. All CT scans are performed using dose optimization technique as appropriate and may include automated exposure control or mA/KV adjustment according to patient size. FINDINGS: No mass or infiltrate in the lung parenchyma. Bibasilar atelectatic changes. No pleural th ickening or pleural effusion. No pneumothorax. No abnormal mediastinal or hilar masses or lymphadenopathy seen. No significant aortic or pulmonary a rtery findings. Assessment is limited in the absence of IV contrast. No chest wall mass or abnormal axillary lymphadenopathy. Superior endplate compression deformities in the lower thoracic spine, with most severe height loss p resent at T12. This is favored to be chronic given absence of prevertebral edematous changes. Evaluation of the solid abdominal structures reveals no suspicious findings. IMPRESSION: No acute process within the chest. Incidental findings as above.
--- NOTE | 2022-09-15 15:35 | RAD REPORT ---
EXAM DESCRIPTION: CT - CTHCSPWOC - 09/15/2022 2:38 pm CLINICAL HISTORY: TRAUMA COMPARISON: No comparisons TECHNIQUE: Axial thin cut noncontrast CT images of the head were obtained. Axial thin cut noncontrast CT images of the cervical spine were obtained. Multiplanar reformatted images were generated and reviewed. All CT scans are performed using dose optimization technique as appropriate and may include automated exposure control or mA/KV adjustment according to patient size. FINDINGS: CT HEAD WITHOUT CONTRAST: No acute hemorrhage, hydrocephalus or extra-axial collection is identified.No areas of brain edema or midline shift. The paranasal sinuses and mastoids are clear.The calvarium is intact. CT CERVICAL SPINE WITHOUT CONTRAST: No fracture or subluxation.No prevertebral soft tissues swelling is identified. Mild degenerative ch anges with disc height loss and disc material mineralization at C4-5. IMPRESSION: No acute traumatic intracranial or cervical spine findings.
--- NOTE | 2022-09-15 15:53 | EDPHYS ---
Physician Documentation [facility] Name: Juventino Hanson Age: 61 yrs Sex: Male : 1960 Arrival Date: 09/15/2022 Time: 13:17 Bed DIS1 Private MD: ED Physician Rudy Machuca HPI: 09/15 13:30 This 61 yrs old Male presents to ER via EMS with complaints of Fall Injury, Chest Wall ms3 Injury. 13:30 61-year-old male presents via [facility] for fall this morning. Patient states he is ms3 having 10/10 left-sided sharp rib pain. Patient denies alleviating factors. Patient states his pain is worse with inspiration. Patient states he urinated and was walking back to his bed when his walker caught the corner of his bed causing him to fall over his walker and landed on his left side. Patient denies loss of consciousness. Historical: - Allergies: 13:25 No Known Allergies; ss ROS: 13:30 Constitutional: Negative for fever, and chills. Neck: Negative for injury, pain, and ms3 swelling, Respiratory: Negative for shortness of breath, cough, wheezing, and pleuritic chest pain, Abdomen/GI: Negative for abdominal pain, nausea, vomiting, diarrhea, and constipation, MS/Extremity: Negative for injury and deformity, Skin: Negative for injury, rash, and discoloration, Neuro: Negative for headache, weakness, numbness, tingling. 13:30 Cardiovascular: Positive for Left sided rib pain. Exam: 13:30 Constitutional: This is a well developed, well nourished patient who is awake, alert, ms3 and in no acute distress. Head/Face: Normocephalic, atraumatic. Neck: Trachea midline, no cervical lymphadenopathy. Supple, full range of motion without nuchal rigidity, or vertebral point tenderness. No Meningismus. Chest/axilla: Normal chest wall appearance and motion. Nontender with no deformity. Cardiovascular: Regular rate and rhythm with a normal S1 and S2. No gallops, murmurs, or rubs. Normal PMI, no JVD. No pulse deficits. 13:30 Chest/axilla: Inspection: normal, Palpation: no acute changes, crepitus, is not appreciated, tenderness, that is moderate, of the left lateral anterior chest. 13:30 Respiratory: the patient does not display signs of respiratory distress, Respirations: normal, Breath sounds: are clear throughout. 13:30 Back: pain, that is moderate, of the left subscapular area. Vital Signs: 13:20 BP 126 / 83; Pulse 71; Resp 16; Temp 97(TE); Pulse Ox 99% on R/A; Weight 111.58 kg; ss Height 5 ft. 7 in. ; Pain 10/10; 14:48 BP 125 / 91; Pulse 75; Resp 18; Pulse Ox 93% on R/A; nj1 15:27 BP 125 / 91; Pulse 70; Resp 18; Pulse Ox 93% ; Pain 7/10; nj1 13:20 Body Mass Index 38.53 (111.58 kg, 170.18 cm) ss 13:20 Pain Scale: Adult ss 15:27 Pain Scale: Adult nj1 MDM: 13:30 Differential diagnosis: closed head injury, contusion, fracture, sprain, strain, PTX. ms3 13:34 Patient medically screened. ms3 19:06 Data reviewed: vital signs, nurses notes, lab test result(s), radiologic studies, CT ms3 scan, plain films, and as a result, I will discharge patient. I considered the following discharge prescriptions or medication management in the emergency department Medications were administered in the Emergency Department. See MAR. Independent interpretation of the following test(s) in the Emergency Department X-Ray: My interpretation is X-ray images reviewed by me do not reveal rib fracture.. Historians other than the Patient: EMS: [facility]. Counseling: I had a detailed discussion with the patient and/or guardian regarding: the historical points, exam findings, and any diagnostic results supporting the discharge/admit diagnosis, lab results, radiology results, the need for outpatient follow up, to return to the emergency department if symptoms worsen or persist or if there are any questions or concerns that arise at home. ED course: Discussed imaging and labs with patient. Patient to follow-up with primary care physician in 2 to 3 days. Patient understands agrees with plan. All questions were answered. Return precautions discussed to include worsening symptoms, or any other concerns.. 09/15 13:29 Order name: Basic Metabolic Panel; Complete Time: 15:29 ms3 09/15 13:29 Order name: CBC with Diff; Complete Time: 15:29 ms3 09/15 13:29 Order name: Type And Screen; Complete Time: 15:29 ms3 09/15 15:26 Order name: ABO/RH no charge; Complete Time: 15:29 EDMS 09/15 13:29 Order name: CT Head C Spine; Complete Time: 15:43 ms3 09/15 13:29 Order name: Ribs Left XRAY; Complete Time: 15:29 ms3 09/15 14:15 Order name: Chest Wo Con CT; Complete Time: 15:29 ms3 09/15 13:29 Order name: Labs collected and sent; Complete Time: 14:44 ms3 Administered Medications: 13:39 Drug: HYDROcodone-acetaminophen PO 5 mg-325 mg 1 tabs Route: PO; nj1 14:23 Follow up: Response: No adverse reaction; Pain is unchanged, physician notified nj1 14:23 Drug: morphine IVP or IV 4 mg Route: IVP; Infused Over: 4 mins; Site: left antecubital; nj1 15:30 Follow up: Response: No adverse reaction; Pain is decreased nj1 Disposition Summary: 09/15/22 15:52 Discharge Ordered Location: Home ms3 Condition: Stable ms3 Diagnosis - Fall on same level, unspecified ms3 - Left sided rib pain ms3 - Back pain ms3 Followup: ms3 - With: Clem Baeza DO - When: 2 - 3 days - Reason: Recheck today's complaints Discharge Instructions: - Discharge Summary Sheet ms3 - Fall Prevention in the Home, Adult ms3 - Musculoskeletal Pain ms3 Forms: - Medication Reconciliation Form ms3 - Thank You Letter ms3 - Antibiotic Education ms3 - Prescription Opioid Use ms3 Prescriptions: - tizanidine 2 mg Oral capsule - take 1 capsule by ORAL route every 6 hours as needed for muscle spasticity; do ms3 not exceed 3 doses per 24 hrs; 12 capsule; Refills: 0, Product Selection Permitted - Ibuprofen 600 mg Oral Tablet - take 1 tablet by ORAL route every 6 hours As needed take with food; 30 tablet; ms3 Refills: 0, Product Selection Permitted Signatures: Dispatcher [employer] Blanca Phan RN RN ss Sims, Marcus, DO DO ms3 Toshia Hernández RN RN nj1
--- NOTE | 2022-09-15 15:53 | ER ---
Nurse's Notes [facility] Name: Juventino Hanson Age: 61 yrs Sex: Male : 1960 Arrival Date: 09/15/2022 Time: 13:17 Bed DIS1 Private MD: Diagnosis: Fall on same level, unspecified;Left sided rib pain;Back pain Presentation: 09/15 13:20 Chief complaint: Patient states: tripped and fell from standing position and hit L side ss of ribs/ back on walker \T\ 0700 this am. Pt c/o L sided chest wall/ back pain. Coronavirus screen: Client denies travel out of the [place] in the last 14 days. Ebola Screen: Patient denies exposure to infectious person. Patient denies travel to an Ebola-affected area in the 21 days before illness onset. Initial Sepsis Screen: Does the patient meet any 2 criteria? No. Patient's initial sepsis screen is negative. Does the patient have a suspected source of infection? No. Patient's initial sepsis screen is negative. Risk Assessment: Do you want to hurt yourself or someone else? Patient reports no desire to harm self or others. Onset of symptoms was September 15, 2022. 13:20 Method Of Arrival: EMS: [facility] ss 13:20 Acuity: LOLA 3 ss Historical: - Allergies: 13:25 No Known Allergies; ss Screenin:35 [facility] [place] ED Fall Risk Assessment (Adult) History of falling in the last 3 months, nj1 including since admission Yes- single mechanical fall (1 pt) Confusion or Disorientation No (0 pts) Intoxicated or Sedated No (0 pts) Impaired Gait Yes (1 pt) Mobility Assist Device Used Yes (1 pt) Altered Elimination No (0 pt) Score/Fall Risk Level 3 or more points = High Risk Oriented to surroundings, Maintained a safe environment, Educated pt \T\ family on fall prevention, incl call for assistance when getting out of bed, Assessed \T\ reinforced patient's understanding of fall precautions, Hourly rounding (assess needs \T\ fall precautionary measures) done, Offered frequent toileting (1:1 observation). 13:35 Abuse screen: Denies threats or abuse. Denies injuries from another. Nutritional nj1 screening: No deficits noted. Tuberculosis screening: No symptoms or risk factors identified. Assessment: 13:35 Reassessment:. General: Appears in no apparent distress. uncomfortable, Behavior is nj1 calm, cooperative, appropriate for age. 13:35 Pain: Complains of pain in chest. Neuro: Level of Consciousness is awake, alert, obeys nj1 commands, Oriented to person, place, time, situation. Cardiovascular: Reports chest pain, Patient's skin is warm and dry. Respiratory: Airway is patent Respiratory effort is even, unlabored. 14:23 Reassessment: Patient appears in no apparent distress at this time. Patient and/or nj1 family updated on plan of care and expected duration. Pain level reassessed. Patient is alert, oriented x 3, equal unlabored respirations, skin warm/dry/pink. Pain: Complains of pain in chest Pain currently is 10 out of 10 on a pain scale. 15:27 Reassessment: Patient appears in no apparent distress at this time. Patient and/or nj1 family updated on plan of care and expected duration. Pain level reassessed. Patient is alert, oriented x 3, equal unlabored respirations, skin warm/dry/pink. Pain: Complains of pain in chest Pain currently is 7 out of 10 on a pain scale. 17:09 Reassessment: Patient appears in no apparent distress at this time. Pt asking if he can ss be admitted to help him get into a prison. Dr. Machuca notified and states that patient does not meet admission criteria at this time. Pt verbalizes understanding. Reassessment: Pt placed in ER lobby in wheelchair awaiting for ride. Respiratory: Airway is patent Respiratory effort is even, unlabored, Respiratory pattern is regular, symmetrical. Derm: Skin is pink, warm \T\ dry. normal. Vital Signs: 13:20 BP 126 / 83; Pulse 71; Resp 16; Temp 97(TE); Pulse Ox 99% on R/A; Weight 111.58 kg; ss Height 5 ft. 7 in. ; Pain 10/10; 14:48 BP 125 / 91; Pulse 75; Resp 18; Pulse Ox 93% on R/A; nj1 15:27 BP 125 / 91; Pulse 70; Resp 18; Pulse Ox 93% ; Pain 7/10; nj1 13:20 Body Mass Index 38.53 (111.58 kg, 170.18 cm) 13:20 Pain Scale: Adult ss 15:27 Pain Scale: Adult nj1 ED Course: 13:19 Patient arrived in ED. ss 13:21 Rudy Machuca DO is Attending Physician. ms3 13:25 Triage completed. ss 13:25 Arm band placed on right wrist. ss 13:35 Patient has correct armband on for positive identification. Bed in low position. Call nj1 light in reach. Side rails up X 1. 13:36 Toshia Hernández, RN is Primary Nurse. nj1 13:57 Radiology exam delayed due to pt unable to lay down for CT scan due to pain. [id number] 14:01 Ribs Left XRAY In Process Unspecified. EDMS 14:17 Note: 22g diffusics to lt ac, labs drawn and sent by zahida in ct. sj 14:40 CT Head C Spine In Process Unspecified. EDMS 14:[address] In Process Unspecified. EDMS 14:44 Basic Metabolic Panel Sent. mb9 14:44 Type And Screen Sent. mb9 15:51 Clem Baeza DO is Referral Physician. ms3 17:09 No provider procedures requiring assistance completed. IV discontinued, intact, ss bleeding controlled, No redness/swelling at site. Pressure dressing applied. Administered Medications: 13:39 Drug: HYDROcodone-acetaminophen PO 5 mg-325 mg 1 tabs Route: PO; nj1 14:23 Follow up: Response: No adverse reaction; Pain is unchanged, physician notified nj1 14:23 Drug: morphine IVP or IV 4 mg Route: IVP; Infused Over: 4 mins; Site: left antecubital; nj1 15:30 Follow up: Response: No adverse reaction; Pain is decreased nj1 Outcome: 15:52 Discharge ordered by MD. ms3 17:09 Discharged to home via wheelchair. ss 17:09 Condition: good 17:09 Discharge instructions given to patient, Instructed on discharge instructions, follow up and referral plans. Demonstrated understanding of instructions, follow-up care, Prescriptions given X 2. 17:15 Patient left the ED. ss Signatures: Dispatcher [employer] Zahida Iniguez Shelby, RN RN Rudy Machuca DO DO ms3 Dianelys Padilla [id number] Juliana oGodman RN RN mb9 Edgar, Toshia, RN RN nj1 Corrections: (The following items were deleted from the chart) 14:52 14:48 Pulse 75bpm; Resp 18bpm; Pulse Ox 93% RA; nj1 nj1
[2022-09-15 17:21] VITALS: TEMP 97
[2022-09-15 17:23] VITALS: BP 125/91; O2SAT 93
== END 2022-09-15 17:15 | disposition home or self-care (01) ==
LOC: ER 13:17
DX: R07.81 Pleurodynia (principal); M54.9 Dorsalgia, unspecified; W18.30XA Fall on same level, unspecified, initial encounter
CPT/HCPCS: 36415; 70450; 71250; 72125; 80048; 85025; 86850; 86900; 86901